=== PATIENT | female | born 1945 | race Caucasian/White ===

== ENCOUNTER → 2017-06-16 07:05 | Outpatient (CLI) | payer MEDICARE, OTHER, SELFPAY ==
--- NOTE | 2017-06-16 07:08 | MRI_ITS ---
STUDY: MRI LEFT SHOULDER REASON FOR EXAM: Female, 71 years old. Painful movement of the left shoulder following a fall. Injury TECHNIQUE: Standardized fat and water weighted pulse sequences were obtained in all 3 orthogonal planes. COMPARISON: X-rays of the left shoulder on May 11, 2017. FINDINGS: There is a full-thickness tear of the supraspinatus and infraspinatus tendons with tendon retraction to the level of the glenohumeral joint measuring approximately 3.5 cm in diameter (coronal T2 series 6 image 10). Normal subscapularis tendon. Normal teres minor tendon. There is 50% fatty muscular atrophy of the supraspinatus muscle (Goutallier Stage III). There is 50% fatty muscular atrophy of the infraspinatus muscle (Goutallier Stage III). There is a low-grade myofascial strain of the infraspinatus muscle. Normal subscapularis muscle. Normal teres minor muscle. There is a moderate volume joint effusion of the glenohumeral joint. There is decreased acromiohumeral distance Normal humeral head and visualized proximal humerus. Normal biceps labral complex. There is tendinosis of the intracapsular long biceps tendon. Normal labrum. Normal capsulo- ligamentous complex. Normal rotator interval. There is moderate arthrosis of the acromioclavicular articulation. There is a Type II morphology (curved), with a neutral orientation. There is fluid distention of the subacromial-subdeltoid bursa, which communicates with the glenohumeral joint, through a rotator cuff tear. Normal visualized coracohumeral and coracoacromial ligaments. Normal quadrilateral space. Normal axillary space. Normal deltoid muscle. Normal trapezius muscle. MRI/Upper Ext Joint Only(Routine) IMPRESSION: Massive full-thickness retracted tear of the supraspinatus and infraspinatus tendons with muscular atrophy. Low-grade myofascial strain of the infraspinatus muscle. Mild tendinosis of the intracapsular segment of the long biceps tendon Joint effusion with fluid extending into the subacromial subdeltoid bursa through the rotator cuff tear. Moderate arthrosis of the acromioclavicular joint. Electronically Signed: Guido Trinh MD, FACR at 8:31 EST , Service support ,
== END ==
PROVIDERS: Family Provider Nurse Practitioner Family; PCP Nurse Practitioner Family; Visit Provider Orthopaedic Surgery
DX: M25.512 Pain in left shoulder (principal)
CPT/HCPCS: 73221

== ENCOUNTER 2017-06-19 08:30 | Outpatient (RCR) | payer MEDICARE, OTHER, SELFPAY ==
--- NOTE | 2017-05-22 08:57 | HP.PTEVAL_ITS ---
Patient's Visit Information KEM CHOUDHURY is a 71 year old F referred to Physical Therapy by DO AISHA Riggins with a diagnosis of L rot cuff tear. Date of Evaluation: 05/22/17 Physical Therapist: Miller Armenta, PT, - Visit Plan Frequency: 2x /Week Duration: 6 Weeks Plan: L shoulder strengthening (rot cuff), scap stab ex's, UBE, and HEP. CP/US for pain - Subjective Subjective: Pt reports she fell on the ice over a week ago which resulted in severe L shoulder pain. Pt reports she was unable to lift her arm, so she went straight to the ER. Pt reports they took xrays which revealed no Fx, but a rot cuff tear. Pt reports she was in a sling until 2 days ago. Pt reports the pain has eased a little from wearing the sling, but she is still in a lot of pain.. No prior L shoulder injuries. No T or N in L UE. No sleep diff secondary to pain. Pt is R hand dominant. 0/10 pain at rest, 9/10 at worst (with movement after taking the sling off) - Pain L shoulder Pain Intensity (Out of 10): 0 Pain Intensity Range: 9 - Objective Neuro: B UE sensation is WNL to light touch. B biceptital reflex= 2/3. Palpation: Pt is very tender on the lateral aspect of L shoulder near supraspinatus insertion. No obvious deformity present at this time. ROM: R shoulder flex= 175, abd= 155, ER= 55, ER WNL; L shoulder flex= 55, abd= 55, ER= 25, IR severely limited. MMT: R shoulder 5/5 throughout. L shoulder 2-/5 throughout and painful with all testing. Special testing: positive empty can test - Goals Goal 1:: Decrease L shoulder pain to aid with driving Goal Time Frame: 4-6 Weeks Goal 2:: Increase L shoulder flex and abd ROM x 50 degrees to aid with overhead lifting Goal Time Frame: 4-6 Weeks Goal 3:: Increase L shoulder strength x 1 grade to aid with IADL's Goal Time Frame: 4-6 Weeks Goal 4:: I with HEP Goal Time Frame: 4-6 Weeks - Rehabilitation Potential Physical Therapy Diagnosis: L shoulder pain, weakness, and limited ROM secondary to a L rot cuff tear. Rehabilitation Potential: Good - Anticipated Interventions Patient/Client Instruction: Educate patient on: Condition, Plan of Care For the Purpose of:: To improve self management Therapeutic Exercise to Include: Strength training, Body mechanics, Postural training, Passive ROM, Active ROM, Scapular Strength/Stabilization For the Purpose of:: To decrease pain, To increase ROM, To improve muscle performance and motor function Cryotherapy (ice pack, ice massage): Yes Ultrasound (thermal/non thermal): Yes For the Purpose of:: To decrease pain Thank you for the opportunity to evaluate your patient. For Medicare and Medicare HMO plans, please review the plan of care and approve it. It will need to be FAXED BACK to us at [phone] for Medicare purposes. Please let me know if there are questions or concerns regarding this plan of care. Physician Signature: Date:
--- NOTE | 2017-07-01 07:54 | HP.PT.NRP ---
HP - Discharge Summary (1) - Patient Information KEM CHOUDHURY was seen in my office for initial evaluation on 05/22/17. The following Plan of Care was established for this patient: Initial Frequency: 2x /Week Initial Duration: 6 Weeks - Anticipated Interventions Patient/Client Instruction: Educate patient on: Condition, Plan of Care For the Purpose of:: To improve self management Therapeutic Exercise to Include: Strength training, Body mechanics, Postural training, Passive ROM, Active ROM, Scapular Strength/Stabilization For the Purpose of:: To decrease pain, To increase ROM, To improve muscle performance and motor function Cryotherapy (ice pack, ice massage): Yes Ultrasound (thermal/non thermal): Yes For the Purpose of:: To decrease pain This patient was last seen in our office . Pertinent comments regarding their Physical therapy will appear below: Pt phoned the clinic on the date 06/25/17 to report she is having surgery and wanted to cancel her remaining appointments. At this point I will be discontinuing this patient from physical therapy. I would be happy to see this patient again in the future if found appropriate by the physician. Thank you! Miller Armenta, PT,
== END 2017-06-19 19:00 | disposition home or self-care (01) ==
LOC: PT 08:30
PROVIDERS: Family Provider Nurse Practitioner Family; PCP Nurse Practitioner Family; Visit Provider Orthopaedic Surgery
DX: M75.102 Unspecified rotator cuff tear or rupture of left shoulder, not specified as traumatic (principal)
CPT/HCPCS: 97110; 97161

== ENCOUNTER 2017-07-14 08:46 | Day surgery (SDC) | payer MEDICARE, OTHER, SELFPAY ==
--- NOTE | 2017-07-09 08:43 | EKG12_ITS ---
Test Reason : PRE OP Blood Pressure : / mmHG Vent. Rate : 078 BPM Atrial Rate : 078 BPM P-R Int : 162 ms QRS Dur : 076 ms QT Int : 376 ms P-R-T Axes : 056 072 036 degrees QTc Int : 428 ms Normal sinus rhythm ST abnormality, possible digitalis effect Abnormal ECG Confirmed by JUDY TOBIN, ELEUTERIO ([id number]), makeup editor ELA SHERMAN ([id number]) on 07/13/2017 1:58:43 PM Referred By: Owen Wolef Confirmed By:ELEUTERIO KIM MD
[2017-07-09 09:28] LABS: Hematocrit 46.7 % (37-47); Hemoglobin 15.2 g/dl (12.0-15.0); Mean Corp Hgb Conc 32.5 g/gl (32-36); Mean Corpuscular Hgb 29.8 pg (27.0-32.0); Mean Corpuscular Volume 91.6 fL (81-99); Mean Platelet Vol. 10.3 fl (6.2-12.0); Platelet Count 350 K/mm3 (150-450); RBC Distribution Width CV 14.3 % (11.6-14.6); RBC Distribution Width SD 48.6 fl (35.1-43.9); White Blood Count 8.7 K/mm3 (4.4-11.0)
[2017-07-09 09:30] LABS: Scan Indicated on CBC? Y/N NO
[2017-07-09 09:56] LABS: Anion Gap 8 (5-15); BUN 21 mg/dL (7-18); BUN/Creat Ratio 25.1 RATIO (10-20); Chloride 106 mmol/L (98-107); Creatinine, Serum 0.84 mg/dL (0.55-1.02); EST Glomerular Filtration Rate 72 mL/min (>60); Est Glom Filt Rate - Afr Amer 87 mL/min (>60); Glucose 89 mg/dL (74-106); Potassium 4.3 mmol/L (3.5-5.1); Sodium Level 140 mmol/L (136-145)
[2017-07-14] VITALS (7 sets, daily range): BP systolic 119–140; BP diastolic 61–78; PULSE 70–89; RESP 14–18; TEMP 35.8–37.2; O2SAT 93–99; BMI 33.2
--- NOTE | 2017-07-14 09:16 | DCINST_ITS ---
Discharge Activity: Return to Normal Activity, May not drive while taking narcotic pain medications., May Shower May shower in (days): 2 Ice area for (Minutes): 20 Weight Bearing Status: No weight bearing Lifting Restrictions: No lifting Additional Activity Instructions:: Patient may flex and extend elbow ad shayne. No active lifting of the arm. Command button-down shirts if able. Sling 24 7 except bathing. Call your doctor if your incision/area has: Continuous Slow Oozing, Sudden Increased Bleeding, Increased Pain/ Swelling, Increased Redness, Foul Smelling Discharge, Swelling at the incision site Call your doctor if you observe: Fever of 101 or Higher, Coldness, Increased Pain, Numbness or Tingling, Change in Color, Inability to urinate, Inability to have a bowel movement, Using more than one pad per hour, Shortness of breath, Dizziness, Fainting spells, Swelling in the ankles, Chest pain, Prolonged hiccoughing, Increased palpitations (irregular heartbeat), Calf discomfort, Uncontrolled pain Suture Line Care: Avoid Pulling/Pushing, Avoid Pinching/Bending Change Dressing in (Days):: 2 Remove Dressing in (days):: 2 Cleanse incision/area with: Soap & Water Additional Dressing/Incision Instructions:: Replace dressing with simple Band- Aids as needed. Allergies/Adverse Reactions: Allergies vancomycin Allergy (Severe, Verified 06/24/17 10:24) Rash DIFFICULTY BREATHING prednisone Adverse Reaction (Unknown, Verified 06/24/17 10:24) TACHYCARDIA TACHYCARDIA codeine Adverse Reaction (Verified 06/24/17 10:24) ABD PAIN ABDOMINAL PAIN ANESTHESIA MED Allergy (Uncoded 05/11/17 06:55) DIFFICULT TIME WAKING UP Medications to take at Discharge Calcium 1 tab PO BID 01/31/13 Lisinopril [Zestril] 5 mg PO DAILY 01/31/13 ibuprofen 200 mg tablet 600 mg PO PRN PRN tab 06/24/17 Docusate Sodium [Colace] 100 mg PO BID PRN PRN #10 cap 07/14/17 Oxycodone HCl/Acetaminophen [Percocet 5/325] 1 - 2 tablet PO Q4H PRN PRN #60 tablet 07/14/17 ProMETHAzine [Phenergan] 25 mg PO Q4H PRN PRN #10 tab 07/14/17 The following prescriptions were given: Oxycodone HCl/Acetaminophen [Percocet 5/325] 1 - 2 tablet PO Q4H PRN PRN #60 tablet PRN Reason: Pain ProMETHAzine [Phenergan] 25 mg PO Q4H PRN PRN #10 tab PRN Reason: Nausea Docusate Sodium [Colace] 100 mg PO BID PRN PRN #10 cap PRN Reason: Constipation Primary Care Physician: Amilcar Gaytan [Primary Care Provider] - Please Follow Up With: Owen Wolfe DO When: call [facility] for appt for 2 weeks Proposed Discharge Date: 07/14/17
[2017-07-14] MEDS: Cefazolin 2 GM in 0.9% Normal Saline 100 ML IV (10:03)
[2017-07-14] MEDS: Ketorolac 15 MG/ML Vial IV (11:49)
--- NOTE | 2017-07-15 07:36 | PCM.IMDPSTOP ---
Immediate Post-Op Note Date of Procedure: 07/15/17 Primary Surgeon/Physician: Owen Wolfe DO midwife [facility] owner: NONE Pre-Operative Diagnosis: Left shoulder massive rotator cuff tear subacromial impingement Post-Operative Diagnosis: Same as above Surgery/Procedure Performed:: Left shoulder arthroscopy extensive rotator cuff debridement and subacromial decompression. Description of Surgical Findings:: See dictation Estimated Blood Loss: 10 Specimen's removed: None Type of Anesthesia:: General/Regional ASA Class: ASA2 Mod Systematic Disease - Admit VTE Documentation VTE Present on Admission: No VTE Mechan Device Prophylaxis: SCD's, Knee High MILAGROS Hose VTE Pharm Prophylaxis ordered?: No Reason prophylaxis not ordered:: Treatment Not Indicated
--- NOTE | 2017-07-15 07:37 | PCM.OPRPT ---
Report of Operation Date of Procedure: 07/15/17 Pre-Operative Diagnosis: Left shoulder massive rotator cuff tear subacromial impingement Post-Operative Diagnosis: Same as above Surgery/Procedure Performed:: Left shoulder arthroscopy extensive rotator cuff debridement and subacromial decompression. Description of Surgical Findings:: 71-year-old female with recalcitrant left shoulder pain that failed nonoperative management to include NSAIDs activity medications physical therapy and injections. Patient had an MRI that showed a massive retracted rotator cuff tear to the supraspinatus and infraspinatus. Patient had an acute falls there was concern initially that was an acute episode and perhaps mobilized the tendon could be repaired. Patient was counseled that the tendon was not repairable then recommendation would be for reverse total shoulder arthroplasty in a staged procedure. After appropriate counseling sent patient agreed to the aforementioned procedure. She is met in the holding area the left upper extremity was marked and identified with surgeon. Patient was taken the operating room in satisfactory condition with somewhat to place 25 patient up procedure and limb. Patient received 2 g of Ancef. Patient was placed into the beachchair position with all bony and soft tissue prominences protected. Her head was in a fine neutral position. She was then prepped and draped in usual fashion. The arm was placed into a three-dimensional arm tejada. Posterior portal was established and we entered into the intra-articular space. It was easy to see the patient had a massive cuff tear with a bald humeral head essentially but had also torn most likely at the musculotendinous junction as there was still insertion of the tendon moving from the articular margins laterally for the infraspinatus to its lateral insertion site. The supraspinatus was completely retracted over top of the glenoid was significantly scarred. Patient had somewhat posterior capsular disruption as well. The overall labral tissue was intact as was the biceps tendon which was flattened probably indicative of the chronic nature of the disease. This was provided also probably providing some degree of humeral head depression. Her subscapularis however was otherwise normal. At that point time the scope was retracted and we moved in the subacromial space established a lateral portal and a posterior lateral working portal start performing a significant subacromial bursectomy and rotator cuff debridement. Made an attempt to immobilize the tissue wondering if this was just a large retracted L type tear pattern however the tissue was significantly attenuated and friable with mobilization. Again it would appear that most of the tearing was at the musculotendinous junction which would not allow for a successful repair. Standard subacromial decompression was then undertaken. I preserve the biceps at this point time in case the patient does not desire to have a reverse total shoulder arthroplasty. Upon completion of the bursectomy and subacromial decompression scope was retracted and the portal sites were closed with 3-0 nylon. She was dressed in usual fashion with Xeroform 4 x 4's ABDs and Medipore tape and placed into a simple sling. I was scrubbed and available time during our procedure. There is no drains or complications we had no implants. health therapist: NONE Type of Anesthesia:: General/Regional Specimen's removed: None Estimated Blood Loss (mL): 10 Grafts/Implants Used: None - Admit VTE Documentation VTE Present on Admission: No VTE Mechan Device Prophylaxis: SCD's, Knee High MILAGROS Hose VTE Pharm Prophylaxis ordered?: No
== END 2017-07-14 12:58 | disposition home or self-care (01) ==
LOC: SDC 08:47 → AC 08:47
PROVIDERS: Family Provider Nurse Practitioner Family; PCP Nurse Practitioner Family; Visit Provider Orthopaedic Surgery
PROC: (CPT 29827; principal; 2017-07-14 11:05)
DX: M75.122 Complete rotator cuff tear or rupture of left shoulder, not specified as traumatic (principal); M75.42 Impingement syndrome of left shoulder; I10 Essential (primary) hypertension; I07.1 Rheumatic tricuspid insufficiency
CPT/HCPCS: 01630; 29823; 36415; 80048; 85027; 93005; J7120; J2405

== ENCOUNTER → 2018-04-01 16:27 | Outpatient (CLI) | payer MEDICARE, OTHER, SELFPAY ==
[2017-07-14 09:08] VITALS: BMI 33.2
--- NOTE | 2018-04-01 09:06 | COLBX_PTH ---
PATIENT: KEM CHOUDHURY LOC: [facility] U#:[id number] AGE/SX: 79/F ROOM: RE04/01/[address]: Dr. Sandeep Sanchez MD : [id number] BED: DIS: SPEC #: [id number] RECD: 04/01/18 15:27 STATUS: ROMAN BA #: [id number] ADOLFO: 04/01/18 09:[address]: Sandeep Sanchez DEPT: SURGICAL PATHOLOGY RECD BY: Amilcar Tovar ENTERED: 04/02/18 08:03 SP TYPE: COLON BX OTHR DR: TRAVIS Tissues: COLON BIOPSY Procedures: Surgery Specimen Level IV HEADER OPERATION: Colonoscopy with polypectomy PRE-OP DIAGNOSIS: Screening TISSUE SUBMITTED: Polyp hepatic flexure, rule out adenoma MICROSCOPIC DIAGNOSIS Polyp, hepatic flexure, polypectomy: Fragments of tubular adenoma. SJ:renee 04/05/18 MICROSCOPIC DESCRIPTION Slides are reviewed. GROSS DESCRIPTION Received in fixative is one container labeled with the patient's name and designated polyp hepatic flexure. The specimen consists of a piece of mitchell-pink polyp measuring 0.8 x 0.5 x 0.3 cm. Also received are two pieces of mitchell soft tissue measuring in aggregate 0.2 x 0.2 x 0.1 cm. The specimen is totally submitted in one cassette. / SJ:renee 04/02/18 TC:1 CPT: 04862
--- OUTSIDE RECORDS SUMMARY | 2018-05-27 22:40 | XMS RPT_ITS ---
:1945 Author Organization OHIP Support Name Relationship Address Phone KEIYARIEL Unavailable [address] + [place] [address] R Unavailable Unavailable Unavailable RISING, NICKO Unavailable [address] + [place] [address] KEI, YARIEL Unavailable [address] + [place] [address] R Unavailable Unavailable Unavailable RISING, NICKO Unavailable [address] + [place] [address] KEI, YARIEL Unavailable [address] + [place] [address] R Unavailable Unavailable Unavailable RISING, NICKO Unavailable [address] + [place] [address] KEI, YARIEL Unavailable [address] + [place] [address] R Unavailable Unavailable Unavailable RISING, NICKO Unavailable [address] + [place] [address] KEI, YARIEL Unavailable [address] + [place] [address] R Unavailable Unavailable Unavailable RISING, NICKO Unavailable [address] + [place] [address] KEI, YARIEL Unavailable [address] + [place] [address] R Unavailable Unavailable Unavailable RISING, NICKO Unavailable [address] + [place] [address] KEI, YARIEL Unavailable [address] + [place] [address] R Unavailable Unavailable Unavailable RISING, NICKO Unavailable [address] + [place] [address] KEI, YARIEL Unavailable [address] + [place] [address] KEI, YARIEL Unavailable [address] + [place] [address] KEI, YARIEL Unavailable [address] + [place] [address] R Unavailable Unavailable Unavailable RISING, NICKO Unavailable [address] + [place] [address] KEI, YARIEL Unavailable [address] + [place] [address] R Unavailable Unavailable Unavailable RISING, NICKO Unavailable [address] + [place] [address] KEI, YARIEL Unavailable [address] + [place] [address] R Unavailable Unavailable Unavailable RISING, NICKO Unavailable [address] + [place] [address] KEI, YARIEL Unavailable [address] + [place] [address] R Unavailable Unavailable Unavailable RISING, NICKO Unavailable [address] + [place] [address] KEI, YARIEL Unavailable [address] + [place] [address] R Unavailable Unavailable Unavailable RISING, NICKO Unavailable [address] + [place] [address] KEI, YARIEL Unavailable [address] + [place] [address] R Unavailable Unavailable Unavailable RISING, NICKO Unavailable [address] + [place] [address] Care Team Providers Name Role Phone AMILCAR GAYTAN CNP Attending Unavailable AMILCAR GAYTAN CNP Primary Care Unavailable AMILCAR GAYTAN Primary Care Unavailable Gunner Garcia Attending Unavailable Owen Wolfe Attending Unavailable AMILCAR GAYTAN Referring Unavailable AMILCAR GAYTAN Primary Care Unavailable Owen Wolfe Attending Unavailable Owen Wolfe Referring Unavailable AMILCAR GAYTAN Primary Care Unavailable Owen Wolfe Attending Unavailable AMILCAR GAYTAN Referring Unavailable AMILCAR GAYTAN Primary Care Unavailable Owen Wolfe Attending Unavailable Owen Wolfe Referring Unavailable AMILCAR GAYTAN Primary Care Unavailable Owen Wolfe Attending Unavailable AMILCAR GAYTAN Referring Unavailable SENA, AMILCAR Primary Care Unavailable Aiden, Owen Attending Unavailable Aiden, Owen Referring Unavailable SENA, AMILCAR Primary Care Unavailable Aiden, Owen Attending Unavailable Aiden, Owen Referring Unavailable SENA, AMILCAR Primary Care Unavailable Aiden, Owen Consulting Unavailable Aiden, Owen Attending Unavailable SENA, AMILCAR Referring Unavailable SENA, AMILCAR Primary Care Unavailable Marcus, Moran Attending Unavailable Aiden, Owen Referring Unavailable Aiden, Owen Attending Unavailable SENA, AMILCAR Referring Unavailable SENA, AMILCAR Primary Care Unavailable Aiden, Owen Attending Unavailable SENA, AMILCAR Referring Unavailable Jaflores, Sandeep Attending Unavailable Jaflores, Sandeep Referring Unavailable PROBLEMS PROBLEMS DATE TYPE CONDITION / CODE ATTENDING STATUS SOURCE 07/31/2017 Unknown R94.31 - Abnormal Marcus, Moran Active [facility] [ECG] [EKG] / Hospital R94.31(ICD-10) Repository 10/15/2017 Unknown M75.102 - Unspecified Owen Wolfe Active [facility] rotator cuff tear or Community rupture of left Hospital shoulder, not Repository specified as traumatic / M75.102(ICD-10) 10/15/2017 Unknown M75.42 - Impingement Owen Wolfe Active [facility] syndrome of left Community shoulder / Hospital M75.42(ICD-10) Repository 10/15/2017 Unknown M75.122 - Complete Aiden, Owen Active [facility] rotator cuff tear or Community rupture of left Hospital shoulder, not Repository specified as traumatic / M75.122(ICD-10) 05/30/2017 Unknown M75.120 - Complete Garcia, Gunner Active [place] rotator cuff tear or Community rupture of unspecified Hospital shoulder, not Repository specified as traumatic / M75.120(ICD-10) PROCEDURES PROCEDURES No Procedure Records FoundRESULTS RESULTS COLON BIOPSY (CHOOSE Observed: 04/01/2018 Status: F Source: [place] SITE) 9:06 AM [facility] REPOSITORY Patient: KEM CHOUDHURY : 1945 (72/F) Acct Num: [id number] Phys: Sandeep Sanchez Unit Num: [id number] Loc: LABSPEC Specimen: [id number] Received: 04/01/187 Spec Type: COLON BX TISSUES 1 TISSUES: COLON BIOPSY GROSS DESCRIPTION Received in fixative is one container labeled with the patient's name and designated polyp hepatic flexure. The specimen consists of a piece of mitchell- pink polyp measuring 0.8 x 0.5 x 0.3 cm. Also received are two pieces of mitchell soft tissue measuring in aggregate 0.2 x 0.2 x 0.1 cm. The specimen is totally submitted in one cassette. / DEV:renee 04/02/18 TC:1 CPT: 24566 HEADER OPERATION: Colonoscopy with polypectomy PRE-OP DIAGNOSIS: Screening TISSUE SUBMITTED: Polyp hepatic flexure, rule out adenoma MICROSCOPIC DESCRIPTION Slides are reviewed. MICROSCOPIC DIAGNOSIS Polyp, hepatic flexure, polypectomy: Fragments of tubular adenoma. DEV:renee 04/05/18 Signed Aaron Singh 04/05/18 <signature on file> Performed By: #### PCOLBX #### [facility] [address] [place], [address] ORTHOPEDIC VISIT Observed: 10/30/2017 Status: F Source: [place] REPORT 11:07 AM [facility] REPOSITORY [facility] [address] [place] [address] OFFICE VISIT Date of Service: 10/21/17 MR#: [id number] Acct: [id number] Name: KEM CHOUDHURY Rep #: [id number] : 1945 Provider: Owen Wolfe DO Age/Sex: 72/F Location: [facility] [place].[facility] [place] Status: Signed Intake Intake Visit Reasons: LEFT SHOULDER Is patient in pain?: Yes Allergies vancomycin Allergy (Severe, Verified 08/26/17 08:17) Rash prednisone Adverse Reaction (Unknown, Verified 08/26/17 08:17) TACHYCARDIA codeine Adverse Reaction (Verified 08/26/17 08:17) ABD PAIN ANESTHESIA MED Allergy (Uncoded 05/11/17 06:55) DIFFICULT TIME WAKING UP Medications Calcium 1 tab PO BID 01/31/13 [History Confirmed 07/07/17] Lisinopril [Zestril] 5 mg PO DAILY 01/31/13 [History Confirmed 07/07/17] PFSH Surgical History History of arthroscopy of left shoulder (Acute) H/O breast biopsy (Inactive) History of partial hysterectomy (Inactive) S/P cholecystectomy (Inactive) s/p heart (Inactive) Family History Mother Hypertension Heart disease Father Hypertension Social History Smoking Status: Never smoker HPI LEFT SHOULDER: Details: KEM CHOUDHURY is a 72 year old F here today for 07/14/17 left RTC repair. She is no longer doing PT, is able to complete all ADLs but still complains of weakness and pain with extension or IR. She states that she struggles with having something in her hand and reaching out, like with a coffee mug. Denies numbness, tingling or other associated symptoms. [place] Musc Reports joint pain, Reports limited joint movement, Reports as per HPI Ortho Exam Left Shoulder SHOULDER: Patient otherwise alert oriented 3 no acute distress. Appropriate eye contact and affect. She remains intact from the C5-T2 distributions. She has positive pulses. No extra adenopathy. Patient remains with global weakness around the shoulder but her shoulder remained supple. She is able only active forward elevate to roughly 110 at best passively she remains full. Patient has a known history of a massive irreparable rotator cuff tear Assessment AND Plan Problems 1. Orthopedic aftercare Z47.89 Plan Assessment: After orthopedic status post left shoulder scope and cuff debridement due to a irreparable massive rotator cuff tear. Plan: This point time I discussed again the patient's surgical options. Those include a reverse total shoulder arthroplasty which would be an open procedure. I described this to the patient. She was somewhat confused by the approach to get to the shoulder but once a shoulder model and reiterated what the procedure would be she has better understanding. At this point time will refer the patient to the [facility] for continued care if the patient does not want to needing a reverse total shoulder. Patient can continue with conservative management. Any major issues return. Coding Level of Care Code Global Post Op Diagnoses Orthopedic aftercare Z47.89 10/30/17 1107 <Electronically signed by Owen Wolfe DO> Date Owen Wolfe DO Cosigner Signature: Date (if applicable) CC: ORTHOPEDIC VISIT Observed: 09/07/2017 Status: F Source: [place] REPORT 7:54 AM [facility] REPOSITORY [facility] [address] [place] [address] [address] [place] [address] OFFICE VISIT Date of Service: 08/26/17 MR#: [id number] Acct: [id number] Name: KEM CHOUDHURY Rep #: [id number] : 1945 Provider: Owen Wolfe DO Age/Sex: 72/F Location: [facility] [place].[facility] [place] Status: Signed Intake Intake Visit Reasons: LEFT SHOULDER Is patient in pain?: No Allergies vancomycin Allergy (Severe, Verified 08/26/17 08:17) Rash prednisone Adverse Reaction (Unknown, Verified 08/26/17 08:17) TACHYCARDIA codeine Adverse Reaction (Verified 08/26/17 08:17) ABD PAIN ANESTHESIA MED Allergy (Uncoded 05/11/17 06:55) DIFFICULT TIME WAKING UP Medications Calcium 1 tab PO BID 01/31/13 [History Confirmed 07/07/17] Lisinopril [Zestril] 5 mg PO DAILY 01/31/13 [History Confirmed 07/07/17] PFSH Surgical History History of arthroscopy of left shoulder (Acute) H/O breast biopsy (Inactive) History of partial hysterectomy (Inactive) S/P cholecystectomy (Inactive) s/p heart (Inactive) Family History Mother Hypertension Heart disease Father Hypertension Social History Smoking Status: Never smoker HPI LEFT SHOULDER: Details: KEM CHOUDHURY is a 72 year old F here today for s/p left shoulder scope, dos 07/14/17. Patient notes that her shoulder is better and improving. Her range of motion and strength is improving, although she continues to have limited range of motion. She is not currently in physical therapy. Denies numbness, tingling or other associated symptoms. [place] Const Reports system reviewed and no additional complaints, except as docu Eyes Reports system reviewed and no additional complaints, except as docu ENT Reports system reviewed and no additional complaints, except as docu Card Reports system reviewed and no additional complaints, except as docu Resp Reports system reviewed and no additional complaints, except as docu GI Reports system reviewed and no additional complaints, except as docu Reports system reviewed and no additional complaints, except as docu Musc Reports limited joint movement, Reports stiffness Skin/Breast Reports system reviewed and no additional complaints, except as docu Neuro Yes system reviewed and no additional complaints, except as docu Psych Reports system reviewed and no additional complaints, except as docu Endo Reports system reviewed and no additional complaints, except as docu Ortho Exam Left Shoulder SHOULDER: Patient is alert oriented 3 in no acute distress. Appropriate eye contact and affect. Otherwise intact from C5-T2 distributions. She has positive pulses. Patient still has active range of motion only 90 her external rotation power is 4/5 for elevation and abduction strength at initiation is still limited at 3+4+/5. Passively range of motion is otherwise full. in the context of Assessment AND Plan Problems 1. Orthopedic aftercare Z47.89 Plan Assessment: After orthopedic status post left shoulder arthroscopy debridement for massive rotator cuff tear. Plan: This point time patient 6 weeks out I told her that surgical intervention is a reverse total shoulder arthroplasty at this point time. Patient wants to hold off. She will discuss with family about what at this point. I told her she has increasing pain and feels her weakness continues to be problematic that is her intervention of choice. I will see her back 6 weeks as needed. Any major issues Coding Level of Care Code Global Post Op Diagnoses Orthopedic aftercare Z47.89 09/07/17 0754 <Electronically signed by Owen Wolfe DO> Date Owen Wolfe DO Cosigner Signature: Date (if applicable) CC: ORTHOPEDIC VISIT Observed: 08/02/2017 Status: F Source: [place] REPORT 10:20 AM [facility] REPOSITORY [facility] [address] [place] [address] OFFICE VISIT Date of Service: 07/29/17 MR#: [id number] Acct: [id number] Name: KEM CHOUDHURY Rep #: [id number] : 1945 Provider: Owen Wolfe DO Age/Sex: 72/F Location: [facility] [place] [place] Status: Signed Intake Intake Visit Reasons: left shoulder Is patient in pain?: No Allergies vancomycin Allergy (Severe, Verified 07/29/17 08:30) Rash prednisone Adverse Reaction (Unknown, Verified 07/29/17 08:30) TACHYCARDIA codeine Adverse Reaction (Verified 07/29/17 08:30) ABD PAIN ANESTHESIA MED Allergy (Uncoded 05/11/17 06:55) DIFFICULT TIME WAKING UP Medications Calcium 1 tab PO BID 01/31/13 [History Confirmed 07/07/17] Lisinopril [Zestril] 5 mg PO DAILY 01/31/13 [History Confirmed 07/07/17] PFSH Surgical History History of arthroscopy of left shoulder (Acute) H/O breast biopsy (Inactive) History of partial hysterectomy (Inactive) S/P cholecystectomy (Inactive) s/p heart (Inactive) Family History Mother Hypertension Heart disease Father Hypertension Social History Smoking Status: Never smoker HPI left shoulder: Details: KEM CHOUDHURY is a 72 year old F here today for f/u left shoulder scope 07/14/17. She presents in simple sling and states she has very little pain, she is removing her sling for elbow rom due to some finger numbness but has remained in the sling at all times otherwise. She is no longer taking any pain meds. [place] Musc Reports limited joint movement, Reports stiffness, Reports tingling, Reports as per HPI Neuro Yes tingling Ortho Exam Left Shoulder Skin/Wound: Yes CDI, Yes suture/arianna removed, Yes wound cleaned, Yes healed, No ecchymosis Contralateral Normal: Yes SHOULDER: Alert and oriented 3 in no acute distress. Appropriate eye contact and affect. Otherwise intact from C5 to the T2 distributions. Patient continues show a pseudoparalysis of the shoulder secondary to her massive rotator cuff pathology. Incisions are clean dry and intact. No signs of erythema sutures removed Steri-Strips were applied. Intraoperative findings discussed. Assessment AND Plan Problems 1. Orthopedic aftercare Z47.89 Plan Assessment: After orthopedics status post left shoulder arthroscopy rotator cuff debridement subacromial decompression. Plan: At this point time I told the patient that she had a massive irreparable cuff tear that she had torn more or less the musculotendinous junction had retracted completely back to the glenoid. Despite my efforts to do and mobilize rotator cuff I was unable. The biceps tendon is still intact providing some depressive affect but really the patient requires a reverse total shoulder arthroplasty at this point time. I explained the patient what the surgery was what it would entail and at this point time patient is going to talk with family decide how they want to proceed. We will see the patient back in 4 weeks for follow-up to her left shoulder in terms of routine examination otherwise continue to work on range of motion exercises to prevent any adhesions. She will then decide about operative intervention. Coding Level of Care Code Global Post Op Diagnoses Orthopedic aftercare Z47.89 08/02/17 1020 <Electronically signed by Owen Wolfe DO> Date Owen Wolfe DO Cosigner Signature: Date (if applicable) CC: OPERATIVE REPORT Observed: 07/15/2017 Status: F Source: [place] 7:40 AM [facility] REPOSITORY [facility] Medical Records Department [address] [place] [address] Operative Report 07/15/17 0737 MR#: [id number] Acct: [id number] Name: KEM CHOUDHURY Rep #: [id number] : 1945 71 From: Owen Wolfe DO PCP: Amilcar Gaytan Status: [facility] Location: [facility] [place] Report of Operation Date of Procedure: 07/15/17 Pre-Operative Diagnosis: Left shoulder massive rotator cuff tear subacromial impingement Post-Operative Diagnosis: Same as above Surgery/Procedure Performed:: Left shoulder arthroscopy extensive rotator cuff debridement and subacromial decompression. Description of Surgical Findings:: 71-year-old female with recalcitrant left shoulder pain that failed nonoperative management to include NSAIDs activity medications physical therapy and injections. Patient had an MRI that showed a massive retracted rotator cuff tear to the supraspinatus and infraspinatus. Patient had an acute falls there was concern initially that was an acute episode and perhaps mobilized the tendon could be repaired. Patient was counseled that the tendon was not repairable then recommendation would be for reverse total shoulder arthroplasty in a staged procedure. After appropriate counseling sent patient agreed to the aforementioned procedure. She is met in the holding area the left upper extremity was marked and identified with surgeon. Patient was taken the operating room in satisfactory condition with somewhat to place 25 patient up procedure and limb. Patient received 2 g of Ancef. Patient was placed into the beachchair position with all bony and soft tissue prominences protected. Her head was in a fine neutral position. She was then prepped and draped in usual fashion. The arm was placed into a three-dimensional arm tejada. Posterior portal was established and we entered into the intra-articular space. It was easy to see the patient had a massive cuff tear with a bald humeral head essentially but had also torn most likely at the musculotendinous junction as there was still insertion of the tendon moving from the articular margins laterally for the infraspinatus to its lateral insertion site. The supraspinatus was completely retracted over top of the glenoid was significantly scarred. Patient had somewhat posterior capsular disruption as well. The overall labral tissue was intact as was the biceps tendon which was flattened probably indicative of the chronic nature of the disease. This was provided also probably providing some degree of humeral head depression. Her subscapularis however was otherwise normal. At that point time the scope was retracted and we moved in the subacromial space established a lateral portal and a posterior lateral working portal start performing a significant subacromial bursectomy and rotator cuff debridement. Made an attempt to immobilize the tissue wondering if this was just a large retracted L type tear pattern however the tissue was significantly attenuated and friable with mobilization. Again it would appear that most of the tearing was at the musculotendinous junction which would not allow for a successful repair. Standard subacromial decompression was then undertaken. I preserve the biceps at this point time in case the patient does not desire to have a reverse total shoulder arthroplasty. Upon completion of the bursectomy and subacromial decompression scope was retracted and the portal sites were closed with 3-0 nylon. She was dressed in usual fashion with Xeroform 4 x 4's ABDs and Medipore tape and placed into a simple sling. I was scrubbed and available time during our procedure. There is no drains or complications we had no implants. assistant merchandiser: NONE Type of Anesthesia:: General/Regional Specimen's removed: None Estimated Blood Loss (mL): 10 Grafts/Implants Used: None - Admit VTE Documentation VTE Present on Admission: No VTE Mechan Device Prophylaxis: SCD's, Knee High MILAGROS Hose VTE Pharm Prophylaxis ordered?: No 07/15/17 0740 <Electronically signed by Owen Wolfe DO> Date Owen Wolfe DO CC: Owen Wolfe DO; Amilcar Gaytan Signed DISCHARGE INSTRUCTION Observed: 07/14/2017 Status: F Source: [place] 9:16 AM [facility] REPOSITORY [facility] Medical Records Department [address] [facility] [place] [place] [address] Instructions for Home/Discharge Instructions 07/14/17 0914 MR#: [id number] Acct: [id number] Name: KEM CHOUDHURY Rep #: [id number] : 1945 71 From: Owen Wolfe DO PCP: Amilcar Gaytan Status: REG [facility] Discharge Activity: Return to Normal Activity, May not drive while taking narcotic pain medications., May Shower May shower in (days): 2 Ice area for (Minutes): 20 Weight Bearing Status: No weight bearing Lifting Restrictions: No lifting Additional Activity Instructions:: Patient may flex and extend elbow ad shayne. No active lifting of the arm. Command button-down shirts if able. Sling 24 7 except bathing. Call your doctor if your incision/area has: Continuous Slow Oozing, Sudden Increased Bleeding, Increased Pain/ Swelling, Increased Redness, Foul Smelling Discharge, Swelling at the incision site Call your doctor if you observe: Fever of 101 or Higher, Coldness, Increased Pain, Numbness or Tingling, Change in Color, Inability to urinate, Inability to have a bowel movement, Using more than one pad per hour, Shortness of breath, Dizziness, Fainting spells, Swelling in the ankles, Chest pain, Prolonged hiccoughing, Increased palpitations (irregular heartbeat), Calf discomfort, Uncontrolled pain Suture Line Care: Avoid Pulling/Pushing, Avoid Pinching/Bending Change Dressing in (Days):: 2 Remove Dressing in (days):: 2 Cleanse incision/area with: Soap AND Water Additional Dressing/Incision Instructions:: Replace dressing with simple Band-Aids as needed. Allergies/Adverse Reactions: Allergies vancomycin Allergy (Severe, Verified 06/24/17 10:24) Rash DIFFICULTY BREATHING prednisone Adverse Reaction (Unknown, Verified 06/24/17 10:24) TACHYCARDIA TACHYCARDIA codeine Adverse Reaction (Verified 06/24/17 10:24) ABD PAIN ABDOMINAL PAIN ANESTHESIA MED Allergy (Uncoded 05/11/17 06:55) DIFFICULT TIME WAKING UP Medications to take at Discharge Calcium 1 tab PO BID 01/31/13 Lisinopril [Zestril] 5 mg PO DAILY 01/31/13 ibuprofen 200 mg tablet 600 mg PO PRN PRN tab 06/24/17 Docusate Sodium [Colace] 100 mg PO BID PRN PRN #10 cap 07/14/17 Oxycodone HCl/Acetaminophen [Percocet 5/325] 1 - 2 tablet PO Q4H PRN PRN #60 tablet 07/14/17 ProMETHAzine [Phenergan] 25 mg PO Q4H PRN PRN #10 tab 07/14/17 The following prescriptions were given: Oxycodone HCl/Acetaminophen [Percocet 5/325] 1 - 2 tablet PO Q4H PRN PRN #60 tablet PRN Reason: Pain ProMETHAzine [Phenergan] 25 mg PO Q4H PRN PRN #10 tab PRN Reason: Nausea Docusate Sodium [Colace] 100 mg PO BID PRN PRN #10 cap PRN Reason: Constipation Primary Care Physician: Amilcar Gaytan [Primary Care Provider] - Please Follow Up With: Owen Wolfe DO When: call [facility] Proposed Discharge Date: 07/14/17 07/14/17915 <Electronically signed by Owen Wolfe DO> Date Owen Wolfe DO CC: Amilcar Gaytan 12 LEAD ELECTROCARDIOGRAM Observed: 07/13/2017 Status: F Source: [place] 1:59 PM [facility] REPOSITORY [facility] Cardiovascular Services [address] [place] [address] 12 Lead EKG 07/09/17 0850 MR#: [id number] Acct: [id number] Name: KEM CHOUDHURY Rep #: [id number] : 1945 71 From: Alexandr Velazquez MD Attending Dr: Owen Wolfe DO Status: PRE SDC Ordering Dr: Owen Wolfe DO Date: 07/09/17 Location: [facility] [place] Sex: F C Admitted: Test Reason : PRE OP Blood Pressure : / mmHG Vent. Rate : 078 BPM Atrial Rate : 078 BPM P-R Int : 162 ms QRS Dur : 076 ms QT Int : 376 ms P-R-T Axes : 056 072 036 degrees QTc Int : 428 ms Normal sinus rhythm ST abnormality, possible digitalis effect Abnormal ECG Confirmed by MARCUS TOBIN, ALEXANDR ([id number]), manager editorial ELA SHERMAN ([id number]) on 07/13/2017 1:58:43 PM Referred By: Owen Wolfe Confirmed By:ALEXANDR VELAZQUEZ MD 07/13/17 1358 Date Alexandr Velazquez MD CC: Owen Wolfe DO; Amilcar Gaytan Signed CBC-COMPLETE BLOOD CNT Collected: 07/09/2017 Status: F Source: ROSS NO DIFF 8:36 AM [facility] REPOSITORY TYPE CODE TESTS RESULT OUT OF RANGE REFERENCE UNITS LAB L100.1000 4.4-11.0 K/mm3 Normal WBC 8.7 LAB L100.1200 4.2-5.4 M/mm3 Normal RBC 5.10 LAB L100.1300 12.0-15.0 g/dl High HGB 15.2 LAB L100.1400 37-47 % Normal HCT 46.7 LAB L100.1500 81-99 fL Normal MCV 91.6 LAB L100.1600 27.0-32.0 pg Normal MCH 29.8 LAB L100.1700 32-36 g/gl Normal MCHC 32.5 LAB L100.1810 11.6-14.6 % Normal RDW CV 14.3 LAB L100.1820 35.1-43.9 fl High RDW SD 48.6 LAB L100.1900 150-450 K/mm3 Normal PLT 350 LAB L100.2000 6.2-12.0 fl Normal MPV 10.3 Performed By: #### L100.0500 #### [facility] [address] [place], [address] BASIC METABOLIC Collected: 07/09/2017 Status: F Source: ROSS PROFILE (BMP) 8:36 AM [facility] REPOSITORY TYPE CODE TESTS RESULT OUT OF RANGE REFERENCE UNITS LAB L501.0100 74-106 mg/dL Normal GLU 89 Result Comment: Please note revised GLUCOSE reference range effective 2017. LAB L501.1000 7-18 mg/dL High BUN 21 LAB L501.1100 0.55-1.02 mg/dL Normal CREAT,SERUM 0.84 Result Comment: The validity of the calculated GFR AND GFRAA in patients over 70 years has not been determined. Clinical correlation is essential. LAB L501.1110 >60 mL/min Normal EST GFR 72 Result Comment: Non- GFR Calc LAB L501.1115 >60 mL/min Normal EST GFR - AA 87 Result Comment: GFR Calc LAB L501.1300 10-20 RATIO High BUN/CRE 25.1 LAB L501.2200 8.5-10.1 mg/dL CA Normal 9.0 LAB L501.5300 136-145 mmol/L NA Normal 140 LAB L501.5600 3.5-5.1 mmol/L K Normal 4.3 LAB L501.5900 98-107 mmol/L CL Normal 106 LAB L501.6100 21.0-32.0 mmol/L Normal CO2 26.0 LAB L501.6200 5-15 Normal GAP 8 Performed By: #### L500.2500 #### [facility] [address] [place], [place], [address] ORTHOPEDIC VISIT Observed: 06/26/2017 Status: F Source: ROSS REPORT 3:15 PM [facility] REPOSITORY [facility] [address] [place] [address] [address] [place] [address] OFFICE VISIT Date of Service: 06/24/17 MR#: [id number] Acct: [id number] Name: KEM CHOUDHURY Rep #: [id number] : 1945 Provider: Owen Wolfe DO Age/Sex: 71/F Location: [facility] [place].S[facility] Status: Signed Intake Intake Visit Reasons: LEFT SHOULDER Allergies vancomycin Allergy (Severe, Verified 06/24/17 10:24) Rash prednisone Adverse Reaction (Unknown, Verified 06/24/17 10:24) TACHYCARDIA codeine Adverse Reaction (Verified 06/24/17 10:24) ABD PAIN ANESTHESIA MED Allergy (Uncoded 05/11/17 06:55) DIFFICULT TIME WAKING UP Medications Calcium 1 tab PO BID 01/31/13 [History Confirmed 06/24/17] Lisinopril [Zestril] 5 mg PO DAILY 01/31/13 [History Confirmed 06/24/17] ibuprofen 200 mg tablet 600 mg PO PRN tab 06/24/17 [History Confirmed 06/24/17] PFSH Surgical History H/O breast biopsy (Inactive) History of partial hysterectomy (Inactive) S/P cholecystectomy (Inactive) s/p heart (Inactive) Family History Mother Hypertension Heart disease Father Hypertension Social History Smoking Status: Never smoker HPI LEFT SHOULDER: Details: KEM CHOUDHURY is a 71 year old F here today to discuss MRI results of left shoulder. She complains of intermittent lateral shoulder pain. She denies radiation of pain. No tingling/numbness. She takes Motrin for pain with benefit. ROS Const Reports system reviewed and no additional complaints, except as docu Eyes Reports system reviewed and no additional complaints, except as docu ENT Reports system reviewed and no additional complaints, except as docu Card Reports system reviewed and no additional complaints, except as docu Resp Reports system reviewed and no additional complaints, except as docu GI Reports system reviewed and no additional complaints, except as docu Reports system reviewed and no additional complaints, except as docu Musc Reports joint pain Skin/Breast Reports system reviewed and no additional complaints, except as docu Neuro Yes system reviewed and no additional complaints, except as docu Psych Reports system reviewed and no additional complaints, except as docu Endo Reports system reviewed and no additional complaints, except as docu Semaj/Lymph Reports system reviewed and no additional complaints, except as docu Aller/Immun Reports system reviewed and no additional complaints, except as docu Ortho Exam Right Shoulder Skin/Wound: Yes CDI Contralateral Normal: Yes Testing: Positive AROM-External Rotation at 90 0-60, PROM- External Rotation at side 0-60, PROM-Forward Elevation 0-180, PROM-External Rotation at 90 0-60, AROM-External Rotation at side 0-60 and AROM-Forward Elevation 0-180 Internal Rotation: Tip of Scapula Left Shoulder Testing: Yes Hawkin's, Yes Drop Arm, Yes Neer's, Yes Speed's, Yes TTP Biceps, Yes empty can Internal Rotation: L2 SHOULDER: General: well developed, well nourished in no acute distress. Head: normocephalic and atraumatic Pulses: pulses normal in all 4 extremities. Neurologic: no focal deficits, cranial nerves II-XII grossly intact with normal sensation, reflexed, coordination, muscle strength and tone. Axillary Nodes: no significant adenopathy. Psych: alert and cooperative, normal mood and affect, normal attention span and concentration. Heart regular S1-S2 lungs crackles bilaterally abdomen soft nontender nondistended no gross specimen or megaly. Left upper extremity shows continued global weakness around the shoulder. Belly press is maintained. But patient has a degree of pseudoparalysis. Tender palpation across the biceps at this time. MRI: Evaluate myself the patient-patient shows massive retracted rotator cuff tear with early elevation of the humeral head that may be positional laying on the ground. But she still shows retraction back to the glenoid of the supraspinatus and infraspinatus at this time. Teres minor appears to be maintained. Subscapularis normal. Biceps tendon is difficult to identify. Subscapularis otherwise normal Assessment AND Plan Problems 1. Impingement syndrome, shoulder, left M75.42 2. Complete tear of left rotator cuff M75.122 Plan Assessment: Left shoulder rotator cuff tear left shoulder impingement left shoulder pain. Plan: After review of the MRI patient I discussed surgical versus nonsurgical options. This point patient would like to proceed with left shoulder arthroscopic versus open rotator cuff repair. Patient is aware that she has a massive retracted cuff tear or options would be superior capsular reconstruction versus reverse total shoulder arthroplasty. At this point time due to the acuity of the injury I am hoping that I will be able to mobilize the repair and at a minimum do a partial repair. Patient understands risks and benefits to include damage to nerves muscles arteries veins, development of DVT PE infection or continued shoulder pain and need for revision procedure. At this point time again the patient would like to proceed with a arthroscopic versus open rotator cuff repair. I will have the superior capsular reconstruction material available just in case. Reviewed the pre-operative plans with the patient. Risks and benefits of the procedure were fully explained, including but not limited to infection, neurovascular injury, continued pain, arthritis, stiffness, need for further surgery, re-injury, DVT, PE, general risks of anesthesia, and loss of limb or life. The patient understands all the risks and does wish to proceed with written consent. Medications Discontinued: acetaminophen Discontinued Reason: Pt no 650 mg (2 x 325 mg) PO Q6H PRN PRN Mild Pain longer taking (scale 0-3)/T>100.7 Coding Level of Care Code Off vis,est,level 4 Diagnoses Impingement syndrome, shoulder, left M75.42 Complete tear of left rotator cuff M75.122 Rotator cuff tear extent: complete 06/26/17 1515 <Electronically signed by Owen Wolfe DO> Date Owen Wolfe DO [place] Signature: Date (if applicable) CC: UPPER EXT JOINT Observed: 06/16/2017 Status: F Source: ROSS ONLY(ROUTINE) 7:08 AM [facility] REPOSITORY [facility] Imaging Services [address] [place] [address] Upper Ext Joint Only(Routine) MR#: [id number] Acct: [id number] Name: KEM CHOUDHURY Rep #: [id number] : 1945 F 71 From: Guido Trinh MD PCP: Amilcar Gaytan Status: REG CLI Study: Upper Ext Joint Only(Routine) Date of Exam: 06/16/17 Exam# [id number] Ordering Dr: Owen Wolfe DO STUDY: MRI LEFT SHOULDER REASON FOR EXAM: Female, 71 years old. Painful movement of the left shoulder following a fall. Injury TECHNIQUE: Standardized fat and water weighted pulse sequences were obtained in all 3 orthogonal planes. COMPARISON: X-rays of the left shoulder on May 11, 2017. FINDINGS: There is a full-thickness tear of the supraspinatus and infraspinatus tendons with tendon retraction to the level of the glenohumeral joint measuring approximately 3.5 cm in diameter (coronal T2 series 6 image 10). Normal subscapularis tendon. Normal teres minor tendon. There is 50% fatty muscular atrophy of the supraspinatus muscle (Goutallier Stage III). There is 50% fatty muscular atrophy of the infraspinatus muscle (Goutallier Stage III). There is a low-grade myofascial strain of the infraspinatus muscle. Normal subscapularis muscle. Normal teres minor muscle. There is a moderate volume joint effusion of the glenohumeral joint. There is decreased acromiohumeral distance Normal humeral head and visualized proximal humerus. Normal biceps labral complex. There is tendinosis of the intracapsular long biceps tendon. Normal labrum. Normal capsulo- ligamentous complex. Normal rotator interval. There is moderate arthrosis of the acromioclavicular articulation. There is a Type II morphology (curved), with a neutral orientation. There is fluid distention of the subacromial-subdeltoid bursa, which communicates with the glenohumeral joint, through a rotator cuff tear. Normal visualized coracohumeral and coracoacromial ligaments. Normal quadrilateral space. Normal axillary space. Normal deltoid muscle. Normal trapezius muscle. MRI/Upper Ext Joint Only(Routine) IMPRESSION: Massive full-thickness retracted tear of the supraspinatus and infraspinatus tendons with muscular atrophy. Low-grade myofascial strain of the infraspinatus muscle. Mild tendinosis of the intracapsular segment of the long biceps tendon Joint effusion with fluid extending into the subacromial subdeltoid bursa through the rotator cuff tear. Moderate arthrosis of the acromioclavicular joint. Electronically Signed: Guido Trinh MD, FACR at 8:31 EST , Service support , CC: Owen Wolfe DO; Amilcar Gaytan Administrative Assistant Front Desk: Signed ORTHOPEDIC VISIT Observed: 05/25/2017 Status: F Source: [place] REPORT 7:50 AM [facility] [address] [place] [address] [address] [place] [address] OFFICE VISIT Date of Service: 05/20/17 MR#: [id number] Acct: [id number] Name: KEM CHOUDHURY Rep #: [id number] : 1945 Provider: Owen Wolfe DO Age/Sex: 71/F Location: [facility] [place] Status: Signed Intake Vital Signs05/20/17 Height 5 ft 2 in 05/20/17 Weight: 181 lb 05/20/17 Body Mass Index (BMI) 33.0 Intake Visit Reasons: LEFT SHOULDER Is patient in pain?: Yes Pain scale (1-10): 1 Allergies vancomycin Allergy (Severe, Verified 05/20/17 09:25) Rash prednisone Adverse Reaction (Unknown, Verified 05/20/17 09:21) TACHYCARDIA codeine Adverse Reaction (Verified 05/20/17 09:21) ABD PAIN ANESTHESIA MED Allergy (Uncoded 05/11/17 06:55) DIFFICULT TIME WAKING UP Medications Calcium 1 tab PO BID 01/31/13 [History Confirmed 05/20/17] Lisinopril [Zestril] 5 mg PO DAILY 01/31/13 [History Confirmed 05/20/17] Vitamin For Joints 1 ea PO BID 01/31/13 [History Confirmed 05/20/17] Acetaminophen [Tylenol Tablet] 650 mg PO Q6H PRN PRN #0 tab 06/28/16 [Rx Confirmed 05/20/17] PFSH Surgical History H/O breast biopsy (Inactive) History of partial hysterectomy (Inactive) S/P cholecystectomy (Inactive) s/p heart (Inactive) Family History Mother Hypertension Heart disease Father Hypertension Social History Smoking Status: Never smoker [facility] TORN ROTATOR CUFF LT: Details: KEM CHOUDHURY is a 71 year old F new patient here today for left shoulder pain. On 05/11/17 she fell on the ice and landed on her left shoulder. She went to [facility] that same day where they took x-ray and pain medication. She was advised she tore her rotator cuff. She states her left arm was wrapped around her body for several days and now only wears a sling. She complains of intermittent lateral shoulder pain with activity. She denies radiation of pain. No tingling/numbness. She only took the Princeton for 2- 3 days and it made her sick. She has not needed any pain medication. LEFT SHOULDER: Details: KEM CHOUDHURY is a 71 year old F here today for ROS Const Reports system reviewed and no additional complaints, except as docu Eyes Reports system reviewed and no additional complaints, except as docu ENT Reports system reviewed and no additional complaints, except as docu Card Reports system reviewed and no additional complaints, except as docu Resp Reports system reviewed and no additional complaints, except as docu GI Reports system reviewed and no additional complaints, except as docu Reports system reviewed and no additional complaints, except as docu Musc Reports joint pain Skin/Breast Reports system reviewed and no additional complaints, except as docu Neuro Yes system reviewed and no additional complaints, except as docu Psych Reports system reviewed and no additional complaints, except as docu Endo Reports system reviewed and no additional complaints, except as docu Semaj/Lymph Reports system reviewed and no additional complaints, except as docu Aller/Immun Reports system reviewed and no additional complaints, except as docu Ortho Exam Right Shoulder Skin/Wound: Yes CDI Contralateral Normal: Yes Testing: Positive AROM-External Rotation at 90 0-60, PROM- External Rotation at side 0-60, PROM-Forward Elevation 0-180, PROM-External Rotation at 90 0-60, AROM-External Rotation at side 0-60 and AROM-Forward Elevation 0-180 Internal Rotation: Tip of Scapula Left Shoulder Testing: Yes Hawkin's, Yes Neer's, Yes Drop Arm Internal Rotation: L1 SHOULDER: Patient is alert and oriented 3 in no acute distress. I contact affect. Otherwise intact from C5-T2 distributions. She has positive pulses she has no adenopathy. Left shoulder examination shows weakness with active forward elevation concerning for acute rotator cuff tear. Patient can bring her arm up maybe 40 . She has 3+- 4/5 strength at best with supraspinous testing but gives up with pressure. Her strength and external rotation is 4+/5. However the abducted external rotation position she starts to drift in the Hornblower's. She has no Jony deformity. No adenopathy. Range of motion to the back is around T12-L1. X-rays: Evaluated myself patient-no obvious bony abnormalities appreciated. Acromial distance is otherwise maintained. Type II. Assessment AND Plan Problems 1. Impingement syndrome, shoulder, left M75.42 2. Complete tear of left rotator cuff M75.122 Plan Assessment: Left shoulder rotator cuff tear left shoulder impingement left shoulder pain. Plan: 1 time due to the acuity of injury he had sudden onset of weakness my recommendation is for MRI of the shoulder to evaluate for acute rotator cuff tear. My hold off performing any formal subacromial injection at this time as it may alter the imaging sequence and obscures some of the findings. All the patient follow-up after MRI completed. Patient is encouraged to flex and extend the elbow. Also ordered for passive and active assisted forward elevation and external rotation exercises to prevent stiffness. We will give her a physical therapy prescription as well. Have her follow-up after MRI completed. Patient agrees to plan. Major issues Orders Orders: Coding Level of Care Code Off vis,new,level 3 Diagnoses Impingement syndrome, shoulder, left M75.42 Complete tear of left rotator cuff M75.122 Rotator cuff tear extent: complete 05/25/17 0750 <Electronically signed by Owen Wolfe DO> Date Owen Wolfe DO Cosigner Signature: Date (if applicable) CC: INITAL EVALUATION (1) Observed: 05/22/2017 Status: F Source: ROSS - PT 8:57 AM [facility] REPOSITORY [facility] Physical [facility] [address] [place], [place] [id number] Fax [facility]HAB[facility]ATION SERVICES INITIAL EVALUATION MR#: [id number] Acct: [id number] Name: KEM CHOUDHURY Rep #: [id number] : 1945 71 From: Miller Armenta PT, ATC Referring Dr.: Owen Wolfe DO Status: REG RCR Insurance: MEDICARE PART A B [employer] Patient's Visit Information KEM CHOUDHURY is a 71 year old F referred to Physical Therapy by Owen Wolfe DO DR.MTODRamses with a diagnosis of L rot cuff tear. Date of Evaluation: 05/22/17 Physical Therapist: Miller Armenta PT, - Visit Plan Frequency: 2x /Week Duration: 6 Weeks Plan: L shoulder strengthening (rot cuff), scap stab ex's, UBE, and HEP. CP/US for pain - Subjective Subjective: Pt reports she fell on the ice over a week ago which resulted in severe L shoulder pain. Pt reports she was unable to lift her arm, so she went straight to the ER. Pt reports they took xrays which revealed no Fx, but a rot cuff tear. Pt reports she was in a sling until 2 days ago. Pt reports the pain has eased a little from wearing the sling, but she is still in a lot of pain.. No prior L shoulder injuries. No T or N in L UE. No sleep diff secondary to pain. Pt is R hand dominant. 0/10 pain at rest, 9/10 at worst (with movement after taking the sling off) - Pain L shoulder Pain Intensity (Out of 10): 0 Pain Intensity Range: 9 - Objective Neuro: B UE sensation is WNL to light touch. B biceptital reflex= 2/3. Palpation: Pt is very tender on the lateral aspect of L shoulder near supraspinatus insertion. No obvious deformity present at this time. ROM: R shoulder flex= 175, abd= 155, ER= 55, ER WNL; L shoulder flex= 55, abd= 55, ER= 25, IR severely limited. MMT: R shoulder 5/5 throughout. L shoulder 2-/5 throughout and painful with all testing. Special testing: positive empty can test - Goals Goal 1:: Decrease L shoulder pain to aid with driving Goal Time Frame: 4-6 Weeks Goal 2:: Increase L shoulder flex and abd ROM x 50 degrees to aid with overhead lifting Goal Time Frame: 4-6 Weeks Goal 3:: Increase L shoulder strength x 1 grade to aid with IADL's Goal Time Frame: 4-6 Weeks Goal 4:: I with HEP Goal Time Frame: 4-6 Weeks - Rehabilitation Potential Physical Therapy Diagnosis: L shoulder pain, weakness, and limited ROM secondary to a L rot cuff tear. Rehabilitation Potential: Good - Anticipated Interventions Patient/Client Instruction: Educate patient on: Condition, Plan of Care For the Purpose of:: To improve self management Therapeutic Exercise to Include: Strength training, Body mechanics, Postural training, Passive ROM, Active ROM, Scapular Strength/Stabilization For the Purpose of:: To decrease pain, To increase ROM, To improve muscle performance and motor function Cryotherapy (ice pack, ice massage): Yes Ultrasound (thermal/non thermal): Yes For the Purpose of:: To decrease pain Thank you for the opportunity to evaluate your patient. For Medicare and Medicare HMO plans, please review the plan of care and approve it. It will need to be FAXED BACK to us at [phone] for Medicare purposes. Please let me know if there are questions or concerns regarding this plan of care. Physician Signature: Date: <Electronically signed by Miller Armenta PT, ATC> 05/22/17 0857 CC: Owen Wolfe DOAlyson Gaytan [facility] Signed For Medicare only, by signing this I certify the plan of care. Physicians Signature Date EMERGENCY DEPARTMENT Observed: 05/11/2017 Status: F Source: ROSS SUMMARY 8:14 AM [facility] Medical Records Department [address] [place] [address] Emergency Department Summary 05/11/17 0809 MR#: [id number] Acct: [id number] Name: KEM CHOUDHURY Rep #: [id number] : 1945 71 From: Gunner Garcia MD PCP: Amilcar Gaytan Status: REG ER - ER Visit Summary Date of Service: 05/11/17 Chief Complaint: Injury left shoulder status post fall History of Present Illness: The patient is a 71 F slipped on the ice injuring her left shoulder. She states she landed on her shoulder. She reports she is unable to use the left upper extremity. She denies any head trauma. She denies neck pain. She denies paresthesia, anesthesia or motor weakness. She denies any cardiorespiratory symptoms. She is on no anticoagulant. Physical Examination: Vital signs are remarkable for an elevated blood pressure of 153/87. Head is atraumatic normocephalic. Pupils equal round reactive. There is no clinical findings of basal skull fracture. C-spine was cleared per Nexus criteria. I Heart is regular without murmur, gallop or rub. S1 and S2 are normal. Lungs are clear to auscultation with good movement of air bilaterally. There is no pain the patient over the clavicle or AC joint. There is palpation over the proximal humerus. Axillary, median, radial and ulnar function intact. Radial pulses palpable. Abdomen soft nontender. Is no CVA tenderness noted. Test Results: Two-view x-ray of the shoulder was obtained there is no evidence of fracture, subluxation or dislocation. There is no fracture of the clavicle or AC joint either. Emergency Department Course and Treatment: Patient was reassessed and she is not able to AB duct past 30-60 . Since patient has pain with passive range of motion pain patient with proximal humerus x-ray the shoulder was obtained. Treatment Plan: Since the x-ray is normal and she is unable to AB duct past 30-60 with no neurovascular findings concerned she has a rotator cuff injury. She was treated with sling and swath and referred to Dr. Owen Wolfe. Disposition: Charge to home with appropriate home-going instruction and outpatient orthopedic follow-up Impression: 1. Mechanical fall with injury initial encounter 2. Rotator cuff tear initial encounter left shoulder This note was generated with [employer] dictation software. It may contain incorrect words, spelling, and punctuation that were not noted in review of the chart prior to signing ED Disposition - Plan for ED Patient: Disposition: Home or Assisted Living Chief Complaint: Fall Instructions: ED Torn Rotator Cuff Prescriptions: Hydrocodone Bitart/Apap 5-325 [[place] 5MG-325MG] 1 tab PO Q4H PRN PRN #30 tab PRN Reason: Pain Referrals: Amilcar Gaytan [Primary Care Provider] - Owen Wolfe DO [STAFF PHYSICIAN] - 3-5 Days What to do if you have Problems For any increased pain, shortness of breath, bleeding, nausea or vomiting, chest pain, or any unexpected problems, contact your Primary Care Provider. Call [facility] ([phone]) or report to the closest Emergency Room. Call 911 if necessary. 05/11/17 0814 <Electronically signed by Gunner Garcia MD> Date Gunner Garcia MD Cosigner Signature (If Indicated): Date CC: Owen Wolfe DO; Amilcar Gaytan SHOULDER MIN 2 VIEWS Observed: 05/11/2017 Status: F Source: [place] 7:00 AM [facility] REPOSITORY [facility] Imaging Services [address] [place] [id number] Shoulder min 2 Views MR#: [id number] Acct: [id number] Name: KEI,KEM J Rep #: [id number] : 1945 F 71 From: Feliberto Mccray MD PCP: Amilcar Gaytan Status: DEP ER Study: Shoulder min 2 Views Date of Exam: 05/11/17 Exam# [id number] Ordering Dr: Gunner Garcia MD STUDY: X-RAY - RIGHT SHOULDER REASON FOR EXAM: Female, 71 years old. Pain and limited range of motion following a fall. TECHNIQUE: AP and lateral view(s) of the shoulder. COMPARISON: None. FINDINGS: Normal glenohumeral articulation. Normal acromioclavicular joint. Normal acromion. Normal humeral head and visualized proximal humerus. The soft tissue structures are unremarkable. Normal visualized pulmonary apex. RAD/Shoulder min 2 Views IMPRESSION: Normal x-ray examination of the shoulder. Electronically Signed: Feliberto Mccray MD at 8:31 EST Tel [phone], Service support , CC: Amilcar Gaytan; Gunner Garcia MD Administrative Assistant Front Desk: Signed ALLERGIES ALLERGIES DATE TYPE / CODE NAME / CODE REACTION SEVERITY SOURCE Drug codeine/[id number] ABD PAIN Unknown [place] [address] Allergy/450776316( 550(RXNORM) [facility] SNOMED CT) Hospital Repository Drug prednisone/F006 TACHYCARDIA Unknown [place] Allergy/380909858( 956830(RXNORM) [facility] SNOMED CT) Hospital Repository Drug vancomycin/F006 Rash SV [place] Allergy/533158562( 112027(RXNORM) [facility] SNOMED CT) Hospital Repository Miscellaneous ANESTHESIA MED DIFFICULT TIME Unknown [place] Allergy/721804165( WAKING UP [facility] SNOMED CT) Hospital Repository ENCOUNTERS ENCOUNTERS ADMIT/DISCHARGE ACCOUNT NUMBER ADMITTING ENCOUNTER LOCATION SOURCE CLASS 04/01/2018 [id number] Ambulatory [facility] Hospital ding:[facility]SPEC Repository 10/21/2017/10/22/19 [id number] Ambulatory BMSBuilding: [place] [facility] Repository 08/26/2017/08/27/19 [id number] Ambulatory BMSBuilding: [place] 18 [facility] Repository 07/29/2017/07/30/19 [id number] Ambulatory BMSBuilding: [place] [facility] Repository 07/15/2017 [id number] Ambulatory BMSBuilding: [place] BMS.[facility] Repository 07/14/2017/07/15/19 [id number] Ambulatory [place] [address] [facility] ding:SDC Repository 07/09/2017 [id number] Ambulatory BMSBuilding: [place] [facility] Repository 07/08/2017 [id number] Ambulatory BBuilding:RA [facility] Repository 06/24/2017/06/24/19 [id number] Ambulatory BMSBuilding: [place] 18 [facility] Repository 06/19/2017/06/19/19 [id number] Ambulatory [place] [address] [facility] ding:PT Repository 06/16/2017 [id number] Ambulatory [place] [facility] ding:MRI Repository 06/10/2017 [id number] Ambulatory BMSBuilding: [place] [facility] Repository 05/20/2017/05/20/19 [id number] Ambulatory BMSBuilding: [place] 18 [facility] Repository 05/11/2017/05/11/19 [id number] Emergency [address] ding:ED Repository PAYERS PAYERS ENCOUNTER GUARANTOR PAYER SUBSCRIBER SOURCE 04/01/2018 YARIEL Griffith Primary KEM J [place] [id number] N Insurance:MEDICARE BABAKDOB: [facility] PART A BPolicy Number: [id number] [place] [id number] Repository 41061Kod: (330) Date:2018-04-01 [phone] (HP) 04/01/2018 Secondary KEM J [place] Insurance:HUMANA BABAKDOB: [facility] [id number] Hospital Number: Repository [id number] Date:8683-51-44IV [address] [address]PQ: 04/01/2018 Tertiary NOT GIVENUNK [place] Insurance:SELF PAY [facility] Number: Effective Repository Date:2018-04-01 10/21/2017 Yariel J Primary KEM J [place] [id number] N Insurance:MEDICARE BABAKDOB: [facility] [place] PART A BPolicy Number: [id number] [id number] Repository [address]Wmw: 330) Date:2017-08-26 [phone] () 10/21/2017 Secondary KEM J [place] Insurance:HUMANA BABAKDOB: [facility] COMMERCIALPolicy [id number] Hospital Number: Repository [id number] Date:7265-72-10AG[address] [address]FX: 10/21/2017 Tertiary NOT GIVENUNK [place] Insurance:SELF PAY [facility] Number: Effective Repository Date:2017-10-21 08/26/2017 Yariel J Primary KEM J [place] [id number] N Insurance:MEDICARE BABAKDOB: [facility] [place] PART A BPolicy Number: [id number] [place] [id number] Repository 16993Hgw: 330) Date:2017-07-29 [phone] () 08/26/2017 Secondary KEM J [place] Insurance:HUMANA BABAKDOB: [facility] [id number] Hospital Number: Repository [id number] Date:[id number] [address]DC: 08/26/2017 Tertiary NOT GIVENUNK [place] Insurance:SELF PAY [facility] Number: Effective Repository Date:2017-08-26 07/29/2017 Yariel J Primary KEM J [place] [id number] N Insurance:MEDICARE BABAKDOB: [facility] [place] PART A olicy Number: [id number] [place] [id number] Repository [address]Ouq: 330) Date:2017-07-15 [phone] (HP) 07/29/2017 Secondary KEM J [place] Insurance:HUMANA BABAKDOB: [facility] [id number] Hospital Number: Repository [id number] Date:2192-76-25WR [address] [address]KR: 07/29/2017 Tertiary NOT GIVENUNK [place] Insurance:SELF PAY [facility] Number: Effective Repository Date:2017-07-29 07/15/2017 Yariel J Primary KEM J [place] [id number] N Insurance:MEDICARE BABAKDOB: [facility] [place] PART A BPolicy Number: [id number] [place] [id number] Repository 267[address]Euk: (758) Date:2017-06-24 [phone] () 07/15/2017 Secondary KEM J [place] Insurance:HUMANA BABAKDOB: [facility] [id number] Hospital Number: Repository [id number] Date:9122-16-30QK[address] [address]VW: 07/15/2017 Tertiary NOT GIVENUNK [place] Insurance:SELF PAY [facility] Number: Effective Repository Date:2017-07-15 07/14/2017 Yariel J Primary KEM J [place] [id number] N Insurance:MEDICARE BABAKDOB: [facility] [place] PART A BPolicy Number: [id number] [place] [id number] Repository [address]Onh: (256) Date:2017-06-24 [phone] () 07/14/2017 Secondary KEM J [place] Insurance:HUMANA BABAKDOB: [facility] [id number] Hospital Number: Repository [id number] Date:1519-17-51JY[address] [address]VQ: 07/14/2017 Tertiary NOT GIVENUNK [place] Insurance:SELF PAY [facility] Number: Effective Repository Date:2017-06-24 07/09/2017 Yariel J Primary KEM J [place] [id number] N Insurance:MEDICARE BABAKDOB: [facility] [place] PART A BPolicy Number: [id number] [place] [id number] Repository [address]Cjr: (330) Date:2017-06-24 [phone] (HP) 07/09/2017 Secondary KEM J [place] Insurance:HUMANA BABAKDOB: [facility] [id number] Hospital Number: Repository [id number] Date:7727-58-90XM [address] [place] [address]UL: 07/09/2017 Tertiary NOT GIVENUNK [place] Insurance:SELF PAY [facility] Number: Effective Repository Date:2017-07-09 07/08/2017 KEM J Primary KEM J [facility] BABAKDOB: Insurance:MEDICARE BABAKDOB: [facility] N PART BPolicy Number: [id number] Repository [facility] [id number] [place], [place] Date:2017-07-07 [place], [place] [address]Gav: 330 [id number] [address]Ahs: Name:[facility] [phone] (HP)Tel: ([phone] Administrators LLCPO (HP) (WP) [address] [place] [address] 000-0000 (WP) 18345GV: 07/08/2017 Secondary KEM J [facility] Insurance:HUMANA BABAKDOB: [facility] [id number] Repository Number: N [place] [id number] [place], [place] Date:2017-07-07 [address]Pgo: 330 [id number] Name:[facility] Box (HP)Tel: (000) [address]NPQPPBGKI, [place] 000-0000 (WP) [address]IS: 06/24/2017 Yariel J Primary KEM J [place] [id number] N Insurance:MEDICARE BABAKDOB: [facility] [place] PART A BPolicy Number: [id number] [place], [place] [id number] Repository [address]Kzc: (330) Date:2017-06-19 [phone] () 06/24/2017 Secondary KEM J [place] Insurance:HUMANA BABAKDOB: [facility] [id number] Hospital Number: Repository [id number] Date:7591-84-26PK [address] [address]FE: 06/24/2017 Tertiary NOT GIVENUNK [place] Insurance:SELF PAY [facility] Number: Effective Repository Date:2017-06-19 06/19/2017 Yariel J Primary KEM J [place] [id number] N Insurance:MEDICARE BABAKDOB: [facility] [place] PART A olicy Number: [id number] [place] [id number] Repository [address]Mni: (330) Date:2012-07-02 [phone] () 06/19/2017 Secondary KEM J [place] Insurance:HUMANA BABAKDOB: [facility] [id number] Hospital Number: Repository [id number] Date:3072-12-71OG [address] [address]FT: 06/19/2017 Tertiary NOT GIVENUNK [place] Insurance:SELF PAY [facility] Number: Effective Repository Date:2017-05-20 06/16/2017 Yariel J Primary KEM J [place] [id number] N Insurance:MEDICARE BABAKDOB: [facility] [place] PART A BPolicy Number: [id number] [place] [id number] Repository [address]Zaw: (330) Date:2017-06-09 [phone] () 06/16/2017 Secondary KEM J [place] Insurance:HUMANA BABAKDOB: [facility] [id number] Hospital Number: Repository [id number] Date:8664-24-50BA [address] [address]XP: 06/16/2017 Tertiary NOT GIVENUNK [place] Insurance:SELF PAY [facility] Number: Effective Repository Date:2017-06-09 06/10/2017 Yariel J Primary KEM J [place] [id number] N Insurance:MEDICARE BABAKDOB: [facility] [place] PART A olicy Number: [id number] [place] [id number] Repository [address]Ome: (330) Date:2017-05-22 [phone] () 06/10/2017 Secondary KEM J [place] Insurance:HUMANA BABAKDOB: [facility] [id number] Hospital Number: Repository [id number] Date:0118-56-07ON [address] [address]ZB: 06/10/2017 Tertiary NOT GIVENUNK [place] Insurance:SELF PAY [facility] Number: Effective Repository Date:2017-06-10 05/20/2017 Yariel J Primary KEM J [place] [id number] N Insurance:MEDICARE BABAKDOB: [facility] PART A olicy Number: [id number] By [place] [id number] Repository [address]Cwk: (330) Date:2017-05-11 [phone] () 05/20/2017 Secondary KEM J [place] Insurance:HUMANA GOLD BABAKDOB: Community MEDICAREPolicy Number: [id number] Hospital [id number] Repository Date:0788-01-98MC [address] [place] [address]CG: 05/20/2017 Tertiary NOT GIVENUNK [place] Insurance:SELF PAY [facility] Number: Effective Repository Date:2017-05-11 05/11/2017 Yariel J Primary KEM J [place] [id number] N Insurance:MEDICARE BABAKDOB: [facility] [place] PART A olicy Number: [id number] [place] [id number] Repository [address]Znb: (330) Date:2017-05-11 [phone] () 05/11/2017 Secondary KEM J [place] Insurance:HUMANA BABAKDOB: [facility] [id number] Hospital Number: Repository [id number] Date:0710-94-39[address] [address]LUEWQYHCF, [place] [address]FN: 05/11/2017 Tertiary NOT GIVENUNK [place] Insurance:SELF PAY [facility] [address] [facility] Number: Effective Repository Date:2017-05-11
== END ==
PROVIDERS: Referring Provider Internal Medicine Gastroenterology; Visit Provider Internal Medicine Gastroenterology
DX: D12.3 Benign neoplasm of transverse colon (principal)
CPT/HCPCS: 88305

== ENCOUNTER 2024-12-12 14:07 | Inpatient (IN) | payer MEDICARE, OTHER, SELFPAY ==
[2024-12-12] VITALS (7 sets, daily range): BP systolic 135–193; BP diastolic 71–86; PULSE 66–85; RESP 14–20; TEMP 36.3–36.8; O2SAT 96–100; BMI 33.5; BMI 32.6
--- NOTE | 2024-12-12 14:29 | EKG12_ITS ---
Test Reason : CONFUSED Blood Pressure : */* mmHG Vent. Rate : 73 BPM Atrial Rate : 73 BPM P-R Int : 120 ms QRS Dur : 72 ms QT Int : 400 ms P-R-T Axes : 61 40 28 degrees QTcB Int : 440 ms Normal sinus rhythm Nonspecific ST abnormality Abnormal ECG Confirmed by Owen Reza ([id number]), editor in chief newspaper NICKO MAHARAJ ([id number]) on 12/13/2024 11:41:35 AM Referred By: Confirmed By: Owen Reza
--- NOTE | 2024-12-12 14:29 | CT_ITS ---
PROCEDURE: BRAIN/HEAD WITHOUT CONTRAST 12/12/2024 REASON FOR EXAM: ALTERED MENTAL STATUS TECHNIQUE: BRAIN/HEAD WITHOUT CONTRAST Coronal and Sagittal reconstruction series were provided. One or more dose reduction techniques were used (e.g., Automated exposure control, adjustment of the mA and/or kV according to patient size, use of iterative reconstruction technique. RADIATION DOSE SUMMARY: CTDlvol: 44.99 mGy DLP: 829.85 mGycm COMPARISON: None FINDINGS: Brain: Low density in the periventricular white matter suggests mild chronic small vessel ischemic changes. CSF Spaces: Moderate generalized cerebral atrophy Sinuses/Mastoids: Clear at visualized levels Bones: Unremarkable CT/Brain/Head without Contrast IMPRESSION: CHRONIC CHANGES. NO ACUTE FINDINGS. Reading Location: [place] [address]
--- NOTE | 2024-12-12 14:34 | EX.ED.DYSGE1 ---
HPI History of Present Illness Chief Complaint: Confusion Narrative Narrative: Chief complaint and HPI: Altered mental status. 79-year-old female with past medical history of HTN and possibly undiagnosed dementia presents for evaluation of altered mental status. History taken mostly by . states that he suspects his has dementia as she occasionally will ask questions such as confirming that she is the mother of their daughter. He states yesterday they had a normal day. Today she woke up at her normal baseline. Later in the day she then questioned who her was. Patient believes that her is not her . He states that it continued for several hours in which she became combative towards him. She is upset and anxious in the room. She is alert and oriented x 3 as she does not know the year, she thinks it is 1994. She denies any fever, chills, shortness of breath, chest pain, abdominal pain, nausea, vomiting, dysuria. Review of systems: See HPI Medications: As listed on the chart Allergies: As listed on the chart PFSH: Per chart Vital signs: As listed on the chart. Reviewed. Physical exam: Gen: A&O x3-oriented to place, month, self, president but not year, NAD Head: Normocephalic, atraumatic Eyes: No sclera icterus, conjunctiva clear, PERRL, EOMI ENT: Moist mucous membranes Neck: Trachea midline, No JVD, full range of motion CV: RRR, no murmurs, no peripheral edema Resp: Lungs CTA BL, no w/r/c GI: Abd soft, non-distended, non-tender, no r/r/g Musc: Full ROM, no deformity Skin: Warm, dry Neuro: Alert, oriented, grossly intact, sensation intact Psych: Cooperative, appropriate mood and affect [facility] Medical History (Updated 12/12/24 @ 16:53 by Fransisca Carroll) Kidney stones Non-smoker Dementia Home Medications ?Medication ?Instructions ?Recorded ?Last Taken ?Type NK 12/12/24 Unknown History Allergy/AdvReac Type Severity Reaction Status Date / Time vancomycin Allergy Severe Rash Verified 12/12/24 14:08 Anesthetics - Amide Type - Allergy Intermediate Other Verified 12/12/24 14:08 Select A prednisone AdvReac Unknown TACHYCARDIA Verified 12/12/24 14:08 codeine AdvReac ABD PAIN Verified 12/12/24 14:08 Family History Mother Hypertension Heart disease Father Hypertension Surgical History History of arthroscopy of left shoulder H/O breast biopsy History of partial hysterectomy s/p heart S/P cholecystectomy Social History (Updated 10/30/17 @ 11:06 by Owen Wolfe DO) Smoking Status: Never smoker EXAM Physical Exam Const Vital Signs: 12/12/24 14:08 12/12/24 16:07 Temperature 97.9 F Temperature Source Oral Pulse Rate 77 66 Respiratory Rate 16 18 Blood Pressure 139/83 H Blood Pressure Mean 101 Pulse Ox 97 96 Oxygen Delivery Method Room Air Room Air MDM MDM MDM Narrative Medical decision making narrative: 79-year-old female with past medical history of HTN and possibly undiagnosed dementia presents for evaluation of altered mental status. History taken mostly by . states that he suspects his has dementia as she occasionally will ask questions such as confirming that she is the mother of their daughter. He states yesterday they had a normal day. Today she woke up at her normal baseline. Later in the day she then questioned who her was. Patient believes that her is not her . Physical exam is unremarkable except for her believing the year is 1994 and that her is not her . Differential diagnosis includes but is not limited to electrolyte abnormality, CHRISTIE, infection such as pneumonia or UTI, intracranial abnormality, [place] psychiatric disorder. Altered mental status workup ordered. Social work consulted. CBC unremarkable without leukocytosis or anemia. CMP unremarkable without significant electrolyte abnormality or CHRISTIE. No transaminitis. Lactic acid unremarkable. Urine drug screen negative. Alcohol level unremarkable. UA with pyuria but no bacteria seen. She has significant WBCs greater than 100. Concern is for UTI. Patient denied any urinary problems although she has urinated multiple times here in the emergency department indicating urinary frequency. She even urinated in the bed which is completely abnormal for her. She states she is urinating a lot secondary to eating watermelon. I am concerned that her acute altered mental status may be secondary to UTI. Urine culture sent. Rocephin ordered. Patient was updated that she will be admitted for a UTI. I spoke with the hospitalist service who accepted admission. EKG: Interpreted by me/EM physician: EKG shows normal sinus rhythm with nonspecific ST changes. Heart rate 73 Diagnostic: Interpreted by me/EM physician: Chest x-ray without pneumonia, effusion, cardiomegaly, pneumothorax. Radiology in agreement. Impression: 1. Encephalopathy 2. UTI Lab Data Labs: Laboratory Results - last 24 hr 12/12/24 12/12/24 14:42 14:57 WBC 9.1 RBC 5.07 Hgb 14.6 Hct 44.4 MCV 87.6 MCH 28.8 MCHC 32.9 RDW Std Deviation 46.8 H RDW Coeff of Danna 14.6 Plt Count 326 MPV 10.3 Immature Gran % (Auto) 0.300 Neut % (Auto) 61.2 Lymph % (Auto) 25.6 [place] % (Auto) 9.0 Eos % (Auto) 3.0 Baso % (Auto) 0.9 Absolute Neuts (auto) 5.6 Absolute Lymphs (auto) 2.34 Nucleated RBC % 0 Sodium 141 Potassium 4.0 Chloride 104 Carbon Dioxide 25.7 Anion Gap 11 BUN 15 Creatinine 0.72 Estim Creat Clear Calc 58.81 Est GFR (MDRD) Non-Af 85 BUN/Creatinine Ratio 20.6 H Glucose 114 H Lactic Acid < 1.0 Calcium 9.2 Total Bilirubin 0.60 AST 23 ALT 26 Alkaline Phosphatase 121 H Total Protein 6.9 Albumin 4.1 Globulin 2.8 Albumin/Globulin Ratio 1.5 Urine Color Straw Urine Clarity Sl. Cloudy Urine pH 7.0 Ur Specific [place] 1.005 Urine Protein 30 H Urine Glucose (UA) Normal Urine Ketones Negative Urine Occult Blood 150 H Urine Nitrite Negative Urine Bilirubin Negative Urine Urobilinogen Normal Ur Leukocyte Esterase 500 H Urine RBC 5-10 SEEN Urine WBC >100 SEEN Ur Squamous Epith Cells 0-5 SEEN Urine Bacteria 0 SEEN Urine Mucus 0 SEEN Urine Opiates Screen NEGATIVE U Buprenorphine Qual NEGATIVE Ur Oxycodone Screen NEGATIVE Urine Methadone Screen NEGATIVE Urine Fentanyl Screen NEGATIVE Ur Barbiturates Screen NEGATIVE Ur Phencyclidine Scrn NEGATIVE Ur Amphetamines Screen NEGATIVE U Benzodiazepines Scrn NEGATIVE Urine Cocaine Screen NEGATIVE U Cannabinoids Screen NEGATIVE Ethyl Alcohol < 10.1 Radiography Diagnostic Testing: Clinical Impression(s) from Imaging Studies Brain CT 12/12/24 14:29 IMPRESSION: CHRONIC CHANGES. NO ACUTE FINDINGS. Reading Location: [facility] Chest X-Ray 12/12/24 15:10 IMPRESSION: NO ACUTE FINDINGS. Reading Location: [facility] Discharge Plan Triage Chief Complaint: Confusion ED Provider: Musa Awan Dx/Rx/DC Orders Prescriptions: No Action NK Primary Care Provider: Amilcar Gaytan NP Referrals: NOT,DEFINED [Non-Staff] - Print Language: Turkish
[2024-12-12 15:04] LABS: Mucous, Urine 0 SEEN /hpf (<or=2+)
[2024-12-12 15:06] LABS: Hematocrit 44.4 % (37-47); Hemoglobin 14.6 g/dL (12.0-15.0); Immature Granulocytes Count 0.030 X10^3/uL (0.0-0.0); Mean Corp Hgb Conc 32.9 g/dL (32-36); Mean Corpuscular Volume 87.6 fL (81-99); Mean Platelet Vol. 10.3 fl (6.2-12.0); NRBC Flagged by Analyzer 0 % (0-5); Platelet Count 326 K/mm3 (150-450); RBC Distribution Width CV 14.6 % (11.6-14.6); RBC Distribution Width SD 46.8 fl (35.1-43.9); Red Blood Count 5.07 M/mm3 (4.2-5.4); White Blood Count 9.1 K/mm3 (4.4-11.0)
[2024-12-12 15:08] LABS: Color, Urine Straw (Yellow); Glucose, Dipstick Normal (Normal); Ketone-Dipstick Negative (Negative); Leukocyte Esterase-Dipstick 500 /ul (Negative); Nitrite-Dipstick Negative (Negative); Occult Blood-Urine 150 /ul (Negative); Protein-Dipstick 30 mg/dl (Negative); Specific Gravity, Urine 1.005 (1.002-1.030); Urine Bilirubin Dipstick Negative (Negative)
--- NOTE | 2024-12-12 15:10 | RAD_ITS ---
PROCEDURE: CHEST PA AND LATERAL 12/12/2024 REASON FOR EXAM: ALTERED MENTAL STATUS TECHNIQUE: CHEST PA AND LATERAL COMPARISON: None FINDINGS: Hardware: None Heart: The heart size is normal. Mediastinum: The mediastinal contour is unremarkable. Lungs: The lungs are clear. Bones: Degenerative changes are identified within the thoracic spine. RAD/Chest PA and Lateral IMPRESSION: NO ACUTE FINDINGS. Reading Location: [facility]-
[2024-12-12 15:32] LABS: Alcohol, Blood (Medical)-Serum < 10.1 mg/dL (<=10.0)
[2024-12-12 15:35] LABS: AST(SGOT) 23 U/L (<=31); Alanine Aminotransfer ALT/SGPT 26 U/L (<=34); Albumin, Serum 4.1 g/dL (3.4-4.8); Alkaline Phosphatase 121 U/L (35-104); Anion Gap 11 (5-15); BUN 15 mg/dL (4-19); BUN/Creat Ratio 20.6 RATIO (10-20); Calcium,Total 9.2 mg/dL (7.6-11.0); Carbon Dioxide 25.7 mmol/L (21.0-32.0); Chloride 104 mmol/L (98-108); Estimated Creatinine Clearance 58.81 ml/min (50-250); Globulin 2.8 g/dL (2.2-4.2); Glucose 114 mg/dL (70-99); Potassium 4.0 mmol/L (3.3-5.1)
[2024-12-12 15:37] LABS: Barbiturate Urine NEGATIVE (< 200 ng/mL); Benzodiazepine Urine NEGATIVE (< 200 ng/mL); PCP Urine NEGATIVE (< 25 ng/mL); THC Urine NEGATIVE (< 50 ng/mL)
[2024-12-12 16:33] LABS: Red Blood Cells-Urine 5-10 SEEN /hpf (0-5)
[2024-12-12 16:34] LABS: Squamous Epithelial Cells - UA 0-5 SEEN /hpf (5-10)
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
--- NOTE | 2024-12-12 17:12 | PCM.HP.STD ---
HPI - General General Date of Admission: 12/12/24 Date of Service: 12/12/24 Chief Complaint: Urinary frequency HPI Narrative KEM CHOUDHURY, is a Patient is a 79-year-old female with hypertension possible undiagnosed dementia who presented [facility] ED 12/12/2024 by her for altered mental status. Reports yesterday was a normal day and today she woke up at her baseline however later in the day began questioning who her was and does not believe that her is her actual . This persisted for several hours and then she became combative so she was brought to the ED. In the ED patient afebrile, heart rate 77 blood pressure 139/83, respiratory rate 16 and pulse ox 97% on room air. CBC benign. BMP with a BUN 15 and creatinine 0.72. Brain CT no acute process. Chest x-ray no acute findings. Lactic acid negative, alcohol negative, UDS negative. UA with occult blood, leuk esterase, white blood cells and appears to be clean-catch, there is no bacteria that was noted however patient also has urinary frequency and there is high suspicion that she likely has UTI so urine culture sent patient given IV Rocephin and hospitalist contacted for admission. Patient evaluated at bedside. not present at bedside so history obtained per report and from patient, she notes she is brought here because that man is claiming to be her . When asked about urinary symptoms she does endorse significant frequency since this morning and she said it is because she ate some watermelon. Aside from the frequency she denies any complaints PFSH Medical History Dementia Kidney stones Non-smoker Home Medications ?Medication ?Instructions ?Recorded ?Last Taken ?Type NK 12/12/24 Unknown History Allergy/AdvReac Type Severity Reaction Status Date / Time vancomycin Allergy Severe Rash Verified 12/12/24 14:08 Anesthetics - Amide Type - Allergy Intermediate Other Verified 12/12/24 14:08 Select A prednisone AdvReac Unknown TACHYCARDIA Verified 12/12/24 14:08 codeine AdvReac ABD PAIN Verified 12/12/24 14:08 Family History Mother Hypertension Heart disease Father Hypertension Surgical History H/O breast biopsy History of arthroscopy of left shoulder History of partial hysterectomy S/P cholecystectomy s/p heart Social History (Updated 10/30/17 @ 11:06 by Owen Wolfe DO) Smoking Status: Never smoker ROS ROS Narrative General: Denies fever/chills HENT: Denies headache, denies stuffy nose, denies sore throat EYES: Denies changes in vision Resp: Denies cough, denies shortness of breath Cardiac: Denies chest pain GI: Denies abdominal pain, denies changes in bowel, denies nausea/vomiting : Significant urinary frequency Extremity: Denies swelling MSK: Denies weakness Neuro: Denies any numbness/tingling Heme: Denies any bleeding or bruising Skin: Denies rashes Psychiatric: No complaints voiced Vital Signs Vital Signs Vital Signs: 12/12/24 14:08 12/12/24 16:07 Temperature 97.9 F Temperature Source Oral Pulse Rate 77 66 Respiratory Rate 16 18 Blood Pressure 139/83 H Blood Pressure Mean 101 Pulse Ox 97 96 Oxygen Delivery Method Room Air Room Air Weight Weight: 83.007 kg Body Mass Index (BMI) 33.5 Physical Exam Narrative General: Alert, no apparent distress but was standing up in room and walked away to go to the bathroom upon me entering, when asked what year it was she said urine but did know she was at [facility] and her date of HEENT: Atraumatic, normocephalic Eyes: Anicteric, normal conjunctiva, extraocular movements grossly intact Neck: Supple Respiratory: Clear to auscultation bilaterally, normal respiratory effort Cardiovascular: Regular rate and rhythm GI: Soft, nontender, nondistended Extremities: No edema Musculoskeletal: Moving all extremities Neuro: No overt focal neurological deficits Skin: No rashes appreciated Psych: Cooperative, started become upset when discussing her but otherwise, cooperative Results Lab / Micro Data 12/12/24 14:42 12/12/24 14:42 Labs: Laboratory Results - last 24 hr 12/12/24 14:42: WBC 9.1, RBC 5.07, Hgb 14.6, Hct 44.4, MCV 87.6, MCH 28.8, MCHC 32.9, RDW Std Deviation 46.8 H, RDW Coeff of Danna 14.6, Plt Count 326, MPV 10.3, Immature Gran % (Auto) 0.300, Neut % (Auto) 61.2, Lymph % (Auto) 25.6, [place] % (Auto) 9.0, Eos % (Auto) 3.0, Baso % (Auto) 0.9, Absolute Neuts (auto) 5.6, Absolute Lymphs (auto) 2.34, Nucleated RBC % 0, Sodium 141, Potassium 4.0, Chloride 104, Carbon Dioxide 25.7, Anion Gap 11, BUN 15, Creatinine 0.72, Estim Creat Clear Calc 58.81, Est GFR (MDRD) Non-Af 85, BUN/Creatinine Ratio 20.6 H, Glucose 114 H, Lactic Acid < 1.0, Calcium 9.2, Total Bilirubin 0.60, AST 23, ALT 26, Alkaline Phosphatase 121 H, Total Protein 6.9, Albumin 4.1, Globulin 2.8, Albumin/Globulin Ratio 1.5, Ethyl Alcohol < 10.1 12/12/24 14:57: Urine Color Straw, Urine Clarity Sl. Cloudy, Urine pH 7.0, Ur Specific [place] 1.005, Urine Protein 30 H, Urine Glucose (UA) Normal, Urine Ketones Negative, Urine Occult Blood 150 H, Urine Nitrite Negative, Urine Bilirubin Negative, Urine Urobilinogen Normal, Ur Leukocyte Esterase 500 H, Urine RBC 5-10 SEEN, Urine WBC >100 SEEN, Ur Squamous Epith Cells 0-5 SEEN, Urine Bacteria 0 SEEN, Urine Mucus 0 SEEN, Urine Opiates Screen NEGATIVE, U Buprenorphine Qual NEGATIVE, Ur Oxycodone Screen NEGATIVE, Urine Methadone Screen NEGATIVE, Urine Fentanyl Screen NEGATIVE, Ur Barbiturates Screen NEGATIVE, Ur Phencyclidine Scrn NEGATIVE, Ur Amphetamines Screen NEGATIVE, U Benzodiazepines Scrn NEGATIVE, Urine Cocaine Screen NEGATIVE, U Cannabinoids Screen NEGATIVE Imaging Radiology Impression Brain CT 12/12/24 14:29 IMPRESSION: CHRONIC CHANGES. NO ACUTE FINDINGS. Reading Location: [facility]-1 Chest X-Ray 12/12/24 15:10 IMPRESSION: NO ACUTE FINDINGS. Reading Location: [facility]--1 Assessment & Plan Assessment/Plan (1) Abnormal urinalysis: (2) Altered mental status: PLAN: Plan #Altered mental status suspected secondary to urinary tract infection - Lab workup fairly benign -CT head negative -Alcohol and UDS negative -Will check thyroid function -UA with occult blood, leuk esterase, white blood cells and appears to be clean-catch, there is no bacteria that was noted however patient also has urinary frequency and there is high suspicion that she likely has UTI -She has significant urinary frequency and is urinated around 10 times just since he has been down in the ED with urgency and also had an episode of incontinence and could not hold it - Will check postvoid in the event there is some retention contributing - If patient does not eventually improve with treating presumed UTI may need social work involvement to pursue possible [facility] # Possibly undiagnosed dementia -Outpatient follow-up and evaluation recommended #DVT ppx: Gracy Donovan MD Charges/Coding Visit Charges Inpatient E&M: 58027 Init Hosp L1
[2024-12-12 17:25] LABS: Troponin T High Sensitivity 8 ng/L (<=14)
[2024-12-12 17:33] LABS: Troponin T High Sens 2 HR 11 ng/L (<=14)
[2024-12-12] MEDS: MELATONIN 10 MG TABLET PO (20:20)
[2024-12-12] MEDS: 0.9% Saline Lock 10 ML Syringe IV (20:20)
[2024-12-12 21:13] LABS: Troponin T High Sens 4 HR 12 ng/L (<=14)
--- OUTSIDE RECORDS SUMMARY | 2024-12-12 21:18 | XMS RPT_ITS | CCD ---
Author Organization [facility] Providers Care Heavy Forger Helper Name Role Phone LUKAS, DESIRAE Unavailable Unavailable Garcia, Gunner Unavailable Unavailable Aiden, Owen Unavailable Unavailable LUKAS, DESIRAE Unavailable Unavailable LUKAS, DESIRAE Unavailable Unavailable Aiden, Owen Unavailable Unavailable Aiden, Owen Unavailable Unavailable LUKAS, DESIRAE Unavailable Unavailable Aiden, Owen Unavailable Unavailable LUKAS, DESIRAE Unavailable Unavailable LUKAS, DESIRAE Unavailable Unavailable Aiden, Owen Unavailable Unavailable Aiden, Owen Unavailable Unavailable LUKAS, DESIRAE Unavailable Unavailable Aiden, Owen Unavailable Unavailable LUKAS, DESIRAE Unavailable Unavailable LUKAS, DESIRAE Unavailable Unavailable Aiden, Owen Unavailable Unavailable Aiden, Owen Unavailable Unavailable LUKAS, DESIRAE Unavailable Unavailable Aiden, Owen Unavailable Unavailable Aiden, Owen Unavailable Unavailable LUKAS, DESIRAE Unavailable Unavailable Aiden, Owen Unavailable Unavailable Aiden, Owen Unavailable Unavailable LUKAS, DESIRAE Unavailable Unavailable LUKAS, DESIRAE Unavailable Unavailable Marcus, [place] Unavailable Unavailable Aiden, Owen Unavailable Unavailable Aiden, Owen Unavailable Unavailable LUKAS, DESIRAE Unavailable Unavailable LUKAS, DESIRAE Unavailable Unavailable Aiden, Owen Unavailable Unavailable LUKAS, DESIRAE Unavailable Unavailable Jabour, Vincent Unavailable Unavailable Daniel, Vincent Unavailable Unavailable LUKAS DESIRAE MORRISON CNP Primary Care Phys ici LUKAS CLARK - DESIRAE ACUNA Attending U navailable LUKAS BI DEVELOPER - INSURANCE SALES ASSISTANT, DESIRAE Pearce Primary Care U navailable LUKAS BI DEVELOPER - INSURANCE SALES ASSISTANT, DESIRAE Pearce Attending U navailable LUKAS BI DEVELOPER - ARMAND, DESIRAE Pearce Primary Care U navailable LUKAS BI DEVELOPER - INSURANCE SALES ASSISTANT, DESIRAE Pearce Attending U navailable LUKAS EDUARDO - ARMAND, DESIRAE Pearce Primary Care U navailable LUKAS EDUARDO - ARMAND, DESIRAE Pearce Attending U navailable LUKASYUE CLARK - ARMAND, DESIRAE Pearce Primary Care U navailable LUKAS BI DEVELOPER - ARMAND, DESIRAE Pearce Attending U navailable LUKAS EDUARDO - ARMAND, DESIRAE Pearce Primary Care U charisse MCKEONCHIQUIS CLARK - ARMAND, DESIRAE Pearce Attending U charisse LUKAS CLARK - ARMAND, DESIRAE Pearce Primary Care U charisse LUKAS CLARK - ARMAND, DESIRAE Pearce Attending U kathymia GAYTAN APRN - ARMAND, DESIRAE Pearce Primary Care U charisse Dr. Musa Awan DO Emergency Provider Lukas DISTRICT RECRUITER-C, Desirae Floyd Primary Care Provi juan miguel Zion TOBIN, Dr. Vick Attending Provider [phone] Zion TOBIN, Dr. Vick Admit Provider Allergies Allergy Classification Reported Allergen(s) Allergy Type Date of Onset Reaction(s) Facility (1 source) Codeine Drug Allergy 8 [facility] Repository (1 source) predniSONE Drug Allergy 8 [facility] Repository (1 source) Vancomycin Drug Allergy 8 [facility] Repository (1 source) ANESTHESIA MED; Translations: [ANESTHESIA MED] Propensity to adverse reactions (disorder) 8 [facility] Repository (5 sources) Atenolol; Translations: [atenolol] Drug Allergy Dizziness (finding) [facility] (6 sources) Codeine; Translations: [codeine] Drug Allergy 5 Abdominal pain (finding) [facility] Comment on above: ABDOMINAL PAIN (5 sources) diphenhydrAMINE ; Translations: [diphenhydramin e] Drug Allergy Irregular heart beat (finding) [facility] (6 sources) predniSONE; Translations: [prednisone] Drug Allergy 5 Dizziness (finding) [facility] Comment on above: TACHYCARDIA (6 sources) Vancomycin; Translations: [vancomycin] Drug Allergy 5 Eruption of skin (disorder), Itching (finding), Difficulty swallowing (finding) [facility] Comment on above: DIFFICULTY BREATHING (1 source) Anesthetics - Amide Type - Select A Allergy to substance Other [facility] Comment on above: difficult time unique laguna up Medications Current Medications Medication Drug Class(es) Dates Sig (Normalized) Sig (Original) calcium citrate 1040 mg oral tablet (5 sources) Start: 02-04-2019 take 1 mg by mouth once daily calcium (as calcium citrate) 250 mg oral tablet mg = tab(s), Oral, Daily, 0 Refill(s) Start Date: 02/04/19 Status: Ordered ibuprofen 600 mg oral tablet (6 sources) Nonsteroidal Anti-inflammatory Drug Start: 12-29-2022 End: 06-27-2023 IBU 600 mg oral tablet Dose : 600 mg = 1 tab(s), Oral, q8h, # 270 tab(s), 1 Refill(s), Pharmacy: [id number], 168, cm, 12/12/22 8:20:00 EDT, Height, kg, 12/12/22 8:20:00 EDT, Dosing Weight Start Date: 12/29/22 Stop Date: 06/27/23 Status: Ordered Start: 04-18-2021 End: 07-17-2021 IBU 600 mg oral tablet Dose : 600 mg = 1 tab(s), Oral, q8h, # 90 tab(s), 2 Refill(s), Pharmacy: [id number], 168, cm, 04/18/21 8:43:00 EST, Height, kg, 04/18/21 8:43:00 EST, Dosing Weight Start Date: 04/18/21 Stop Date: 07/17/21 Status: Ordered Start: 06-24-2017 End: 07-29-2017 Ibuprofen (Motrin Ib) 200 mg tablet Discontinued 600 mg PO NEEDED as needed for Pain 0 June 24, 2017 1:00am July 29, 2017 8:30am Popponesset (Nk) (1 source) Start: 12-12-2024 Po[place]et (Nk) A ctive December 12, 2024 12:00am omeprazole 40 mg delayed release oral capsule (1 source) Proton Pump Inhibitor Start: 04-14-2023 End: 05-14-2023 omeprazole 40 mg oral delayed release capsule Dose : 40 mg = 1 cap(s), Oral, qDay, X 30 day(s), # 30 cap(s), 0 Refill(s), 05/14/23 2:28:00 PM EST, Pharmacy: [id number], GERD (gastroesophageal reflux disease), 168, cm, 04/14/23 13:38:00 EST, Height, kg, 04/14/23 13:38:00 EST, Dosing Weight Start Date: 04/14/23 Stop Date: 05/14/23 Status: Ordered Vitamin B12 250 mcg oral tablet (5 sources) Start: 02-04-2019 Vitamin B12 25 0 mcg oral tablet Dose : 250 mcg = 1 tab(s), Oral, qDay, 0 Refill(s) Start Date: 02/04/19 Status: Ordered Vitamin D3 (5 sources) Start: 02-04-2019 Vitamin D3 Dos e : 2,000 unit(s) = 1 tab(s), Oral, Daily, 0 Refill(s) Start Date: 02/04/19 Status: Ordered Completed/Discontinued Medications Medication Drug Class(es) Dates Sig (Normalized) Sig (Original) acetaminophen 325 mg oral tablet (1 source) Start: 06-28-2016 End: 06-24-2017 Acetaminophen 325 MG tablet Discontinued 650 mg PO EVERY 6 HOURS NEEDED as needed for Mild Pain (scale 0-3)/T>100.7 0 0 June 28, 2016 1:00am June 24, 2017 11:25am acetaminophen 325 mg / HYDROcodone bitartrate 5 mg oral tablet (1 source) Opioid Agonist Start: 05-11-2017 End: 05-20-2017 Hydrocodone-Acetam inophen 1 TABLET tablet Discontinued 1 {tbl} PO EVERY 4 HOURS NEEDED as needed for Pain 30 0 May 11, 2017 1:00am May 20, 2017 10:29am Complete tear of rotator cuff acetaminophen 325 mg / oxyCODONE hydrochloride 5 mg oral tablet (1 source) Opioid Agonist Start: 07-14-2017 End: 07-29-2017 Oxycodone-Acetamin ophen 1 TABLET tablet Discontinued 1 - 2 {tbl} PO EVERY 4 HOURS NEEDED as needed for Pain 60 July 14, 2017 12:00am July 29, 2017 8:30am Tear of left rotator cuff Calcium (1 source) Phosphate Binder, Calcium Start: 01-31-2013 End: 12-12-2024 Calcium Discontinued 1 {tbl} PO TWICE A DAY January 31, 2013 12:00am December 12, 2024 3:01pm docusate sodium 100 mg oral capsule (1 source) Start: 07-14-2017 End: 07-29-2017 take 1 capsule by mouth twice daily as needed for constipation Docusate Sodium 100 MG capsule Discontinued 100 mg PO TWICE DAILY NEEDED as needed for Constipation 10 July 14, 2017 12:00am July 29, 2017 8:30am lisinopril 5 mg oral tablet (1 source) Angiotensin Converting Enzyme Inhibitor Start: 01-31-2013 End: 12-12-2024 take 1 tablet by mouth once daily Lisinopril 5 MG tablet Discontinued 5 mg PO DAILY January 31, 2013 12:00am December 12, 2024 3:01pm promethazine hydrochloride 25 mg oral tablet (1 source) Phenothiazine Start: 07-14-2017 End: 07-29-2017 take 1 tablet by mouth every four hours as needed for nausea Promethazine 25 MG tablet Discontinued 25 mg PO EVERY 4 HOURS NEEDED as needed for Nausea 10 July 14, 2017 12:00am July 29, 2017 8:30am Vitamin For Joints (1 source) Start: 01-31-2013 End: 06-24-2017 Vitamin For Joints Discontinued 1 NMA PO TWICE A DAY January 31, 2013 12:00am June 24, 2017 11:24am Problems Active Problems Problem Classification Problem Date Documented Da te Episodic/Chronic Cataract (5 sources) Cataract 07-18-2019 Chronic Chronic kidney disease (4 sources) Chronic kidney disease stage 3 11-07-2021 Chronic Diabetes mellitus without complication (5 sources) Impaired fasting glycemia 02-04-2019 Episodic Disorders of lipid metabolism (5 sources) Hyperlipidemia 07-18-2019 Chronic Esophageal disorders (2 sources) Gastroesophageal reflux disease 04-14-2023 Chronic Essential hypertension (6 sources) Hypertensive disorder; Translations: [Essential (primary) hypertension] 07-18-2019 Chronic Genitourinary symptoms and ill-defined conditions (2 sources) Abnormal urinalysis; Translations: [Unspecified abnormal findings in urine] 12-12-2024 Episodic Heart valve disorders (5 sources) Heart murmur 07-18-2019 Episodic Nutritional deficiencies (5 sources) Vitamin D deficiency 02-03-2019 Chronic Osteoarthritis (5 sources) Osteoarthritis 02-03-2019 Chronic Other bone disease and musculoskeletal deformities (5 sources) Osteopenia 11-09-2020 Episodic Comment on above: BONE DENSITY (2020): IMPRESSION: Osteopenia based on lumbar spine. Other connective tissue disease (1 source) Muscle spasm of cervical muscle of neck; Translations: [Other muscle spasm] 06-28-2016 Episodic Other connective tissue disease (1 source) Pain in right arm; Translations: [Pain in right arm] 06-28-2016 Episodic Other liver diseases (5 sources) Elevated liver enzymes level 02-03-2019 Episodic Other non-traumatic joint disorders (1 source) Shoulder stiff; Translations: [Stiffness of right shoulder, not elsewhere classified] Episodic Residual codes; unclassified (5 sources) Increased body mass index 07-18-2019 Episodic Residual codes; unclassified (5 sources) Postmenopausal state 02-03-2019 Episodic Residual codes; unclassified (1 source) Did not attend 05-19-2023 Episodic Comment on above: 05/19/2023 Residual codes; unclassified (2 sources) Altered mental status; Translations: [Altered mental status, unspecified] 12-12-2024 Episodic Spondylosis; intervertebral disc disorders; other back problems (4 sources) Radicular pain; Translations: [Cervical radiculopathy] 04-14-2023 Episodic Unclassified (20 sources) Patient encounter status 10-27-2019 Unclassified (1 source) Vaccination needed 04-10-2022 Unclassified (3 sources) Non-smoker 12-12-2022 Unclassified (2 sources) Pain of right shoulder region 04-14-2023 Past or Other Problems Problem Classification Problem Date Documented Date Episodic/Chronic Other connective tissue disease (1 source) Unspecified rotator cuff tear or rupture of left shoulder, not specified as traumatic; Translations: [M75.102 - Unspecified rotator cuff tear or rupture of left shoulder, not specified as traumatic] Onset: 10-15-2017 Episodic Other connective tissue disease (1 source) Impingement syndrome of left shoulder; Translations: [M75.42 - Impingement syndrome of left shoulder] Onset: 10-15-2017 Episodic Other connective tissue disease (1 source) Complete rotator cuff tear or rupture of left shoulder, not specified as traumatic; Translations: [M75.122 - Complete rotator cuff tear or rupture of left shoulder, not specified as traumatic] Onset: 10-15-2017 Episodic Other connective tissue disease (1 source) Complete rotator cuff tear or rupture of unspecified shoulder, not specified as traumatic; Translations: [M75.120 - Complete rotator cuff tear or rupture of unspecified shoulder, not specified as traumatic] Onset: 05-30-2017 Episodic Other screening for suspected conditions (not mental disorders or infectious disease) (1 source) Abnormal electrocardiogram [ECG] [EKG]; Translations: [R94.31 - Abnormal electrocardiogram [ECG] [EKG]] Onset: 07-31-2017 Episodic Results Test Name Value Interpretation Reference Range Facility Absolute lymphocyte countOrd ered By: Musa Awan on 12-12-2024 Lymphocytes Auto (Unsp spec) [#/Vol] 2.34 10*3/uL 0.83-4.51 [facility] Absolute neutrophil countOrd ered By: Musa Awan on 12-12-2024 Neutrophils (Bld) [#/Vol] 5.6 10*3/uL 2.0-7.7 [facility] Amphetamine detection with 1 000 ng/mL as cutoffOrdered By: Musa Awan on 12-12-2024 Amphetamines Screen method >1000 ng/mL Ql (U) Negative < 200 ng/mL [facility] Anion gap in Serum or Plasma Ordered By: Musa Awan on 12-12-2024 Anion gap [Moles/Vol] 11 mmol/L 5-15 [facility] Automated lymphocyte count a s percentage of total leukocytesOrdered By: Musa Awan on 12-12-2024 Lymphocytes/100 WBC Auto (Unsp spec) 25.6 % 19-41 [facility] BUN/creatinine ratioOrdered By: Musa Awan on 12-12-2024 Urea nitrogen/Creatinine [Mass ratio] 20.6 mg/mg High 10-20 [facility] Basophil percentageOrdered B y: Musa Awan on 12-12-2024 Basophils/100 WBC (Bld) 0.9 % 0-1 [facility] Bilirubin Test strip Ql (U)O rdered By: Musa Awan on 12-12-2024 Bilirubin Ql (U) Negative Negative [facility] Bilirubin, totalOrdered By: Musa Awan on 12-12-2024 Bilirubin [Mass/Vol] 0.60 mg/dL 0.00-1.30 [facility] Carbon dioxide, total [Moles /volume] in Central venous bloodOrdered By: Musa Awan on 12-12-2024 CO2 [Moles/Vol] 25.7 mmol/L 21.0-32.0 [facility] Chloride assayOrdered By: Jhoan Awan on 12-12-2024 Chloride [Moles/Vol] 104 mmol/L 98-108 [facility] Eosinophil percentageOrdered By: Musa Awan on 12-12-2024 Eosinophils/100 WBC (Bld) 3.0 % 0-5 [facility] Erythrocyte distribution wid th ratioOrdered By: Musa Awan on 12-12-2024 Erythrocyte distribution width (RBC) [Ratio] 14.6 % 11.6-14.6 [facility] Erythrocyte distribution wid th standard deviationOrdered By: Musa Lin on 12-12-2024 Erythrocyte distribution width (RBC) [Ratio] 46.8 fl High 35.1-43.9 [facility] Glomerular filtration rate ( GFR) estimation/1.73 sq m using serum, plasma, or whole bOrdered By: Musa Awan on 12-12-2024 GFR/1.73 sq M.predicted among non-blacks MDRD (S/P/Bld) [Vol rate/Area] 85 mL/min/{1.73_m2} >60 [facility] Comment on above: mL/min/1.73m2 CKD-EP I Creatinine Equation (2020) Hematocrit Auto (Bld) [Volum e fraction]Ordered By: Musa Awan on 12-12-2024 Hematocrit (Bld) [Volume fraction] 44.4 % 37-47 [facility] Hemoglobin measurementOrdere d By: Musa Awan on 12-12-2024 Hemoglobin (Bld) [Mass/Vol] 14.6 g/dL 12.0-15.0 [facility] Immature granulocytes/100 WB C Auto (Bld)Ordered By: Musa Awan on 12-12-2024 Immature granulocytes/100 WBC (Bld) 0.300 % 0.0-0.9 [facility] Comment on above: IG% - Immature Granu locytes (promyelocytes, myelocytes and metamyelocytes) > 1% indicates that a LEFT SHIFT is Present. Ketones Test strip Ql (U)Ord ered By: Musa Awan on 12-12-2024 Ketones Ql (U) Negative Negative [facility] Laboratory - Chemistry and C hemistry - challengeOrdered By: Musa Awan on 12-12-2024 AST [Catalytic activity/Vol] 23 U/L <32 [facility] Lactic acid measurementOrder ed By: Musa Awan on 12-12-2024 Lactate [Moles/Vol] mmol/L 0.0-2.0 [facility] MCV (mean corpuscular volume ) determinationOrdered By: Musa Awan on 12-12-2024 MCV (RBC) [Entitic vol] 87.6 fL 81-99 [facility] Mean corpuscular hemoglobin (MCH) determinationOrdered By: Musa Awan on 12-12-2024 MCH (RBC) [Entitic mass] 28.8 pg 27.0-32.0 [facility] Mean corpuscular hemoglobin concentration (MCHC) determinationOrdered By: Musa Awan on 12-12-2024 MCHC (RBC) [Mass/Vol] 32.9 g/dL 32-36 [facility] Mean platelet volume determi nationOrdered By: Musa Awan on 12-12-2024 Platelet mean volume (Bld) [Entitic vol] 10.3 fL 6.2-12.0 [facility] Microscopic analysis of urin e for red blood cells (RBC)Ordered By: Musa Awan on 12-12-2024 Microscopic analysis of urine for red blood cells (RBC) 5-10 SEEN /hpf 0-5 [facility] Monocyte percentageOrdered B y: Musa Awan on 12-12-2024 Monocytes/100 WBC (Bld) 9.0 % 0-10 [facility] Mucus LM Ql (Urine sed)Order ed By: Musa Awan on 12-12-2024 Mucus Ql (Urine sed) 0 SEEN /hpf [facility] Neutrophil percentageOrdered By: Musa Awan on 12-12-2024 Neutrophils/100 WBC (Bld) 61.2 % 47-70 [facility] Nitrite Test strip Ql (U)Ord ered By: Musa Awan on 12-12-2024 Nitrite Ql (U) Negative Negative [facility] No Panel InformationOrdered By: Musa Awan on 12-12-2024 Urine Buprenorphine Qualitative Negative < 200 ng/mL [facility] Urine Oxycodone Screen Negative < 100 ng/mL [facility] Nucleated red blood cell per centageOrdered By: Musa Awan on 12-12-2024 Nucleated RBC/100 WBC (Bld) [Ratio] 0 % 0-5 [facility] Platelet countOrdered By: Jhoan Awan on 12-12-2024 Platelets (Bld) [#/Vol] 326 10*3/uL 150-450 [facility] Potassium measurement (mass/ volume)Ordered By: Musa Awan on 12-12-2024 Potassium (Unsp spec) [Mass/Vol] 4.0 mmol/L 3.3-5.1 [facility] Protein Test strip Ql (U)Ord ered By: Musa Awan on 12-12-2024 Protein Ql (U) 30 mg/dl High Negative [facility] Quantitative urine opiates m easurementOrdered By: Musa Awan on 12-12-2024 Opiates Ql (U) Negative < 300 ng/mL [facility] RBC Auto (Bld) [#/Vol]Ordere d By: Musa Awan on 12-12-2024 RBC (Bld) [#/Vol] 5.07 10*6/uL 4.2-5.4 [facility] Screening urine fentanyl scott surementOrdered By: Musa Awan on 12-12-2024 fentaNYL Screen Ql (U) Negative [facility] Serum creatinine measurement (mass/volume)Ordered By: Musa Awan on 12-12-2024 Creatinine [Mass/Vol] 0.72 mg/dL 0.70-1.20 [facility] Serum globulin measurementOr dered By: Musa Awan on 12-12-2024 Globulin (S) [Mass/Vol] 2.8 g/dL 2.2-4.2 [facility] Serum glucose measurement (m ass/volume)Ordered By: Musa Awan on 12-12-2024 Glucose [Mass/Vol] 114 mg/dL High 70-99 [facility] Serum or plasma alanine carter otransferase (ALT) measurementOrdered By: Musa Awan on 12-12-2024 ALT [Catalytic activity/Vol] 26 U/L <35 [facility] Serum or plasma albumin carlos urement (mass/volume)Ordered By: Musa Lin on 12-12-2024 Albumin [Mass/Vol] 4.1 g/dL 3.4-4.8 [facility] Serum or plasma albumin/glob ulin mass ratioOrdered By: Musa Awan on 12-12-2024 Albumin/Globulin [Mass ratio] 1.5 {ratio} 0.9-2.4 [facility] Serum or plasma alkaline majo sphatase measurementOrdered By: Musa Awan on 12-12-2024 ALP [Catalytic activity/Vol] 121 U/L High 35-104 [facility] Serum or plasma calcium carlos urement (mass/volume)Ordered By: Musa Lin on 12-12-2024 Calcium [Mass/Vol] 9.2 mg/dL 7.6-11.0 [facility] Serum or plasma ethanol carlos urement (mass/volume)Ordered By: Musa Lin on 12-12-2024 Ethanol [Mass/Vol] mg/dL <10.1 [facility] Comment on above: This test is for med ical purposes only. The legal definition of intoxication varies according to local law. Serum or plasma urea nitroge n measurement (mass/volume)Ordered By: Musa Awan on 12-12-2024 Urea nitrogen [Mass/Vol] 15 mg/dL 4-19 [facility] Sodium levelOrdered By: Todd Awan on 12-12-2024 Sodium [Moles/Vol] 141 mmol/L 133-145 [facility] Squamous epithelial cells de tection in urine sediment by light microscopyOrdered By: Musa Awan on 12-12-2024 Epithelial cells.squamous LM Ql (Urine sed) 0-5 SEEN /hpf 5-10 [facility] Total proteinOrdered By: Ryne Awan on 12-12-2024 Protein [Mass/Vol] 6.9 g/dL 5.9-8.4 [facility] Troponin T.cardiac [Mass/vol ume] in Serum or Plasma by High sensitivity methodOrdered By: Musa Awan on 12-12-2024 Troponin T.cardiac High sensitivity method [Mass/Vol] 11 ng/L <14 [facility] Troponin T.cardiac High sensitivity method [Mass/Vol] 8 ng/L <14 [facility] Urine benzodiazepine levelOr dered By: Musa Awan on 12-12-2024 Benzodiazepines Ql (U) Negative < 200 ng/mL [facility] Urine clarityOrdered By: Ryne Awan on 12-12-2024 Clarity (U) Sl. Cloudy Clear [facility] Urine cocaine levelOrdered B y: Musa Awan on 12-12-2024 Cocaine Ql (U) Negative < 300 ng/mL [facility] Urine color determinationOrd ered By: Musa Awan on 12-12-2024 Color (U) Straw Yellow [facility] Urine [id number] abinol (THC) measurementOrdered By: Musa Lin on 12-12-2024 Cannabinoids Screen Ql (U) Negative < 50 ng/mL [facility] Urine glucose detectionOrder ed By: Musa Awan on 12-12-2024 Glucose Ql (U) Normal mg/dl Normal [facility] Urine leukocyte esterase det ection by dipstickOrdered By: Musa Awan on 12-12-2024 Leukocyte esterase Test strip Ql (U) 500 /ul High Negative [facility] Urine pHOrdered By: Musa Guerrero on 12-12-2024 pH (U) 7.0 [pH] 5.0 - 8.0 [facility] Urine phencyclidine (PCP) de tectionOrdered By: Musa Awan on 12-12-2024 Phencyclidine Ql (U) Negative < 25 ng/mL [facility] Urine sediment bacteria coun t by microscopy (number/high power field)Ordered By: Musa Awan on 12-12-2024 Bacteria LM.HPF (Urine sed) [#/Area] 0 /[HPF] None Seen [facility] Urine specific gravity measu rementOrdered By: Musa Awan on 12-12-2024 Specific gravity (U) [Rel density] 1.005 1.002-1.03 0 [facility] Urine urobilinogen measureme ntOrdered By: Musa Awan on 12-12-2024 Urobilinogen Ql (U) Normal mg/dl Normal [facility] White blood cell (WBC) count Ordered By: Musa Awan on 12-12-2024 WBC (Bld) [#/Vol] 9.1 10*3/uL 4.4-11.0 [facility] White blood cell countOrdere d By: Musa Awan on 12-12-2024 White blood cell count >100 SEEN /hpf 0-5 [facility] .Auto Diffon 11-18-2023 Basophil, Absolute 0.1 10 3/mcL Normal 0.0-0.2 [facility] ([place]) Comment on above: Performed By: #### G FR, A1C, LIPID, CMP, ANEU, ADIFF, CBC, VIDH #### [address] [address] #### PTH #### [address] [address] Basophils/100 WBC (Bld) 1.2 % Normal 0.0-2.5 [facility] ([place]) Comment on above: Performed By: #### G FR, A1C, LIPID, CMP, ANEU, ADIFF, CBC, VIDH #### [address] [address] #### PTH #### [address] [address] Eosinophil, Absolute 0.2 10 3/mcL Normal 0.0-0.4 [facility] ([place]) Comment on above: Performed By: #### G FR, A1C, LIPID, CMP, ANEU, ADIFF, CBC, VIDH #### [address] [address] #### PTH #### [address] [address] Eosinophils/100 WBC (Bld) 2.5 % Normal 0.0-7.0 [facility] ([place]) Comment on above: Performed By: #### G FR, A1C, LIPID, CMP, ANEU, ADIFF, CBC, VIDH #### [address] [address] #### PTH #### [address] [address] Lymphocyte, Absolute 1.9 10 3/mcL Normal 0.8-3.9 [facility] ([place]) Comment on above: Performed By: #### G FR, A1C, LIPID, CMP, ANEU, ADIFF, CBC, VIDH #### [address] [address] #### PTH #### [address] [address] Lymphocytes/100 WBC (Bld) 26.1 % Normal 10.0-50.0 [facility] ([place]) Comment on above: Performed By: #### G FR, A1C, LIPID, CMP, ANEU, ADIFF, CBC, VIDH #### [address] [address] #### PTH #### [address] [address] Monocyte, Absolute 0.5 10 3/mcL Normal 0.2-1.0 [facility] ([place]) Comment on above: Performed By: #### G FR, A1C, LIPID, CMP, ANEU, ADIFF, CBC, VIDH #### [address] [address] #### PTH #### [address] [address] Monocytes/100 WBC (Bld) 6.5 % Normal 1.7-13.0 [facility] ([place]) Comment on above: Performed By: #### G FR, A1C, LIPID, CMP, ANEU, ADIFF, CBC, VIDH #### [address] [address] #### PTH #### [address] [address] Neutrophils/100 WBC (Bld) 63.7 % Normal 37.0-80.0 [facility] ([place]) Comment on above: Performed By: #### G FR, A1C, LIPID, CMP, ANEU, ADIFF, CBC, VIDH #### [address] [address] #### PTH #### [address] [address] .GFRon 11-18-2023 GFR 87 ml/min/1.73sqm Normal [facility] ([place]) Comment on above: Result Comment: GFR Population mean for , Non- Americans Ages 20-29 = 116 mL/min/1.73 sq.m. Ages 30-39 = 107 mL/min/1.73 sq.m. Ages 40-49 = 99 mL/min/1.73 sq.m. Ages 50-59 = 93 mL/min/1.73 sq.m. Ages 60-69 = 85 mL/min/1.73 sq.m. Ages 70+ = 75 mL/min/1.73 sq.m. Chronic Kidney Disease: Less than 60 mL/min/1.73 square meters End Stage Renal Disease: Less than 15 mL/min/1.73 square meters Performed By: #### G FR, A1C, LIPID, CMP, ANEU, ADIFF, CBC, VIDH #### [address] [address] #### PTH #### [address] [address] GFR Non- 72 ml/min/1.73sqm Normal [facility] ([place]) Comment on above: Result Comment: GFR Population mean for , Non- Americans Ages 20-29 = 116 mL/min/1.73 sq.m. Ages 30-39 = 107 mL/min/1.73 sq.m. Ages 40-49 = 99 mL/min/1.73 sq.m. Ages 50-59 = 93 mL/min/1.73 sq.m. Ages 60-69 = 85 mL/min/1.73 sq.m. Ages 70+ = 75 mL/min/1.73 sq.m. Chronic Kidney Disease: Less than 60 mL/min/1.73 square meters End Stage Renal Disease: Less than 15 mL/min/1.73 square meters Performed By: #### G FR, A1C, LIPID, CMP, ANEU, ADIFF, CBC, VIDH #### [address] [address] #### PTH #### [address] [address] .NEUABSon 11-18-2023 Neutrophil, Absolute 4.7 10 3/mcL Normal 2.9-6.2 [facility] ([place]) Comment on above: Performed By: #### G FR, A1C, LIPID, CMP, ANEU, ADIFF, CBC, VIDH #### [address] [address] #### PTH #### [address] [address] A1Con 11-18-2023 HbA1c (Bld) [Mass fraction] 5.6 % Normal 4.3-6.4 [facility] ([place]) Comment on above: Performed By: #### G FR, A1C, LIPID, CMP, ANEU, ADIFF, CBC, VIDH ####[address] [address]#### PTH ####[facility] [place] [address] CBCon 11-18-2023 Erythrocyte distribution width (RBC) [Ratio] 15.1 % High 11.5-14.5 [facility] ([place]) Comment on above: Performed By: #### G FR, A1C, LIPID, CMP, ANEU, ADIFF, CBC, VIDH #### [address] [address] #### PTH #### [address] [address] Hematocrit (Bld) [Volume fraction] 44.0 % Normal 37.0-47.0 [facility] ([place]) Comment on above: Performed By: #### G FR, A1C, LIPID, CMP, ANEU, ADIFF, CBC, VIDH #### [address] [address] #### PTH #### [address] [address] Hgb 14.7 G/dL Normal 12.0-16.0 [facility] ([place]) Comment on above: Performed By: #### G FR, A1C, LIPID, CMP, ANEU, ADIFF, CBC, VIDH #### [address] [address] #### PTH #### [facility] [address] [place] [address] MCH (RBC) [Entitic mass] 29.5 pg Normal 27.0-31.2 [facility] ([place]) Comment on above: Performed By: #### G FR, A1C, LIPID, CMP, ANEU, ADIFF, CBC, VIDH #### [address] [address] #### PTH #### [place] [address] MCHC 33.4 G/dL Normal 33.0-37.0 [facility] ([place]) Comment on above: Performed By: #### G FR, A1C, LIPID, CMP, ANEU, ADIFF, CBC, VIDH #### [address] [address] #### PTH #### [place] [address] MCV (RBC) [Entitic vol] 88.4 fL Normal 80.0-94.0 [facility] ([place]) Comment on above: Performed By: #### G FR, A1C, LIPID, CMP, ANEU, ADIFF, CBC, VIDH #### [place] [address] #### PTH #### [place] [address] Platelet 295 10 3/mcL Normal 130-400 [facility] ([place]) Comment on above: Performed By: #### G FR, A1C, LIPID, CMP, ANEU, ADIFF, CBC, VIDH #### [place] [address] #### PTH #### [place] [address] Platelet mean volume (Bld) [Entitic vol] 8.7 fL Normal 7.4-10.4 [facility] ([place]) Comment on above: Performed By: #### G FR, A1C, LIPID, CMP, ANEU, ADIFF, CBC, VIDH #### [place] [address] #### PTH #### [place] [address] RBC 4.98 10 6/mcL Normal 4.20-5.40 [facility] ([place]) Comment on above: Performed By: #### G FR, A1C, LIPID, CMP, ANEU, ADIFF, CBC, VIDH #### [place] [address] #### PTH #### [place] [address] WBC 7.3 10 3/mcL Normal 4.6-10.8 [facility] ([place]) Comment on above: Performed By: #### G FR, A1C, LIPID, CMP, ANEU, ADIFF, CBC, VIDH #### [address] [address] #### PTH #### [address] [address] CMPon 11-18-2023 Albumin Level 3.7 G/dL Normal 3.4-4.8 [facility] ([place]) Comment on above: Performed By: #### G FR, A1C, LIPID, CMP, ANEU, ADIFF, CBC, VIDH #### [address] [address] #### PTH #### [place] [address] Albumin/Globulin [Mass ratio] 1.1 {ratio} Normal 1.1-2.5 [facility] ([place]) Comment on above: Performed By: #### G FR, A1C, LIPID, CMP, ANEU, ADIFF, CBC, VIDH #### [address] [address] #### PTH #### [address] [address] ALP [Catalytic activity/Vol] 122 U/L Normal 40-135 [facility] ([place]) Comment on above: Performed By: #### G FR, A1C, LIPID, CMP, ANEU, ADIFF, CBC, VIDH #### [address] [address] #### PTH #### [address] [address] ALT [Catalytic activity/Vol] 41 U/L Normal 14-59 [facility] ([place]) Comment on above: Performed By: #### G FR, A1C, LIPID, CMP, ANEU, ADIFF, CBC, VIDH #### [address] [address] #### PTH #### [facility] [address] [place], [place] [address] AST [Catalytic activity/Vol] 25 U/L Normal 10-40 [facility] ([place]) Comment on above: Performed By: #### G FR, A1C, LIPID, CMP, ANEU, ADIFF, CBC, VIDH #### [address] [address] #### PTH #### [address] [address] Bili Total 0.9 mg/dL Normal 0.2-1.0 [facility] ([place]) Comment on above: Result Comment: Use of this assay is not recommended for patients undergoing treatment with eltrombopag due to the potential for falsely elevated results. Performed By: #### G FR, A1C, LIPID, CMP, ANEU, ADIFF, CBC, VIDH #### [place] [address] #### PTH #### [place] [id number] BUN/Creatinine Ratio 19 ratio Normal 7-27 [facility] ([place]) Comment on above: Performed By: #### G FR, A1C, LIPID, CMP, ANEU, ADIFF, CBC, VIDH #### [place] [address] #### PTH #### [address] [address] Calcium [Mass/Vol] 10.2 mg/dL Normal 8.4-10.2 [facility] ([place]) Comment on above: Performed By: #### G FR, A1C, LIPID, CMP, ANEU, ADIFF, CBC, VIDH #### [place] [address] #### PTH #### [address] [address] Chloride [Moles/Vol] 101 mmol/L Normal 98-107 [facility] ([place]) Comment on above: Performed By: #### G FR, A1C, LIPID, CMP, ANEU, ADIFF, CBC, VIDH #### [place] [address] #### PTH #### [address] [address] CO2 [Moles/Vol] 28 mmol/L Normal 23-31 [facility] ([place]) Comment on above: Performed By: #### G FR, A1C, LIPID, CMP, ANEU, ADIFF, CBC, VIDH #### [address] [address] #### PTH #### [address] [address] Creatinine [Mass/Vol] 0.78 mg/dL Normal 0.55-1.02 On license of [facility] ([place]) Comment on above: Performed By: #### G FR, A1C, LIPID, CMP, ANEU, ADIFF, CBC, VIDH #### [place] [address] #### PTH #### [address] [address] Electrolyte Balance 7.0 mEq/L Normal 4.0-15.0 Replaced by [facility] ([place]) Comment on above: Performed By: #### G FR, A1C, LIPID, CMP, ANEU, ADIFF, CBC, VIDH #### [place] [address] #### PTH #### [address] [address] Globulin 3.5 G/dL Normal [facility] ([place]) Comment on above: Performed By: #### G FR, A1C, LIPID, CMP, ANEU, ADIFF, CBC, VIDH #### [place] [address] #### PTH #### [address] [address] Glucose [Mass/Vol] 87 mg/dL Normal 83-110 [facility] ([place]) Comment on above: Performed By: #### G FR, A1C, LIPID, CMP, ANEU, ADIFF, CBC, VIDH #### [place] [address] #### PTH #### [address] [address] Potassium [Moles/Vol] 4.3 mmol/L Normal 3.5-5.1 On license of [facility] ([place]) Comment on above: Performed By: #### G FR, A1C, LIPID, CMP, ANEU, ADIFF, CBC, VIDH #### [address] [address] #### PTH #### [address] [address] Sodium [Moles/Vol] 136 mmol/L Normal 136-145 [facility] ([place]) Comment on above: Performed By: #### G FR, A1C, LIPID, CMP, ANEU, ADIFF, CBC, VIDH #### [address] [address] #### PTH #### [address] [address] Total Protein 7.2 G/dL Normal 6.4-8.2 [facility] ([place]) Comment on above: Performed By: #### G FR, A1C, LIPID, CMP, ANEU, ADIFF, CBC, VIDH #### [address] [address] #### PTH #### [address] [address] Urea nitrogen [Mass/Vol] 15 mg/dL Normal 7-18 [facility] ([place]) Comment on above: Performed By: #### G FR, A1C, LIPID, CMP, ANEU, ADIFF, CBC, VIDH #### [address] [address] #### PTH #### [address] [address] LIPIDon 11-18-2023 Cholesterol [Mass/Vol] 200 mg/dL Normal 0-200 [facility] ([place]) Comment on above: Result Comment: Chol esterol Reference Interval: Less than 200 Desirable 200-239 Borderline high risk 240 and above High risk Performed By: #### G FR, A1C, LIPID, CMP, ANEU, ADIFF, CBC, VIDH #### [address] [address] #### PTH #### [address] [address] Cholesterol in HDL [Mass/Vol] 54 mg/dL Normal 40-60 [facility] ([place]) Comment on above: Performed By: #### G FR, A1C, LIPID, CMP, ANEU, ADIFF, CBC, VIDH #### [address] [address] #### PTH #### [address] [address] Cholesterol in LDL [Mass/Vol] 126 mg/dL Normal 0-130 [facility] ([place]) Comment on above: Performed By: #### G FR, A1C, LIPID, CMP, ANEU, ADIFF, CBC, VIDH #### [address] [address] #### PTH #### [address] [address] Triglyceride [Mass/Vol] 98 mg/dL Normal 0-150 [facility] ([place]) Comment on above: Result Comment: Trig lyceride Reference Interval: Less than 150 Normal 150-199 Borderline high risk 200-499 High risk 500 or higher Very high risk Performed By: #### G FR, A1C, LIPID, CMP, ANEU, ADIFF, CBC, VIDH #### [address] [address] #### PTH #### [place] [address] PTHon 11-18-2023 PTH, Intact 24.4 pg/mL Normal 18.5-88.0 [facility] ([place]) Comment on above: Performed By: #### G FR, A1C, LIPID, CMP, ANEU, ADIFF, CBC, VIDH ####[address] [address]#### PTH ####[address] [address] VIDHon 11-18-2023 Vit. D 25-Hydroxy 56.3 ng/mL Normal [facility] ([place]) Comment on above: Result Comment: Inte rpretive Values Based on Total 25(OH) Vitamin D: Deficient <20 ng/mL Insufficient 20 - <30 ng/mL Sufficient 30-100 ng/mL Performed By: #### G FR, A1C, LIPID, CMP, ANEU, ADIFF, CBC, VIDH #### [address] [address] #### PTH #### [place] [address] RENINon 06-25-2023 Renin Activity 1.092 ng/mL/hr Normal 0.167-5.38 0 [facility] ([place]) Comment on above: Result Comment: This test was developed and its performance characteristics determined by [facility]. It has not been cleared or approved by the Food and Drug Administration. Performed At: [facility] [id number] Karri Pagan MD Ph:[phone] Performed By: #### 0 [id number] #### [address] [address] .Auto Diffon 06-17-2023 Basophil, Absolute 0.1 10 3/mcL Normal 0.0-0.2 [facility] ([place]) Comment on above: Performed By: #### P TH ####[place] [address]#### CBC, LIPID, TSH, ADIFF, ANEU ####[place] [id number] Basophils/100 WBC (Bld) 0.9 % Normal 0.0-2.5 [facility] ([place]) Comment on above: Performed By: #### P TH ####[place] [address]#### CBC, LIPID, TSH, ADIFF, ANEU ####[place] [address] Eosinophil, Absolute 0.2 10 3/mcL Normal 0.0-0.4 [facility] ([place]) Comment on above: Performed By: #### P TH ####[place] [address]#### CBC, LIPID, TSH, ADIFF, ANEU ####[facility] [place], [place] [address] Eosinophils/100 WBC (Bld) 2.8 % Normal 0.0-7.0 [facility] ([place]) Comment on above: Performed By: #### P TH ####[place] [address]#### CBC, LIPID, TSH, ADIFF, ANEU ####[facility] [place], [place] [address] Lymphocyte, Absolute 1.9 10 3/mcL Normal 0.8-3.9 [facility] ([place]) Comment on above: Performed By: #### P TH ####[place] [address]#### CBC, LIPID, TSH, ADIFF, ANEU ####[facility] [place], [place] [address] Lymphocytes/100 WBC (Bld) 24.6 % Normal 10.0-50.0 [facility] ([place]) Comment on above: Performed By: #### P TH ####[place] [address]#### CBC, LIPID, TSH, ADIFF, ANEU ####[facility] [place], [place] [address] Monocyte, Absolute 0.5 10 3/mcL Normal 0.2-1.0 [facility] ([place]) Comment on above: Performed By: #### P TH ####[place] [address]#### CBC, LIPID, TSH, ADIFF, ANEU ####[facility] [place], [place] [address] Monocytes/100 WBC (Bld) 6.6 % Normal 1.7-13.0 [facility] ([place]) Comment on above: Performed By: #### P TH ####[place] [address]#### CBC, LIPID, TSH, ADIFF, ANEU ####[place] [address] [place], [place] [address] Neutrophils/100 WBC (Bld) 65.1 % Normal 37.0-80.0 [facility] ([place]) Comment on above: Performed By: #### P TH ####[address] [address]#### CBC, LIPID, TSH, ADIFF, ANEU ####[place] [address] [place], [place] [address] .GFRon 06-17-2023 GFR 86 ml/min/1.73sqm Normal [facility] ([place]) Comment on above: Result Comment: GFR Population mean for , Non- Americans Ages 20-29 = 116 mL/min/1.73 sq.m. Ages 30-39 = 107 mL/min/1.73 sq.m. Ages 40-49 = 99 mL/min/1.73 sq.m. Ages 50-59 = 93 mL/min/1.73 sq.m. Ages 60-69 = 85 mL/min/1.73 sq.m. Ages 70+ = 75 mL/min/1.73 sq.m. Chronic Kidney Disease: Less than 60 mL/min/1.73 square meters End Stage Renal Disease: Less than 15 mL/min/1.73 square meters Performed By: #### V IDH, A1C, GFR, CMP ####[place] [address] [place], [place] [address] GFR Non- 71 ml/min/1.73sqm Normal [facility] ([place]) Comment on above: Result Comment: GFR Population mean for , Non- Americans Ages 20-29 = 116 mL/min/1.73 sq.m. Ages 30-39 = 107 mL/min/1.73 sq.m. Ages 40-49 = 99 mL/min/1.73 sq.m. Ages 50-59 = 93 mL/min/1.73 sq.m. Ages 60-69 = 85 mL/min/1.73 sq.m. Ages 70+ = 75 mL/min/1.73 sq.m. Chronic Kidney Disease: Less than 60 mL/min/1.73 square meters End Stage Renal Disease: Less than 15 mL/min/1.73 square meters Performed By: #### V IDH, A1C, GFR, CMP ####[place] [address] [place], [place] [address] .NEUABSon 06-17-2023 Neutrophil, Absolute 5.1 10 3/mcL Normal 2.9-6.2 [facility] ([place]) Comment on above: Performed By: #### P TH ####[place] [address]#### CBC, LIPID, TSH, ADIFF, ANEU ####[place] [place], [place] [address] A1Con 06-17-2023 HbA1c (Bld) [Mass fraction] 5.1 % Normal 4.3-6.4 [facility] ([place]) Comment on above: Performed By: #### V IDH, A1C, GFR, CMP ####[place] [place] [address] CBCon 06-17-2023 Erythrocyte distribution width (RBC) [Ratio] 14.2 % Normal 11.5-14.5 [facility] ([place]) Comment on above: Performed By: #### P TH ####[place] [address]#### CBC, LIPID, TSH, ADIFF, ANEU ####[place] [address] [place] [address] Hematocrit (Bld) [Volume fraction] 43.3 % Normal 37.0-47.0 [facility] ([place]) Comment on above: Performed By: #### P TH ####[place] [address]#### CBC, LIPID, TSH, ADIFF, ANEU ####[facility] [place] [address] Hgb 14.6 G/dL Normal 12.0-16.0 [facility] ([place]) Comment on above: Performed By: #### P TH ####[place] [address]#### CBC, LIPID, TSH, ADIFF, ANEU ####[place] [address] [place] [address] MCH (RBC) [Entitic mass] 29.5 pg Normal 27.0-31.2 [facility] ([place]) Comment on above: Performed By: #### P TH ####[place] [address]#### CBC, LIPID, TSH, ADIFF, ANEU ####[place] [address] [place] [address] MCHC 33.7 G/dL Normal 33.0-37.0 [facility] ([place]) Comment on above: Performed By: #### P TH ####[place] [address]#### CBC, LIPID, TSH, ADIFF, ANEU ####[address] [place] [address] MCV (RBC) [Entitic vol] 87.5 fL Normal 80.0-94.0 [facility] ([place]) Comment on above: Performed By: #### P TH ####[place] [address]#### CBC, LIPID, TSH, ADIFF, ANEU ####[place] [address] [place] [address] Platelet 315 10 3/mcL Normal 130-400 [facility] ([place]) Comment on above: Performed By: #### P TH ####[place] [address]#### CBC, LIPID, TSH, ADIFF, ANEU ####[place] [address] [place] [id number] Platelet mean volume (Bld) [Entitic vol] 8.4 fL Normal 7.4-10.4 [facility] ([place]) Comment on above: Performed By: #### P TH ####[place] [address]#### CBC, LIPID, TSH, ADIFF, ANEU ####[place] [place] [address] RBC 4.95 10 6/mcL Normal 4.20-5.40 [facility] ([place]) Comment on above: Performed By: #### P TH ####[address] [address]#### CBC, LIPID, TSH, ADIFF, ANEU ####[place] [place], [place] [address] WBC 7.8 10 3/mcL Normal 4.6-10.8 [facility] ([place]) Comment on above: Performed By: #### P TH ####[address] [address]#### CBC, LIPID, TSH, ADIFF, ANEU ####[place] [address] [place], [place] [address] CMPon 06-17-2023 Albumin Level 3.5 G/dL Normal 3.4-4.8 [facility] ([place]) Comment on above: Performed By: #### V IDH, A1C, GFR, CMP ####[place] [place], [place] [address] Albumin/Globulin [Mass ratio] 1.0 {ratio} Low 1.1-2.5 [facility] ([place]) Comment on above: Performed By: #### V IDH, A1C, GFR, CMP ####[place] [place], [place] [address] ALP [Catalytic activity/Vol] 120 U/L Normal 40-135 [facility] ([place]) Comment on above: Performed By: #### V IDH, A1C, GFR, CMP ####[place] [place], [place] [address] ALT [Catalytic activity/Vol] 38 U/L Normal 14-59 [facility] ([place]) Comment on above: Performed By: #### V IDH, A1C, GFR, CMP ####[place] [address] [place], [place] [address] AST [Catalytic activity/Vol] 20 U/L Normal 10-40 [facility] ([place]) Comment on above: Performed By: #### V IDH, A1C, GFR, CMP ####[place] [place], [place] [address] Bili Total 0.6 mg/dL Normal 0.2-1.0 [facility] ([place]) Comment on above: Result Comment: Use of this assay is not recommended for patients undergoing treatment with eltrombopag due to the potential for falsely elevated results. Performed By: #### V IDH, A1C, GFR, CMP ####[facility] [address] [place], [place] [address] BUN/Creatinine Ratio 23 ratio Normal 7-27 [facility] ([place]) Comment on above: Performed By: #### V IDH, A1C, GFR, CMP ####[place] [address] [place], [place] [address] Calcium [Mass/Vol] 9.1 mg/dL Normal 8.4-10.2 [facility] ([place]) Comment on above: Performed By: #### V IDH, A1C, GFR, CMP ####[place] [address] [place], [place] [address] Chloride [Moles/Vol] 106 mmol/L Normal 98-107 [facility] ([place]) Comment on above: Performed By: #### V IDH, A1C, GFR, CMP ####[facility] [address] [place], [place] [address] CO2 [Moles/Vol] 29 mmol/L Normal 23-31 [facility] ([place]) Comment on above: Performed By: #### V IDH, A1C, GFR, CMP ####[place] [place], [place] [address] Creatinine [Mass/Vol] 0.79 mg/dL Normal 0.55-1.02 On license of [facility] ([place]) Comment on above: Performed By: #### V IDH, A1C, GFR, CMP ####[place] [place], [place] [address] Electrolyte Balance 7.0 mEq/L Normal 4.0-15.0 Replaced by [facility] ([place]) Comment on above: Performed By: #### V IDH, A1C, GFR, CMP ####[place] [place], [place] [address] Globulin 3.5 G/dL Normal [facility] ([place]) Comment on above: Performed By: #### V IDH, A1C, GFR, CMP ####[place] [place], [place] [address] Glucose [Mass/Vol] 94 mg/dL Normal 83-110 [facility] ([place]) Comment on above: Performed By: #### V IDH, A1C, GFR, CMP ####[place] [place], [place] [address] Potassium [Moles/Vol] 4.2 mmol/L Normal 3.5-5.1 On license of [facility] ([place]) Comment on above: Performed By: #### V IDH, A1C, GFR, CMP ####[place] [place], [place] [address] Sodium [Moles/Vol] 142 mmol/L Normal 136-145 [facility] ([place]) Comment on above: Performed By: #### V IDH, A1C, GFR, CMP ####[place] [place], [place] [address] Total Protein 7.0 G/dL Normal 6.4-8.2 [facility] ([place]) Comment on above: Performed By: #### V IDH, A1C, GFR, CMP ####[place] [place], [place] [address] Urea nitrogen [Mass/Vol] 18 mg/dL Normal 7-18 [facility] ([place]) Comment on above: Performed By: #### V IDH, A1C, GFR, CMP ####[place] [place], [place] [address] LIPIDon 06-17-2023 Cholesterol [Mass/Vol] 185 mg/dL Normal 0-200 [facility] ([place]) Comment on above: Result Comment: Chol esterol Reference Interval: Less than 200 Desirable 200-239 Borderline high risk 240 and above High risk Performed By: #### 0 [id number] #### [facility] [address] [address] Cholesterol in HDL [Mass/Vol] 57 mg/dL Normal 40-60 [facility] ([place]) Comment on above: Performed By: #### 0 [address] #### [place] [address] [place], [place] [address] Cholesterol in LDL [Mass/Vol] 105 mg/dL Normal 0-130 [facility] ([place]) Comment on above: Performed By: #### 0 [address] #### [place] [address] [address] Triglyceride [Mass/Vol] 117 mg/dL Normal 0-150 [facility] ([place]) Comment on above: Result Comment: Trig lyceride Reference Interval: Less than 150 Normal 150-199 Borderline high risk 200-499 High risk 500 or higher Very high risk Performed By: #### 0 [address] #### [place] [place] [address] [place], [place] [address] MALBRon 06-17-2023 U Creatinine 144.4 mg/dL High 28.0-117.0 [facility] ([place]) Comment on above: Performed By: #### M ALBR ####[facility] [address] [address] U Microalb 1624 mcg/dL Normal [facility] ([place]) Comment on above: Performed By: #### M ALBR ####[place] [address] [address] U Ratio Alb/Cre 11 mcg/mg Normal 0-30 [facility] ([place]) Comment on above: Performed By: #### M ALBR ####[facility] [address] [place], [place] [address] PTHon 06-17-2023 PTH, Intact 42.4 pg/mL Normal 18.5-88.0 [facility] ([place]) Comment on above: Performed By: #### 0 [address] #### [place] [address] [address] TSHon 06-17-2023 TSH Qn 1.48 m[IU]/L Normal 0.36-3.74 [facility] ([place]) Comment on above: Performed By: #### 0 [address] #### [place] [address] [place], [place] [address] VIDHon 06-17-2023 Vit. D 25-Hydroxy 56.2 ng/mL Normal [facility] ([place]) Comment on above: Result Comment: Inte rpretive Values Based on Total 25(OH) Vitamin D: Deficient <20 ng/mL Insufficient 20 - <30 ng/mL Sufficient 30-100 ng/mL Performed By: #### V IDH, A1C, GFR, CMP ####[facility] [address] [place], [place] [address] XR RIBS 2 VIEWS LEFT/PA CHES T(AO)on 05-28-2023 XR RIBS 2 VIEWS LEFT/PA CHEST(AO) ORIGINAL EXAMINATION: 2 XRAY VIEWS OF LEFT RIBS WITH 2 XRAY VIEWS OF THE CHEST05/26/2023 1:24 pm RIBS UNILATERAL W/2 VIEW CHEST LEFT HISTORY: ORDERING SYSTEM PROVIDED HISTORY: Reason for Exam: left side rib pain secondary to fall, mild SOB FINDINGS: The heart is normal in size. There is an eventration of the right diaphragm. No consolidation. No pneumothorax. A fracture is noted of the anterior left 7th rib. Other rib deformities appear chronic. Areas of left pleural thickening noted. No pneumothorax. IMPRESSION: 1. Acute fracture of the anterior left 7th rib. Other rib deformities appear chronic. 2. Left pleural thickening. Interpreted by: Gonzalez Fong MD Preliminary Report By: Gonzalez Fong MD Electronically signed By Gonzalez Fong MD Dictated Date: 05/28/2023 11:09:21 AM Prelim Date: 05/28/2023 11:11:38 AM Sign Date: 05/28/2023 11:11:38 AM Ordering Provider: DESIRAE GAYTAN [facility] ([place]) XR SHOULDER MINIMUM 2 VIEWS RIGHTon 04-15-2023 XR SHOULDER MINIMUM 2 VIEWS RIGHT ORIGINAL EXAMINATION: 4 XRAY VIEWS OF THE RIGHT SHOULDER 04/14/2023 3:25 pm COMPARISON: None. HISTORY: ORDERING SYSTEM PROVIDED HISTORY: Reason for Exam: pain FINDINGS: No acute fracture or dislocation. No aggressive osseous lesion or radiopaque foreign body. The acromioclavicular joint is maintained with mild degenerative changes. There are mild degenerative changes at the glenohumeral joint. Calcific densities overlie the right lung, likely granulomas. IMPRESSION: No acute osseous abnormality. Interpreted by: Malissa Medel MD Preliminary Report By: Malissa Medel MD Electronically signed By Malissa Medel MD Dictated Date: 04/15/2023 11:24:55 PM Prelim Date: 04/15/2023 11:26:06 PM Sign Date: 04/15/2023 11:26:06 PM Ordering Provider: DESIRAE Love [facility] (MD) MA MAMMOGRAM SCREENING BILAT ERAL W/TOMOon 01-08-2023 MA MAMMOGRAM SCREENING BILATERAL W/CHELO ADDENDUM AMENDMENT: 01/08/2023 JEOVANY SOMMER MD ADDENDUM: There are postoperative changes in the right breast. There is a biopsy clip in the left breast. There are no significant masses or calcifications. IMPRESSION: No mammographic evidence of malignancy. Continued screening with annual mammograms is recommended. BIRADS: MAMMOGRAM BI-RADS: 2: Benign finding RECALL: 1 year screening RECALL TYPE: mammo LETTER SENT: Normal BI-RADS 1 and 2 Interpreted by: Jeovany Sommer MD Preliminary Report By: Jeovany Sommer MD Electronically signed By Jeovany Sommer MD Dictated Date: 01/08/2023 10:42:04 AM Prelim Date: 01/08/2023 10:44:34 AM Sign Date: 01/08/2023 10:44:34 AM Ordering Provider: DESIRAE GAYTAN Amended BI-RADS: 2 Benign letter sent: Normal BI-RADS 1 and 2 ORIGINAL FROM: [address] [address] PROCEDURE FOR: KEM CHOUDHURY [address] [place] [address] Home: PID#: [id number] Exam#: [id number] : 1945 Age: 77 TO: DESIRAE GAYTAN BI DEVELOPER [facility] [address] [address] Fax: NO FAX EXAMINATION: SCREENING DIGITAL BILATERAL MAMMOGRAM WITH TOMOSYNTHESIS, 01/07/2023 9:00 am TECHNIQUE: Screening mammography of the bilateral breasts was performed with tomosynthesis. 2D standard and 3D tomosynthesis combination imaging performed through both breasts in the MLO and CC projection. Computer aided detection was utilized in the interpretation of this exam. COMPARISON: 11/09/2020, 11/07/2019 HISTORY: Breast cancer screening. FINDINGS: BREAST DENSITY: Scattered fibroglandular tissue There are bilateral stable benign appearing findings. There is a biopsy clip in the left breast. There are no significant masses or calcifications. IMPRESSION: No mammographic evidence of malignancy. Continued screening with annual mammograms is recommended. BIRADS: MAMMOGRAM BI-RADS: 2: Benign finding RECALL: 1 year screening RECALL TYPE: mammo LETTER SENT: Normal BI-RADS 1 and 2 Interpreted by: Lyssa Baker Preliminary Report By: Lyssa Baker Electronically signed By Lyssa Baker Dictated Date: 01/07/2023 11:19:16 PM Prelim Date: 01/07/2023 11:25:27 PM Sign Date: 01/07/2023 11:25:27 PM Ordering Provider: DESIRAE GAYTAN Microwave Supervisor: FAUSTO HERNANDES RT (R) (M) (CT) letter sent: Normal BI-RADS 1 and 2 Mammogram BI-RADS: 2 Benign Normal [facility] (MD) BD BONE DENSITY DEXA AXIAL S [facility] 01-07-2023 BD BONE DENSITY DEXA AXIAL [facility] ORIGINAL EXAMINATION: BONE DENSITOMETRY 01/07/2023 10:58 am TECHNIQUE: A bone density dual x-ray absorptiometry (DEXA) scan was performed of the lumbar spine and left hip. COMPARISON: 11/09/2020 HISTORY: ORDERING SYSTEM PROVIDED HISTORY: Reason for Exam: Osteoporosis Screening FINDINGS: BMD (g/cm2) Lumbar Spine L1-L4: 0.859. T Score Lumbar Spine L1-L4: -1.7 BMD (g/cm2) Left Femoral Neck: 0.655. T Score Left Femoral Neck: -1.7 BMD (g/cm2) Left Hip: 0.920. T Score Left Hip: -0.2 BMD Change from previous Hip: 3.5% BMD Change from previous Lumbar spine: 7% FRAX: 10 year fracture risk assessment Major osteoporotic fracture: 11% Hip fracture: 2.5% IMPRESSION: Osteopenia by WHO criteria. *By the World Health Organization criteria: (Comparing with young normal sex matched population) - Normal: T-score at or above -1 SD (standard deviation) - Osteopenia: T-score between -1 and -2.5 SD - Osteoporosis: T-score at or below -2.5 SD Interpreted by: Jeovany Gilmore DO Preliminary Report By: Jeovany Gilmore DO Electronically signed By Jeovany Gilmore DO Dictated Date: 01/07/2023 12:37:41 PM Prelim Date: 01/07/2023 12:38:36 PM Sign Date: 01/07/2023 12:38:36 PM Ordering Provider: DESIRAE GAYTAN [facility] (MD) LABORATORYOrdered By: SYSTEM SYSTEM on 05-13-2022 Albumin BCP dye [Mass/Vol] 3.8 G/dL Invalid Interpretation Code 3.4 - 4.8 G/dL AO ADM SS Albumin/Globulin [Mass ratio] 1.2 {ratio} Invalid Interpretation Code 1.1 - 2.5 ratio AO ADM SS ALP [Catalytic activity/Vol] 122 U/L Invalid Interpretation Code 40 - 135 U/L AO ADM SS ALT With P-5'-P [Catalytic activity/Vol] 54 U/L Invalid Interpretation Code 14 - 59 U/L AO ADM SS AST With P-5'-P [Catalytic activity/Vol] 34 U/L Invalid Interpretation Code 10 - 40 U/L AO ADM SS Bilirubin [Mass/Vol] 0.6 mg/dL Invalid Interpretation Code 0.2 - 1.0 mg/dL AO ADM SS Calcium [Mass/Vol] 10.2 mg/dL Invalid Interpretation Code 8.4 - 10.2 mg/dL AO ADM SS Chloride [Moles/Vol] 102 mmol/L Invalid Interpretation Code 98 - 107 mmol/L AO ADM SS CO2 [Moles/Vol] 32 mmol/L Invalid Interpretation Code 23 - 31 mmol/L AO ADM SS Creatinine [Mass/Vol] 0.85 mg/dL Invalid Interpretation Code 0.55 - 1.02 mg/dL AO ADM SS Electrolyte Balance 6.0 mEq/L Invalid Interpretation Code 4.0 - 15.0 mEq/L AO ADM SS GFR 79 ml/min/1.73sqm Invalid Interpretation Code AO Chemistry S GFR Non- 65 ml/min/1.73sqm Invalid Interpretation Code AO Chemistry S Globulin 3.3 G/dL Invalid Interpretation Code AO ADM SS Glucose [Mass/Vol] 93 mg/dL Invalid Interpretation Code 83 - 110 mg/dL AO ADM SS Parathyrin.intact [Mass/Vol] 13.7 pg/mL Invalid Interpretation Code 18.5 - 88.0 pg/mL AH ADM SS Potassium [Moles/Vol] 4.4 mmol/L Invalid Interpretation Code 3.5 - 5.1 mmol/L AO ADM SS Protein [Mass/Vol] 7.1 G/dL Invalid Interpretation Code 6.4 - 8.2 G/dL AO ADM SS Sodium [Moles/Vol] 140 mmol/L Invalid Interpretation Code 136 - 145 mmol/L AO ADM SS Urea nitrogen [Mass/Vol] 15 mg/dL Invalid Interpretation Code 7 - 18 mg/dL AO ADM SS Urea nitrogen/Creatinine [Mass ratio] 18 ratio Invalid Interpretation Code 7 - 27 ratio AO ADM SS Vit. D 25-Hydroxy 86.0 ng/mL Invalid Interpretation Code AO ADM SS LABORATORYOrdered By: Michaela Evans on 05-13-2022 Basophil, Absolute 0.1 103/mcL Invalid Interpretation Code 0.0 - 0.2 10^3/mcL AO Workflow SS Basophils/100 WBC (Bld) 0.7 % Invalid Interpretation Code 0.0 - 2.5 % AO Workflow SS Eosinophil, Absolute 0.2 103/mcL Invalid Interpretation Code 0.0 - 0.4 10^3/mcL AO Workflow SS Eosinophils/100 WBC (Bld) 3.1 % Invalid Interpretation Code 0.0 - 7.0 % AO Workflow SS Erythrocyte distribution width (RBC) [Ratio] 14.3 % Invalid Interpretation Code 11.5 - 14.5 % AO Workflow SS Hematocrit (Bld) [Volume fraction] 45.3 % Invalid Interpretation Code 37.0 - 47.0 % AO Workflow SS Hemoglobin (Bld) [Mass/Vol] 15.2 G/dL Invalid Interpretation Code 12.0 - 16.0 G/dL AO Workflow SS Lymphocyte, Absolute 2.3 103/mcL Invalid Interpretation Code 0.8 - 3.9 10^3/mcL AO Workflow SS Lymphocytes/100 WBC (Bld) 31.7 % Invalid Interpretation Code 10.0 - 50.0 % AO Workflow SS MCH (RBC) [Entitic mass] 29.1 pg Invalid Interpretation Code 27.0 - 31.2 pg AO Workflow SS MCHC 33.4 G/dL Invalid Interpretation Code 33.0 - 37.0 G/dL AO Workflow SS MCV (RBC) [Entitic vol] 87.1 fL Invalid Interpretation Code 80.0 - 94.0 fL AO Workflow SS Monocyte, Absolute 0.5 103/mcL Invalid Interpretation Code 0.2 - 1.0 10^3/mcL AO Workflow SS Monocytes/100 WBC (Bld) 6.5 % Invalid Interpretation Code 1.7 - 13.0 % AO Workflow SS Neutrophil, Absolute 4.1 103/mcL Invalid Interpretation Code 2.9 - 6.2 10^3/mcL AO Workflow SS Neutrophils/100 WBC (Bld) 58.0 % Invalid Interpretation Code 37.0 - 80.0 % AO Workflow SS Platelet mean volume (Bld) [Entitic vol] 8.3 fL Invalid Interpretation Code 7.4 - 10.4 fL AO Workflow SS Platelets (Bld) [#/Vol] 324 103/mcL Invalid Interpretation Code 130 - 400 10^3/mcL AO Workflow SS RBC (Bld) [#/Vol] 5.21 106/mcL Invalid Interpretation Code 4.20 - 5.40 10^6/mcL AO Workflow SS WBC (Bld) [#/Vol] 7.1 103/mcL Invalid Interpretation Code 4.6 - 10.8 10^3/mcL AO Workflow SS LABORATORYOrdered By: Dayana Dalton on 05-13-2022 Cholesterol [Mass/Vol] 195 mg/dL Invalid Interpretation Code 0 - 200 mg/dL AO ADM SS Cholesterol in HDL [Mass/Vol] 68 mg/dL Invalid Interpretation Code 40 - 60 mg/dL AO ADM SS Cholesterol in LDL [Mass/Vol] 109 mg/dL Invalid Interpretation Code 0 - 130 mg/dL AO ADM SS Triglyceride [Mass/Vol] 88 mg/dL Invalid Interpretation Code 0 - 150 mg/dL AO ADM SS LABORATORYOrdered By: Yue Mcdermott on 10-28-2021 Albumin BCP dye [Mass/Vol] 3.8 G/dL Invalid Interpretation Code 3.4 - 4.8 G/dL AO ADM SS Albumin/Globulin [Mass ratio] 1.2 {ratio} Invalid Interpretation Code 1.1 - 2.5 ratio AO ADM SS ALP [Catalytic activity/Vol] 160 U/L Invalid Interpretation Code 40 - 135 U/L AO ADM SS ALT With P-5'-P [Catalytic activity/Vol] 62 U/L Invalid Interpretation Code 14 - 59 U/L AO ADM SS AST With P-5'-P [Catalytic activity/Vol] 38 U/L Invalid Interpretation Code 10 - 40 U/L AO ADM SS Bilirubin [Mass/Vol] 0.7 mg/dL Invalid Interpretation Code 0.2 - 1.0 mg/dL AO ADM SS Calcium [Mass/Vol] 9.7 mg/dL Invalid Interpretation Code 8.4 - 10.2 mg/dL AO ADM SS Chloride [Moles/Vol] 105 mmol/L Invalid Interpretation Code 98 - 107 mmol/L AO ADM SS Cholesterol [Mass/Vol] 196 mg/dL Invalid Interpretation Code 0 - 200 mg/dL AO ADM SS Cholesterol in HDL [Mass/Vol] 62 mg/dL Invalid Interpretation Code 40 - 60 mg/dL AO ADM SS Cholesterol in LDL [Mass/Vol] 117 mg/dL Invalid Interpretation Code 0 - 130 mg/dL AO ADM SS CO2 [Moles/Vol] 29 mmol/L Invalid Interpretation Code 23 - 31 mmol/L AO ADM SS Creatinine [Mass/Vol] 1.01 mg/dL Invalid Interpretation Code 0.55 - 1.02 mg/dL AO ADM SS Electrolyte Balance 14.0 mEq/L Invalid Interpretation Code 4.0 - 15.0 mEq/L AO ADM SS Globulin 3.2 G/dL Invalid Interpretation Code AO ADM SS Glucose [Mass/Vol] 94 mg/dL Invalid Interpretation Code 83 - 110 mg/dL AO ADM SS Potassium [Moles/Vol] 4.5 mmol/L Invalid Interpretation Code 3.5 - 5.1 mmol/L AO ADM SS Protein [Mass/Vol] 7.0 G/dL Invalid Interpretation Code 6.4 - 8.2 G/dL AO ADM SS Sodium [Moles/Vol] 148 mmol/L Invalid Interpretation Code 136 - 145 mmol/L AO ADM SS Triglyceride [Mass/Vol] 84 mg/dL Invalid Interpretation Code 0 - 150 mg/dL AO ADM SS TSH Qn 1.59 m[IU]/L Invalid Interpretation Code 0.36 - 3.74 mcIU/mL AO ADM SS Urea nitrogen [Mass/Vol] 21 mg/dL Invalid Interpretation Code 7 - 18 mg/dL AO ADM SS Urea nitrogen/Creatinine [Mass ratio] 21 ratio Invalid Interpretation Code 7 - 27 ratio AO ADM SS Vit. D 25-Hydroxy 92.0 ng/mL Invalid Interpretation Code AO ADM SS LABORATORYOrdered By: Dayana Dalton on 10-28-2021 Basophil, Absolute 0.1 103/mcL Invalid Interpretation Code 0.0 - 0.2 10^3/mcL AO Workflow SS Basophils/100 WBC (Bld) 0.9 % Invalid Interpretation Code 0.0 - 2.5 % AO Workflow SS Eosinophil, Absolute 0.2 103/mcL Invalid Interpretation Code 0.0 - 0.4 10^3/mcL AO Workflow SS Eosinophils/100 WBC (Bld) 2.4 % Invalid Interpretation Code 0.0 - 7.0 % AO Workflow SS Erythrocyte distribution width (RBC) [Ratio] 15.2 % Invalid Interpretation Code 11.5 - 14.5 % AO Workflow SS Hematocrit (Bld) [Volume fraction] 45.0 % Invalid Interpretation Code 37.0 - 47.0 % AO Workflow SS Hemoglobin (Bld) [Mass/Vol] 15.1 G/dL Invalid Interpretation Code 12.0 - 16.0 G/dL AO Workflow SS Lymphocyte, Absolute 2.3 103/mcL Invalid Interpretation Code 0.8 - 3.9 10^3/mcL AO Workflow SS Lymphocytes/100 WBC (Bld) 29.8 % Invalid Interpretation Code 10.0 - 50.0 % AO Workflow SS MCH (RBC) [Entitic mass] 29.1 pg Invalid Interpretation Code 27.0 - 31.2 pg AO Workflow SS MCHC 33.6 G/dL Invalid Interpretation Code 33.0 - 37.0 G/dL AO Workflow SS MCV (RBC) [Entitic vol] 86.7 fL Invalid Interpretation Code 80.0 - 94.0 fL AO Workflow SS Monocyte, Absolute 0.5 103/mcL Invalid Interpretation Code 0.2 - 1.0 10^3/mcL AO Workflow SS Monocytes/100 WBC (Bld) 6.9 % Invalid Interpretation Code 1.7 - 13.0 % AO Workflow SS Neutrophil, Absolute 4.7 103/mcL Invalid Interpretation Code 2.9 - 6.2 10^3/mcL AO Workflow SS Neutrophils/100 WBC (Bld) 60.0 % Invalid Interpretation Code 37.0 - 80.0 % AO Workflow SS Platelet mean volume (Bld) [Entitic vol] 8.2 fL Invalid Interpretation Code 7.4 - 10.4 fL AO Workflow SS Platelets (Bld) [#/Vol] 342 103/mcL Invalid Interpretation Code 130 - 400 10^3/mcL AO Workflow SS RBC (Bld) [#/Vol] 5.19 106/mcL Invalid Interpretation Code 4.20 - 5.40 10^6/mcL AO Workflow SS WBC 7.9 103/mcL Invalid Interpretation Code 4.6 - 10.8 10^3/mcL AO Workflow SS LABORATORYOrdered By: SYSTEM SYSTEM on 10-28-2021 GFR 65 ml/min/1.73sqm Invalid Interpretation Code AO Chemistry S GFR Non- 54 ml/min/1.73sqm Invalid Interpretation Code AO Chemistry S Monocyte distribution width Auto (Bld) [Entitic vol] Not Performed 1 *NA* (10/28/21 9:12 AM) Invalid Interpretation Code 0.00 - 20.00 AO Hematology S Comment on above: Result Comment: MDW testing performed only on adult ER patients between the ages of 18-89 years. COLON BIOPSY (CHOOSE SITE)on 04-01-2018 COLON BIOPSY (CHOOSE SITE) Patient: KEM CHOUDHURY : 1945 (72/F) Acct Num: [id number] Phys: DanielSandeep Unit Num: [id number] Loc: LABSPEC Specimen: [id number] Received: 04/01/181526 Spec Type: COLON BX TISSUES 1 TISSUES: COLON BIOPSY GROSS DESCRIPTION Received in fixative is one container labeled with the patient's name and designated polyp hepatic flexure. The specimen consists of a piece of mitchell-pink polyp measuring 0.8 x 0.5 x 0.3 cm. Also received are two pieces of mitchell soft tissue measuring in aggregate 0.2 x 0.2 x 0.1 cm. The specimen is totally submitted in one cassette. / DEV:renee 04/02/18 TC:1 CPT: 87880 HEADER OPERATION: Colonoscopy with polypectomy PRE-OP DIAGNOSIS: Screening TISSUE SUBMITTED: Polyp hepatic flexure, rule out adenoma MICROSCOPIC DESCRIPTION Slides are reviewed. MICROSCOPIC DIAGNOSIS Polyp, hepatic flexure, polypectomy: Fragments of tubular adenoma. DEV:renee 04/05/18 Signed Aaron Singh 04/05/18 Normal [facility] Comment on above: Performed By: #### P COLBX ####[facility] [id number] [employer], [place], [address] Orthopedic Visit Reporton Orthopedic Visit Report [facility] [id number] [phone] VISITDate of Service: 10/21/17#: [id number] Acct: [id number]: KEM CHOUDHURY Rep #: [id number]: 1945 Provider: Owen Neri/Sex: 72/F Location: [facility].SMOStatus: SignedIntakeIntakeVisit Reasons: LEFT SHOULDERIs patient in pain?: YesAllergiesvancomycin Allergy (Severe, Verified 08/26/17 08:17)Rashprednisone Adverse Reaction (Unknown, Verified 08/26/17 08:17)TACHYCARDIAcodeine Adverse Reaction (Verified 08/26/17 08:17)ABD PAINANESTHESIA MED Allergy (Uncoded 05/11/17 06:55)DIFFICULT TIME WAKING UPMedicationsCalcium 1 tab PO BID 01/31/13 [History Confirmed 07/07/17]Lisinopril [Zestril] 5 mg PO DAILY 01/31/13 [History Confirmed 07/07/17]PFSHSurgical HistoryHistory of arthroscopy of left shoulder (Acute)H/O breast biopsy (Inactive)History of partial hysterectomy (Inactive)S/P cholecystectomy (Inactive)s/p heart (Inactive)Family HistoryMother HypertensionHeart diseaseFather HypertensionSocial HistorySmoking Status: Never smokerHPILEFT SHOULDER:Details: KEM CHOUDHURY is a 72 year old F here today for 07/14/17 left RTC repair. She is nolonger doing PT, is able to complete all ADLs but still complains of weakness and pain withextension or IR. She states that she struggles with having something in her hand and reachingout, like with a coffee mug. Denies numbness, tingling or other associated symptoms.ROSMuscReports joint pain, Reports limited joint movement, Reports as per HPIOrtho ExamLeft ShoulderSHOULDER: Patient otherwise alert oriented 3 no acute distress. Appropriate eye contact andaffect. She remains intact from the C5-T2 distributions. She has positive pulses. No extraadenopathy. Patient remains with global weakness around the shoulder but her shoulder remainedsupple. She is able only active forward elevate to roughly 110 at best passively she remainsfull. Patient has a known history of a massive irreparable rotator cuff tearAssessment AND PlanProblems1. Orthopedic aftercare Z47.89PlanAssessment: After orthopedic status post left shoulder scope and cuff debridement due to airreparable massive rotator cuff tear.Plan: This point time I discussed again the patient's surgical options. Those include areverse total shoulder arthroplasty which would be an open procedure. I described this to thepatient. She was somewhat confused by the approach to get to the shoulder but once a shouldermodel and reiterated what the procedure would be she has better understanding. At this pointtime will refer the patient to the [facility] for continued care if the patientdoes not want to needing a reverse total shoulder. Patient can continue with conservativemanagement. Any major issues return.CodingLevel of Care CodeGlobal Post OpDiagnosesOrthopedic aftercare Z47. 1107 Date Owen Wolfe DOCosigner Signature: Date (if applicable)CC: Normal [facility] Orthopedic Visit Reporton Orthopedic Visit Report [facility] [id number] [phone] VISITDate of Service: 08/26/17MR#: [id number] Acct: [id number]: KEM CHOUDHURY Rep #: [id number]: 1945 Provider: Owen Wolfe DOAge/Sex: 72/F Location: [facility].SMOStatus: SignedIntakeIntakeVisit Reasons: LEFT SHOULDERIs patient in pain?: NoAllergiesvancomycin Allergy (Severe, Verified 08/26/17 08:17)Rashprednisone Adverse Reaction (Unknown, Verified 08/26/17 08:17)TACHYCARDIAcodeine Adverse Reaction (Verified 08/26/17 08:17)ABD PAINANESTHESIA MED Allergy (Uncoded 05/11/17 06:55)DIFFICULT TIME WAKING UPMedicationsCalcium 1 tab PO BID 01/31/13 [History Confirmed 07/07/17]Lisinopril [Zestril] 5 mg PO DAILY 01/31/13 [History Confirmed 07/07/17]PFSHSurgical HistoryHistory of arthroscopy of left shoulder (Acute)H/O breast biopsy (Inactive)History of partial hysterectomy (Inactive)S/P cholecystectomy (Inactive)s/p heart (Inactive)Family HistoryMother HypertensionHeart diseaseFather HypertensionSocial HistorySmoking Status: Never smokerHPILEFT SHOULDER:Details: KEM CHOUDHURY is a 72 year old F here today for s/p left shoulder scope, dos07/14/17. Patient notes that her shoulder is better and improving. Her range of motion andstrength is improving, although she continues to have limited range of motion. She is notcurrently in physical therapy. Denies numbness, tingling or other associated symptoms.ROSConstReports system reviewed and no additional complaints, except as docuEyesReports system reviewed and no additional complaints, except as docuENTReports system reviewed and no additional complaints, except as docuCardReports system reviewed and no additional complaints, except as docuRespReports system reviewed and no additional complaints, except as docuGIReports system reviewed and no additional complaints, except as docuGUReports system reviewed and no additional complaints, except as docuMuscReports limited joint movement, Reports stiffnessSkin/BreastReports system reviewed and no additional complaints, except as docuNeuroYes system reviewed and no additional complaints, except as docuPsychReports system reviewed and no additional complaints, except as docuEndoReports system reviewed and no additional complaints, except as docuOrtho ExamLeft ShoulderSHOULDER: Patient is alert oriented 3 in no acute distress. Appropriate eye contact andaffect. Otherwise intact from C5-T2 distributions. She has positive pulses. Patient stillhas active range of motion only 90 her external rotation power is 4/5 for elevation andabduction strength at initiation is still limited at 3+4+/5. Passively range of motion isotherwise full. in the context ofAssessment AND PlanProblems1. Orthopedic aftercare Z47.89PlanAssessment: After orthopedic status post left shoulder arthroscopy debridement for massiverotator cuff tear.Plan: This point time patient 6 weeks out I told her that surgical intervention is a reversetotal shoulder arthroplasty at this point time. Patient wants to hold off. She will discusswith family about what at this point. I told her she has increasing pain and feels herweakness continues to be problematic that is her intervention of choice. I will see her back 6weeks as needed. Any major issuesCodingLevel of Care CodeGlobal Post OpDiagnosesOrthopedic aftercare Z47. 0754 Date Owen Wolfe DOCosigner Signature: Date (if applicable)CC: Normal [facility] Orthopedic Visit Reporton Orthopedic Visit Report [facility] [id number] [phone] VISITDate of Service: 07/29/17MR#: [id number] Acct: [id number]: KEM CHOUDHURY Rep #: [id number]: 1945 Provider: Owen Wolfe DOAge/Sex: 72/F Location: [facility].SMOStatus: SignedIntakeIntakeVisit Reasons: left shoulderIs patient in pain?: NoAllergiesvancomycin Allergy (Severe, Verified 07/29/17 08:30)Rashprednisone Adverse Reaction (Unknown, Verified 07/29/17 08:30)TACHYCARDIAcodeine Adverse Reaction (Verified 07/29/17 08:30)ABD PAINANESTHESIA MED Allergy (Uncoded 05/11/17 06:55)DIFFICULT TIME WAKING UPMedicationsCalcium 1 tab PO BID 01/31/13 [History Confirmed 07/07/17]Lisinopril [Zestril] 5 mg PO DAILY 01/31/13 [History Confirmed 07/07/17]PFSHSurgical HistoryHistory of arthroscopy of left shoulder (Acute)H/O breast biopsy (Inactive)History of partial hysterectomy (Inactive)S/P cholecystectomy (Inactive)s/p heart (Inactive)Family HistoryMother HypertensionHeart diseaseFather HypertensionSocial HistorySmoking Status: Never smokerHPIleft shoulder:Details: KEM CHOUDHURY is a 72 year old F here today for f/u left shoulder scope 07/14/17.She presents in simple sling and states she has very little pain, she is removing her sling forelbow rom due to some finger numbness but has remained in the sling at all times otherwise.She is no longer taking any pain meds.ROSMuscReports limited joint movement, Reports stiffness, Reports tingling, Reports as per HPINeuroYes tinglingOrtho ExamLeft ShoulderSkin/Wound: Yes CDI, Yes suture/arianna removed, Yes wound cleaned, Yes healed, No ecchymosisContralateral Normal: YesSHOULDER: Alert and oriented 3 in no acute distress. Appropriate eye contact and affect.Otherwise intact from C5 to the T2 distributions. Patient continues show a pseudoparalysis ofthe shoulder secondary to her massive rotator cuff pathology. Incisions are clean dry andintact. No signs of erythema sutures removed Steri-Strips were applied.Intraoperative findings discussed.Assessment AND PlanProblems1. Orthopedic aftercare Z47.89PlanAssessment: After orthopedics status post left shoulder arthroscopy rotator cuff debridementsubacromial decompression.Plan: At this point time I told the patient that she had a massive irreparable cuff tear thatshe had torn more or less the musculotendinous junction had retracted completely back to theglenoid. Despite my efforts to do and mobilize rotator cuff I was unable. The biceps tendonis still intact providing some depressive affect but really the patient requires a reversetotal shoulder arthroplasty at this point time. I explained the patient what the surgery waswhat it would entail and at this point time patient is going to talk with family decide howthey want to proceed. We will see the patient back in 4 weeks for follow-up to her leftshoulder in terms of routine examination otherwise continue to work on range of motionexercises to prevent any adhesions. She will then decide about operative intervention.CodingLevel of Care CodeGlobal Post OpDiagnosesOrthopedic aftercare Z47. 1020 Date Owen Wolfe DOCosigner Signature: Date (if applicable)CC: Normal [facility] Operative Reporton 8 Operative Report [facility] [address] [place], [place] [address]Vpjhdbdzn Fuqdbn38/14/18 0737MR#: [id number] Acct: [id number]: KEM CHOUDHURY Rep #: [id number]: 1945 71 From: Owen Wolfe DOPCP: Desirae Gaytan [place] [facility] [place] YLocation: SDCReport of OperationDate of Procedure: 07/15/17Pre-Operative Diagnosis: Left shoulder massive rotator cuff tear subacromial impingementPost-Operative Diagnosis: Same as aboveSurgery/Procedure Performed:: Left shoulder arthroscopy extensive rotator cuff debridement andsubacromial decompression.Description of Surgical Findings::71-year-old female with recalcitrant left shoulder pain that failed nonoperative management toinclude NSAIDs activity medications physical therapy and injections. Patient had an MRI thatshowed a massive retracted rotator cuff tear to the supraspinatus and infraspinatus. Patienthad an acute falls there was concern initially that was an acute episode and perhaps mobilizedthe tendon could be repaired. Patient was counseled that the tendon was not repairable thenrecommendation would be for reverse total shoulder arthroplasty in a staged procedure. Afterappropriate counseling sent patient agreed to the aforementioned procedure. [facility] the left upper extremity was marked and identified with surgeon. Patient wastaken the operating room in satisfactory condition with somewhat to place 25 patient upprocedure and limb. Patient received 2 g of Ancef.Patient was placed into the beachchair position with all bony and soft tissue prominencesprotected. Her head was in a fine neutral position. She was then prepped and draped in usualfashion. The arm was placed into a three-dimensional arm tejada. Posterior portal wasestablished and we entered into the intra-articular space. It was easy to see the patient hada massive cuff tear with a bald humeral head essentially but had also torn most likely at themusculotendinous junction as there was still insertion of the tendon moving from the articularmargins laterally for the infraspinatus to its lateral insertion site. The supraspinatus wascompletely retracted over top of the glenoid was significantly scarred. Patient had somewhatposterior capsular disruption as well. The overall labral tissue was intact as was the bicepstendon which was flattened probably indicative of the chronic nature of the disease. This wasprovided also probably providing some degree of humeral head depression. Her subscapularishowever was otherwise normal. At that point time the scope was retracted and we moved in thesubacromial space established a lateral portal and a posterior lateral working portal startperforming a significant subacromial bursectomy and rotator cuff debridement. Made an attemptto immobilize the tissue wondering if this was just a large retracted L type tear patternhowever the tissue was significantly attenuated and friable with mobilization. Again it wouldappear that most of the tearing was at the musculotendinous junction which would not allow fora successful repair. Standard subacromial decompression was then undertaken. I preserve thebiceps at this point time in case the patient does not desire to have a reverse total shoulderarthroplasty. Upon completion of the bursectomy and subacromial decompression scope wasretracted and the portal sites were closed with 3-0 nylon. She was dressed in usual fashionwith Xeroform 4 x 4's ABDs and Medipore tape and placed into a simple sling. I was scrubbedand available time during our procedure. There is no drains or complications we had noimplants.consumer services advisor: NONEType of Anesthesia:: General/RegionalSpecimen's removed: NoneEstimated Blood Loss (mL): 10Grafts/Implants Used: None- Admit VTE DocumentationVTE Present on Admission: NoVTE Mechan Device Prophylaxis: SCD's, Knee High MILAGROS HoseVTE Pharm Prophylaxis ordered?: No07/15/17 0740 Date Owen Wolfe DOCC: Owen Wolfe DO; Desirae Gaytan Signed Normal [facility] Discharge Instructionon 07-02 Discharge Instruction [facility] [id number] [place], [place] [address]Vlcdomqebhbk for Home/Discharge Hhcmaugkcofa47/13/18 0914#: [id number] Acct: [id number]: SPENCER CHOUDHURYEVA Griffith Rep #: [id number]: 1945 71 From: Owen Wolfe DOPCP: Desirae Gaytan Status: REG SDCDischarge Activity: Return to Normal Activity, May not drive while taking narcotic painmedications., May ShowerMay shower in (days): 2Ice area for (Minutes): 20Weight Bearing Status: No weight bearingLifting Restrictions: No liftingAdditional Activity Instructions:: Patient may flex and extend elbow ad shayne. No active liftingof the arm. Command button-down shirts if able. Sling 24 7 except bathing.Call your doctor if your incision/area has: Continuous Slow Oozing, Sudden Increased Bleeding,Increased Pain/ Swelling, Increased Redness, Foul Smelling Discharge, Swelling at the incisionsiteCall your doctor if you observe: Fever of 101 or Higher, Coldness, Increased Pain, Numbness orTingling, Change in Color, Inability to urinate, Inability to have a bowel movement, Using morethan one pad per hour, Shortness of breath, Dizziness, Fainting spells, Swelling in the ankles,Chest pain, Prolonged hiccoughing, Increased palpitations (irregular heartbeat), Calfdiscomfort, Uncontrolled painSuture Line Care: Avoid Pulling/Pushing, Avoid Pinching/BendingChange Dressing in (Days):: 2Remove Dressing in (days):: 2Cleanse incision/area with: Soap AND WaterAdditional Dressing/Incision Instructions:: Replace dressing with simple Band-Aids as needed.Allergies/Adverse Reactions:Allergiesvancomyci n Allergy (Severe, Verified 06/24/17 10:24)RashDIFFICULTY BREATHINGprednisone Adverse Reaction (Unknown, Verified 06/24/17 10:24)TACHYCARDIATACHYCARDIA codeine Adverse Reaction (Verified 06/24/17 10:24)ABD PAINABDOMINAL PAINANESTHESIA MED Allergy (Uncoded 05/11/17 06:55)DIFFICULT TIME WAKING UPMedications to take at DischargeCalcium 1 tab PO BID 01/31/13Lisinopril [Zestril] 5 mg PO DAILY 01/31/13ibuprofen 200 mg tablet 600 mg PO PRN PRN tab 06/24/17Docusate Sodium [Colace] 100 mg PO BID PRN PRN #10 cap 07/14/17Oxycodone HCl/Acetaminophen [Percocet 5/325] 1 - 2 tablet PO Q4H PRN PRN #60 tablet 07/14/17ProMETHAzine [Phenergan] 25 mg PO Q4H PRN PRN #10 tab 07/14/17The following prescriptions were given:Oxycodone HCl/Acetaminophen [Percocet 5/325] 1 - 2 tablet PO Q4H PRN PRN #60 tabletPRN Reason: PainProMETHAzine [Phenergan] 25 mg PO Q4H PRN PRN #10 tabPRN Reason: NauseaDocusate Sodium [Colace] 100 mg PO BID PRN PRN #10 capPRN Reason: ConstipationPrimary Care Physician:Desirae Gaytan [Primary Care Provider] -Please Follow Up With: Owen Wolfe DOWhen: call [facility] for appt for 2 weeksProposed Discharge Date: 07/14/1802915 Date Owen Wolfe DOCC: Desirae Gaytan Normal [facility] Basic Metabolic Profile (BMP )on 07-09-2017 Calcium mass conc 9.0 mg/dL Normal 8.5-10.1 [facility] Comment on above: Performed By: #### L 500.2500 ####[facility] [address] [place], [address] Chloride molar conc 106 mmol/L Normal 98-107 [facility] Comment on above: Performed By: #### L 500.2500 ####[facility] [address] [place], [address] CO2 molar conc 26.0 mmol/L Normal 21.0-32.0 [facility] Comment on above: Performed By: #### L 500.2500 ####[facility] [address] [facility] [address] Creatinine mass conc 0.84 mg/dL Normal 0.55-1.02 [facility] Comment on above: Result Comment: The validity of the calculated GFR AND GFRAA in patients over70 years has not been determined. Clinical correlation isessential. Performed By: #### L 500.2500 ####[facility] [address] [place], [address] EST GFR - AA 87 mL/min Normal >60 [facility] Comment on above: Result Comment: Afri can Malaysian GFR Calc Performed By: #### L 500.2500 ####[facility] [address] [place], [address] GAP 8 Normal 5-15 [facility] Comment on above: Performed By: #### L 500.2500 ####[facility] [address] [facility] [address] GFR/1.73 sq M predicted among non-blacks MDRD vol rate/area (S/P/Bld) 72 mL/min/{1.73_m2} Normal >60 [facility] Comment on above: Result Comment: Non- GFR Calc Performed By: #### L 500.2500 ####[facility] [address] [facility] [address] Glucose mass conc 89 mg/dL Normal 74-106 [facility] Comment on above: Result Comment: Yovana rai note revised GLUCOSE reference range jonnphvkj98/02/2018. Performed By: #### L 500.2500 ####[facility] [address] [place], [address] Potassium molar conc 4.3 mmol/L Normal 3.5-5.1 [facility] Comment on above: Performed By: #### L 500.2500 ####[facility] [address] [place], [address] Sodium molar conc 140 mmol/L Normal 136-145 [facility] Comment on above: Performed By: #### L 500.2500 ####[facility] [address] [place], [address] Urea nitrogen mass conc 21 mg/dL High 7-18 [facility] Comment on above: Performed By: #### L 500.2500 ####[facility] [address] [place], [address] Urea nitrogen mass conc (Bld) 25.1 RATIO High 10-20 [facility] Comment on above: Performed By: #### L 500.2500 ####[facility] [address] [place], [address] CBC-Complete Blood Cnt No Di ffon 07-09-2017 Erythrocyte distribution width Auto Ratio (RBC) 14.3 % Normal 11.6-14.6 [facility] Comment on above: Performed By: #### L 100.0500 ####[facility] [address] [place], [address] Hematocrit Auto Volume Fraction (Bld) 46.7 % Normal 37-47 [facility] Comment on above: Performed By: #### L 100.0500 ####[facility] [address] [place], [address] Hemoglobin mass conc (Bld) 15.2 g/dL High 12.0-15.0 [facility] Comment on above: Performed By: #### L 100.0500 ####[facility] [address] [place], [address] MCH Auto Entitic mass (RBC) 29.8 pg Normal 27.0-32.0 [facility] Comment on above: Performed By: #### L 100.0500 ####[facility] [address] [place], [address] MCHC Auto mass conc (RBC) 32.5 g/gl Normal 32-36 [facility] Comment on above: Performed By: #### L 100.0500 ####[facility] [address] [place], [address] MCV Auto Entitic volume (RBC) 91.6 fL Normal 81-99 [facility] Comment on above: Performed By: #### L 100.0500 ####[facility] [address] [place], [address] Platelet mean volume Auto Entitic volume (Bld) 10.3 fL Normal 6.2-12.0 [facility] Comment on above: Performed By: #### L 100.0500 ####[facility] [address] [place], [address] Platelets Auto #/vol (Bld) 350 10*3/uL Normal 150-450 [facility] Comment on above: Performed By: #### L 100.0500 ####[facility] [address] [place], [address] RBC Auto #/vol (Bld) 5.10 M/mm3 Normal 4.2-5.4 [facility] Comment on above: Performed By: #### L 100.0500 ####[facility] [address] [place], [address] RDW SD 48.6 fl High 35.1-43.9 [facility] Comment on above: Performed By: #### L 100.0500 ####[facility] [address] [place], [address] WBC Auto #/vol (Bld) 8.7 10*3/uL Normal 4.4-11.0 [facility] Comment on above: Performed By: #### L 100.0500 ####[facility] [address] [place], [address] Orthopedic Visit Reporton Orthopedic Visit Report [facility] [id number] [facility] [address] [place] [address] [id number] VISITDate of Service: 06/24/17MR#: [id number] Acct: [id number]: KEM CHOUDHURY Rep #: [id number]: 1945 Provider: Owen Neri/Sex: 71/F Location: [facility].SMOStatus: SignedIntakeIntakeVisit Reasons: LEFT SHOULDERAllergiesvancomycin Allergy (Severe, Verified 06/24/17 10:24)Rashprednisone Adverse Reaction (Unknown, Verified 06/24/17 10:24)TACHYCARDIAcodeine Adverse Reaction (Verified 06/24/17 10:24)ABD PAINANESTHESIA MED Allergy (Uncoded 05/11/17 06:55)DIFFICULT TIME WAKING UPMedicationsCalcium 1 tab PO BID 01/31/13 [History Confirmed 06/24/17]Lisinopril [Zestril] 5 mg PO DAILY 01/31/13 [History Confirmed 06/24/17]ibuprofen 200 mg tablet 600 mg PO PRN tab 06/24/17 [History Confirmed 06/24/17]PFSHSurgical History H/O breast biopsy (Inactive)History of partial hysterectomy (Inactive)S/P cholecystectomy (Inactive)s/p heart (Inactive)Family History Mother HypertensionHeart diseaseFather HypertensionSocial HistorySmoking Status: Never smokerHPILEFT SHOULDER:Details: KEM CHOUDHURY is a 71 year old F here today to discuss MRI results of left shoulder.She complains of intermittent lateral shoulder pain. She denies radiation of pain. Notingling/numbness. She takes Motrin for pain with benefit.ROSConstReports system reviewed and no additional complaints, except as docuEyesReports system reviewed and no additional complaints, except as docuENTReports system reviewed and no additional complaints, except as docuCardReports system reviewed and no additional complaints, except as docuRespReports system reviewed and no additional complaints, except as docuGIReports system reviewed and no additional complaints, except as docuGUReports system reviewed and no additional complaints, except as docuMuscReports joint painSkin/BreastReports system reviewed and no additional complaints, except as docuNeuroYes system reviewed and no additional complaints, except as docuPsychReports system reviewed and no additional complaints, except as docuEndoReports system reviewed and no additional complaints, except as docuHema/LymphReports system reviewed and no additional complaints, except as docuAller/ImmunReports system reviewed and no additional complaints, except as docuOrtho ExamRight ShoulderSkin/Wound: Yes CDIContralateral Normal: YesTesting: Positive AROM-External Rotation at 90 0-60, PROM-External Rotation at side 0-60,PROM-Forward Elevation 0-180, PROM-External Rotation at 90 0-60, AROM-External Rotation at side0-60 and AROM-Forward Elevation 0-180Internal Rotation: Tip of ScapulaLeft ShoulderTesting: Yes Hawkin's, Yes Drop Arm, Yes Neer's, Yes Speed's, Yes TTP Biceps, Yes empty canInternal Rotation: [id number]: General:well developed, well nourished in no acute distress.Head:normocephalic and atraumaticPulses:pulses normal in all 4 extremities.Neurologic:no focal deficits, cranial nerves II-XII grossly intact with normal sensation, reflexed,coordination, muscle strength and tone.Axillary Nodes:no significant adenopathy.Psych:alert and cooperative, normal mood and affect, normal attention span and concentration.Heart regular S1-S2 lungs crackles bilaterally abdomen soft nontender nondistended no grossspecimen or megaly.Left upper extremity shows continued global weakness around the shoulder. Belly press ismaintained. But patient has a degree of pseudoparalysis. Tender palpation across the bicepsat this time.MRI: Evaluate myself the patient-patient shows massive retracted rotator cuff tear with earlyelevation of the humeral head that may be positional laying on the ground. But she still showsretraction back to the glenoid of the supraspinatus and infraspinatus at this time. Teresminor appears to be maintained. Subscapularis normal. Biceps tendon is difficult to identify.Subscapularis otherwise normalAssessment AND PlanProblems1. Impingement syndrome, shoulder, left M75.422. Complete tear of left rotator cuff M75.122PlanAssessment: Left shoulder rotator cuff tear left shoulder impingement left shoulder pain.Plan: After review of the MRI patient I discussed surgical versus nonsurgical options. Thispoint patient would like to proceed with left shoulder arthroscopic versus open rotator cuffrepair. Patient is aware that she has a massive retracted cuff tear or options would besuperior capsular reconstruction versus reverse total shoulder arthroplasty. At this pointtime due to the acuity of the injury I am hoping that I will be able to mobilize the repair andat a minimum do a partial repair. Patient understands risks and benefits to include damage tonerves muscles arteries veins, development of DVT PE infection or continued shoulder painand need for revision procedure. At this point time again the patient would like to proceedwith a arthroscopic versus open rotator cuff repair. I will have the superior capsularreconstruction material available just in case.Reviewed the pre-operative plans with the patient. Risks and benefits of the procedure werefully explained, including but not limited to infection, neurovascular injury, continued pain,arthritis, stiffness, need for further surgery, re-injury, DVT, PE, general risks ofanesthesia, and loss of limb or life. The patient understands all the risks and does wish toproceed with written consent.MedicationsDiscontin ued:acetaminophen Discontinued Reason: Pt no 650 mg (2 x 325 mg) PO Q6H PRN PRN Mild Painlonger taking (scale 0-3)/T>100.7CodingLevel of Care CodeOff vis,est,level 4DiagnosesImpingement syndrome, shoulder, left M75.42Complete tear of left rotator cuff M75.122Rotator cuff tear extent: vxpikaje31/23/18 1515 Date Owen Wolfe DOCosigner Signature: Date (if applicable)CC: Normal [facility] Upper Ext Joint Only(Routine )on 06-16-2017 Upper Ext Joint Only(Routine) [facility] [id number] [place] [address]Ypjsy Ext Joint Only(Routine)MR#: [id number] Acct: [id number]: SPENCER CHOUDHURYEVA Griffith Rep #: [id number]: 1945 F 71 From: Guido Trinh MDPCP: Desirae Gaytan Status: REG CLIStudy: Upper Ext Joint Only(Routine) Date of Exam: 06/16/17Exam# [id number] Ordering Dr: Owen Wolfe DOSTUDY: MRI LEFT SHOULDERREASON FOR EXAM: Female, 71 years old. Painful movement of the leftshoulder following a fall. InjuryTECHNIQUE: Standardized fat and water weighted pulse sequences wereobtained in all 3 orthogonal planes.COMPARISON: X-rays of the left shoulder on May 11, 2017. FINDINGS:There is a full-thickness tear of the supraspinatus and infraspinatustendons with tendon retraction to the level of the glenohumeral jointmeasuring approximately 3.5 cm in diameter (coronal T2 series 6 image 10).Normal subscapularis tendon. Normal teres minor tendon.There is 50% fatty muscular atrophy of the supraspinatus muscle (GoutallierStage III). There is 50% fatty muscular atrophy of the infraspinatusmuscle (Goutallier Stage III). There is a low-grade myofascial strain ofthe infraspinatus muscle. Normal subscapularis muscle. Normal teres minormuscle.There is a moderate volume joint effusion of the glenohumeral joint. Thereis decreased acromiohumeral distance Normal humeral head and visualizedproximal humerus. Normal biceps labral complex. There is tendinosis ofthe intracapsular long biceps tendon. Normal labrum. Normal capsulo-ligamentous complex. Normal rotator interval.There is moderate arthrosis of the acromioclavicular articulation. Thereis a Type II morphology (curved), with a neutral orientation. There isfluid distention of the subacromial-subdeltoid bursa, which communicateswith the glenohumeral joint, through a rotator cuff tear.Normal visualized coracohumeral and coracoacromial ligaments. Normalquadrilateral space. Normal axillary space.Normal deltoid muscle. Normal trapezius muscle. ORDER #: [id number] MRI/Upper Ext Joint Only(Routine)IMPRESSION:Mass vj full-thickness retracted tear of the supraspinatus andinfraspinatus tendons with muscular atrophy.Low-grade myofascial strain of the infraspinatus muscle.Mild tendinosis of the intracapsular segment of the long biceps tendonJoint effusion with fluid extending into the subacromial subdeltoid bursathrough the rotator cuff tear.Moderate arthrosis of the acromioclavicular joint.Electronically Signed:Guido Trinh MD, MRDY1024/06/16 at 8:31 ESTTel , Service support , PR: Owen Gaytan Communications Marketing Intern:Signed [facility] Orthopedic Visit Reporton Orthopedic Visit Report [facility] [id number] [phone] VISITDate of Service: 05/20/17#: [id number] Acct: [id number]: KEM CHOUDHURY Rep #: [id number]: 1945 Provider: Owen Wolfe DOAge/Sex: 71/F Location: [facility].SMOStatus: SignedIntakeVital Signs05/20/17 Height 5 ft 2 in05/20/17 Weight: 181 lb05/20/17 Body Mass Index (BMI) 33.0IntakeVisit Reasons: LEFT SHOULDERIs patient in pain?: Yes Pain scale (1-10): 1Allergiesvancomycin Allergy (Severe, Verified 05/20/17 09:25)Rashprednisone Adverse Reaction (Unknown, Verified 05/20/17 09:21)TACHYCARDIAcodeine Adverse Reaction (Verified 05/20/17 09:21)ABD PAINANESTHESIA MED Allergy (Uncoded 05/11/17 06:55)DIFFICULT TIME WAKING UPMedicationsCalcium 1 tab PO BID 01/31/13 [History Confirmed 05/20/17]Lisinopril [Zestril] 5 mg PO DAILY 01/31/13 [History Confirmed 05/20/17]Vitamin For Joints 1 ea PO BID 01/31/13 [History Confirmed 05/20/17]Acetaminophen [Tylenol Tablet] 650 mg PO Q6H PRN PRN #0 tab 06/28/16 [Rx Confirmed 05/20/17]PFSHSurgical HistoryH/O breast biopsy (Inactive)History of partial hysterectomy (Inactive)S/P cholecystectomy (Inactive)s/p heart (Inactive)Family HistoryMother HypertensionHeart diseaseFather HypertensionSocial HistorySmoking Status: Never smokerHPIFU ER TORN ROTATOR CUFF LT:Details: KEM CHOUDHURY is a 71 year old F new patient here today for left shoulder pain. On05/11/17 she fell on the ice and landed on her left shoulder. She went to [facility] that sameday where they took x-ray and pain medication. She was advised she tore her rotator cuff. Shestates her left arm was wrapped around her body for several days and now only wears a sling.She complains of intermittent lateral shoulder pain with activity. She denies radiation ofpain. No tingling/numbness. She only took the [place] for 2-3 days and it made her sick. She hasnot needed any pain medication.LEFT SHOULDER:Details: KEM CHOUDHURY is a 71 year old F here today forROSConstReports system reviewed and no additional complaints, except as docuEyesReports system reviewed and no additional complaints, except as docuENTReports system reviewed and no additional complaints, except as docuCardReports system reviewed and no additional complaints, except as docuRespReports system reviewed and no additional complaints, except as docuGIReports system reviewed and no additional complaints, except as docuGUReports system reviewed and no additional complaints, except as docuMuscReports joint painSkin/BreastReports system reviewed and no additional complaints, except as docuNeuroYes system reviewed and no additional complaints, except as docuPsychReports system reviewed and no additional complaints, except as docuEndoReports system reviewed and no additional complaints, except as docuHema/LymphReports system reviewed and no additional complaints, except as docuAller/ImmunReports system reviewed and no additional complaints, except as docuOrtho ExamRight ShoulderSkin/Wound: Yes CDIContralateral Normal: YesTesting: Positive AROM-External Rotation at 90 0-60, PROM-External Rotation at side 0-60,PROM-Forward Elevation 0-180, PROM-External Rotation at 90 0-60, AROM-External Rotation at side0-60 and AROM-Forward Elevation 0-180Internal Rotation: Tip of ScapulaLeft ShoulderTesting: Yes Hawkin's, Yes Neer's, Yes Drop ArmInternal Rotation: [id number]: Patient is alert and oriented 3 in no acute distress. I contact affect. Otherwiseintact from C5-T2 distributions. She has positive pulses she has no adenopathy. Left shoulderexamination shows weakness with active forward elevation concerning for acute rotator cufftear. Patient can bring her arm up maybe 40 . She has 3+-4/5 strength at best withsupraspinous testing but gives up with pressure. Her strength and external rotation is 4+/5.However the abducted external rotation position she starts to drift in the Hornblower's. Shehas no Jony deformity. No adenopathy. Range of motion to the back is around T12-L1.X-rays: Evaluated myself patient-no obvious bony abnormalities appreciated. Acromial distanceis otherwise maintained. Type II.Assessment AND PlanProblems1. Impingement syndrome, shoulder, left M75.422. Complete tear of left rotator cuff M75.122PlanAssessment: Left shoulder rotator cuff tear left shoulder impingement left shoulder pain.Plan: 1 time due to the acuity of injury he had sudden onset of weakness my recommendation isfor MRI of the shoulder to evaluate for acute rotator cuff tear. My hold off performing anyformal subacromial injection at this time as it may alter the imaging sequence and obscuressome of the findings. All the patient follow-up after MRI completed. Patient is encouraged toflex and extend the elbow. Also ordered for passive and active assisted forward elevation andexternal rotation exercises to prevent stiffness. We will give her a physical therapyprescription as well. Have her follow-up after MRI completed. Patient agrees to plan. MajorissuesOrdersOrders:Lorna ngLevel of Care CodeOff vis,new,level 3DiagnosesImpingement syndrome, shoulder, left M75.42Complete tear of left rotator cuff M75.122Rotator cuff tear extent: hfzknkqo12/22/18 0750 Date Owen Wolfe DOCosigner Signature: Date (if applicable)CC: Normal [facility] Inital Evaluation (1) - PTon 05-22-2017 Inital Evaluation (1) - PT [facility] [address] [facility]. [address] [place] [address] [phone] [phone] FaxREHABILITATION SERVICESINITIAL EVALUATIONMR#: [id number] Acct: [id number]: KEM CHOUDHURY Rep #: [id number]: 1945 71 From: Miller Armenta PT, ATCReferring : Owen Wolfe DO Status: REG RCRInsurance: MEDICARE PART A [facility] COMMERCIALPatient's Visit InformationKEM CHOUDHURY is a 71 year old F referred to Physical Therapy by Owen Wolfe DO DR.MTODDwith a diagnosis of L rot cuff tear.Date of Evaluation: 05/22/17Physical Therapist: Miller Armenta PT,- Visit PlanFrequency: 2x /WeekDuration: 6 WeeksPlan: L shoulder strengthening (rot cuff), scap stab ex's, UBE, and HEP. CP/US for pain- SubjectiveSubjective: Pt reports she fell on the ice over a week ago which resulted in severe L shoulderpain. Pt reports she was unable to lift her arm, so she went straight to the ER. Pt reportsthey took xrays which revealed no Fx, but a rot cuff tear. Pt reports she was in a sling until2 days ago. Pt reports the pain has eased a little from wearing the sling, but she is still umesh lot of pain.. No prior L shoulder injuries. No T or N in L UE. No sleep diff secondary topain. Pt is R hand dominant. 0/10 pain at rest, 9/10 at worst (with movement after taking thesling off)- Pain L shoulderPain Intensity (Out of 10): 0Pain Intensity Range: 9- ObjectiveNeuro: B UE sensation is WNL to light touch. B biceptital reflex= 2/3. Palpation: Pt is verytender on the lateral aspect of L shoulder near supraspinatus insertion. No obvious deformitypresent at this time. ROM: R shoulder flex= 175, abd= 155, ER= 55, ER WNL; L shoulder flex=55, abd= 55, ER= 25, IR severely limited. MMT: R shoulder 5/5 throughout. L shoulder 2-/5throughout and painful with all testing. Special testing: positive empty can test- GoalsGoal 1:: Decrease L shoulder pain to aid with drivingGoal Time Frame: 4-6 WeeksGoal 2:: Increase L shoulder flex and abd ROM x 50 degrees to aid with overhead liftingGoal Time Frame: 4-6 WeeksGoal 3:: Increase L shoulder strength x 1 grade to aid with IADL'sGoal Time Frame: 4-6 WeeksGoal 4:: I with HEPGoal Time Frame: 4-6 Weeks- Rehabilitation PotentialPhysical Therapy Diagnosis: L shoulder pain, weakness, and limited ROM secondary to a L rotcuff tear.Rehabilitation Potential: Good- Anticipated InterventionsPatient/Client Instruction: Educate patient on: Condition, Plan of CareFor the Purpose of:: To improve self managementTherapeutic Exercise to Include: Strength training, Body mechanics, Postural training, PassiveROM, Active ROM, Scapular Strength/StabilizationFor the Purpose of:: To decrease pain, To increase ROM, To improve muscle performance and motorfunctionCryotherapy (ice pack, ice massage): YesUltrasound (thermal/non thermal): YesFor the Purpose of:: To decrease painThank you for the opportunity to evaluate your patient.For Medicare and Medicare HMO plans, please review the plan of care and approve it.It will need to be FAXED BACK to us at [phone] for Medicare purposes.Please let me know if there are questions or concerns regarding this plan of care.Physician Signature: ___Date: 05/22/17 0857CC: Owen Wolfe DO; Desirae Gaytan DT: 05/22/17MHSignedFor Medicare only, by signing this I certify the plan of care. Physicia ns Signature Date Normal [facility] Emergency Department Summary on 05-11-2017 Emergency [facility] [address] [place], [place] [address]Yfutubsps Department Dmxaxwx74/08/18 0809MR#: [id number] Acct: [id number]: KEM CHOUDHURY Rep #: [id number]: 1945 71 From: Gunner Garcia MDPCP: Desirae Gaytan Status: REG ER- ER Visit SummaryDate of Service: 05/11/17Chief Complaint: Injury left shoulder status post fallHistory of Present Illness: The patient is a 71 F slipped on the ice injuring her leftshoulder. She states she landed on her shoulder. She reports she is unable to use the leftupper extremity. She denies any head trauma. She denies neck pain. She denies paresthesia,anesthesia or motor weakness. She denies any cardiorespiratory symptoms. She is on noanticoagulant.Physical Examination: Vital signs are remarkable for an elevated blood pressure of 153/87.Head is atraumatic normocephalic. Pupils equal round reactive. There is no clinical findingsof basal skull fracture. C-spine was cleared per Nexus criteria. I Heart is regular withoutmurmur, gallop or rub. S1 and S2 are normal. Lungs are clear to auscultation with goodmovement of air bilaterally. There is no pain the patient over the clavicle or AC joint.There is palpation over the proximal humerus. Axillary, median, radial and ulnar functionintact. Radial pulses palpable. Abdomen soft nontender. Is no CVA tenderness noted.Test Results: Two-view x-ray of the shoulder was obtained there is no evidence of fracture,subluxation or dislocation. There is no fracture of the clavicle or AC joint either.Emergency Department Course and Treatment: Patient was reassessed and she is not able to ABduct past 30-60 .Since patient has pain with passive range of motion pain patient with proximal humerus x-raythe shoulder was obtained.Treatment Plan: Since the x-ray is normal and she is unable to AB duct past 30-60 with noneurovascular findings concerned she has a rotator cuff injury. She was treated with kenya andbaldemar and referred to Dr. Owen Wolfe.Disposition: Charge to home with appropriate home-going instruction and outpatient orthopedicfollow-upImpressio n:1. Mechanical fall with injury initial encounter2. Rotator cuff tear initial encounter left shoulderThis note was generated with Aorato dictation software. It may contain incorrect words,spelling, and punctuation that were not noted in review of the chart prior to signingED Disposition- Plan for ED Patient:Disposition: Home or Assisted LivingChief Complaint: FallInstructions: ED Torn Rotator CuffPrescriptions:Hydrocodon e Bitart/Apap 5-325 [[place] 5MG-325MG] 1 tab PO Q4H PRN PRN #30 tabPRN Reason: PainReferrals:Emma Gaytan rd [Primary Care Provider] -Owen Wolfe DO [STAFF PHYSICIAN] - 3-5 DaysWhat to do if you have ProblemsFor any increased pain, shortness of breath, bleeding, nausea or vomiting, chest pain, or anyunexpected problems, contact your Primary Care Provider. Call [facility] ([phone])or report to the closest Emergency Room.Call 911 if necessary.05/11/17813 Date Gunner Garcia [facility] [place] (If Indicated): Date CC: Owen Wolfe DO; Desirae Gaytan Normal [facility] Shoulder min 2 Viewson 05-11 Shoulder min 2 Views [facility]ITALIm[facility] [address] [place], [place] [address]Gpioxquy min 2 ViewsMR#: [id number] Acct: [id number]: KEM CHOUDHURY Rep #: [id number]: 1945 F 71 From: Feliberto Mccray MDPCP: Desirae Gaytan Status: DEP ERStudy: Shoulder min 2 Views Date of Exam: 05/11/17Exam# [id number] Ordering Dr: Gunner Garcia MDSTUDY: X-RAY - RIGHT SHOULDERREASON FOR EXAM: Female, 71 years old. Pain and limited range of motionfollowing a fall.TECHNIQUE: AP and lateral view(s) of the shoulder.COMPARISON: None. FINDINGS:Normal glenohumeral articulation. Normal acromioclavicular joint. Normalacromion.Normal humeral head and visualized proximal humerus.The soft tissue structures are unremarkable.Normal visualized pulmonary apex. ORDER #: [id number] RAD/Shoulder min 2 ViewsIMPRESSION:Normal x-ray examination of the shoulder.Electronically Signed:Feliberto Mccray MD at 8:31 ESTTel [phone], Service support , BM: Desirae Gaytna; Gunner Garcia MD Communications Marketing Intern:Signed Normal [facility] Vital Signs Date Time Vital Sign Value Performing Clinician Hi nguyen 12-12-2024 17:23-0400 Body temperature 98.2 [degF] Dr. Musa Awan DO Work Phone: [phone] [place] [address] 12-12-2024 17:23-0400 Diastolic blood pressure 81 mm[Hg] Dr. Musa Awan DO Work Phone: [phone] [address] 12-12-2024 17:23-0400 Heart rate 73 /min Dr. Musa Awan DO Work Phone: [phone] [place] [address] 12-12-2024 17:23-0400 Respiratory rate 14 /min Dr. Musa Awan DO Work Phone: [phone] [place] [address] 12-12-2024 17:23-0400 SaO2% (BldA) [Mass fraction] 99 % Dr. Musa Awan DO Work Phone: [phone] [place] [address] 12-12-2024 17:23-0400 Systolic blood pressure 148 mm[Hg] Dr. Musa Awan DO Work Phone: [phone] [place] [address] 12-12-2024 14:08-0400 Body height 157.[address] Musa Awan DO Work Phone: [phone] [place] [address] 12-12-2024 14:08-0400 Body mass index (BMI) [Ratio] 33.5 kg/m2 Dr. Musa Awan DO Work Phone: [phone] [place] [address] 12-12-2024 14:08-0400 Body weight [address] Musa Awan DO Work Phone: [facility] Encounters Encounter Date Encounter Type Care Provider Facility Start: 12-12-2024 Evaluation and management of inpatient Dr. Nava Donovan MD -[facility] Work Phone: Start: 12-12-2024 Non-patient / Non-visit Dr. Nava acosta MD -[facility] Work Phone: Start: 12-30-2023 ambulatory DESIRAE D TOMP KINS BI DEVELOPER - INSURANCE SALES ASSISTANT Facility:B Start: 11-18-2023 End: 11-18-2023 ambulatory DESIRAE D LUKAS BI DEVELOPER - INSURANCE SALES ASSISTANT Facility:[facility] Start: 06-17-2023 End: 06-17-2023 ambulatory DESIRAE D LUKAS BI DEVELOPER - INSURANCE SALES ASSISTANT Facility:B Start: 05-26-2023 End: 05-26-2023 ambulatory DESIRAE D LUKAS BI DEVELOPER - INSURANCE SALES ASSISTANT Facility:B Start: 04-23-2023 End: 05-22-2023 ambulatory DESIRAE D LUKAS BI DEVELOPER - INSURANCE SALES ASSISTANT Facility:B Start: 04-23-2023 End: 05-22-2023 Physical therapy management DESIRAE D LUKAS BI DEVELOPER - INSURANCE SALES ASSISTANT [facility] Start: 04-14-2023 End: 04-14-2023 ambulatory DESIRAE D LUKAS BI DEVELOPER - INSURANCE SALES ASSISTANT Facility:B Start: 04-14-2023 End: 04-14-2023 Patient encounter procedure DESIRAE D LUKAS BI DEVELOPER - INSURANCE SALES ASSISTANT [facility] Start: 01-07-2023 End: 01-07-2023 ambulatory DESIRAE D LUKAS BI DEVELOPER - INSURANCE SALES ASSISTANT Facility:B Start: 01-07-2023 End: 01-07-2023 Patient encounter procedure DESIRAE D LUKAS BI DEVELOPER - INSURANCE SALES ASSISTANT [facility] Start: 05-13-2022 End: 05-13-2022 Patient encounter procedure DESIRAE D LUKAS BI DEVELOPER - INSURANCE SALES ASSISTANT [facility] Start: 10-28-2021 End: 10-28-2021 Patient encounter procedure DESIRAE GAYTAN BI DEVELOPER - INSURANCE SALES ASSISTANT [facility] Start: 04-01-2018 Patient encounter procedure Sandeep Sanchez Facility:[facility] Start: 10-21-2017 End: 10-21-2017 Patient encounter procedure Owen Wolfe Facility:[facility] Start: 08-26-2017 End: 08-26-2017 Patient encounter procedure Owen Wolfe Facility:[facility] Start: 07-29-2017 End: 07-29-2017 Patient encounter procedure Owen Wolfe Facility:[facility] Start: 07-15-2017 Patient encounter procedure Owen Wolfe Facility:[facility] Start: 07-14-2017 End: 07-14-2017 Patient encounter procedure Owen Wolfe Facility:[facility] Start: 07-09-2017 Patient encounter procedure Alexandr Velazquez Facility:[facility] Start: 06-24-2017 End: 06-24-2017 Patient encounter procedure Owen Wolfe Facility:[facility] Start: 06-19-2017 End: 06-19-2017 Patient encounter procedure Owen Wolfe Facility:[facility] Start: 06-16-2017 Patient encounter procedure Owen Wolfe Facility:[facility] Start: 06-10-2017 Patient encounter procedure Owen Wolfe Facility:[facility] Start: 05-20-2017 End: 05-20-2017 Patient encounter procedure Owen Wolfe Facility:[facility] Start: 05-11-2017 End: 05-11-2017 Emergency department patient visit DEISRAE GAYTAN Facility:[facility] Procedures Date Procedure Procedure Detail Performing Clinician Start: 12-12-2024 X-ray of chest, PA a nd lateral views Dr. Musa Awan DO Work Phone: Start: 12-12-2024 Methadone measurement, urine Dr. Musa Awan DO Work Phone: Start: 12-12-2024 Urnls dip stick/tabl et reagent auto microscopy Dr. Musa Awan DO Work Phone: Start: 12-12-[address] Musa Awan DO Work Phone: Start: 12-12-2024 CT of head without contrast Dr. Musa Awan DO Work Phone: Start: 07-13-2017 12 lead ECG DESIRAE TO ANA Start: 05-04-2017 Colonoscopy DESIRAE TO ANA BI DEVELOPER - INSURANCE SALES ASSISTANT Comment on above: Due in 2021 Breast structure (buck dy structure) DESIRAE GAYTAN BI DEVELOPER - INSURANCE SALES ASSISTANT Comment on above: Right breast biopsy- clip inserted Cholecystectomy DESIRAE TURNER BI DEVELOPER - INSURANCE SALES ASSISTANT Hysterectomy DESIRAE MCKEONJoRAN Cruz BI DEVELOPER - INSURANCE SALES ASSISTANT Comment on above: Partial Surgery (qualifier value) SARA ZAN MCKEONPKINS BI DEVELOPER - INSURANCE SALES ASSISTANT Comment on above: heart surgery as chi ld Plan of Treatment Date Care Activity Detail Author Start: 12-12-2024 Verification routine [facility] Start: 12-12-2024 Admission procedure [facility] Start: 12-12-2024 Hospital admission, emergency, from emergency room, medical nature [facility] Start: 12-12-2024 End: 12-12-2024 [facility] Start: 12-12-2024 Consultation [facility] Start: 12-12-2024 Bacteria identified in Urine by Culture Urine Culture [facility] Urine culture [facility] Immunizations Immunization Date Immunization Notes Care Provider Cori berman 04-10-2022 influenza, high dose seasonal, preservative-free DESIRAE GAYTAN BI DEVELOPER - INSURANCE SALES ASSISTANT [facility] 08-17-2021 SARS-CoV-2 mRNA (dleweymjdln-evnp-wsaesd e) vaccine DESIRAE MCKEONPKINS BI DEVELOPER - INSURANCE SALES ASSISTANT [facility] 03-30-2021 SARS-CoV-2 mRNA (tozinameran) vaccine DESIRAE GAYTAN BI DEVELOPER - INSURANCE SALES ASSISTANT [facility] 07-12-2020 SARS-CoV-2 (COVID-19 ) Ad26 vaccine, recombinant DESIRAE GAYTAN BI DEVELOPER - INSURANCE SALES ASSISTANT [facility] Comment on above: Result Comment: 2020: TPV70 04-13-2020 influenza, injectabl e, quadrivalent, contains preservative; Translations: [Fluarix PF Quadrivalent ] DESIRAE GAYTAN BI DEVELOPER - INSURANCE SALES ASSISTANT [facility] 03-04-2018 influenza virus vacc ine, unspecified formulation DESIRAE GAYTAN BI DEVELOPER - INSURANCE SALES ASSISTANT [facility] 01-29-2017 influenza virus vacc ine, unspecified formulation DESIRAE GAYTAN BI DEVELOPER - INSURANCE SALES ASSISTANT [facility] 01-02-2017 influenza virus vacc ine, unspecified formulation DESIRAE GAYTAN BI DEVELOPER - INSURANCE SALES ASSISTANT [facility] 02-23-2016 zoster vaccine, live DESIRAE GAYTAN BI DEVELOPER - INSURANCE SALES ASSISTANT [facility] 01-21-2016 influenza virus vacc ine, unspecified formulation DESIRAE GAYTAN BI DEVELOPER - INSURANCE SALES ASSISTANT [facility] 01-21-2016 pneumococcal conjuga te vaccine, 13 valent DESIRAE MCKEONPKINS BI DEVELOPER - INSURANCE SALES ASSISTANT [facility] 02-15-2015 influenza virus vacc ine, unspecified formulation DESIRAE MCKEONPKINS BI DEVELOPER - INSURANCE SALES ASSISTANT [facility] 05-23-2014 pneumococcal polysaccharide vaccine, 23 valent DESIRAE GAYTAN BI DEVELOPER - INSURANCE SALES ASSISTANT [facility] 03-04-2014 influenza virus vacc ine, unspecified formulation DESIRAE GAYTAN BI DEVELOPER - INSURANCE SALES ASSISTANT [facility] 10-22-2012 tetanus toxoid, redu mary beth diphtheria toxoid, and acellular pertussis vaccine, adsorbed DESIRAE GAYTAN BI DEVELOPER - INSURANCE SALES ASSISTANT [facility] Payers Date Payer Category Payer Medicare [id number] 2017 Self-pay 2015 Private Health Insurance [id number] 2012 Medicare [id number] 1945 Unknown [id number] 2.16.8 40.1.226906.3.579.2.62 1945 Unknown [id number] .16.8 40.1.739542.3.579.2.627 1945 Unknown [id number] 2.16.8 40.1.547316.3.579.2.62 1945 Unknown [id number] 2.16.8 40.1.697797.3.579.2.627 1945 Unknown [id number] 2.16.8 40.1.586128.3.579.2.627 1945 Unknown [id number] 2.16.8 40.1.177703.3.579.2.627 1945 Unknown [id number] 2.16.8 40.1.036819.3.579.2.627 Unknown [id number] 2.16.8 40.1.320673.3.579.2.462 Unknown [id number] 2.16.8 40.1.822385.3.579.2.462 Unknown [id number] 2.16.8 40.1.538553.3.579.2.462 Unknown [id number] 2.16.8 40.1.311191.3.579.2.462 Unknown [id number] 2.16.8 40.1.155461.3.579.2.462 Unknown [id number] 2.16.8 40.1.156093.3.579.2.462 Unknown [id number] 2.16.8 40.1.952563.3.579.2.462 Unknown [id number] 2.16.8 40.1.144652.3.579.2.462 Unknown [id number] 2.16.8 40.1.341299.3.579.2.462 Unknown [id number] 2.16.8 40.1.819020.3.579.2.462 Unknown [id number] 2.16.8 40.1.845895.3.579.2.462 Unknown [id number] 2.16.8 40.1.839250.3.579.2.462 Unknown [id number] 2.16.8 40.1.270872.3.579.2.462 Social History Date Type Detail Facility Start: 02-03-2019 End: 12-12-2024 Tobacco smoking status Never smoked tobacco (finding) [facility] Start: 1945 Sex Assigned At Female A [facility] Start: 01-31-2013 Alcohol Alcohol [place] [facility] [place] Start: 07-21-2016 Tobacco Use [facility] Medical Equipment Procedure Code Equipment Code Equipment Origin al Text Equipment Identifier Dates CANNULA FDA Start: 07-14-2017 [place] FDA Start: 07-14-2017 EXPRESSEW III NEEDLE FDA Star t: 07-14-2017 Functional Status Date Assessment Result Facility 04-23-2023 Functional Status Home Living Ad ditional Information Objective: Cardiovascular Screen: BP:150/90 HR: 76 BPM O2 sat: 97% Observation: Mild excess thoracic kyphosis. Cervical AROM: Flex: min loss Ext: min loss ,Rotation: R: min loss L: min loss MMT: see chart Palpation: mild TTP lateral upper arm and shoulder region, Special Tests: ER lag sign: +, Drop arm: +, Infraspinatus: +R Neural tension: median nerve neural tension: - Sensation Grossly intact and symmetrical to light touch bilat UE's: Reflexes1+ bilat biceps and triceps. [facility] Mental Status Date Assessment Result Facility 12-12-2024 Cognitive function Level Of Cons ciousness Awake;Alert;Inappropriate;Diso riented [facility] Work Phone: Clinical Notes 01-07-2023 to 12-12-2024 Note Date & Type Note Facility 12-12-2024 History and physi thelma note [facility] 12-12-2024 Discharge summary [facility] 12-12-2024 Radiology Diagnostic study note [facility] Imaging Services [address] [place] [address] Brain/Head without Contrast MR#: [id number] Acct: [id number] Name: KEM CHOUDHURY Rep #: [id number] 4 : 1945 F 79 From: Shorty Mccray MD PCP: NOT,DEFINED Status: PRE ER Study:Brain/Head without Contrast Date of Exa m: 12/12/24 Exam# [id number] Ordering Dr: Musa Phillips DO PROCEDURE: BRAIN/HEAD WITHOUT CONTRAST 12/12/2024 REASON FOR EXAM: ALTERED MENTAL STATUS TECHNIQUE: BRAIN/HEAD WITHOUT CONTRAST Coronal and Sagittal reconstruction series were provided. One or more dose reduction techniques were used (e.g., Automated exposure control, adjustment of the mA and/or kV according to patient size, use of iterative reconstruction technique. RADIATION DOSE SUMMARY: CTDlvol: 44.99 mGy DLP: 829.85 mGycm COMPARISON: None FINDINGS: Brain: Low density in the periventricular white matter suggests mild chronic small vessel ischemic changes. CSF Spaces: Moderate generalized cerebral atrophy Sinuses/Mastoids: Clear at visualized levels Bones: Unremarkable CT/Brain/Head without Contrast IMPRESSION: CHRONIC CHANGES. NO ACUTE FINDINGS. Reading Location: [facility] CC: DEFINED NOT; Dr. Musa Awan DO ~ Communications Marketing Intern: Signed [facility] 12-12-2024 Radiology Diagnostic study note [facility] Imaging Services [address] [place] [address] Chest PA and Lateral MR#: [id number] Acct: [id number] Name: KEM CHOUDHURY Rep #: [id number] : 1945 F 79 From: Shorty Mccray MD PCP: NOT,DEFINED Status: PRE ER Study:Chest PA and Lateral Date of Exam: 12/12/24 Exam# [id number] Ordering Dr: Musa Phillips DO PROCEDURE: CHEST PA AND LATERAL 12/12/2024 REASON FOR EXAM: ALTERED MENTAL STATUS TECHNIQUE: CHEST PA AND LATERAL COMPARISON: None FINDINGS: Hardware: None Heart: The heart size is normal. Mediastinum: The mediastinal contour is unremarkable. Lungs: The lungs are clear. Bones: Degenerative changes are identified within the thoracic spine. RAD/Chest PA and Lateral IMPRESSION: NO ACUTE FINDINGS. Reading Location: [facility] CC: DEFINED NOT; Dr. Musa Awan DO ~ Communications Marketing Intern: Signed [facility] 12-12-2024 Discharge summary Note Date/Time December 12, 2024 5:11pm [facility] Medical Records Department [address] [place] [address] Emergency Department Summary 12/12/24 MR#: [id number] Acct: [id number] Name: KEM CHOUDHURY Rep #:[id number] : 1945 79 From: Musa siegel DO PCP: Desirae Everett Lukas, DISTRICT RECRUITER-C Sta tus:REG ER Location: ED HPI History of Present Illness Chief Complaint: Confusion Narrative Narrative: Chief complaint and HPI: Altered mental status. 79-year-old female with past medical history of HTN and possibly undiagnosed dementia presents for evaluationof altered mental status. History taken mostly by . states thathe suspects his has dementia as she occasionally will ask questions such asconfirming that she is the mother of their daughter. He states yesterday they had a normal day. Today she woke up at her normal baseline. Later in the day she then questioned who her was. Patient believes that her is not her . He states that it continued for several hours in which she became combative towards him. She is upset and anxious in the room. She is alert and oriented x 3 as she does not know the year, she thinks it is 1994. She denies any fever, chills, shortness of breath, chest pain, abdominal pain, nausea, vomiting, dysuria. Review of systems: See HPI Medications: As listed on the chart Allergies: As listed on the chart PFSH: Per chart Vital signs: As listed on the chart. Reviewed. Physical exam: Gen: A&O x3-oriented to place, month, self, president but not year, NAD Head: Normocephalic, atraumatic Eyes: No sclera icterus, conjunctiva clear, PERRL, EOMI ENT: Moist mucous membranes Neck: Trachea midline, No JVD, full range of motion CV: RRR, no murmurs, no peripheral edema Resp: Lungs CTA BL, no w/r/c GI: Abd soft, non-distended, non-tender, no r/r/g Musc: Full ROM, no deformity Skin: Warm, dry Neuro: Alert, oriented, grossly intact, sensation intact Psych: Cooperative, appropriate mood and affect [facility] [facility] History (Updated 12/12/24 @ 16:53 by Fransisca Carroll) Kidney stones Non-smoker Dementia Home Medications ?Medication ?Instructions ?Recorded ?Last Taken ?Type NK 12/12/24 Unknown History Allergy/AdvReac Type Severity Reaction Status Date / Time vancomycin Allergy Severe Rash Verified 12/12/24 14:08 Anesthetics - Amide Type - Allergy Intermediate Other Verified 12/12/24 14:08 Select A prednisone AdvReac Unknown TACHYCARDIA Verified 12/12/24 14:08 codeine AdvReac ABD PAIN Verified 12/12/24 14:08 Family History Mother Hypertension Heart disease Father Hypertension Surgical History History of arthroscopy of left shoulder H/O breast biopsy History of partial hysterectomy s/p heart S/P cholecystectomy Social History (Updated 10/30/17 @ 11:06 by Owen Wolfe DO) Smoking Status: Never smoker EXAM Physical Exam Const Vital Signs: 12/12/24 14:08 12/12/24 16:07 Temperature 97.9 F Temperature Source Oral Pulse Rate 77 66 Respiratory Rate 16 18 Blood Pressure 139/83 H Blood Pressure Mean 101 Pulse Ox 97 96 Oxygen Delivery Method Room Air Room Air MDM MDM MDM Narrative Medical decision making narrative: 79-year-old female with past medical history of HTN and possibly undiagnosed dementia presents for evaluation of altered mental status. History taken mostlyby . states that he suspects his has dementia as she occasionally will ask questions such as confirming that she is the mother of their daughter. He states yesterday they had a normal day. Today she woke up at her normal baseline. Later in the day she then questioned who her was. Patient believes that her is not her . Physical exam is unremarkable except for her believing the year is 1994 and that her is not her . Differential diagnosis includes but is not limited to electrolyte abnormality, CHRISTIE, infection such as pneumonia or UTI, intracranial abnormality, [place] psychiatric disorder. Altered mental status workup ordered. Social work consulted. CBC unremarkable without leukocytosis or anemia. CMP unremarkable without significant electrolyte abnormality or CHRISTIE. No transaminitis. Lactic acid unremarkable. Urine drug screen negative. Alcohol level unremarkable. UA with pyuria but no bacteria seen. She has significant WBCs greater than 100. Concern is for UTI. Patient denied any urinary problemsalthough she has urinated multiple times here in the emergency department indicating urinary frequency. She even urinated in the bed which is completely abnormal for her. She states she is urinating a lot secondary to eating watermelon. I am concerned that her acute altered mental status may be secondary to UTI. Urine culture sent. Rocephin ordered. Patient was updated that she will be admitted for a UTI. I spoke with the hospitalist service who accepted admission. EKG: Interpreted by me/EM physician: EKG shows normal sinus rhythm with nonspecific ST changes. Heart rate 73 Diagnostic: Interpreted by me/EM physician: Chest x-ray without pneumonia, effusion, cardiomegaly, pneumothorax. Radiology in agreement. Impression: 1. Encephalopathy 2. UTI Lab Data Labs: Laboratory Results - last 24 hr 12/12/24 12/12/24 14:42 14:57 WBC 9.1 RBC 5.07 Hgb 14.6 Hct 44.4 MCV 87.6 MCH 28.8 MCHC 32.9 RDW Std Deviation 46.8 H RDW Coeff of Danna 14.6 Plt Count 326 MPV 10.3 Immature Gran % (Auto) 0.300 Neut % (Auto) 61.2 Lymph % (Auto) 25.6 Starr % (Auto) 9.0 Eos % (Auto) 3.0 Baso % (Auto) 0.9 Absolute Neuts (auto) 5.6 Absolute Lymphs (auto) 2.34 Nucleated RBC % 0 Sodium 141 Potassium 4.0 Chloride 104 Carbon Dioxide 25.7 Anion Gap 11 BUN 15 Creatinine 0.72 Estim Creat Clear Calc 58.81 Est GFR (MDRD) Non-Af 85 BUN/Creatinine Ratio 20.6 H Glucose 114 H Lactic Acid < 1.0 Calcium 9.2 Total Bilirubin 0.60 AST 23 ALT 26 Alkaline Phosphatase 121 H Total Protein 6.9 Albumin 4.1 Globulin 2.8 Albumin/Globulin Ratio 1.5 Urine Color Straw Urine Clarity Sl. Cloudy Urine pH 7.0 Ur Specific [place] 1.005 Urine Protein 30 H Urine Glucose (UA) Normal Urine Ketones Negative Urine Occult Blood 150 H Urine Nitrite Negative Urine Bilirubin Negative Urine Urobilinogen Normal Ur Leukocyte Esterase 500 H Urine RBC 5-10 SEEN Urine WBC >100 SEEN Ur Squamous Epith Cells 0-5 SEEN Urine Bacteria 0 SEEN Urine Mucus 0 SEEN Urine Opiates Screen NEGATIVE U Buprenorphine Qual NEGATIVE Ur Oxycodone Screen NEGATIVE Urine Methadone Screen NEGATIVE Urine Fentanyl Screen NEGATIVE Ur Barbiturates Screen NEGATIVE Ur Phencyclidine Scrn NEGATIVE Ur Amphetamines Screen NEGATIVE U Benzodiazepines Scrn NEGATIVE Urine Cocaine Screen NEGATIVE U Cannabinoids Screen NEGATIVE Ethyl Alcohol < 10.1 Radiography Diagnostic Testing: Clinical Impression(s) from Imaging Studies Brain CT 12/12/24 14:29 IMPRESSION: CHRONIC CHANGES. NO ACUTE FINDINGS. Reading Location: [facility] Chest X-Ray 12/12/24 15:10 IMPRESSION: NO ACUTE FINDINGS. Reading Location: [facility]-1 Discharge Plan Triage Chief Complaint: Confusion ED Provider: Musa Awan Dx/Rx/DC Orders Prescriptions: No Action NK Primary Care Provider: Desirae Gaytan NP Referrals: NOT,DEFINED [Non-Staff] - Print Language: [place] What to do if you have Problems For any increased pain, shortness of breath, bleeding, nausea or vomiting, chestpain, or any unexpected problems, contact your Primary Care Provider. Call [facility] ([phone]) or report to the closest Emergency Room. Call 911 if necessary. 12/12/24 1711 <Electronically signed by Musa Awan DO> Cosigner Signature (if applicable): CC: DISTRICT RECRUITER-C Desirae Gaytan ~ Signed [facility] Work Phone: [phone] 100-478309-06-2023 Note ORIGINAL EXAMINATION: BONE DENSITOMETRY 01/07/2023 10:58 am TECHNIQUE: A bone density dual x-ray absorptiometry (DEXA) scan was performed of the lumbar spine and left hip. COMPARISON: 11/09/2020 HISTORY: ORDERING SYSTEM PROVIDED HISTORY: Reason for Exam: Osteoporosis Screening FINDINGS: BMD (g/cm2) Lumbar Spine L1-L4: 0.859. T Score Lumbar Spine L1-L4: -1.7 BMD (g/cm2) Left Femoral Neck: 0.655. T Score Left Femoral Neck: -1.7 BMD (g/cm2) Left Hip: 0.920. T Score Left Hip: -0.2 BMD Change from previous Hip: 3.5% BMD Change from previous Lumbar spine: 7% FRAX: 10 year fracture risk assessment Major osteoporotic fracture: 11% Hip fracture: 2.5% IMPRESSION: Osteopenia by WHO criteria. *By the World Health Organization criteria: (Comparing with young normal sex matched population) - Normal: T-score at or above -1 SD (standard deviation) - Osteopenia: T-score between -1 and -2.5 SD - Osteoporosis: T-score at or below -2.5 SD Interpreted by: Jeovany Gilmore DO Preliminary Report By: Jeovany Gilmore DO Electronically signed By Jeovany Gilmore DO Dictated Date: 01/07/2023 12:37:41 PM Prelim Date: 01/07/2023 12:38:36 PM Sign Date: 01/07/2023 12:38:36 PM [facility] Future Appointments Appointment Date:11/07/2021 02:20:00 PM Scheduled Provider:DESIRAE GAYTAN APRN, CNP Location:[facility] Appointment Type:PC OV Future Scheduled Tests Laboratory* Complete Metabolic Panel 04/13/21 [facility] + Plan note Future Appointments Appointment Date:05/29/2022 09:00:00 AM Scheduled Provider:DESIRAE GAYTAN APRN, CNP Location:[facility] Appointment Type:PC OV Follow Up Diagnostic Tests Pending * Renin, Plasma 05/13/22 [facility] Evaluation + Plan note Future Appointments Appointment Date:06/15/2023 08:00:00 AM Scheduled Provider:DESIRAE GAYTAN APRN - [facility] Location:[facility] Appointment Type:PC OV Future Scheduled Tests Laboratory* Renin, Plasma 06/14/23 * Thyroid Stimulating Hormone 06/14/23 * A1C Hemoglobin 06/14/23 * Complete Blood Count 06/14/23 * Lipid Profile 06/14/23 * Albumin/Creatinine Ratio, Random Urine 06/14/23 * PTH, Intact 06/14/23 * Vitamin D Level 06/14/23 * Complete Metabolic Panel 06/14/23 [facility] Evaluation + Plan note Future Appointments Appointment Date:05/19/2023 01:40:00 PM Scheduled Provider:DESIRAE GAYTAN APRN, CNP Location:[facility] Appointment Type:PC OV Follow Up Appointment Date:06/15/2023 08:00:00 AM Scheduled Provider:LUKAS, DESIRAE D BI DEVELOPER - INSURANCE SALES ASSISTANT Location:[facility] Appointment Type: OV Future Scheduled Tests Laboratory* Renin, Plasma 06/14/23 * Thyroid Stimulating Hormone 06/14/23 * A1C Hemoglobin 06/14/23 * Complete Blood Count 06/14/23 * Lipid Profile 06/14/23 * Albumin/Creatinine Ratio, Random Urine 06/14/23 * PTH, Intact 06/14/23 * Vitamin D Level 06/14/23 * Complete Metabolic Panel 06/14/23 Radiology* XR Shoulder Minimum 2 Views Right 04/14/23 [facility] Evaluation + Plan note Future Appointments Appointment Date:06/15/2023 08:00:00 AM Scheduled Provider:DESIRAE GAYTAN BI DEVELOPER - [facility] Location:[facility] Appointment Type: OV Future Scheduled Tests Laboratory* Renin, Plasma 06/14/23 * Thyroid Stimulating Hormone 06/14/23 * A1C Hemoglobin 06/14/23 * Complete Blood Count 06/14/23 * Lipid Profile 06/14/23 * Albumin/Creatinine Ratio, Random Urine 06/14/23 * PTH, Intact 06/14/23 * Vitamin D Level 06/14/23 * Complete Metabolic Panel 06/14/23 Radiology* XR Shoulder Minimum 2 Views Right 04/14/23 [facility] Evaluation note* Diagnosis Onset Date Resolution Status Admit Date Abnormal urinalysis acute Augus t 2024 5:47pm Altered mental status acute Aug ust 2024 5:47pm [facility] Work Phone: History and physical note Author Nava Donovan [facility] Note Date/Time December 12, 2024 5: 20pm [facility] Medical Records Department [address] [place] [address] H&P Exam - Hospitalist 12/12/24 1712 MR#: [id number] Acct: [id number] Name: KEM CHOUDHURY Rep #:[id number] : 1945 79 From: Nava Donovan MD PCP: Desirae Gaytan, DISTRICT RECRUITER-C Sta tus:[facility] ER Location: ED HPI - General General Date of Admission: 12/12/24 Date of Service: 12/12/24 Chief Complaint: Urinary frequency HPI Narrative KEM CHOUDHURY, is a Patient is a 79-year-old female with hypertension possibleundiagnosed dementia who presented [facility] ED 12/12/2024 by her for altered mental status. Reports yesterday was a normal day and today she woke up at her baseline however later in the day began questioning whoher was and does not believe that her is her actual . This persisted for several hours and then she became combative so she was brought to the ED. In the ED patient afebrile, heart rate 77 blood pressure 139/83, respiratory rate 16 and pulse ox 97% on room air. CBC benign. BMP witha BUN 15 and [address] 0[address]72. Brain CT no acute process. Chest x-ray no acute findings. Lactic acid negative, alcohol negative, UDS negative. UA with occult blood, leuk esterase, white blood cells and appears to be clean-catch, there is no bacteria that was noted however patient also has urinary frequency and there is high suspicion that she likely has UTI so urine culture sent patient given IVRocephin and hospitalist contacted for admission. Patient evaluated at bedside. not present at bedside so history obtained per report and from patient,she notes she is brought here because that man is claiming to be her . When asked about urinary symptoms she does endorse significant frequency since this morning and she said it is because she ate some watermelon. Aside from thefrequency she denies any complaints PFSH Medical History Dementia Kidney stones Non-smoker Home Medications ?Medication ?Instructions ?Recorded ?Last Taken ?Type NK 12/12/24 Unknown History Allergy/AdvReac Type Severity Reaction Status Date / Time vancomycin Allergy Severe Rash Verified 12/12/24 14:08 Anesthetics - Amide Type - Allergy Intermediate Other Verified 12/12/24 14:08 Select A prednisone AdvReac Unknown TACHYCARDIA Verified 12/12/24 14:08 codeine AdvReac ABD PAIN Verified 12/12/24 14:08 Family History Mother Hypertension Heart disease Father Hypertension Surgical History H/O breast biopsy History of arthroscopy of left shoulder History of partial hysterectomy S/P cholecystectomy s/p heart Social History (Updated 10/30/17 @ 11:06 by Owen Wolfe DO) Smoking Status: Never smoker ROS ROS Narrative General: Denies fever/chills HENT: Denies headache, denies stuffy nose, denies sore throat EYES: Denies changes in vision Resp: Denies cough, denies shortness of breath Cardiac: Denies chest pain GI: Denies abdominal pain, denies changes in bowel, denies nausea/vomiting : Significant urinary frequency Extremity: Denies swelling MSK: Denies weakness Neuro: Denies any numbness/tingling Heme: Denies any bleeding or bruising Skin: Denies rashes Psychiatric: No complaints voiced Vital Signs Vital Signs Vital Signs: 12/12/24 14:08 12/12/24 16:07 Temperature 97.9 F Temperature Source Oral Pulse Rate 77 66 Respiratory Rate 16 18 Blood Pressure 139/83 H Blood Pressure Mean 101 Pulse Ox 97 96 Oxygen Delivery Method Room Air Room Air Weight Weight: 83.007 kg Body Mass Index (BMI) 33.5 Physical Exam Narrative General: Alert, no apparent distress but was standing up in room and walked awayto go to the bathroom upon me entering, when asked what year it was she said urine but did know she was at [facility] and her date of HEENT: Atraumatic, normocephalic Eyes: Anicteric, normal conjunctiva, extraocular movements grossly intact Neck: Supple Respiratory: Clear to auscultation bilaterally, normal respiratory effort Cardiovascular: Regular rate and rhythm GI: Soft, nontender, nondistended Extremities: No edema Musculoskeletal: Moving all extremities Neuro: No overt focal neurological deficits Skin: No rashes appreciated Psych: Cooperative, started become upset when discussing her but otherwise, cooperative Results Lab / Micro Data 12/12/24 14:42 12/12/24 14:42 Labs: Laboratory Results - last 24 hr 12/12/24 14:42: WBC 9.1, RBC 5.07, Hgb 14.6, Hct 44.4, MCV 87.6, MCH 28.8, MCHC 32.9, RDW Std Deviation 46.8 H, RDW Coeff of Danna 14.6, Plt Count 326, MPV 10.3, Immature Gran % (Auto) 0.300, Neut % (Auto) 61.2, Lymph % (Auto) 25.6, Starr % (Auto) 9.0, Eos % (Auto) 3.0, Baso % (Auto) 0.9, Absolute Neuts (auto) 5.6, Absolute Lymphs (auto) 2.34, Nucleated RBC % 0, Sodium 141, Potassium 4.0, Chloride 104, Carbon Dioxide 25.7, Anion Gap 11, BUN 15, Creatinine 0.72, Estim Creat Clear Calc 58.81, Est GFR (MDRD) Non-Af 85, BUN/Creatinine Ratio 20.6 H, Glucose 114 H, Lactic Acid < 1.0, Calcium 9.2, Total Bilirubin 0.60, AST 23, ALT 26, Alkaline Phosphatase 121 H, Total Protein 6.9, Albumin 4.1, Globulin 2.8, Albumin/Globulin Ratio 1.5, Ethyl Alcohol < 10.1 12/12/24 14:57: Urine Color Straw, Urine Clarity Sl. Cloudy, Urine pH 7.0, Ur Specific [place] 1.005, Urine Protein 30 H, Urine Glucose (UA) Normal, Urine Ketones Negative, Urine Occult Blood 150 H, Urine Nitrite Negative, Urine Bilirubin Negative, Urine Urobilinogen Normal, Ur Leukocyte Esterase 500 H, Urine RBC 5-10 SEEN, Urine WBC >100 SEEN, Ur Squamous Epith Cells 0-5 SEEN, Urine Bacteria 0 SEEN, Urine Mucus 0 SEEN, Urine Opiates Screen NEGATIVE, U Buprenorphine Qual NEGATIVE, Ur Oxycodone Screen NEGATIVE, Urine Methadone Screen NEGATIVE, Urine Fentanyl Screen NEGATIVE, Ur Barbiturates Screen NEGATIVE, Ur Phencyclidine Scrn NEGATIVE, Ur Amphetamines Screen NEGATIVE, U Benzodiazepines Scrn NEGATIVE, Urine Cocaine Screen NEGATIVE, U Cannabinoids Screen NEGATIVE Imaging Radiology Impression Brain CT 12/12/24 14:29 IMPRESSION: CHRONIC CHANGES. NO ACUTE FINDINGS. Reading Location: [facility]--1 Chest X-Ray 12/12/24 15:10 IMPRESSION: NO ACUTE FINDINGS. Reading Location: [facility]--1 Assessment & Plan Assessment/Plan (1) Abnormal urinalysis: (2) Altered mental status: PLAN: Plan #Altered mental status suspected secondary to urinary tract infection - Lab workup fairly benign -CT head negative -Alcohol and UDS negative -Will check thyroid function -UA with occult blood, leuk esterase, white blood cells and appears to be clean-catch, there is no bacteria that was noted however patient also has urinary frequency and there is high suspicion that she likely has UTI -She has significant urinary frequency and is urinated around 10 times just since he has been down in the ED with urgency and also had an episode of incontinence and could not hold it - Will check postvoid in the event there is some retention contributing - If patient does not eventually improve with treating presumed UTI may need social work involvement to pursue possible [place] psych # Possibly undiagnosed dementia -Outpatient follow-up and evaluation recommended #DVT ppx: Loverossy Donovan MD Charges/Coding Visit Charges Inpatient E&M: 89050 Init Hosp L1 12/12/24 1720 <Electronically signed by Nava Donovan MD> Cosigner Signature (if applicable): CC: DISTRICT RECRUITERAnthony Gaytan; Dr. Nava Donovan MD~ Signed [facility] Work Phone: Hospital course Narrative No data available for this section [facility] Hospital Discharge instructions No data available for this section [facility] Progress note No data available for this section [facility] Reason for referral (narrative)No reason for referral information availableWSuburban [facility] Work Phone: Summary Purpose Family History Relationship Condition Age at Onset Recorded Date/T lexii mother Hypertension Unknown Cardiac disease Unknown father Hypertension Unknown Advance Directives Advance Directive Response Recorded Date/ Time Do you have a Healthcare Power of Tea And Spice Supervisor? No December 12, 2024 2:59pm Advance Directives No April 6:40pm Chief Complaint and Reason for Visit Chief Complaint Admit Date confusion December 12, 2024 5: 12pm confusion December 12, 2024 5: 47pm Reason for Visit Admit Date Abnormal urinalysis December 12, 2024 5: 47pm Altered mental status December 12, 2024 5:47pm Additional Source Comments INFORMATION SOURCE (unrecogn ized section and content) DATE CREATED AUTHOR 04/13/2018 [facility] DATE CREATED AUTHOR AUTHOR'S ORGANIZ ATION 01/01/2024 [facility] (MD) Care Team (unrecognized sect ion and content) Personnel Name: DESRIAE GAYTAN Ramses BI DEVELOPER - INSURANCE SALES ASSISTANT Address: Address: [address] [place] [id number]- Care Team Personnel Name: LUKAS DESIRAE Ramses CLARK - INSURANCE SALES ASSISTANT Position: P4 Advanced Practice Nurse Member Role: Primary Care Physician Address: Address: [address] [place] [id number] Care Team Related Persons Name: PAT CHOUDHURY Address: [address] [id number] Patient Care team informatio n (unrecognized section and content) Team Status: Active Member Role/Relationship Status Dates Desirae Gaytan DISTRICT RECRUITER, DISTRICT RECRUITER-C Primary Care Provider Active Team Status: Active Member Role/Relationship Status Dates Dr. Musa Awan , DO Emergency Provider Activ e Start: December 12, 2024 Desirae Gaytan DISTRICT RECRUITER, DISTRICT RECRUITER-C Primary Care Provider Active Start: December Dr. Nava Donovan MD Attending Provider Active Start: December 12, 2024 Team Status: Active Member Role/Relationship Status Dates Dr. Musa Awan , Emergency Provider Activ e Start: December 12, 2024 Desirae Gaytan DISTRICT RECRUITER, DISTRICT RECRUITER-C Primary Care Provider Active Start: December Dr. Nava Donovan MD Admit Provider Active Star t: December 12, 2024 Dr. Nava Donovan MD Attending Provider Active Start: December 12, 2024 Goals (unrecognized section and content) Goals may be documented in a n alternate section FOR RECORDS PERTAINING TO PATIENTS WHO ARE OR HAVE BEEN ENROLLED IN A CHEMICAL DEPENDENCY/SUBSTANCEABUSE PROGRAM, SOME INFORMATION MAY BE OMITTED. This clinical summary was aggregated from multiple sources. Caution should be exercised in using it in the provision of clinical care. This summary normalizes information from multiple sources, and as a consequence, information in this document may materially change the coding, format and clinical context of patient data. In addition, data may be omitted in some cases. CLINICAL DECISIONS SHOULD BE BASED ON THE PRIMARY CLINICAL RECORDS. [facility] [employer] [facility]. provides no warranty or guarantee of the accuracy or completeness of information in this document.
--- OUTSIDE RECORDS SUMMARY | 2024-12-12 21:35 | XMS RPT_ITS | CCD ---
Author Organization [facility] Care Team Providers Care Customer Counter Representative Name Role Phone LUKAS, DESIRAE Unavailable Unavailable [...] Unavailable Unavailable LUKAS, DESIRAE Unavailable Unavailable Marcus, [place] Unavailable Unavailable Aiden, Owen Unavailable Unavailable Aiden, Owen Unavailable Unavailable LUKAS, DESIRAE Unavailable Unavailable LUKAS, DESIRAE Unavailable Unavailable Aiden, Owen Unavailable Unavailable LUKAS, DESIRAE Unavailable Unavailable Jabour, Vincent Unavailable Unavailable Daniel, Vincent Unavailable Unavailable LUKAS DESRIAE MORRISON CNP Primary Care Phys ici LUKAS CLARK - DESIRAE ACUNA Attending U navailable LUKAS TOW TRUCK OPERATOR - SEAFOOD HARVESTER, DESIRAE Pearce Primary Care U navailable LUKAS TOW TRUCK OPERATOR - SEAFOOD HARVESTER, DESIRAE Pearce Attending U navailable LUKAS TOW TRUCK OPERATOR - ARMAND, DESIRAE Pearce Primary Care U navailable LUKAS TOW TRUCK OPERATOR - SEAFOOD HARVESTER, DESIRAE Pearce Attending U navailable LUKAS EDUARDO - ARMAND, DESIRAE Pearce Primary Care U navailable LUKAS EDUARDO - ARMAND, DESIRAE Pearce Attending U navailable LUKASYUE CLARK - ARMAND, DESIRAE Pearce Primary Care U navailable LUKAS TOW TRUCK OPERATOR - ARMAND, DESIRAE Pearce Attending U navailable LUKAS EDUARDO - ARMAND, DESIRAE Pearce Primary Care U charisse MCKEONCHIQUIS CLARK - ARMAND, DESIRAE Pearce Attending U charisse LUKAS CLARK - ARMAND, DESIRAE Pearce Primary Care U charisse LUKAS CLARK - ARMAND, DESIRAE Pearce Attending U kathymia GAYTAN APRN - ARMAND, DESIRAE Pearce Primary Care U charisse Dr. Musa Awan DO Emergency Provider Lukas DUST COLLECTOR ORE CRUSHING-C, Desirae Floyd Primary Care Provi juan miguel Zion TOBIN, Dr. Vick Attending Provider [phone] Zion TOBIN, Dr. Vick Admit Provider Allergies Allergy Classification Reported Allergen(s) Allergy Type Date of Onset Reaction(s) Facility (1 source) Codeine Drug Allergy 8 [facility] Repository (1 source) predniSONE Drug Allergy 8 [facility] Repository (1 source) Vancomycin Drug Allergy 8 [facility] Repository (1 source) ANESTHESIA MED; Translations: [ANESTHESIA MED] Propensity to adverse reactions (disorder) 8 [facility] Repository (5 sources) Atenolol; Translations: [atenolol] Drug Allergy Dizziness (finding) [facility] (6 sources) Codeine; Translations: [codeine] Drug Allergy 5 Abdominal pain (finding) [facility] Comment on above: ABDOMINAL PAIN (5 sources) diphenhydrAMINE ; Translations: [diphenhydramin e] Drug Allergy Irregular heart beat (finding) [facility] (6 sources) predniSONE; Translations: [prednisone] Drug Allergy 5 Dizziness (finding) [facility] Comment on above: TACHYCARDIA (6 sources) Vancomycin; Translations: [vancomycin] Drug Allergy 5 Eruption of skin (disorder), Itching (finding), Difficulty swallowing (finding) [facility] Comment on above: DIFFICULTY BREATHING (1 source) Anesthetics - Amide Type - Select A Allergy to substance Other [facility] Comment on above: difficult time unique laguna [...] q8h, # 270 tab(s), 1 Refill(s), Pharmacy: [id number], 168, cm, 12/12/22 8:20:00 EDT, Height, kg, 12/12/22 8:20:00 EDT, Dosing Weight Start Date: 12/29/22 Stop Date: 06/27/23 Status: Ordered Start: 04-18-2021 End: 07-17-2021 IBU 600 mg oral tablet Dose : 600 mg = 1 tab(s), Oral, q8h, # 90 tab(s), 2 Refill(s), Pharmacy: [id number], 168, cm, 04/18/21 8:43:00 EST, Height, kg, 04/18/21 8:43:00 EST, Dosing Weight Start Date: 04/18/21 Stop Date: 07/17/21 Status: Ordered Start: 06-24-2017 End: 07-29-2017 Ibuprofen (Motrin Ib) 200 mg tablet Discontinued 600 mg PO NEEDED as needed for Pain 0 June 24, 2017 1:00am July 29, 2017 8:30am [place] (Nk) (1 source) Start: 12-12-2024 [place] (Nk) A ctive December 12, 2024 12:00am omeprazole 40 mg delayed release oral capsule (1 source) Proton Pump Inhibitor Start: 04-14-2023 End: 05-14-2023 omeprazole 40 mg oral delayed release capsule Dose : 40 mg = 1 cap(s), Oral, qDay, X 30 day(s), # 30 cap(s), 0 Refill(s), 05/14/23 2:28:00 PM EST, Pharmacy: [id number], GERD (gastroesophageal reflux disease), 168, cm, [...] Auto (Unsp spec) [#/Vol] 2.34 10*3/uL 0.83-4.51 [facility] Absolute neutrophil countOrd ered By: Musa Awan on 12-12-2024 Neutrophils (Bld) [#/Vol] 5.6 10*3/uL 2.0-7.7 [facility] Amphetamine detection with 1 000 ng/mL as cutoffOrdered By: Musa Awan on 12-12-2024 Amphetamines Screen method >1000 ng/mL Ql (U) Negative < 200 ng/mL [facility] Anion gap in Serum or Plasma Ordered By: Musa Awan on 12-12-2024 Anion gap [Moles/Vol] 11 mmol/L 5-15 [facility] Automated lymphocyte count a s percentage of total leukocytesOrdered By: Musa Awan on 12-12-2024 Lymphocytes/100 WBC Auto (Unsp spec) 25.6 % 19-41 [facility] BUN/creatinine ratioOrdered By: Muas Awan on 12-12-2024 Urea nitrogen/Creatinine [Mass ratio] 20.6 mg/mg High 10-20 [facility] Basophil percentageOrdered B y: Musa Awan on 12-12-2024 Basophils/100 WBC (Bld) 0.9 % 0-1 [facility] Bilirubin Test strip Ql (U)O rdered By: Musa Awan on 12-12-2024 Bilirubin Ql (U) Negative Negative [facility] Bilirubin, totalOrdered By: Musa Awan on 12-12-2024 Bilirubin [Mass/Vol] 0.60 mg/dL 0.00-1.30 [facility] Carbon dioxide, total [Moles /volume] in Central venous bloodOrdered By: Musa Awan on 12-12-2024 CO2 [Moles/Vol] 25.7 mmol/L 21.0-32.0 [facility] Chloride assayOrdered By: Jhoan Awan on 12-12-2024 Chloride [Moles/Vol] 104 mmol/L 98-108 [facility] Eosinophil percentageOrdered By: Musa Awan on 12-12-2024 Eosinophils/100 WBC (Bld) 3.0 % 0-5 [facility] Erythrocyte distribution wid th ratioOrdered By: Musa Awan on 12-12-2024 Erythrocyte distribution width (RBC) [Ratio] 14.6 % 11.6-14.6 [facility] Erythrocyte distribution wid th standard deviationOrdered By: Musa Lin on 12-12-2024 Erythrocyte distribution width (RBC) [Ratio] 46.8 fl High 35.1-43.9 [facility] Glomerular filtration rate ( GFR) estimation/1.73 sq m using serum, plasma, or whole bOrdered By: Musa Awan on 12-12-2024 GFR/1.73 sq M.predicted among non-blacks MDRD (S/P/Bld) [Vol rate/Area] 85 mL/min/{1.73_m2} >60 [facility] Comment on above: mL/min/1.73m2 CKD-EP I Creatinine Equation (2020) Hematocrit Auto (Bld) [Volum e fraction]Ordered By: Musa Awan on 12-12-2024 Hematocrit (Bld) [Volume fraction] 44.4 % 37-47 [facility] Hemoglobin measurementOrdere d By: Musa Awan on 12-12-2024 Hemoglobin (Bld) [Mass/Vol] 14.6 g/dL 12.0-15.0 [facility] Immature granulocytes/100 WB C Auto (Bld)Ordered By: Musa Awan on 12-12-2024 Immature granulocytes/100 WBC (Bld) 0.300 % 0.0-0.9 [facility] Comment on above: IG% - Immature Granu locytes (promyelocytes, myelocytes and metamyelocytes) > 1% indicates that a LEFT SHIFT is Present. Ketones Test strip Ql (U)Ord ered By: Musa Awan on 12-12-2024 Ketones Ql (U) Negative Negative [facility] Laboratory - Chemistry and C hemistry - challengeOrdered By: Musa Awan on 12-12-2024 AST [Catalytic activity/Vol] 23 U/L <32 [facility] Lactic acid measurementOrder ed By: Musa Awan on 12-12-2024 Lactate [Moles/Vol] mmol/L 0.0-2.0 [facility] MCV (mean corpuscular volume ) determinationOrdered By: Musa Awan on 12-12-2024 MCV (RBC) [Entitic vol] 87.6 fL 81-99 [facility] Mean corpuscular hemoglobin (MCH) determinationOrdered By: Musa Awan on 12-12-2024 MCH (RBC) [Entitic mass] 28.8 pg 27.0-32.0 [facility] Mean corpuscular hemoglobin concentration (MCHC) determinationOrdered By: Musa Awan on 12-12-2024 MCHC (RBC) [Mass/Vol] 32.9 g/dL 32-36 [facility] Mean platelet volume determi nationOrdered By: Musa Awan on 12-12-2024 Platelet mean volume (Bld) [Entitic vol] 10.3 fL 6.2-12.0 [facility] Microscopic analysis of urin e for red blood cells (RBC)Ordered By: Musa Awan on 12-12-2024 Microscopic analysis of urine for red blood cells (RBC) 5-10 SEEN /hpf 0-5 [facility] Monocyte percentageOrdered B y: Musa Awan on 12-12-2024 Monocytes/100 WBC (Bld) 9.0 % 0-10 [facility] Mucus LM Ql (Urine sed)Order ed By: Musa Awan on 12-12-2024 Mucus Ql (Urine sed) 0 SEEN /hpf [facility] Neutrophil percentageOrdered By: Musa Awan on 12-12-2024 Neutrophils/100 WBC (Bld) 61.2 % 47-70 [facility] Nitrite Test strip Ql (U)Ord ered By: Musa Awan on 12-12-2024 Nitrite Ql (U) Negative Negative [facility] No Panel InformationOrdered By: Musa Awan on 12-12-2024 Urine Buprenorphine Qualitative Negative < 200 ng/mL [facility] Urine Oxycodone Screen Negative < 100 ng/mL [facility] Nucleated red blood cell per centageOrdered By: Musa Awan on 12-12-2024 Nucleated RBC/100 WBC (Bld) [Ratio] 0 % 0-5 [facility] Platelet countOrdered By: Jhoan Awan on 12-12-2024 Platelets (Bld) [#/Vol] 326 10*3/uL 150-450 [facility] Potassium measurement (mass/ volume)Ordered By: Musa Awan on 12-12-2024 Potassium (Unsp spec) [Mass/Vol] 4.0 mmol/L 3.3-5.1 [facility] Protein Test strip Ql (U)Ord ered By: Musa Awan on 12-12-2024 Protein Ql (U) 30 mg/dl High Negative [facility] Quantitative urine opiates m easurementOrdered By: Musa Awan on 12-12-2024 Opiates Ql (U) Negative < 300 ng/mL [facility] RBC Auto (Bld) [#/Vol]Ordere d By: Musa Awan on 12-12-2024 RBC (Bld) [#/Vol] 5.07 10*6/uL 4.2-5.4 [facility] Screening urine fentanyl scott surementOrdered By: Musa Awan on 12-12-2024 fentaNYL Screen Ql (U) Negative [facility] Serum creatinine measurement (mass/volume)Ordered By: Musa Awan on 12-12-2024 Creatinine [Mass/Vol] 0.72 mg/dL 0.70-1.20 [facility] Serum globulin measurementOr dered By: Musa Awan on 12-12-2024 Globulin (S) [Mass/Vol] 2.8 g/dL 2.2-4.2 [facility] Serum glucose measurement (m ass/volume)Ordered By: Musa Awan on 12-12-2024 Glucose [Mass/Vol] 114 mg/dL High 70-99 [facility] Serum or plasma alanine carter otransferase (ALT) measurementOrdered By: Musa Awan on 12-12-2024 ALT [Catalytic activity/Vol] 26 U/L <35 [facility] Serum or plasma albumin carlos urement (mass/volume)Ordered By: Musa Lin on 12-12-2024 Albumin [Mass/Vol] 4.1 g/dL 3.4-4.8 [facility] Serum or plasma albumin/glob ulin mass ratioOrdered By: Musa Awan on 12-12-2024 Albumin/Globulin [Mass ratio] 1.5 {ratio} 0.9-2.4 [facility] Serum or plasma alkaline majo sphatase measurementOrdered By: Musa Awan on 12-12-2024 ALP [Catalytic activity/Vol] 121 U/L High 35-104 [facility] Serum or plasma calcium carlos urement (mass/volume)Ordered By: Musa Lin on 12-12-2024 Calcium [Mass/Vol] 9.2 mg/dL 7.6-11.0 [facility] Serum or plasma ethanol carlos urement (mass/volume)Ordered By: Musa Lin on 12-12-2024 Ethanol [Mass/Vol] mg/dL <10.1 [facility] Comment on above: This test is for med ical purposes only. The legal definition of intoxication varies according to local law. Serum or plasma urea nitroge n measurement (mass/volume)Ordered By: Musa Awan on 12-12-2024 Urea nitrogen [Mass/Vol] 15 mg/dL 4-19 [facility] Sodium levelOrdered By: Todd Awan on 12-12-2024 Sodium [Moles/Vol] 141 mmol/L 133-145 [facility] Squamous epithelial cells de tection in urine sediment by light microscopyOrdered By: Musa Awan on 12-12-2024 Epithelial cells.squamous LM Ql (Urine sed) 0-5 SEEN /hpf 5-10 [facility] Total proteinOrdered By: Ryne Awan on 12-12-2024 Protein [Mass/Vol] 6.9 g/dL 5.9-8.4 [facility] Troponin T.cardiac [Mass/vol ume] in Serum or Plasma by High sensitivity methodOrdered By: Musa Awan on 12-12-2024 Troponin T.cardiac High sensitivity method [Mass/Vol] 11 ng/L <14 [facility] Troponin T.cardiac High sensitivity method [Mass/Vol] 8 ng/L <14 [facility] Urine benzodiazepine levelOr dered By: Musa Awan on 12-12-2024 Benzodiazepines Ql (U) Negative < 200 ng/mL [facility] Urine clarityOrdered By: Ryne Awan on 12-12-2024 Clarity (U) Sl. Cloudy Clear [facility] Urine cocaine levelOrdered B y: Musa Awan on 12-12-2024 Cocaine Ql (U) Negative < 300 ng/mL [facility] Urine color determinationOrd ered By: Musa Awan on 12-12-2024 Color (U) Straw Yellow [facility] Urine pzelh-2-tnkwublrarifna abinol (THC) measurementOrdered By: Musa Lin on 12-12-2024 Cannabinoids Screen Ql (U) Negative < 50 ng/mL [facility] Urine glucose detectionOrder ed By: Musa Awan on 12-12-2024 Glucose Ql (U) Normal mg/dl Normal [facility] Urine leukocyte esterase det ection by dipstickOrdered By: Musa Awan on 12-12-2024 Leukocyte esterase Test strip Ql (U) 500 /ul High Negative [facility] Urine pHOrdered By: Musa Guerrero on 12-12-2024 pH (U) 7.0 [pH] 5.0 - 8.0 [facility] Urine phencyclidine (PCP) de tectionOrdered By: Musa Awan on 12-12-2024 Phencyclidine Ql (U) Negative < 25 ng/mL [facility] Urine sediment bacteria coun t by microscopy (number/high power field)Ordered By: Musa Awan on 12-12-2024 Bacteria LM.HPF (Urine sed) [#/Area] 0 /[HPF] None Seen [facility] Urine specific gravity measu rementOrdered By: Musa Awan on 12-12-2024 Specific gravity (U) [Rel density] 1.005 1.002-1.03 0 [facility] Urine urobilinogen measureme ntOrdered By: Musa Awan on 12-12-2024 Urobilinogen Ql (U) Normal mg/dl Normal [facility] White blood cell (WBC) count Ordered By: Musa Awan on 12-12-2024 WBC (Bld) [#/Vol] 9.1 10*3/uL 4.4-11.0 [facility] White blood cell countOrdere d By: Musa Awan on 12-12-2024 White blood cell count >100 SEEN /hpf 0-5 [facility] .Auto Diffon 11-18-2023 Basophil, Absolute 0.1 10 3/mcL Normal 0.0-0.2 [facility] ([place]) Comment on above: Performed By: #### G FR, A1C, LIPID, CMP, ANEU, ADIFF, CBC, VIDH #### [address] [address] #### PTH #### [address] [address] Basophils/100 WBC (Bld) 1.2 % Normal 0.0-2.5 [facility] ([place]) Comment on above: Performed By: #### G FR, A1C, LIPID, CMP, ANEU, ADIFF, CBC, VIDH #### [address] [address] #### PTH #### [address] [address] Eosinophil, Absolute 0.2 10 3/mcL Normal 0.0-0.4 [facility] ([place]) Comment on above: Performed By: #### G FR, A1C, LIPID, CMP, ANEU, ADIFF, CBC, VIDH #### [address] [address] #### PTH #### [address] [address] Eosinophils/100 WBC (Bld) 2.5 % Normal 0.0-7.0 [facility] ([place]) Comment on above: Performed By: #### G FR, A1C, LIPID, CMP, ANEU, ADIFF, CBC, VIDH #### [address] [address] #### PTH #### [address] [address] Lymphocyte, Absolute 1.9 10 3/mcL Normal 0.8-3.9 [facility] ([place]) Comment on above: Performed By: #### G FR, A1C, LIPID, CMP, ANEU, ADIFF, CBC, VIDH #### [address] [address] #### PTH #### [address] [address] Lymphocytes/100 WBC (Bld) 26.1 % Normal 10.0-50.0 [facility] ([place]) Comment on above: Performed By: #### G FR, A1C, LIPID, CMP, ANEU, ADIFF, CBC, VIDH #### [address] [address] #### PTH #### [address] [address] Monocyte, Absolute 0.5 10 3/mcL Normal 0.2-1.0 [facility] ([place]) Comment on above: Performed By: #### G FR, A1C, LIPID, CMP, ANEU, ADIFF, CBC, VIDH #### [address] [address] #### PTH #### [address] [address] Monocytes/100 WBC (Bld) 6.5 % Normal 1.7-13.0 [facility] ([place]) Comment on above: Performed By: #### G FR, A1C, LIPID, CMP, ANEU, ADIFF, CBC, VIDH #### [address] [address] #### PTH #### [address] [address] Neutrophils/100 WBC (Bld) 63.7 % Normal 37.0-80.0 [facility] ([place]) Comment on above: Performed By: #### G FR, A1C, LIPID, CMP, ANEU, ADIFF, CBC, VIDH #### [address] [address] #### PTH #### [address] [address] .GFRon 11-18-2023 GFR 87 ml/min/1.73sqm Normal [facility] ([place]) Comment on above: Result Comment: GFR Population [...] LIPID, CMP, ANEU, ADIFF, CBC, VIDH #### [address] [address] #### PTH #### [address] [address] GFR Non- 72 ml/min/1.73sqm Normal [facility] ([place]) Comment on above: Result Comment: GFR Population [...] LIPID, CMP, ANEU, ADIFF, CBC, VIDH #### [address] [address] #### PTH #### [address] [address] .NEUABSon 11-18-2023 Neutrophil, Absolute 4.7 10 3/mcL Normal 2.9-6.2 [facility] ([place]) Comment on above: Performed By: #### G FR, A1C, LIPID, CMP, ANEU, ADIFF, CBC, VIDH #### [address] [address] #### PTH #### [address] [address] A1Con 11-18-2023 HbA1c (Bld) [Mass fraction] 5.6 % Normal 4.3-6.4 [facility] ([place]) Comment on above: Performed By: #### G FR, A1C, LIPID, CMP, ANEU, ADIFF, CBC, VIDH ####[address] [address]#### PTH ####[facility] [place] [address] CBCon 11-18-2023 Erythrocyte distribution width (RBC) [Ratio] 15.1 % High 11.5-14.5 [facility] ([place]) Comment on above: Performed By: #### G FR, A1C, LIPID, CMP, ANEU, ADIFF, CBC, VIDH #### [address] [address] #### PTH #### [address] [address] Hematocrit (Bld) [Volume fraction] 44.0 % Normal 37.0-47.0 [facility] ([place]) Comment on above: Performed By: #### G FR, A1C, LIPID, CMP, ANEU, ADIFF, CBC, VIDH #### [address] [address] #### PTH #### [address] [address] Hgb 14.7 G/dL Normal 12.0-16.0 [facility] ([place]) Comment on above: Performed By: #### G FR, A1C, LIPID, CMP, ANEU, ADIFF, CBC, VIDH #### [address] [address] #### PTH #### [facility] [address] [place] [address] MCH (RBC) [Entitic mass] 29.5 pg Normal 27.0-31.2 [facility] ([place]) Comment on above: Performed By: #### G FR, A1C, LIPID, CMP, ANEU, ADIFF, CBC, VIDH #### [address] [address] #### PTH #### [place] [address] MCHC 33.4 G/dL Normal 33.0-37.0 [facility] ([place]) Comment on above: Performed By: #### G FR, A1C, LIPID, CMP, ANEU, ADIFF, CBC, VIDH #### [address] [address] #### PTH #### [place] [address] MCV (RBC) [Entitic vol] 88.4 fL Normal 80.0-94.0 [facility] ([place]) Comment on above: Performed By: #### G FR, A1C, LIPID, CMP, ANEU, ADIFF, CBC, VIDH #### [place] [address] #### PTH #### [place] [address] Platelet 295 10 3/mcL Normal 130-400 [facility] ([place]) Comment on above: Performed By: #### G FR, A1C, LIPID, CMP, ANEU, ADIFF, CBC, VIDH #### [place] [address] #### PTH #### [place] [address] Platelet mean volume (Bld) [Entitic vol] 8.7 fL Normal 7.4-10.4 [facility] ([place]) Comment on above: Performed By: #### G FR, A1C, LIPID, CMP, ANEU, ADIFF, CBC, VIDH #### [place] [address] #### PTH #### [place] [address] RBC 4.98 10 6/mcL Normal 4.20-5.40 [facility] ([place]) Comment on above: Performed By: #### G FR, A1C, LIPID, CMP, ANEU, ADIFF, CBC, VIDH #### [place] [address] #### PTH #### [place] [address] WBC 7.3 10 3/mcL Normal 4.6-10.8 [facility] ([place]) Comment on above: Performed By: #### G FR, A1C, LIPID, CMP, ANEU, ADIFF, CBC, VIDH #### [address] [address] #### PTH #### [address] [address] CMPon 11-18-2023 Albumin Level 3.7 G/dL Normal 3.4-4.8 [facility] ([place]) Comment on above: Performed By: #### G FR, A1C, LIPID, CMP, ANEU, ADIFF, CBC, VIDH #### [address] [address] #### PTH #### [place] [address] Albumin/Globulin [Mass ratio] 1.1 {ratio} Normal 1.1-2.5 [facility] ([place]) Comment on above: Performed By: #### G FR, A1C, LIPID, CMP, ANEU, ADIFF, CBC, VIDH #### [address] [address] #### PTH #### [address] [address] ALP [Catalytic activity/Vol] 122 U/L Normal 40-135 [facility] ([place]) Comment on above: Performed By: #### G FR, A1C, LIPID, CMP, ANEU, ADIFF, CBC, VIDH #### [address] [address] #### PTH #### [address] [address] ALT [Catalytic activity/Vol] 41 U/L Normal 14-59 [facility] ([place]) Comment on above: Performed By: #### G FR, A1C, LIPID, CMP, ANEU, ADIFF, CBC, VIDH #### [address] [address] #### PTH #### [facility] [address] [place], [place] [address] AST [Catalytic activity/Vol] 25 U/L Normal 10-40 [facility] ([place]) Comment on above: Performed By: #### G FR, A1C, LIPID, CMP, ANEU, ADIFF, CBC, VIDH #### [address] [address] #### PTH #### [address] [address] Bili Total 0.9 mg/dL Normal 0.2-1.0 [facility] ([place]) Comment on above: Result Comment: Use of this assay is not recommended for patients undergoing treatment with eltrombopag due to the potential for falsely elevated results. Performed By: #### G FR, A1C, LIPID, CMP, ANEU, ADIFF, CBC, VIDH #### [place] [address] #### PTH #### [place] [id number] BUN/Creatinine Ratio 19 ratio Normal 7-27 [facility] ([place]) Comment on above: Performed By: #### G FR, A1C, LIPID, CMP, ANEU, ADIFF, CBC, VIDH #### [place] [address] #### PTH #### [address] [address] Calcium [Mass/Vol] 10.2 mg/dL Normal 8.4-10.2 [facility] ([place]) Comment on above: Performed By: #### G FR, A1C, LIPID, CMP, ANEU, ADIFF, CBC, VIDH #### [place] [address] #### PTH #### [address] [address] Chloride [Moles/Vol] 101 mmol/L Normal 98-107 [facility] ([place]) Comment on above: Performed By: #### G FR, A1C, LIPID, CMP, ANEU, ADIFF, CBC, VIDH #### [place] [address] #### PTH #### [address] [address] CO2 [Moles/Vol] 28 mmol/L Normal 23-31 [facility] ([place]) Comment on above: Performed By: #### G FR, A1C, LIPID, CMP, ANEU, ADIFF, CBC, VIDH #### [address] [address] #### PTH #### [address] [address] Creatinine [Mass/Vol] 0.78 mg/dL Normal 0.55-1.02 [facility] ([place]) Comment on above: Performed By: #### G FR, A1C, LIPID, CMP, ANEU, ADIFF, CBC, VIDH #### [place] [address] #### PTH #### [address] [address] Electrolyte Balance 7.0 mEq/L Normal 4.0-15.0 [facility] ([place]) Comment on above: Performed By: #### G FR, A1C, LIPID, CMP, ANEU, ADIFF, CBC, VIDH #### [place] [address] #### PTH #### [address] [address] Globulin 3.5 G/dL Normal [facility] ([place]) Comment on above: Performed By: #### G FR, A1C, LIPID, CMP, ANEU, ADIFF, CBC, VIDH #### [place] [address] #### PTH #### [address] [address] Glucose [Mass/Vol] 87 mg/dL Normal 83-110 [facility] ([place]) Comment on above: Performed By: #### G FR, A1C, LIPID, CMP, ANEU, ADIFF, CBC, VIDH #### [place] [address] #### PTH #### [address] [address] Potassium [Moles/Vol] 4.3 mmol/L Normal 3.5-5.1 [facility] ([place]) Comment on above: Performed By: #### G FR, A1C, LIPID, CMP, ANEU, ADIFF, CBC, VIDH #### [address] [address] #### PTH #### [address] [address] Sodium [Moles/Vol] 136 mmol/L Normal 136-145 [facility] ([place]) Comment on above: Performed By: #### G FR, A1C, LIPID, CMP, ANEU, ADIFF, CBC, VIDH #### [address] [address] #### PTH #### [address] [address] Total Protein 7.2 G/dL Normal 6.4-8.2 [facility] ([place]) Comment on above: Performed By: #### G FR, A1C, LIPID, CMP, ANEU, ADIFF, CBC, VIDH #### [address] [address] #### PTH #### [address] [address] Urea nitrogen [Mass/Vol] 15 mg/dL Normal 7-18 [facility] ([place]) Comment on above: Performed By: #### G FR, A1C, LIPID, CMP, ANEU, ADIFF, CBC, VIDH #### [address] [address] #### PTH #### [address] [address] LIPIDon 11-18-2023 Cholesterol [Mass/Vol] 200 mg/dL Normal 0-200 [facility] ([place]) Comment on above: Result Comment: Chol esterol Reference Interval: Less than 200 Desirable 200-239 Borderline high risk 240 and above High risk Performed By: #### G FR, A1C, LIPID, CMP, ANEU, ADIFF, CBC, VIDH #### [address] [address] #### PTH #### [address] [address] Cholesterol in HDL [Mass/Vol] 54 mg/dL Normal 40-60 [facility] ([place]) Comment on above: Performed By: #### G FR, A1C, LIPID, CMP, ANEU, ADIFF, CBC, VIDH #### [address] [address] #### PTH #### [address] [address] Cholesterol in LDL [Mass/Vol] 126 mg/dL Normal 0-130 [facility] ([place]) Comment on above: Performed By: #### G FR, A1C, LIPID, CMP, ANEU, ADIFF, CBC, VIDH #### [address] [address] #### PTH #### [address] [address] Triglyceride [Mass/Vol] 98 mg/dL Normal 0-150 [facility] ([place]) Comment on above: Result Comment: Trig lyceride Reference Interval: Less than 150 Normal 150-199 Borderline high risk 200-499 High risk 500 or higher Very high risk Performed By: #### G FR, A1C, LIPID, CMP, ANEU, ADIFF, CBC, VIDH #### [address] [address] #### PTH #### [place] [address] PTHon 11-18-2023 PTH, Intact 24.4 pg/mL Normal 18.5-88.0 [facility] ([place]) Comment on above: Performed By: #### G FR, A1C, LIPID, CMP, ANEU, ADIFF, CBC, VIDH ####[address] [address]#### PTH ####[address] [address] VIDHon 11-18-2023 Vit. D 25-Hydroxy 56.3 ng/mL Normal [facility] ([place]) Comment on above: Result Comment: Inte rpretive Values Based on Total 25(OH) Vitamin D: Deficient <20 ng/mL Insufficient 20 - <30 ng/mL Sufficient 30-100 ng/mL Performed By: #### G FR, A1C, LIPID, CMP, ANEU, ADIFF, CBC, VIDH #### [address] [address] #### PTH #### [place] [address] RENINon 06-25-2023 Renin Activity 1.092 ng/mL/hr Normal 0.167-5.38 0 [facility] ([place]) Comment on above: Result Comment: This test was developed and its performance characteristics determined by [facility]. It has not been cleared or approved by the Food and Drug Administration. Performed At: [facility] [id number] Karri Pagan MD Ph:[phone] Performed By: #### 0 [address] #### [address] [address] .Auto Diffon 06-17-2023 Basophil, Absolute 0.1 10 3/mcL Normal 0.0-0.2 [facility] ([place]) Comment on above: Performed By: #### P TH ####[place] [address]#### CBC, LIPID, TSH, ADIFF, ANEU ####[place] [id number] Basophils/100 WBC (Bld) 0.9 % Normal 0.0-2.5 [facility] ([place]) Comment on above: Performed By: #### P TH ####[place] [address]#### CBC, LIPID, TSH, ADIFF, ANEU ####[place] [address] Eosinophil, Absolute 0.2 10 3/mcL Normal 0.0-0.4 [facility] ([place]) Comment on above: Performed By: #### P TH ####[place] [address]#### CBC, LIPID, TSH, ADIFF, ANEU ####[facility] [place], [place] [address] Eosinophils/100 WBC (Bld) 2.8 % Normal 0.0-7.0 [facility] ([place]) Comment on above: Performed By: #### P TH ####[place] [address]#### CBC, LIPID, TSH, ADIFF, ANEU ####[facility] [place], [place] [address] Lymphocyte, Absolute 1.9 10 3/mcL Normal 0.8-3.9 [facility] ([place]) Comment on above: Performed By: #### P TH ####[place] [address]#### CBC, LIPID, TSH, ADIFF, ANEU ####[facility] [place], [place] [address] Lymphocytes/100 WBC (Bld) 24.6 % Normal 10.0-50.0 [facility] ([place]) Comment on above: Performed By: #### P TH ####[place] [address]#### CBC, LIPID, TSH, ADIFF, ANEU ####[facility] [place], [place] [address] Monocyte, Absolute 0.5 10 3/mcL Normal 0.2-1.0 [facility] ([place]) Comment on above: Performed By: #### P TH ####[place] [address]#### CBC, LIPID, TSH, ADIFF, ANEU ####[facility] [place], [place] [address] Monocytes/100 WBC (Bld) 6.6 % Normal 1.7-13.0 [facility] ([place]) Comment on above: Performed By: #### P TH ####[place] [address]#### CBC, LIPID, TSH, ADIFF, ANEU ####[place] [address] [place], [place] [address] Neutrophils/100 WBC (Bld) 65.1 % Normal 37.0-80.0 [facility] ([place]) Comment on above: Performed By: #### P TH ####[address] [address]#### CBC, LIPID, TSH, ADIFF, ANEU ####[place] [address] [place], [place] [address] .GFRon 06-17-2023 GFR 86 ml/min/1.73sqm Normal [facility] ([place]) Comment on above: Result Comment: GFR Population [...] #### V IDH, A1C, GFR, CMP ####[place] [address] [place], [place] [address] GFR Non- 71 ml/min/1.73sqm Normal [facility] ([place]) Comment on above: Result Comment: GFR Population [...] #### V IDH, A1C, GFR, CMP ####[place] [address] [place], [place] [address] .NEUABSon 06-17-2023 Neutrophil, Absolute 5.1 10 3/mcL Normal 2.9-6.2 [facility] ([place]) Comment on above: Performed By: #### P TH ####[place] [address]#### CBC, LIPID, TSH, ADIFF, ANEU ####[place] [place], [place] [address] A1Con 06-17-2023 HbA1c (Bld) [Mass fraction] 5.1 % Normal 4.3-6.4 [facility] ([place]) Comment on above: Performed By: #### V IDH, A1C, GFR, CMP ####[place] [place] [address] CBCon 06-17-2023 Erythrocyte distribution width (RBC) [Ratio] 14.2 % Normal 11.5-14.5 [facility] ([place]) Comment on above: Performed By: #### P TH ####[place] [address]#### CBC, LIPID, TSH, ADIFF, ANEU ####[place] [address] [place] [address] Hematocrit (Bld) [Volume fraction] 43.3 % Normal 37.0-47.0 [facility] ([place]) Comment on above: Performed By: #### P TH ####[place] [address]#### CBC, LIPID, TSH, ADIFF, ANEU ####[facility] [place] [address] Hgb 14.6 G/dL Normal 12.0-16.0 [facility] ([place]) Comment on above: Performed By: #### P TH ####[place] [address]#### CBC, LIPID, TSH, ADIFF, ANEU ####[place] [address] [place] [address] MCH (RBC) [Entitic mass] 29.5 pg Normal 27.0-31.2 [facility] ([place]) Comment on above: Performed By: #### P TH ####[place] [address]#### CBC, LIPID, TSH, ADIFF, ANEU ####[place] [address] [place] [address] MCHC 33.7 G/dL Normal 33.0-37.0 [facility] ([place]) Comment on above: Performed By: #### P TH ####[place] [address]#### CBC, LIPID, TSH, ADIFF, ANEU ####[address] [place] [address] MCV (RBC) [Entitic vol] 87.5 fL Normal 80.0-94.0 [facility] ([place]) Comment on above: Performed By: #### P TH ####[place] [address]#### CBC, LIPID, TSH, ADIFF, ANEU ####[place] [address] [place] [address] Platelet 315 10 3/mcL Normal 130-400 [facility] ([place]) Comment on above: Performed By: #### P TH ####[place] [address]#### CBC, LIPID, TSH, ADIFF, ANEU ####[address]jaciel [address] [place] [address] Platelet mean volume (Bld) [Entitic vol] 8.4 fL Normal 7.4-10.4 [facility] ([place]) Comment on above: Performed By: #### P TH ####[place] [address]#### CBC, LIPID, TSH, ADIFF, ANEU ####[place] [place] [address] RBC 4.95 10 6/mcL Normal 4.20-5.40 [facility] ([place]) Comment on above: Performed By: #### P TH ####[address] [address]#### CBC, LIPID, TSH, ADIFF, ANEU ####[place] [place], [place] [address] WBC 7.8 10 3/mcL Normal 4.6-10.8 [facility] ([place]) Comment on above: Performed By: #### P TH ####[address] [address]#### CBC, LIPID, TSH, ADIFF, ANEU ####[place] [address] [place], [place] [address] CMPon 06-17-2023 Albumin Level 3.5 G/dL Normal 3.4-4.8 [facility] ([place]) Comment on above: Performed By: #### V IDH, A1C, GFR, CMP ####[place] [place], [place] [address] Albumin/Globulin [Mass ratio] 1.0 {ratio} Low 1.1-2.5 [facility] ([place]) Comment on above: Performed By: #### V IDH, A1C, GFR, CMP ####[place] [place], [place] [address] ALP [Catalytic activity/Vol] 120 U/L Normal 40-135 [facility] ([place]) Comment on above: Performed By: #### V IDH, A1C, GFR, CMP ####[place] [place], [place] [address] ALT [Catalytic activity/Vol] 38 U/L Normal 14-59 [facility] ([place]) Comment on above: Performed By: #### V IDH, A1C, GFR, CMP ####[place] [address] [place], [place] [address] AST [Catalytic activity/Vol] 20 U/L Normal 10-40 [facility] ([place]) Comment on above: Performed By: #### V IDH, A1C, GFR, CMP ####[place] [place], [place] [address] Bili Total 0.6 mg/dL Normal 0.2-1.0 [facility] ([place]) Comment on above: Result Comment: Use of this assay is not recommended for patients undergoing treatment with eltrombopag due to the potential for falsely elevated results. Performed By: #### V IDH, A1C, GFR, CMP ####[place] [address] [place], [place] [address] BUN/Creatinine Ratio 23 ratio Normal 7-27 [facility] ([place]) Comment on above: Performed By: #### V IDH, A1C, GFR, CMP ####[place] [address] [place], [place] [address] Calcium [Mass/Vol] 9.1 mg/dL Normal 8.4-10.2 [facility] ([place]) Comment on above: Performed By: #### V IDH, A1C, GFR, CMP ####[place] [address] [place], [place] [address] Chloride [Moles/Vol] 106 mmol/L Normal 98-107 [facility] ([place]) Comment on above: Performed By: #### V IDH, A1C, GFR, CMP ####[place] [address] [place], [place] [address] CO2 [Moles/Vol] 29 mmol/L Normal 23-31 [facility] ([place]) Comment on above: Performed By: #### V IDH, A1C, GFR, CMP ####[place] [place], [place] [address] Creatinine [Mass/Vol] 0.79 mg/dL Normal 0.55-1.02 [facility] ([place]) Comment on above: Performed By: #### V IDH, A1C, GFR, CMP ####[place] [place], [place] [address] Electrolyte Balance 7.0 mEq/L Normal 4.0-15.0 [facility] ([place]) Comment on above: Performed By: #### V IDH, A1C, GFR, CMP ####[place] [place], [place] [address] Globulin 3.5 G/dL Normal [facility] ([place]) Comment on above: Performed By: #### V IDH, A1C, GFR, CMP ####[place] [place], [place] [address] Glucose [Mass/Vol] 94 mg/dL Normal 83-110 [facility] ([place]) Comment on above: Performed By: #### V IDH, A1C, GFR, CMP ####[place] [place], [place] [address] Potassium [Moles/Vol] 4.2 mmol/L Normal 3.5-5.1 [facility] ([place]) Comment on above: Performed By: #### V IDH, A1C, GFR, CMP ####[place] [place], [place] [address] Sodium [Moles/Vol] 142 mmol/L Normal 136-145 [facility] ([place]) Comment on above: Performed By: #### V IDH, A1C, GFR, CMP ####[place] [place], [place] [address] Total Protein 7.0 G/dL Normal 6.4-8.2 [facility] ([place]) Comment on above: Performed By: #### V IDH, A1C, GFR, CMP ####[place] [place], [place] [address] Urea nitrogen [Mass/Vol] 18 mg/dL Normal 7-18 [facility] ([place]) Comment on above: Performed By: #### V IDH, A1C, GFR, CMP ####[place] [place], [place] [address] LIPIDon 06-17-2023 Cholesterol [Mass/Vol] 185 mg/dL Normal 0-200 [facility] ([place]) Comment on above: Result Comment: Chol esterol Reference Interval: Less than 200 Desirable 200-239 Borderline high risk 240 and above High risk Performed By: #### 0 [address] #### [place] [address] [address] Cholesterol in HDL [Mass/Vol] 57 mg/dL Normal 40-60 [facility] ([place]) Comment on above: Performed By: #### 0 [address] #### [place] [address] [place], [place] [address] Cholesterol in LDL [Mass/Vol] 105 mg/dL Normal 0-130 [facility] ([place]) Comment on above: Performed By: #### 0 [address] #### [place] [address] [address] Triglyceride [Mass/Vol] 117 mg/dL Normal 0-150 [facility] ([place]) Comment on above: Result Comment: Trig lyceride Reference Interval: Less than 150 Normal 150-199 Borderline high risk 200-499 High risk 500 or higher Very high risk Performed By: #### 0 [address] #### [place] [address] [place], [place] [address] MALBRon 06-17-2023 U Creatinine 144.4 mg/dL High 28.0-117.0 [facility] ([place]) Comment on above: Performed By: #### M ALBR ####[place] [address] [address] U Microalb 1624 mcg/dL Normal [facility] ([place]) Comment on above: Performed By: #### M ALBR ####[place] [address] [address] U Ratio Alb/Cre 11 mcg/mg Normal 0-30 [facility] ([place]) Comment on above: Performed By: #### M ALBR ####[place] [address] [place], [place] [address] PTHon 06-17-2023 PTH, Intact 42.4 pg/mL Normal 18.5-88.0 [facility] ([place]) Comment on above: Performed By: #### 0 [address] #### [place] [address] [address] TSHon 06-17-2023 TSH Qn 1.48 m[IU]/L Normal 0.36-3.74 [facility] ([place]) Comment on above: Performed By: #### 0 [address] #### [place] [address] [place], [place] [address] VIDHon 06-17-2023 Vit. D 25-Hydroxy 56.2 ng/mL Normal [facility] ([place]) Comment on above: Result Comment: Inte rpretive Values Based on Total 25(OH) Vitamin D: Deficient <20 ng/mL Insufficient 20 - <30 ng/mL Sufficient 30-100 ng/mL Performed By: #### V IDH, A1C, GFR, CMP ####[place] [address] [place], [place] [address] XR RIBS 2 VIEWS LEFT/PA CHES T(AO)on [...] By: Gonzalez Fong MD Electronically signed By Gonzlaez Fong MD Dictated Date: 05/28/2023 11:09:21 AM Prelim Date: 05/28/2023 11:11:38 AM Sign Date: 05/28/2023 11:11:38 AM Ordering Provider: DESIRAE GAYTAN [facility] ([place]) XR SHOULDER MINIMUM 2 VIEWS RIGHTon 04-15-2023 [...] 04/15/2023 11:26:06 PM Ordering Provider: DESIRAE Love [facility] ([place]) MA MAMMOGRAM SCREENING BILAT ERAL W/TOMOon 01-08-2023 [...] Normal BI-RADS 1 and 2 ORIGINAL FROM: [address] [address] PROCEDURE FOR: KEM CHOUDHURY [address] [place] [address] Home: PID#: [id number] Exam#: [id number] : 1945 Age: 77 TO: DESIRAE GAYTAN [employer]PER[employer] [facility] [address] [place] [address] Fax: NO FAX EXAMINATION: SCREENING DIGITAL BILATERAL [...] 01/07/2023 11:25:27 PM Ordering Provider: DESIRAE GAYTAN Associate Professor Physician: FAUSTO HERNANDES RT (R) (M) (CT) letter sent: Normal BI-RADS 1 and 2 Mammogram BI-RADS: 2 Benign Normal [facility] ([place]) BD BONE DENSITY DEXA AXIAL S [facility] 01-07-2023 BD BONE DENSITY DEXA AXIAL SKELETON [...] 01/07/2023 12:38:36 PM Ordering Provider: DESIRAE GAYTAN [facility] ([place]) LABORATORYOrdered By: SYSTEM SYSTEM on 05-13-2022 Albumin [...] KEM CHOUDHURY : 1945 (72/F) Acct Num: [id number] Phys: DanielSandeep Unit Num: [id number] Loc: LABSPEC Specimen: [id number] Received: 04/01/181526 Spec Type: COLON BX TISSUES [...] one cassette. / DEV:renee 04/02/18 TC:1 CPT: 56363 HEADER OPERATION: Colonoscopy with polypectomy PRE-OP DIAGNOSIS: Screening TISSUE SUBMITTED: Polyp hepatic flexure, rule out adenoma MICROSCOPIC DESCRIPTION Slides are reviewed. MICROSCOPIC DIAGNOSIS Polyp, hepatic flexure, polypectomy: Fragments of tubular adenoma. DEV:renee 04/05/18 Signed Aaron Singh 04/05/18 Normal [facility] Comment on above: Performed By: #### P COLBX ####[facility] [address] [place], [place], [address] Orthopedic Visit Reporton Orthopedic Visit Report [facility] R[address] [phone] VISITDate of Service: 10/21/17#: [id number] Acct: [id number]: KEM CHOUDHURY Rep #: [id number]: 1945 Provider: Owen Neri/Sex: 72/F [place] [facility]SMOStatus: SignedIntakeIntakeVisit Reasons: LEFT SHOULDERIs patient in pain?: [...] pointtime will refer the patient to the [place] orth[facility] group for continued care if the patientdoes not want to needing a reverse total shoulder. Patient can continue with conservativemanagement. Any major issues return.CodingLevel of Care CodeGlobal Post OpDiagnosesOrthopedic aftercare Z47. 1107 Date Owen Wolfe DOCosigner Signature: Date (if applicable)CC: Normal [facility] Orthopedic Visit Reporton Orthopedic Visit Report [facility] Ikbxgxws[address] [phone] VISITDate of Service: 08/26/17MR#: [id number] Acct: [id number]: KEM CHOUDHURY Rep #: [id number]: 1945 Provider: Owen Wolfe DOAge/Sex: 72/F [place] [facility]SMOStatus: SignedIntakeIntakeVisit Reasons: LEFT SHOULDERIs patient in pain?: [...] Wolfe DOCosigner Signature: Date (if applicable)CC: Normal [facility] Orthopedic Visit Reporton Orthopedic Visit Report [facility] Glptulfa[address] [phone] VISITDate of Service: 07/29/17MR#: [id number] Acct: [id number]: KEM CHOUDHURY Rep #: [id number]: 1945 Provider: Owen Wolfe DOAge/Sex: 72/F Location[place] [facility]SMOStatus: SignedIntakeIntakeVisit Reasons: left shoulderIs patient in pain?: [...] Wolfe DOCosigner Signature: Date (if applicable)CC: Normal [facility] Operative Reporton 8 Operative Report [facility] [address] [place], [place] [address]Bnhuooftg Ojmjqh96/14/18 0737MR#: [id number] Acct: [id number]: KEM CHOUDHURY Rep #: [id number]: 1945 71 From: Owen Wolfe DOPCP: Desirae Gaytan Status: DEP [facility] YLocation: SDCReport of OperationDate [...] the aforementioned procedure. 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: NONEType of Anesthesia:: General/RegionalSpecimen's removed: NoneEstimated Blood Loss (mL): 10Grafts/Implants Used: None- Admit VTE DocumentationVTE Present on Admission: NoVTE Mechan Device Prophylaxis: SCD's, Knee High MILAGROS HoseVTE Pharm Prophylaxis ordered?: No07/15/17 0740 Date Owen Wolfe DOCC: Owen Wolfe DO; Desirae Gaytan Signed Normal [facility] Discharge Instructionon 07-02 Discharge Instruction [facility] [address] [place], [place] [address]Fbukixsizerq for Home/Discharge Mcqhdqhpyriz30/13/18 0914#: [id number] Acct: [id number]: SPENCER CHOUDHURYEVA Griffith Rep #: [id number]: 1945 [...] Date Owen Wolfe DOCC: Desirae Gaytan Normal [facility] Basic Metabolic Profile (BMP )on 07-09-2017 Calcium mass conc 9.0 mg/dL Normal 8.5-10.1 [facility] Comment on above: Performed By: #### L 500.2500 ####[facility] [address] [place], [address] Chloride molar conc 106 mmol/L Normal 98-107 [facility] Comment on above: Performed By: #### L 500.2500 ####[facility] [address] [place], [address] CO2 molar conc 26.0 mmol/L Normal 21.0-32.0 [facility] Comment on above: Performed By: #### L 500.2500 ####[facility] [address] [facility] [address] Creatinine mass conc 0.84 mg/dL Normal 0.55-1.02 [facility] Comment on above: Result Comment: The validity of the calculated GFR AND GFRAA in patients over70 years has not been determined. Clinical correlation isessential. Performed By: #### L 500.2500 ####[facility] [address] [place], [address] EST GFR - AA 87 mL/min Normal >60 [facility] Comment on above: Result Comment: Afri can Kenyan GFR Calc Performed By: #### L 500.2500 ####[facility] [address] [place], [address] GAP 8 Normal 5-15 [facility] Comment on above: Performed By: #### L 500.2500 ####[facility] [address] [facility] [address] GFR/1.73 sq M predicted among non-blacks MDRD vol rate/area (S/P/Bld) 72 mL/min/{1.73_m2} Normal >60 [facility] Comment on above: Result Comment: Non- GFR Calc Performed By: #### L 500.2500 ####[facility] [address] [facility] [address] Glucose mass conc 89 mg/dL Normal 74-106 [facility] Comment on above: Result Comment: Yovana rai note revised GLUCOSE reference range wvsgnvsav78/02/2018. Performed By: #### L 500.2500 ####[facility] [address] [place], [address] Potassium molar conc 4.3 mmol/L Normal 3.5-5.1 [facility] Comment on above: Performed By: #### L 500.2500 ####[facility] [address] [place], [address] Sodium molar conc 140 mmol/L Normal 136-145 [facility] Comment on above: Performed By: #### L 500.2500 ####[facility] [address] [place], [address] Urea nitrogen mass conc 21 mg/dL High 7-18 [facility] Comment on above: Performed By: #### L 500.2500 ####[facility] [address] [place], [address] Urea nitrogen mass conc (Bld) 25.1 RATIO High 10-20 [facility] Comment on above: Performed By: #### L 500.2500 ####[facility] [address] [place], [address] CBC-Complete Blood Cnt No Di ffon 07-09-2017 Erythrocyte distribution width Auto Ratio (RBC) 14.3 % Normal 11.6-14.6 [facility] Comment on above: Performed By: #### L 100.0500 ####[facility] [address] [place], [address] Hematocrit Auto Volume Fraction (Bld) 46.7 % Normal 37-47 [facility] Comment on above: Performed By: #### L 100.0500 ####[facility] [address] [place], [address] Hemoglobin mass conc (Bld) 15.2 g/dL High 12.0-15.0 [facility] Comment on above: Performed By: #### L 100.0500 ####[facility] [address] [place], [address] MCH Auto Entitic mass (RBC) 29.8 pg Normal 27.0-32.0 [facility] Comment on above: Performed By: #### L 100.0500 ####[facility] [address] [place], [address] MCHC Auto mass conc (RBC) 32.5 g/gl Normal 32-36 [facility] Comment on above: Performed By: #### L 100.0500 ####[facility] [address] [place], [address] MCV Auto Entitic volume (RBC) 91.6 fL Normal 81-99 [facility] Comment on above: Performed By: #### L 100.0500 ####[facility] [address] [place], [address] Platelet mean volume Auto Entitic volume (Bld) 10.3 fL Normal 6.2-12.0 [facility] Comment on above: Performed By: #### L 100.0500 ####[facility] [address] [place], [address] Platelets Auto #/vol (Bld) 350 10*3/uL Normal 150-450 [facility] Comment on above: Performed By: #### L 100.0500 ####[facility] [address] [place], [address] RBC Auto #/vol (Bld) 5.10 M/mm3 Normal 4.2-5.4 [facility] Comment on above: Performed By: #### L 100.0500 ####[facility] [address] [place], [address] RDW SD 48.6 fl High 35.1-43.9 [facility] Comment on above: Performed By: #### L 100.0500 ####[facility] [address] [place], [address] WBC Auto #/vol (Bld) 8.7 10*3/uL Normal 4.4-11.0 [facility] Comment on above: Performed By: #### L 100.0500 ####[facility] [address] [place], [address] Orthopedic Visit Reporton Orthopedic Visit Report [facility] [address] [facility] [address] [place] [address] [phone] VISITDate of Service: 06/24/17MR#: [id number] Acct: [id number]: KEM CHOUDHURY Rep #: [id number]: 1945 Provider: Owen Neri/Sex: 71/F [facility] [facility]SMOStatus: SignedIntakeIntakeVisit Reasons: LEFT SHOULDERAllergiesvancomycin Allergy (Severe, Verified [...] Yes TTP Biceps, Yes empty canInternal Rotation: [id number]: General:well developed, well nourished in no acute [...] left rotator cuff M75.122Rotator cuff tear extent: pvqeqohw01/23/18 1515 Date Owen Wolfe DOCosigner Signature: Date (if applicable)CC: Normal [facility] Upper Ext Joint Only(Routine )on 06-16-2017 Upper Ext Joint Only(Routine) [facility] [address] [place] [address]Dbwzd Ext Joint Only(Routine)MR#: [id number] Acct: [id number]: SPENCER CHOUDHURYEVA Griffith Rep #: [id number]: 1945 F 71 From: Guido Trinh MDPCP: Desirae Gaytan Status: REG CLIStudy: Upper Ext Joint Only(Routine) Date of Exam: 06/16/17Exam# [id number] Ordering Dr: Owen Wolfe DOSTUDY: MRI LEFT [...] deltoid muscle. Normal trapezius muscle. ORDER #: [id number] MRI/Upper Ext Joint Only(Routine)IMPRESSION:Mass vj full-thickness retracted tear of the supraspinatus andinfraspinatus tendons with muscular atrophy.Low-grade myofascial strain of the infraspinatus muscle.Mild tendinosis of the intracapsular segment of the long biceps tendonJoint effusion with fluid extending into the subacromial subdeltoid bursathrough the rotator cuff tear.Moderate arthrosis of the acromioclavicular joint.Electronically Signed:Guido Trinh MD, ZGTG1496/06/16 at 8:31 ESTTel , Service support , TM: Owen Gaytan Motor And Controls Tester:Signed [facility] Orthopedic Visit Reporton Orthopedic Visit Report [facility] [address] [phone] VISITDate of Service: 05/20/17#: [id number] Acct: [id number]: KEM CHOUDHURY Rep #: [id number]: 1945 Provider: Owen Wolfe DOAge/Sex: 71/F Location[facility]SMOStatus: SignedIntakeVital Signs05/20/17 Height 5 ft 2 in05/20/17 [...] on her left shoulder. [facility] went to [facility] that sameday where they took x-ray and pain medication. She was advised she tore her rotator cuff. Shestates her left arm was wrapped around her body for several days and now only wears a sling.She complains of intermittent lateral shoulder pain with activity. She denies radiation ofpain. No tingling/numbness. She only took the Anna for 2-3 days and it made her [...] Hawkin's, Yes Neer's, Yes Drop ArmInternal Rotation: [id number]: Patient is alert and oriented 3 in [...] left rotator cuff M75.122Rotator cuff tear extent: rvcrloxj36/22/18 0750 Date Owen Wolfe DOCosigner Signature: Date (if applicable)CC: Normal [facility] Inital Evaluation (1) - PTon 05-22-2017 Inital Evaluation (1) - PT [facility] [address] [facility]. [address] [place] [address] [phone] [phone] FaxREHABILITATION SERVICESINITIAL EVALUATIONMR#: [id number] Acct: [id number]: KEM CHOUDHURY Rep #: [id number]: 1945 71 From: Miller Armenta PT, ATCReferring : Owen Wolfe DO Status: REG RCRInsurance: MEDICARE PART A [facility] COMMERCIALPatient's Visit InformationKEM CHOUDHURY is a 71 [...] to be FAXED BACK to us at [phone] for Medicare purposes.Please let me know if there are questions or concerns regarding this plan of care.Physician Signature: ___Date: 05/22/17 0857CC: Owen Wolfe DO; Desirae Gaytan DT: 05/22/17MHSignedFor Medicare only, by signing this I certify the plan of care. Physicia ns Signature Date Normal [facility] Emergency Department Summary on 05-11-2017 Emergency Department Summary [facility] [address] [place], [place] [address]Cgzrsapdt Department Xvubbip51/08/18 0809MR#: [id number] Acct: [id number]: KEM CHOUDHURY Rep #: [id number]: 1945 71 [...] encounter left shoulderThis note was generated with Smallknot dictation software. It may contain incorrect words,spelling, and punctuation that were not noted in review of the chart prior to signingED Disposition- Plan for ED Patient:Disposition: Home or Assisted LivingChief Complaint: FallInstructions: ED Torn Rotator CuffPrescriptions:Hydrocodon e Bitart/Apap 5-325 [Anna 5MG-325MG] 1 tab PO Q4H PRN PRN #30 tabPRN Reason: PainReferrals:Emma Gaytan rd [Primary Care Provider] -Owen Wolfe DO [STAFF PHYSICIAN] - 3-5 DaysWhat to do if you have ProblemsFor any increased pain, shortness of breath, bleeding, nausea or vomiting, chest pain, or anyunexpected problems, contact your Primary Care Provider. Call [facility] ([phone])or report to the closest Emergency Room.Call 911 if necessary.05/11/17813 Date Gunner Garcia [facility] Signature (If Indicated): Date CC: Owen Wolfe DO; Desirae Gayatn Normal [facility] Shoulder min 2 Viewson 05-11 Shoulder min 2 Views [facility] [address] [place], [place] [address]Oyaosabh min 2 ViewsMR#: [id number] Acct: [id number]: KEM CHOUDHURY Rep #: [id number]: 1945 F 71 From: Feliberto Mccray MDPCP: Desirae Gaytan Status: DEP ERStudy: Shoulder min 2 Views Date of Exam: 05/11/17Exam# [id number] Ordering Dr: Gunner Garcia MDSTUDY: X-RAY - RIGHT SHOULDERREASON FOR EXAM: Female, 71 years old. Pain and limited range of motionfollowing a fall.TECHNIQUE: AP and lateral view(s) of the shoulder.COMPARISON: None. FINDINGS:Normal glenohumeral articulation. Normal acromioclavicular joint. Normalacromion.Normal humeral head and visualized proximal humerus.The soft tissue structures are unremarkable.Normal visualized pulmonary apex. ORDER #: [id number] RAD/Shoulder min 2 ViewsIMPRESSION:Normal x-ray examination of the shoulder.Electronically Signed:Feliberto Mccray MD at 8:31 ESTTel [phone], Service support , BN: Desirae Gaytan; Gunner Garcia MD Motor And Controls Tester:Signed Normal [facility] Vital Signs Date Time Vital Sign Value Performing Clinician Hi nguyen 12-12-2024 17:23-0400 Body temperature 98.2 [degF] Dr. Musa Awan DO Work Phone: 2(624)[phone] [place] [address] 12-12-2024 17:23-0400 Diastolic blood pressure 81 mm[Hg] Dr. Musa Awan DO Work Phone: 4(621)[phone] [address] 12-12-2024 17:23-0400 Heart rate 73 /min Dr. Musa Awan DO Work Phone: 8(590)[phone] [place] [address] 12-12-2024 17:23-0400 Respiratory rate 14 /min Dr. Musa Awan DO Work Phone: 4(111)[phone] [place] [address] 12-12-2024 17:23-0400 SaO2% (BldA) [Mass fraction] 99 % Dr. Musa Awan DO Work Phone: 6(438)[phone] [place] [address] 12-12-2024 17:23-0400 Systolic blood pressure 148 mm[Hg] Dr. Musa Awan DO Work Phone: 7(142)[phone] [place] [address] 12-12-2024 14:08-0400 Body height 157.[address] Musa Awan DO Work Phone: 6(120)[phone] [place] [address] 12-12-2024 14:08-0400 Body mass index (BMI) [Ratio] 33.5 kg/m2 Dr. Musa Awan DO Work Phone: 6(009)[phone] [place] [address] 12-12-2024 14:08-0400 Body weight [address] Musa Awan DO Work Phone: [facility] Encounters Encounter Date Encounter Type Care Provider Facility Start: 12-12-2024 Evaluation and management of inpatient Dr. Nava Donovan MD -[facility] Work Phone: Start: 12-12-2024 Non-patient / Non-visit Dr. Nava acosta MD -[facility] Work Phone: Start: 12-30-2023 ambulatory DESIRAE D TOMP KINS [employer]OW TRUCK OPERATOR - [facility] Facility:B Start: 11-18-2023 End: 11-18-2023 ambulatory DESIRAE D LUKAS [employer] TR[employer] OPERATOR - [facility] Facility:B Start: 06-17-2023 End: 06-17-2023 ambulatory DESIRAE D LUKAS [employer]UCK OPERATOR - [facility] Facility:B Start: 05-26-2023 End: 05-26-2023 ambulatory DESIRAE D LUKAS [employer] TR[employer] OPERATOR - [facility] Facility:B Start: 04-23-2023 End: 05-22-2023 ambulatory DESIRAE D LUKAS [employer]ATOR - [facility] Facility:B Start: 04-23-2023 End: 05-22-2023 Physical therapy management DESIRAE D LUKAS TOW TRUCK OPERATOR - [employer] [facility] Start: 04-14-2023 End: 04-14-2023 ambulatory DESIRAE D LUKAS [employer]OW TRUCK OPERATOR - [employer] Facility:B Start: 04-14-2023 End: 04-14-2023 Patient encounter procedure DESIRAE D LUKAS TOW TRUCK OPERATOR - [employer] [facility] Start: 01-07-2023 End: 01-07-2023 ambulatory DESIRAE D LUKAS [employer]OW TRUCK OPERATOR - [facility] Facility:B Start: 01-07-2023 End: 01-07-2023 Patient encounter procedure DESIRAE D LUKAS TOW TRUCK OPERATOR - [employer] [facility] Start: 05-13-2022 End: 05-13-2022 Patient encounter procedure DESIRAE D LUKAS TOW TRUCK OPERATOR - [employer] [facility] Start: 10-28-2021 End: 10-28-2021 Patient encounter procedure DESIRAE GAYTAN TOW TRUCK OPERATOR - [employer] [facility] Start: 04-01-2018 Patient encounter procedure Sandeep Sanchez Facility:[facility] Start: 10-21-2017 End: 10-21-2017 Patient encounter procedure Owen Wolfe Facility:[facility] Start: 08-26-2017 End: 08-26-2017 Patient encounter procedure Owen Wolfe Facility:[facility] Start: 07-29-2017 End: 07-29-2017 Patient encounter procedure Owen Wolfe Facility:[facility] Start: 07-15-2017 Patient encounter procedure Owen Wolfe Facility:[facility] Start: 07-14-2017 End: 07-14-2017 Patient encounter procedure Owen Wolfe Facility:[facility] Start: 07-09-2017 Patient encounter procedure Alexandr Velazquez Facility:[facility] Start: 06-24-2017 End: 06-24-2017 Patient encounter procedure Owen Wolfe Facility:[facility] Start: 06-19-2017 End: 06-19-2017 Patient encounter procedure Owen Wolfe Facility:[facility] Start: 06-16-2017 Patient encounter procedure Owen Wolfe Facility:[facility] Start: 06-10-2017 Patient encounter procedure Owen Wolfe Facility:[facility] Start: 05-20-2017 End: 05-20-2017 Patient encounter procedure Owen Wolfe Facility:[facility] Start: 05-11-2017 End: 05-11-2017 Emergency department patient visit DESIRAE GAYTAN Facility:[facility] Procedures Date Procedure Procedure Detail Performing Clinician [...] ANA Start: 05-04-2017 Colonoscopy DESIRAE TO ANA [employer]OW TRUCK OPERATOR - [facility] [facility] Comment on above: Due in 2021 Breast structure (buck dy structure) DESIRAE GAYTAN TOW TRUCK OPERATOR - [employer] Comment on above: Right breast biopsy- clip inserted Cholecystectomy DESIRAE TURNER TOW TRUCK OPERATOR - [employer] Hysterectomy DESIRAE MCKEONJoRAN Cruz TOW TRUCK OPERATOR - [employer] Comment on above: Partial Surgery (qualifier value) SARA ZAN MCKEONPKINS TOW TRUCK OPERATOR - [employer] Comment on above: heart surgery as chi ld Plan of Treatment Date Care Activity Detail Author Start: 12-12-2024 Verification routine [facility] Start: 12-12-2024 Admission procedure [facility] Start: 12-12-2024 Hospital admission, emergency, from emergency room, medical nature [facility] Start: 12-12-2024 End: 12-12-2024 [facility] Start: 12-12-2024 Consultation [facility] Start: 12-12-2024 Bacteria identified in Urine by Culture Urine Culture [facility] Urine culture [facility] Immunizations Immunization Date Immunization Notes Care Provider Cori berman 04-10-2022 influenza, high dose seasonal, preservative-free DESIRAE GAYTAN TOW TRUCK OPERATOR - [employer] [facility] 08-17-2021 SARS-CoV-2 mRNA (itznbsgqdkl-uftp-lyepef e) vaccine DESIRAE MCKEONPKINS TOW TRUCK OPERATOR - [employer] [facility] 03-30-2021 SARS-CoV-2 mRNA (tozinameran) vaccine DESIRAE GAYTAN TOW TRUCK OPERATOR - [employer] [facility] 07-12-2020 SARS-CoV-2 (COVID-19 ) Ad26 vaccine, recombinant DESIRAE GAYTAN TOW TRUCK OPERATOR - [employer] [facility] Comment on above: Result Comment: 2020: TPV70 04-13-2020 influenza, injectabl e, quadrivalent, contains preservative; Translations: [Fluarix PF Quadrivalent ] DESIRAE GAYTAN TOW TRUCK OPERATOR - [employer] [facility] 03-04-2018 influenza virus vacc ine, unspecified formulation DESIRAE GAYTAN TOW TRUCK OPERATOR - [employer] [facility] 01-29-2017 influenza virus vacc ine, unspecified formulation DESIRAE GAYTAN TOW TRUCK OPERATOR - [employer] [facility] 01-02-2017 influenza virus vacc ine, unspecified formulation DESIRAE GAYTAN TOW TRUCK OPERATOR - [employer] [facility] 02-23-2016 zoster vaccine, live DESIRAE GAYTAN TOW TRUCK OPERATOR - [employer] [facility] 01-21-2016 influenza virus vacc ine, unspecified formulation DESIRAE GAYTAN TOW TRUCK OPERATOR - [employer] [facility] 01-21-2016 pneumococcal conjuga te vaccine, 13 valent DESIRAE MCKEONPKINS TOW TRUCK OPERATOR - [employer] [facility] 02-15-2015 influenza virus vacc ine, unspecified formulation DESIRAE MCKEONPKINS TOW TRUCK OPERATOR - [employer] [facility] 05-23-2014 pneumococcal polysaccharide vaccine, 23 valent DESIRAE GAYTAN TOW TRUCK OPERATOR - [employer] [facility] 03-04-2014 influenza virus vacc ine, unspecified formulation DESIRAE GAYTAN TOW TRUCK OPERATOR - [employer] [facility] 10-22-2012 tetanus toxoid, redu mary beth diphtheria toxoid, and acellular pertussis vaccine, adsorbed DESIRAE GAYTAN TOW TRUCK OPERATOR - [employer] [facility] Payers Date Payer Category Payer Medicare [id number] 2017 Self-pay 2015 Private Health Insurance [id number] 2012 Medicare [id number] 1945 Unknown [id number] 2.16.8 40.1.134720.3.579.2.62 1945 Unknown [id number] .16.8 40.1.446736.3.579.2.627 1945 Unknown [id number] 2.16.8 40.1.285577.3.579.2.62 1945 Unknown [id number] 2.16.8 40.1.973867.3.579.2.627 1945 Unknown [id number] 2.16.8 40.1.726086.3.579.2.627 1945 Unknown [id number] 2.16.8 40.1.251972.3.579.2.627 1945 Unknown [id number] 2.16.8 40.1.460150.3.579.2.627 Unknown [id number] 2.16.8 40.1.008271.3.579.2.462 Unknown [id number] 2.16.8 40.1.844648.3.579.2.462 Unknown [id number] 2.16.8 40.1.975853.3.579.2.462 Unknown [id number] 2.16.8 40.1.260058.3.579.2.462 Unknown [id number] 2.16.8 40.1.778578.3.579.2.462 Unknown [id number] 2.16.8 40.1.062286.3.579.2.462 Unknown [id number] 2.16.8 40.1.191267.3.579.2.462 Unknown [id number] 2.16.8 40.1.396317.3.579.2.462 Unknown [id number] 2.16.8 40.1.482150.3.579.2.462 Unknown [id number] 2.16.8 40.1.320873.3.579.2.462 Unknown [id number] 2.16.8 40.1.785036.3.579.2.462 Unknown [id number] 2.16.8 40.1.078677.3.579.2.462 Unknown [id number] 2.16.8 40.1.543095.3.579.2.462 Social History Date Type Detail Facility Start: 02-03-2019 End: 12-12-2024 Tobacco smoking status Never smoked tobacco (finding) [facility] Start: 1945 Sex Assigned At Female A [facility] Start: 01-31-2013 Alcohol Alcohol [place] [facility] Start: 07-21-2016 [facility] Use [facility] Medical Equipment Procedure Code Equipment Code Equipment [...] bilat UE's: Reflexes1+ bilat biceps and triceps. [facility] Mental Status Date Assessment Result Facility 12-12-2024 Cognitive function Level Of Cons ciousness Awake;Alert;Inappropriate;Diso riented [facility] Work Phone: Clinical Notes 01-07-2023 to 12-12-2024 Note Date & Type Note Facility 12-12-2024 History and physi thelma note [facility] 12-12-2024 Discharge summary [facility] 12-12-2024 Radiology Diagnostic study note [facility] Imaging Services [address] [place] [address] Brain/Head without Contrast MR#: [id number] Acct: [id number] Name: KEM CHOUDHURY Rep #: [id number] 4 : 1945 F 79 From: Shorty Mccray MD PCP: NOT,DEFINED Status: PRE ER Study:Brain/Head without Contrast Date of Exa m: 12/12/24 Exam# [id number] Ordering Dr: Musa Phillips DO PROCEDURE: BRAIN/HEAD [...] CHRONIC CHANGES. NO ACUTE FINDINGS. Reading Location: [facility] CC: DEFINED NOT; Dr. Musa Awan DO ~ Motor And Controls Tester: Signed [facility] 12-12-2024 Radiology Diagnostic study note [facility] Imaging Services [address] [place] [address] Chest PA and Lateral MR#: [id number] Acct: [id number] Name: KEM CHOUDHURY Rep #: [id number] : 1945 F 79 From: Shorty Mccray MD PCP: NOT,DEFINED Status: PRE ER Study:Chest PA and Lateral Date of Exam: 12/12/24 Exam# [id number] Ordering Dr: Musa Phillips DO PROCEDURE: CHEST PA AND LATERAL 12/12/2024 REASON FOR EXAM: ALTERED MENTAL STATUS TECHNIQUE: CHEST PA AND LATERAL COMPARISON: None FINDINGS: Hardware: None Heart: The heart size is normal. Mediastinum: The mediastinal contour is unremarkable. Lungs: The lungs are clear. Bones: Degenerative changes are identified within the thoracic spine. RAD/Chest PA and Lateral IMPRESSION: NO ACUTE FINDINGS. Reading Location: [facility] CC: DEFINED NOT; Dr. Musa Awan DO ~ Motor And Controls Tester: Signed [facility] 12-12-2024 Discharge summary Note Date/Time December 12, 2024 5:11pm [facility] Medical Records Department [address] [place] [address] Emergency Department Summary 12/12/24 MR#: [id number] Acct: [id number] Name: KEM CHOUDHURY Rep #:[id number] : 1945 79 From: Musa siegel DO PCP: Desirae Everett Lukas, DUST COLLECTOR [employer]RE CRUSHING-C Sta tus:REG ER Location: ED HPI History [...] intact Psych: Cooperative, appropriate mood and affect [facility] Medical History (Updated 12/12/24 @ 16:53 by [...] % (Auto) 61.2 Lymph % (Auto) 25.6 [place] % (Auto) 9.0 Eos % (Auto) 3.0 [...] Sl. Cloudy Urine pH 7.0 Ur Specific [place] 1.005 Urine Protein 30 H Urine Glucose [...] CHRONIC CHANGES. NO ACUTE FINDINGS. Reading Location: [facility] Chest X-Ray 12/12/24 15:10 IMPRESSION: NO ACUTE FINDINGS. Reading Location: [facility] Discharge Plan Triage Chief Complaint: Confusion ED Provider: Musa Awan Dx/Rx/DC Orders Prescriptions: No Action NK Primary Care Provider: Desirae Gaytan NP Referrals: NOT,DEFINED [Non-Staff] - Print Language: Jordanian What to do if you have Problems For any increased pain, shortness of breath, bleeding, nausea or vomiting, chestpain, or any unexpected problems, contact your Primary Care Provider. Call [facility] ([phone]) or report to the closest Emergency Room. Call 911 if necessary. 12/12/24 1711 <Electronically signed by Musa Awan DO> Cosigner Signature (if applicable): CC: DUST COLLECTOR [employer] CR[employer]-C Desirae Gaytan ~ Signed [facility] Work Phone: 1(604) 885-989109-06-2023 Note ORIGINAL EXAMINATION: BONE DENSITOMETRY 01/07/2023 10:58 [...] Date: 01/07/2023 12:38:36 PM [facility]ing [facility] Future Appointments Appointment Date:11/07/2021 02:20:00 PM Scheduled Provider:DESIRAE GAYTAN APRN, CNP Location:[facility] Appointment Type:PC OV Future Scheduled Tests Laboratory* Complete Metabolic Panel 04/13/21 [facility] Evaluation + Plan note Future Appointments Appointment Date:05/29/2022 09:00:00 AM Scheduled Provider:DESIRAE GAYTAN APRN, CNP Location:[facility] Appointment Type:PC OV Follow Up Diagnostic Tests Pending * Renin, Plasma 05/13/22 [facility] Evaluation + Plan note Future Appointments Appointment Date:06/15/2023 08:00:00 AM Scheduled Provider:DESIRAE GAYTAN APRN - [place] Location:[facility] Appointment Type:PC OV Future Scheduled Tests Laboratory* Renin, Plasma 06/14/23 * Thyroid Stimulating Hormone 06/14/23 * A1C Hemoglobin 06/14/23 * Complete Blood Count 06/14/23 * Lipid Profile 06/14/23 * Albumin/Creatinine Ratio, Random Urine 06/14/23 * PTH, Intact 06/14/23 * Vitamin D Level 06/14/23 * Complete Metabolic Panel 06/14/23 [facility] Evaluation + Plan note Future Appointments Appointment Date:05/19/2023 01:40:00 PM Scheduled Provider:DESIRAE GAYTAN APRN, CNP Location:[facility] Appointment Type:PC OV Follow Up Appointment Date:06/15/2023 08:00:00 AM Scheduled Provider:LUKAS, DESIRAE D TOW TRUCK OPERATOR - [employer] Location:[facility] Appointment Type: OV Future Scheduled Tests Laboratory* Renin, Plasma 06/14/23 * Thyroid Stimulating Hormone 06/14/23 * A1C Hemoglobin 06/14/23 * Complete Blood Count 06/14/23 * Lipid Profile 06/14/23 * Albumin/Creatinine Ratio, Random Urine 06/14/23 * PTH, Intact 06/14/23 * Vitamin D Level 06/14/23 * Complete Metabolic Panel 06/14/23 Radiology* XR Shoulder Minimum 2 Views Right 04/14/23 [facility] Evaluation + Plan note Future Appointments Appointment Date:06/15/2023 08:00:00 AM Scheduled Provider:DESIRAE GAYTAN TOW TRUCK OPERATOR - [facility] Location:[facility] Appointment Type: OV Future Scheduled Tests Laboratory* Renin, Plasma 06/14/23 * Thyroid Stimulating Hormone 06/14/23 * A1C Hemoglobin 06/14/23 * Complete Blood Count 06/14/23 * Lipid Profile 06/14/23 * Albumin/Creatinine Ratio, Random Urine 06/14/23 * PTH, Intact 06/14/23 * Vitamin D Level 06/14/23 * Complete Metabolic Panel 06/14/23 Radiology* XR Shoulder Minimum 2 Views Right 04/14/23 [facility] Evaluation note* Diagnosis Onset Date Resolution Status Admit Date Abnormal urinalysis acute Augus t 2024 5:47pm Altered mental status acute Aug ust 2024 5:47pm [facility] Work Phone: History and physical note Author Nava Donovan [facility] Note Date/Time December 12, 2024 5: 20pm [facility] Medical Records Department [address] [place] [address] H&P Exam - Hospitalist 12/12/24 1712 MR#: [id number] Acct: [id number] Name: KEM CHOUDHURY Rep #:[id number] : 1945 79 From: Nava Donovan MD PCP: Desirae Gaytan, DUST COLLECTOR ORE CRUSHING-C Sta tus:REG ER Location: ED HPI - General General Date of Admission: 12/12/24 Date of Service: 12/12/24 Chief Complaint: Urinary frequency HPI Narrative KEM CHOUDHURY, is a Patient is a 79-year-old female with hypertension possibleundiagnosed dementia who presented [facility] ED 12/12/2024 by her for altered mental [...] urine but did know she was at [facility] and her date of HEENT: Atraumatic, normocephalic [...] % (Auto) 61.2, Lymph % (Auto) 25.6, [place] % (Auto) 9.0, Eos % (Auto) 3.0, [...] Sl. Cloudy, Urine pH 7.0, Ur Specific [place] 1.005, Urine Protein 30 H, Urine Glucose [...] CHRONIC CHANGES. NO ACUTE FINDINGS. Reading Location: [facility]--1 Chest X-Ray 12/12/24 15:10 IMPRESSION: NO ACUTE FINDINGS. Reading Location: [facility]--1 Assessment & Plan Assessment/Plan (1) Abnormal [...] Donovan MD Charges/Coding Visit Charges Inpatient E&M: 55887 Init Hosp L1 12/12/24 1720 <Electronically signed by Nava Donovan MD> Cosigner Signature (if applicable): CC: DUST COLLECTOR ORE CRUSHINGAnthony Gaytan; Dr. Nava Donovan MD~ Signed [facility] Work Phone: Hospital course Narrative No data available for this section [facility] Hospital Discharge instructions No data available for this section [facility] Progress note No data available for this section [facility] Reason for referral (narrative)No reason for referral information availableWFire[facility] Work Phone: Summary Purpose Family History Relationship Condition Age at Onset Recorded Date/T lexii mother Hypertension Unknown Cardiac disease Unknown father Hypertension Unknown Advance Directives Advance Directive Response Recorded Date/ Time Do you have a Healthcare Power of Octave Board Racker? No December 12, 2024 2:59pm Advance Directives [...] section and content) DATE CREATED AUTHOR 04/13/2018 [facility] DATE CREATED AUTHOR AUTHOR'S ORGANIZ ATION 01/01/2024 [facility] ([place]) Care Team (unrecognized sect ion and content) Personnel Name: DESIRAE GAYTAN Ramses TOW TRUCK OPERATOR - SEAFOOD HARVESTER Address: Address: [address] [place] [id number]- Care Team Personnel Name: LUKAS DESIRAE Ramses CLARK - SEAFOOD HARVESTER Position: P4 Advanced Practice Nurse Member Role: Primary Care Physician Address: Address: [address] [place] [id number] Care Team Related Persons Name: PAT CHOUDHURY Address: [address] [phone] Patient Care team informatio n (unrecognized section and content) Team Status: Active Member Role/Relationship Status Dates Desirae Gaytan DUST COLLECTOR ORE CRUSHING, DUST COLLECTOR ORE CRUSHING-C Primary Care Provider Active Team Status: Active Member Role/Relationship Status Dates Dr. Musa Awan , DO Emergency Provider Activ e Start: December 12, 2024 Desirae Gaytan DUST COLLECTOR ORE CRUSHING, DUST COLLECTOR ORE CRUSHING-C Primary Care Provider Active Start: December Dr. Nava Donovan MD Attending Provider Active Start: December 12, 2024 Team Status: Active Member Role/Relationship Status Dates Dr. Musa Awan , Emergency Provider Activ e Start: December 12, 2024 Desirae Gaytan DUST COLLECTOR ORE CRUSHING, DUST COLLECTOR ORE CRUSHING-C Primary Care Provider Active Start: December Dr. [...] BE BASED ON THE PRIMARY CLINICAL RECORDS. [facility] provides no warranty or guarantee of the accuracy or completeness of information in this document.
[2024-12-13 02:13] VITALS: BP 143/77; PULSE 64; RESP 18; TEMP 36.4; O2SAT 99
[2024-12-13 04:35] VITALS: BP 149/68; PULSE 70; RESP 18; TEMP 36.6; O2SAT 96
[2024-12-13 06:01] LABS: Hematocrit 41.7 % (37-47); Hemoglobin 13.6 g/dL (12.0-15.0); Immature Granulocytes Count 0.030 X10^3/uL (0.0-0.0); Mean Corp Hgb Conc 32.6 g/dL (32-36); Mean Corpuscular Volume 87.8 fL (81-99); Mean Platelet Vol. 10.2 fl (6.2-12.0); NRBC Flagged by Analyzer 0 % (0-5); Platelet Count 301 K/mm3 (150-450); RBC Distribution Width CV 14.6 % (11.6-14.6); RBC Distribution Width SD 47.1 fl (35.1-43.9); Red Blood Count 4.75 M/mm3 (4.2-5.4); White Blood Count 7.1 K/mm3 (4.4-11.0)
[2024-12-13 06:30] LABS: Anion Gap 11 (5-15); BUN 14 mg/dL (4-19); BUN/Creat Ratio 19.6 RATIO (10-20); Calcium,Total 8.8 mg/dL (7.6-11.0); Carbon Dioxide 21.3 mmol/L (21.0-32.0); Chloride 105 mmol/L (98-108); Estimated Creatinine Clearance 58.06 ml/min (50-250); Glucose 108 mg/dL (70-99); Potassium 3.7 mmol/L (3.3-5.1)
[2024-12-13 08:15] VITALS: BP 151/64; PULSE 65; RESP 16; TEMP 36.5; O2SAT 95
--- NOTE | 2024-12-13 13:54 | CASEMGMT ---
Social Work- SW met with pt, pt , and other family. Pt and pt spouse report that pt is drastically improved from yesterday. Pt now recognizes . At this time, pt and spouse report no needs. SW remains available to follow. RAHAT Alegria
[2024-12-13 14:25] VITALS: BP 133/58; PULSE 69; RESP 18; TEMP 36.6; O2SAT 97
--- NOTE | 2024-12-13 16:51 | PN_ITS ---
Subjective Subjective Patient seen and examined. She was admitted with a complaint of altered mental status and found to have UTI. She is therefore being treated for UTI. I saw her with her nurse by her bedside. She had no active complaints. She denied any fever, chills, nausea or vomiting or palpitations. Review of systems otherwise negative. Objective Data Objective Data Vital Signs: Vital Signs Temp Pulse Resp BP Pulse Ox O2 Del Method 97.8 F 69 18 133/58 H 97 Room Air 12/13/24 14:12/13/24 14:12/13/24 14:12/13/24 14:12/13/24 14:12/13/24 14:25 Oxygen Delivery Method Room Air Weight: 178 lb 8 oz Body Mass Index (BMI) 32.6 Intake & Output: Intake and Output for Last 24 Hours 12/11/24 12/12/24 12/13/24 23:59 23:59 23:59 Intake Total 50 / 50 50 / 50 Output Total 300 / 300 Balance 50 / 50 -250 / -250 Lab / Micro Data 12/13/24 05:21 12/13/24 05:21 Labs: Laboratory Results - last 24 hr 12/12/24 14:42: Troponin T High Sens 8 12/12/24 16:33: Troponin T Hi Sens 2 Hr 11 12/12/24 20:37: Troponin T Hi Sens 4Hr 12/13/24 05:21: WBC 7.1, RBC 4.75, Hgb 13.6, Hct 41.7, MCV 87.8, MCH 28.6, MCHC 32.6, RDW Std Deviation 47.1 H, RDW Coeff of Danna 14.6, Plt Count 301, MPV 10.2, Immature Gran % (Auto) 0.400, Neut % (Auto) 56.4, Lymph % (Auto) 29.9, [place] % (Auto) 8.2, Eos % (Auto) 4.4, Baso % (Auto) 0.7, Absolute Neuts (auto) 4.0, Absolute Lymphs (auto) 2.12, Nucleated RBC % 0, Sodium 138, Potassium 3.7, Chloride 105, Carbon Dioxide 21.3, Anion Gap 11, BUN 14, Creatinine 0.70, Estim Creat Clear Calc 58.06, Est GFR (MDRD) Non-Af 89, BUN/Creatinine Ratio 19.6, G lucose 108 H, Calcium 8.8, TSH 3.180 Physical Exam Const alert, oriented x3 and no apparent distress General Appearance: cooperative HEENT normocephalic, head/scalp atraumatic, moist oral mucous membranes and oropharynx normal Eyes PERRL and EOMs intact bilaterally Neck no lymphadenopathy and supple Lymph Lymphatic: no lymphedema noted Resp normal respiratory effort, normal air movement and clear to auscultation bilaterally Cardio regular rate, regular rhythm, S1 normal heart sound, S2 normal heart sound and no murmurs GI normal to inspection, nondistended, normoactive bowel sounds, soft to palpation, non-tender and non-distended Extremity normal capillary refill, no clubbing, cyanosis or edema and no calf tenderness General Extremity: no tenderness to palpation of joints or extremities Skin General Skin Exam: no breakdown Neuro CN's II-XII intact bilaterally and no focal motor deficits Motor Exam: strength 5/5 throughout Psych thought process normal, cooperative and affect normal Appearance: appropriate Assessment & Plan Assessment/Plan (1) Altered mental status: (2) Abnormal urinalysis: PLAN: Plan #Acute encephalopathy due to UTI * Her mentation has improved. She is much more alert and communicative. * On IV ceftriaxone. Urine cultures pending. * CT brain showed no acute intracranial pathology. PT OT on board. For precautions. #DVT prophylaxis: Lovenox Charges/Coding Visit Charges Inpatient E&M: 65526 Subs Hosp L2
[2024-12-13 22:37] VITALS: BP 159/74; PULSE 65; RESP 18; TEMP 36.6; O2SAT 97
[2024-12-13] MEDS: 0.9% Saline Lock 10 ML Syringe IV (22:41)
[2024-12-13] MEDS: MELATONIN 10 MG TABLET PO (22:41)
[2024-12-14 06:11] VITALS: BP 167/70; PULSE 66; RESP 18; TEMP 36.5; O2SAT 96
[2024-12-14 06:45] LABS: Hematocrit 43.4 % (37-47); Hemoglobin 14.2 g/dL (12.0-15.0); Immature Granulocytes Count 0.040 X10^3/uL (0.0-0.0); Mean Corp Hgb Conc 32.7 g/dL (32-36); Mean Corpuscular Volume 87.9 fL (81-99); Mean Platelet Vol. 10.1 fl (6.2-12.0); NRBC Flagged by Analyzer 0 % (0-5); Platelet Count 308 K/mm3 (150-450); RBC Distribution Width CV 14.8 % (11.6-14.6); RBC Distribution Width SD 47.9 fl (35.1-43.9); Red Blood Count 4.94 M/mm3 (4.2-5.4); White Blood Count 7.4 K/mm3 (4.4-11.0)
[2024-12-14 07:06] LABS: Anion Gap 11 (5-15); BUN 9 mg/dL (4-19); BUN/Creat Ratio 12.8 RATIO (10-20); Calcium,Total 9.0 mg/dL (7.6-11.0); Carbon Dioxide 22.9 mmol/L (21.0-32.0); Chloride 106 mmol/L (98-108); Estimated Creatinine Clearance 58.06 ml/min (50-250); Glucose 123 mg/dL (70-99); Potassium 3.7 mmol/L (3.3-5.1)
[2024-12-14 09:06] VITALS: BP 149/62; PULSE 73; RESP 17; TEMP 35.8; O2SAT 95
[2024-12-14] MEDS: 0.9% Saline Lock 10 ML Syringe IV (09:13)
--- NOTE | 2024-12-14 13:26 | PN_ITS ---
Subjective Subjective Patient seen and examined. She feels well and has no complaints. She is feeling much better today. I saw her with her nurse by her bedside. Review of systems otherwise negative. She has remained hemodynamically stable. Objective Data Objective Data Vital Signs: Vital Signs Temp Pulse Resp BP Pulse Ox O2 Del Method 96.5 F L 73 17 149/62 H 95 Room Air 12/14/24 09:06 12/14/24 09:06 12/14/24 09:06 12/14/24 09:06 12/14/24 09:06 12/14/24 09:06 Oxygen Delivery Method Room Air Weight: 178 lb 8 oz Body Mass Index (BMI) 32.6 Intake & Output: Intake and Output for Last 24 Hours 12/12/24 12/13/24 12/14/24 23:59 23:59 23:59 Intake Total 50 / 50 50 / 50 250 / 250 Output Total 400 / 400 Balance 50 / 50 -350 / -350 250 / 250 Lab / Micro Data 12/14/24 06:07 12/14/24 06:07 Labs: Laboratory Results - last 24 hr 12/14/24 06:07: WBC 7.4, RBC 4.94, Hgb 14.2, Hct 43.4, MCV 87.9, MCH 28.7, MCHC 32.7, RDW Std Deviation 47.9 H, RDW Coeff of Danna 14.8 H, Plt Count 308, MPV 10.1, Immature Gran % (Auto) 0.500, Neut % (Auto) 56.3, Lymph % (Auto) 30.9, [place] % (Auto) 7.7, Eos % (Auto) 3.7, Baso % (Auto) 0.9, Absolute Neuts (auto) 4.1, Absolute Lymphs (auto) 2.28, Nucleated RBC % 0, Sodium 140, Potassium 3.7, Chloride 106, Carbon Dioxide 22.9, Anion Gap 11, BUN 9, Creatinine 0.72, Estim Creat Clear Calc 58.06, Est GFR (MDRD) Non-Af 86, BUN/Creatinine Ratio 12.8, G lucose 123 H, Calcium 9.0 Physical Exam Const alert, oriented x3 and no apparent distress General Appearance: cooperative HEENT normocephalic, head/scalp atraumatic, moist oral mucous membranes and oropharynx normal Eyes PERRL and EOMs intact bilaterally Neck no lymphadenopathy and supple Lymph Lymphatic: no lymphedema noted Resp normal respiratory effort, normal air movement and clear to auscultation bilaterally Cardio regular rate, regular rhythm, S1 normal heart sound, S2 normal heart sound and no murmurs GI normal to inspection, nondistended, normoactive bowel sounds, soft to palpation, non-tender and non-distended Extremity normal capillary refill, no clubbing, cyanosis or edema and no calf tenderness General Extremity: no tenderness to palpation of joints or extremities Skin General Skin Exam: no breakdown Neuro CN's II-XII intact bilaterally and no focal motor deficits Motor Exam: strength 5/5 throughout Psych thought process normal, cooperative and affect normal Appearance: appropriate Assessment & Plan Assessment/Plan (1) Altered mental status: (2) Abnormal urinalysis: PLAN: Plan #Acute encephalopathy due to UTI * Her mentation has improved. She is much more alert and communicative. * On IV ceftriaxone. Urine cultures pending. * CT brain showed no acute intracranial pathology. PT OT on board. For precautions. #DVT prophylaxis: Lovenox Charges/Coding Visit Charges Inpatient E&M: 19145 Subs Hosp L2
[2024-12-14 14:34] VITALS: BP 168/65; PULSE 63; RESP 16; TEMP 36.7; O2SAT 97
[2024-12-14 21:40] VITALS: BP 172/84; PULSE 74; RESP 16; TEMP 36.7; O2SAT 96
[2024-12-14] MEDS: MELATONIN 10 MG TABLET PO (21:42)
[2024-12-15 04:07] VITALS: BP 152/79; PULSE 65; RESP 16; TEMP 36.4; O2SAT 97
[2024-12-15 08:36] LABS: Anion Gap 13 (5-15); BUN 10 mg/dL (4-19); BUN/Creat Ratio 14.0 RATIO (10-20); Calcium,Total 9.0 mg/dL (7.6-11.0); Carbon Dioxide 20.9 mmol/L (21.0-32.0); Chloride 106 mmol/L (98-108); Estimated Creatinine Clearance 58.06 ml/min (50-250); Glucose 103 mg/dL (70-99); Potassium 3.8 mmol/L (3.3-5.1)
[2024-12-15 08:42] LABS: Hematocrit 43.2 % (37-47); Hemoglobin 14.0 g/dL (12.0-15.0); Immature Granulocytes Count 0.030 X10^3/uL (0.0-0.0); Mean Corp Hgb Conc 32.4 g/dL (32-36); Mean Corpuscular Volume 88.0 fL (81-99); Mean Platelet Vol. 10.4 fl (6.2-12.0); NRBC Flagged by Analyzer 0 % (0-5); Platelet Count 317 K/mm3 (150-450); RBC Distribution Width CV 14.6 % (11.6-14.6); RBC Distribution Width SD 47.5 fl (35.1-43.9); Red Blood Count 4.91 M/mm3 (4.2-5.4); White Blood Count 7.1 K/mm3 (4.4-11.0)
[2024-12-15 09:27] VITALS: BP 149/77; PULSE 74; RESP 16; TEMP 36; O2SAT 96
[2024-12-15] MEDS: 0.9% Saline Lock 10 ML Syringe IV (09:28)
[2024-12-15] MEDS: 0.9% Normal Saline (250mL Bag) 250 ML IV (09:29)
--- NOTE | 2024-12-15 12:04 | CASEMGMT ---
Social Work- SW met with pt and pt spouse to discuss discharge. Pt spouse spoke of pt previous PTSD and recent trauma. Pt spouse does recognize some cognitive decline in addition to reoccurrence of PTSD symptoms. SW provided support and education. SW provided mental health booklet as well as [place] support group information. Pt and pt spouse report no other needs at this time. Pt plans to discharge home with spouse. Spouse is able to provide supportive care 24/11, as he no longer works. RAHTA Alegria
--- NOTE | 2024-12-15 12:51 | DS.PCM_ITS ---
Providers Date of Admission: 12/12/24 Date of Discharge: 12/15/24 Primary Care Physician: Amilcar Gaytan, CHILLING HOOD OPERATOR-C Reason For Visit: SUSPECTED URINARY TRACT INFECTION CAUSING Diagnosis Discharge Diagnosis (1) Altered mental status: Status: Acute Code(s): R41.82 - Altered mental status, unspecified (2) Abnormal urinalysis: Status: Acute Code(s): R82.90 - Unspecified abnormal findings in urine Medications at Discharge Home Medications nitrofurantoin monohydrate/macrocrystals 100 mg capsule (Macrobid) 100 mg PO BID 2 days #4 caps 12/15/24 Hospital Course Operations None Procedures EKG and - (Chest x-ray, CT brain) Summary of Care Provided Minutes Spent on Discharge: 35 Hospital Course: Patient is a 79-year-old female who presented [facility] ED on 12/12/2024 with confusion. Hospital course as noted below. Patient discharged home in stable condition on 12/15. 1. Acute encephalopathy with agitation possibly secondary to UTI with underlying mild cognitive impairment versus dementia ? Lives at home with , presented with confusion and agitation. UA with 500 leukocyte esterase, negative nitrites, greater than 100 WBCs, few bacteria. Urine culture grew only 11-25,000 mixed gram-positive and gram-negative organisms. Treated with IV ceftriaxone with fairly quick improvement in mental status. However, she remained only alert and oriented to person and place but not time during the hospitalization. Of note, she was pleasant for the last few days of hospitalization and would answer most questions with short appropriate responses. noted that she can still complete ADLs but has seemed more forgetful over the past several months. Discharged on Macrobid to complete 5- day course of antibiotics total. Recommended close follow-up with PCP and consideration of establishing with geriatrics for more complete dementia evaluation. Total clinical time spent by myself addressing the patient's medical issues, reviewing all the data, and collaborating with patient's care team: 35 minutes. Physical Exam Const alert and no apparent distress Constitutional Narrative: Pleasant elderly female, class I obesity, alert and oriented to person and place but not time, otherwise sitting back comfortably in bed, conversing normally, in no acute distress. General Appearance: cooperative and comfortable HEENT normocephalic, head/scalp atraumatic, hearing grossly normal bilaterally, nasal mucous membranes and turbinates normal and moist oral mucous membranes Eyes PERRL, EOMs intact bilaterally and conjunctivae normal Neck full ROM Chest inspection of chest normal Resp normal respiratory effort, normal air movement, no use of accessory muscles and clear to auscultation bilaterally Cardio regular rate, regular rhythm, no murmurs and peripheral pulses 2+ throughout GI normal to inspection, nondistended, normoactive bowel sounds, soft to palpation, non-tender and non-distended Back/Spine normal ROM Extremity normal to inspection, full ROM and no pedal edema Skin no rashes or lesions noted Psych mental status grossly normal Weight / BMI Weight Weight: 80.966 kg Body Mass Index (BMI) 32.6 ABG / Lab / Microbiology Data 12/15/24 06:32 12/15/24 06:32 Laboratory: Laboratory Results - last 24 hr 12/15/24 06:32: WBC 7.1, RBC 4.91, Hgb 14.0, Hct 43.2, MCV 88.0, MCH 28.5, MCHC 32.4, RDW Std Deviation 47.5 H, RDW Coeff of Danna 14.6, Plt Count 317, MPV 10.4, Immature Gran % (Auto) 0.400, Neut % (Auto) 59.7, Lymph % (Auto) 27.0, [place] % (Auto) 7.9, Eos % (Auto) 4.0, Baso % (Auto) 1.0, Absolute Neuts (auto) 4.2, Absolute Lymphs (auto) 1.91, Nucleated RBC % 0, Sodium 139, Potassium 3.8, Chloride 106, Carbon Dioxide 20.9 L, Anion Gap 13, BUN 10, Creatinine 0.72, Estim Creat Clear Calc 58.06, Est GFR (MDRD) Non-Af 86, BUN/Creatinine Ratio 14.0, Glucose 103 H, Calcium 9.0 Microbiology: Microbiology 12/12/24 14:57 Urine, Clean Catch Urine Culture - Final Mixed Gram Pos & Gram Neg Org D/C Instructions DC O2, CPAP, BIPAP Needs Home O2 Discharge instructions: No Meaningful Use Info Meaningful Use Meaningful Use Diagnoses (Choose all that apply): None applicable Discharge Plan Admission Admit Date/Time: 12/12/24 17:12 Primary Reason for Your Visit: confusion and urinary frequency Attending Provider: Roly Lilly Primary Care Provider: Amilcar Gaytan CHILLING HOOD OPERATOR Consulting Providers: Thalia Donovan Nana Yaa Discharge Orders/Prescriptions Prescriptions: New nitrofurantoin monohyd/m-cryst [Macrobid] 100 mg capsule 100 mg PO BID 2 Days Qty: 4 0RF Rx Instructions: must administer with a meal/food Referrals / Follow Up: NOT,DEFINED [Non-Staff] - Amlicar Gaytan NP, CHILLING HOOD OPERATOR-C [Primary Care Provider] - Disposition Disposition (needs filled in before D/C Order can be placed): Home, Self Care Charges/Coding Visit Charges Inpatient E&M: 81882 Disch Hosp >30min
--- NOTE | 2024-12-15 12:51 | DCINST_ITS ---
Discharge Instructions DC O2, CPAP, BIPAP needs Home O2 Discharge instructions: No Dressing / Incision Discharge Activity: No Restrictions Follow Up Care Test Results: Test results from this visit will be discussed in further detail at your follow- up appointment, if applicable. Discharge Plan Admission Admit Date/Time: 12/12/24 17:12 Primary Reason for Your Visit: confusion and urinary frequency Attending Provider: Roly Lilly Primary Care Provider: Amilcar Gaytan NP Consulting Providers: Nava Donovan; Carmencita Sofia Discharge Orders/Prescriptions Prescriptions: New nitrofurantoin monohyd/m-cryst [Macrobid] 100 mg capsule 100 mg PO BID 2 Days Qty: 4 0RF Rx Instructions: must administer with a meal/food Referrals / Follow Up: NOT,DEFINED [Non-Staff] - Amilcar Gaytan NP, MATHEMATICIAN RESEARCH-C [Primary Care Provider] - Disposition Disposition (needs filled in before D/C Order can be placed): Home, Self Care
[2024-12-15 13:45] VITALS: BP 141/61; PULSE 68; RESP 16; TEMP 37.1; O2SAT 95
== END 2024-12-15 14:28 | disposition home or self-care (01) | DRG 689 ==
LOC: ED 17:12 → MS3 18:22
PROVIDERS: Student in an Organized Health Care Education/Training Program; Admitting Provider Internal Medicine; Emergency Provider Surgery; PCP Nurse Practitioner Family; Visit Provider Hospitalist
DX: N39.0 Urinary tract infection, site not specified (principal); G93.41 Metabolic encephalopathy; F03.90 Unspecified dementia, unspecified severity, without behavioral disturbance, psychotic disturbance, mood disturbance, and anxiety; I10 Essential (primary) hypertension; E66.811 Obesity, class 1; B96.89 Other specified bacterial agents as the cause of diseases classified elsewhere; R45.1 Restlessness and agitation; Z68.32 Body mass index [BMI] 32.0-32.9, adult; Z87.442 Personal history of urinary calculi; Z90.49 Acquired absence of other specified parts of digestive tract; Z90.710 Acquired absence of both cervix and uterus
CPT/HCPCS: 36415; 70450; 71046; 80048; 80053; 80307; 81001; 82077; 83605; 84443; 84484; 85025; 87086; 87088; 93005; 99284; A4216

== ENCOUNTER 2024-12-25 12:25 | Emergency (ER) | payer MEDICARE, OTHER, SELFPAY ==
[2024-12-25 12:26] VITALS: BP 176/81; PULSE 79; RESP 16; TEMP 36.8; O2SAT 95; BMI 33.2
--- NOTE | 2024-12-25 12:43 | EKG12_ITS ---
Test Reason : Blood Pressure : */* mmHG Vent. Rate : 73 BPM Atrial Rate : 73 BPM P-R Int : 152 ms QRS Dur : 70 ms QT Int : 400 ms P-R-T Axes : 64 44 63 degrees QTcB Int : 440 ms Normal sinus rhythm Nonspecific ST abnormality Abnormal ECG Confirmed by JUDY TOBIN, ELEUTERIO ([id number]), content editor NICKO MAHARAJ ([id number]) on 12/26/2024 1:07:11 PM Referred By: Confirmed By: ELEUTERIO KIM MD
--- NOTE | 2024-12-25 12:43 | CT_ITS ---
PROCEDURE: BRAIN/HEAD WITHOUT CONTRAST 12/25/2024 REASON FOR EXAM: CONFUSED TECHNIQUE: BRAIN/HEAD WITHOUT CONTRAST Coronal and Sagittal reconstruction series were provided. One or more dose reduction techniques were used (e.g., Automated exposure control, adjustment of the mA and/or kV according to patient size, use of iterative reconstruction technique. RADIATION DOSE SUMMARY: CTDlvol: 44.99 mGy DLP: 762.36 mGycm COMPARISON: CT brain December 12, 2024. FINDINGS: Brain: Extensive low density in the deep cerebral white matter most likely represents advanced chronic small vessel ischemic disease. No acute territorial infarction. No acute intracranial hemorrhage. No mass-effect or midline shift. No ventriculomegaly. The orbits are unremarkable without acute findings. Atherosclerotic calcifications of the carotid siphons. CSF Spaces: Advanced generalized cerebral atrophy Sinuses/Mastoids: Clear Bones: No acute bony abnormalities. CT/Brain/Head without Contrast IMPRESSION: No acute intracranial abnormalities. Reading Location: [id number]
--- NOTE | 2024-12-25 12:44 | EX.ED.DYSGE1 ---
HPI History of Present Illness Chief Complaint: Confusion Informant: patient Limited: other (Confused) Narrative Narrative: 79-year-old female when asked why she is here cries and states he is not my . She states she feels okay, does not think she is disoriented, she denies having any pain or trouble breathing or headache or vision changes right now. Limited history. PFS PFS Medical History Kidney stones Non-smoker Dementia Home Medications ?Medication ?Instructions ?Recorded ?Last Taken ?Type nitrofurantoin 100 mg PO BID 2 days #4 caps 12/15/24 Unknown Rx monohydrate/macrocrystals 100 mg capsule (Macrobid) Allergy/AdvReac Type Severity Reaction Status Date / Time vancomycin Allergy Severe Rash Verified 12/25/24 12:28 Anesthetics - Amide Type - Allergy Intermediate Other Verified 12/25/24 12:28 Select A prednisone AdvReac Unknown TACHYCARDIA Verified 12/25/24 12:28 codeine AdvReac ABD PAIN Verified 12/25/24 12:28 Family History Mother Hypertension Heart disease Father Hypertension Surgical History History of arthroscopy of left shoulder H/O breast biopsy History of partial hysterectomy s/p heart S/P cholecystectomy Social History (Updated 12/25/24 @ 12:59 by Julieth Jensen) household members: spouse Smoking Status: Never smoker ROS ROS ED Review of Systems ROS Unobtainable: due to mental status Constitutional Constitutional ED: Denies chills or fever(s) Eyes Eyes: Denies change in vision or diplopia ENT ENT ED: Denies rhinorrhea or sore throat Cardiovascular Cardiovascular: Denies chest pain or palpitations Respiratory/Chest Respiratory/Chest: Denies cough or dyspnea Gastrointestinal Gastrointestinal: Denies abdominal pain, nausea or vomiting Musculoskeletal Musculoskeletal: Denies back pain or neck pain Integumentary Denies abscess or rash Neurologic Neurologic: Denies headache(s), paresthesias or weakness Psychiatric Psychiatric: Denies suicidal thoughts EXAM Physical Exam Const Vital Signs: 12/25/24 12:26 12/25/24 14:47 Temperature 98.2 F Temperature Source Oral Pulse Rate 79 72 Respiratory Rate 16 17 Blood Pressure 176/81 H 151/88 H Blood Pressure Mean 112 109 Pulse Ox 95 100 Oxygen Delivery Method Room Air Room Air Positive well nourished and well developed General Appearance ED: well developed and NAD HEENT Reports moist mucous membranes normocephalic and atraumatic Eyes PERRL and EOMs intact bilaterally Neck full ROM and supple Chest Wall inspection of chest normal and palpation of chest normal Resp normal respiratory effort and clear to auscultation bilaterally Cardio regular rate, regular rhythm and no murmurs Rate: Negative for tachycardic GI non-tender and non-distended Auscultation: normoactive bowel sounds Palpation: soft Back/Spine no CVA tenderness General Back: other FROM Extremity normal to inspection General Extremety ED: Negative for edema, pulses abnormal or tenderness General Extremity: Negative for edema or pulses abnormal Neuro CN's II-XII intact bilaterally and no sensory deficits noted Neuro Narrative: Oriented to person and place but not date, time, year. Sensorium / Orientation: awake, alert and orientation impaired Motor Exam: strength 5/5 throughout Psych Psych Narrative: Cooperative, pleasant, however labile and starts crying talking about he is not my . Skin no rashes or lesions noted and no wounds MDM MDM MDM Narrative Medical decision making narrative: Patient complaining that she does not know who her is, otherwise her exam is benign. Underwent medical testing including cardiac testing, testing for infections, [employer] with CT of the head, which is negative for any acute my interpretation notes confirm by radiology. Similarly 2 view chest x-ray normal for infection/pneumonia, radiology in agreement. Urinalysis is normal this time, the rest of her labs are unremarkable. She had a TSH couple weeks ago that was normal so I do not think we need to repeat that. I reviewed her urine culture from when she was admitted for what appeared to be UTI and it was negative. The was waiting in the waiting room, out of concern for making her more agitated as she was prior to arrival. I went spoke with him. The patient had an episode just like this about 2 weeks ago in which case her urinalysis appeared to show UTI so she was admitted, and she was fine until today. This morning she was actually at her baseline and normal, and then all of a sudden at noon she seemed to say to her you are not my and then she was extremely agitated as a result after that which is why he brought her back. The patient confirms that she is fairly forgetful from time to time. She has never been diagnosed with dementia. She also does not have any mental health problems/diagnoses. After hearing this from the patient's , I would speak with the patient and she said that she would love to see her so I brought him in and she hugged and kissed him and said they are you are! She looked at me and said that other sophia was NOT my . She seems to be back to her baseline. Given all of this, I have essentially ruled out most acute medical issues. Since she is back to her baseline I do not think she need to be admitted for an emergent MRI. My suspicion is that she has dementia that is relatively early and she is having some hallucinations. She does not have any acute behavioral disturbance that requires restraint or admission, I am okay letting take her home and he is okay with that as well. I discussed with Dr. Fernandez who was on for Mr. García, advises close outpatient follow-up given that today is Thursday, and they will see her first prior to starting any prescription medications which I think is reasonable. In the meantime, is advised that if this happens again, he could try to calm her down, use a friend or neighbor or a family member to help, and if she is too agitated or having new symptoms, return to the ER is not inappropriate. History & Record Review Additional record(s) reviewed:: Prior labs Lab Data Attestation: I reviewed the patient's lab results. Labs: Laboratory Results - last 24 hr 12/25/24 12/25/24 12:49 12:56 WBC 7.9 RBC 5.02 Hgb 14.6 Hct 45.1 MCV 89.8 MCH 29.1 MCHC 32.4 RDW Std Deviation 48.5 H RDW Coeff of Danna 14.7 H Plt Count 332 MPV 10.1 Immature Gran % (Auto) 0.400 Neut % (Auto) 64.5 Lymph % (Auto) 26.7 Cooper % (Auto) 5.2 Eos % (Auto) 2.4 Baso % (Auto) 0.8 Absolute Neuts (auto) 5.1 Absolute Lymphs (auto) 2.11 Nucleated RBC % 0 Sodium 141 Potassium 4.4 Chloride 107 Carbon Dioxide 21.8 Anion Gap 12 BUN 15 Creatinine 0.83 Estim Creat Clear Calc 56.45 Est GFR (MDRD) Non-Af 73 BUN/Creatinine Ratio 18.5 Glucose 113 H Calcium 9.3 Total Bilirubin 0.54 AST 37 H ALT 31 Alkaline Phosphatase 104 Total Protein 7.0 Albumin 3.8 Globulin 3.1 Albumin/Globulin Ratio 1.2 Urine Color Yellow Urine Clarity Clear Urine pH 6.0 Ur Specific Frederick 1.020 Urine Protein 30 H Urine Glucose (UA) Normal Urine Ketones Negative Urine Occult Blood 50 H Urine Nitrite Negative Urine Bilirubin Negative Urine Urobilinogen Normal Ur Leukocyte Esterase Negative Urine RBC 0 SEEN Urine WBC 0 SEEN Ur Squamous Epith Cells 0-5 SEEN Urine Bacteria 0 SEEN Urine Mucus 0 SEEN Radiography Diagnostic Testing: Clinical Impression(s) from Imaging Studies Brain CT 12/25/24 12:43 IMPRESSION: No acute intracranial abnormalities. Reading Location: [id number] Chest X-Ray 12/25/24 13:21 IMPRESSION: Atelectasis in the lower lungs. Otherwise no acute cardiopulmonary abnormalities. Reading Location: [id number] Rhythm Strip Rhythm Strip: Sinus Rhythm Rate: 73 Ectopy: None EKG Initial EKG: Attestation: I personally reviewed and interpreted this EKG as follows: Interpretation: Sinus Rhythm and No Acute Injury Pattern Comments: Nml axis & intervals; nml EKG Management Discussion w/another healthcare provider: PCP Discharge Plan Triage Chief Complaint: Confusion ED Provider: Renan Jackson Dx/Rx/DC Orders Clinical Impression: Hallucinations, visual, Forgetfulness Instructions: ED DEMENTIA Alzheimer's, ED Confusion, ED CAREGIVER SUPPORT for DEMENTIA Prescriptions: No Action nitrofurantoin monohyd/m-cryst [Macrobid] 100 mg capsule 100 mg PO BID 2 Days Qty: 4 0RF Rx Instructions: must administer with a meal/food Primary Care Provider: Amilcar Gaytan NP Referrals: Amilcar Gaytan NP, ASSIGNMENT DESK EDITOR-C [Primary Care Provider] - As soon as possible Print Language: Bahamian Disposition Disposition: Home, Self Care
[2024-12-25 12:52] LABS: Mucous, Urine 0 SEEN /hpf (<or=2+); Red Blood Cells-Urine 0 SEEN /hpf (0-5)
[2024-12-25 12:54] LABS: Color, Urine Yellow (Yellow); Glucose, Dipstick Normal (Normal); Ketone-Dipstick Negative (Negative); Leukocyte Esterase-Dipstick Negative /ul (Negative); Nitrite-Dipstick Negative (Negative); Occult Blood-Urine 50 /ul (Negative); Protein-Dipstick 30 mg/dl (Negative); Specific Gravity, Urine 1.020 (1.002-1.030); Urine Bilirubin Dipstick Negative (Negative)
[2024-12-25 12:59] LABS: Squamous Epithelial Cells - UA 0-5 SEEN /hpf (5-10)
[2024-12-25 13:01] LABS: Hematocrit 45.1 % (37-47); Hemoglobin 14.6 g/dL (12.0-15.0); Immature Granulocytes Count 0.030 X10^3/uL (0.0-0.0); Mean Corp Hgb Conc 32.4 g/dL (32-36); Mean Corpuscular Volume 89.8 fL (81-99); Mean Platelet Vol. 10.1 fl (6.2-12.0); NRBC Flagged by Analyzer 0 % (0-5); Platelet Count 332 K/mm3 (150-450); RBC Distribution Width CV 14.7 % (11.6-14.6); RBC Distribution Width SD 48.5 fl (35.1-43.9); Red Blood Count 5.02 M/mm3 (4.2-5.4); White Blood Count 7.9 K/mm3 (4.4-11.0)
--- NOTE | 2024-12-25 13:21 | RAD_ITS ---
PROCEDURE: CHEST PA AND LATERAL 12/25/2024 REASON FOR EXAM: CONFUSED TECHNIQUE: CHEST PA AND LATERAL COMPARISON: Chest x-ray 12/12/2024. FINDINGS: Hardware: None. Heart: No cardiomegaly. Tortuosity and atherosclerotic calcifications of the aorta. Mediastinum: Unremarkable. Lungs: Interstitial densities in the lower lungs may represent atelectasis. No pleural effusion or pneumothorax. Bones: No acute bony abnormalities. RAD/Chest PA and Lateral IMPRESSION: Atelectasis in the lower lungs. Otherwise no acute cardiopulmonary abnormaliti es. Reading Location: [id number]
[2024-12-25 13:29] LABS: AST(SGOT) 37 U/L (<=31); Alanine Aminotransfer ALT/SGPT 31 U/L (<=34); Albumin, Serum 3.8 g/dL (3.4-4.8); Alkaline Phosphatase 104 U/L (35-104); Anion Gap 12 (5-15); BUN 15 mg/dL (4-19); BUN/Creat Ratio 18.5 RATIO (10-20); Calcium,Total 9.3 mg/dL (7.6-11.0); Carbon Dioxide 21.8 mmol/L (21.0-32.0); Chloride 107 mmol/L (98-108); Estimated Creatinine Clearance 56.45 ml/min (50-250); Globulin 3.1 g/dL (2.2-4.2); Glucose 113 mg/dL (70-99); Potassium 4.4 mmol/L (3.3-5.1)
--- OUTSIDE RECORDS SUMMARY | 2024-12-25 13:40 | XMS RPT_ITS | CCD ---
Author Organization [facility] Team Providers Care Residential Supervisor Name Role Phone LUKAS LANDCARE FACILITATOR - FRUIT HARVESTER MACHINE OPERATOR, AMILCAR Pearce Primary Care Phys ician LUKAS LANDCARE FACILITATOR - FRUIT HARVESTER MACHINE OPERATOR, AMILCAR Pearce Attending U navailable LUKAS LANDCARE FACILITATOR - FRUIT HARVESTER MACHINE OPERATOR, AMILCAR Pearce Primary Care U navailable LUKAS LANDCARE FACILITATOR - FRUIT HARVESTER MACHINE OPERATOR, AMILCAR Pearce Attending U navailable LUKAS LANDCARE FACILITATOR - FRUIT HARVESTER MACHINE OPERATOR, AMILCAR Pearce Primary Care U navailable LUKAS LANDCARE FACILITATOR - FRUIT HARVESTER MACHINE OPERATOR, AMILCAR Pearce Attending U navailable LUKAS LANDCARE FACILITATOR - FRUIT HARVESTER MACHINE OPERATOR, AMILCAR Pearce Primary Care U navailable LUKAS LANDCARE FACILITATOR - FRUIT HARVESTER MACHINE OPERATOR, AMILCAR Pearce Attending U navailable LUKAS LANDCARE FACILITATOR - FRUIT HARVESTER MACHINE OPERATOR, AMILCAR Pearce Primary Care U navailable LUKAS LANDCARE FACILITATOR - FRUIT HARVESTER MACHINE OPERATOR, AMILCAR Pearce Attending U navailable LUKAS LANDCARE FACILITATOR - FRUIT HARVESTER MACHINE OPERATOR, AMILCAR Pearce Primary Care U navailable LUKAS LANDCARE FACILITATOR - FRUIT HARVESTER MACHINE OPERATOR, AMILCAR Pearce Attending U navailable LUKAS LANDCARE FACILITATOR - FRUIT HARVESTER MACHINE OPERATOR, AMILCAR Pearce Primary Care U navailable LUKAS LANDCARE FACILITATOR - FRUIT HARVESTER MACHINE OPERATOR, AMILCAR Pearce Attending U navailable LUKAS LANDCARE FACILITATOR - FRUIT HARVESTER MACHINE OPERATOR, AMILCAR Pearce Primary Care U navailable Klusty-Dr. Musa Lin DO Emergency Provider Lukas FLAT GRINDER OPERATOR-C, Amilcar Floyd Primary Care Provi juan miguel Zion TOBIN, Dr. Vick Attending Provider Zion TOBIN, Dr. Vick Admit Provider Dr. Nava Donovan MD Admit Provider Dr. Nava Donovan MD Other Provider [phone] Dr. Roly Lilly DO Attending Provider Kimberlyn TOBIN, Dr. Carmencita Murry Other Provider Kimberlyn TOBIN, Dr. Carmencita Murry Attending Provider Carmencita Sofia Attending Unavailable Donovan, Nava Admitting Unavailable Lukas FLAT GRINDER OPERATOR, Amilcar Floyd [facility] Unav ailable Donovan, Nava Consulting Unavailable Kimberlyn, Carmencita Lovely Consulting Unavailable Roly Lilly Attending Unavailable Roly Lilly Consulting Unavailable Roly Lilly Attending Unavailable Lukas FLAT GRINDER OPERATOR, Amilcar Floyd [facility] Unav ailable Donovan, Nava Admitting Unavailable Donovan, Nava Consulting Unavailable Koram, Carmencita Lovely Consulting Unavailable Donovan, Nava Attending Unavailable Allergies Allergy Classification Reported Allergen(s) Allergy Type Date of Onset Reaction(s) Facility (5 sources) Atenolol; Translations: [atenolol] Drug Allergy Dizziness (finding) [facility] (7 sources) Codeine; Translations: [codeine] Drug Allergy 5 Abdominal pain (finding) [facility] Comment on above: ABDOMINAL PAIN (5 sources) diphenhydrAMINE ; Translations: [diphenhydramin e] Drug Allergy Irregular heart beat (finding) [facility] (7 sources) predniSONE; Translations: [prednisone] Drug Allergy 5 Dizziness (finding) [facility] Comment on above: TACHYCARDIA (7 sources) Vancomycin; Translations: [vancomycin] Drug Allergy 5 Eruption of skin (disorder), Itching (finding), Difficulty swallowing (finding) [facility] Comment on above: DIFFICULTY BREATHING (2 sources) Anesthetics - Amide Type - Select A Allergy to substance 5 Other [facility] Comment on above: difficult time wakin g up (1 source) Codeine Drug Allergy 5 [facility] Repository (1 source) predniSONE Drug Allergy 5 [facility] (1 source) Vancomycin Drug Allergy 5 [facility] (1 source) Anesthetics - Amide Type - Select A Drug allergy (disorder) 5 [facility] Repository Medications Current Medications Medication Drug Class(es) Dates Sig (Normalized) Sig (Original) calcium citrate 1040 mg oral tablet (5 sources) Start: 02-04-2019 take 1 mg by mouth once daily calcium (as calcium citrate) 250 mg oral tablet mg = tab(s), Oral, Daily, 0 Refill(s) Start Date: 02/04/19 Status: Ordered ibuprofen 600 mg oral tablet (7 sources) Nonsteroidal Anti-inflammatory Drug Start: 12-29-2022 End: 06-27-2023 IBU 600 mg oral tablet Dose : 600 mg = 1 tab(s), Oral, q8h, # 270 tab(s), 1 Refill(s), Pharmacy: [id number], 168, cm, 12/12/22 8:20:00 EDT, Height, kg, 12/12/22 8:20:00 EDT, Dosing Weight Start Date: 12/29/22 Stop Date: 06/27/23 Status: Ordered Start: 04-18-2021 End: 07-17-2021 IBU 600 mg oral tablet Dose : 600 mg = 1 tab(s), Oral, q8h, # 90 tab(s), 2 Refill(s), Pharmacy: [id number], 168, cm, 04/18/21 8:43:00 EST, Height, kg, 04/18/21 8:43:00 EST, Dosing Weight Start Date: 04/18/21 Stop Date: 07/17/21 Status: Ordered Start: 06-24-2017 End: 07-29-2017 Ibuprofen (Motrin Ib) 200 mg tablet Discontinued 600 mg PO NEEDED as needed for Pain 0 June 24, 2017 1:00am July 29, 2017 8:30am nitrofurantoin, macrocrystals 25 mg / nitrofurantoin, monohydrate 75 mg oral capsule (1 source) Nitrofuran Antibacterial Start: 12-15-2024 take 1 capsule by mouth twice daily at mealtime Nitrofurantoin Monohyd/M-Cryst (Macrobid) 100 mg capsule Active 100 mg PO TWICE A DAY 4 2 0 December 15, 2024 12:00am must administer with a meal/food [place] (Nk) (1 source) Start: 12-12-2024 [place] (Nk) Active December 12, 2024 12:00am omeprazole 40 mg delayed release oral capsule (1 source) Proton Pump Inhibitor Start: 04-14-2023 End: 05-14-2023 omeprazole 40 mg oral delayed release capsule Dose : 40 mg = 1 cap(s), Oral, qDay, X 30 day(s), # 30 cap(s), 0 Refill(s), 05/14/23 2:28:00 PM EST, Pharmacy: [id number], GERD (gastroesophageal reflux disease), 168, cm, 04/14/23 13:38:00 EST, Height, kg, 04/14/23 13:38:00 EST, Dosing Weight Start Date: 04/14/23 Stop Date: 05/14/23 Status: Ordered Vitamin B12 250 mcg oral tablet (5 sources) Start: 02-04-2019 Vitamin B12 250 mcg oral tablet Dose : 250 mcg = 1 tab(s), Oral, qDay, 0 Refill(s) Start Date: 02/04/19 Status: Ordered Vitamin D3 (5 sources) Start: 02-04-2019 Vitamin D3 Dose : 2,000 unit(s) = 1 tab(s), Oral, Daily, 0 Refill(s) Start Date: 02/04/19 Status: Ordered Completed/Discontinued Medications Medication Drug Class(es) Dates Sig (Normalized) Sig (Original) acetaminophen 325 mg oral tablet (2 sources) Start: 06-28-2016 End: 06-24-2017 Acetaminophen 325 MG tablet Discontinued 650 mg PO EVERY 6 HOURS NEEDED as needed for Mild Pain (scale 0-3)/T>100.7 0 0 June 28, 2016 1:00am June 24, 2017 11:25am acetaminophen 325 mg / HYDROcodone bitartrate 5 mg oral tablet (2 sources) Opioid Agonist Start: 05-11-2017 End: 05-20-2017 Hydrocodone-Acetam inophen 1 TABLET tablet Discontinued 1 {tbl} PO EVERY 4 HOURS NEEDED as needed for Pain 30 0 May 11, 2017 1:00am May 20, 2017 10:29am Complete tear of rotator cuff acetaminophen 325 mg / oxyCODONE hydrochloride 5 mg oral tablet (2 sources) Opioid Agonist Start: 07-14-2017 End: 07-29-2017 Oxycodone-Acetamin ophen 1 TABLET tablet Discontinued 1 - 2 {tbl} PO EVERY 4 HOURS NEEDED as needed for Pain 60 July 14, 2017 12:00am July 29, 2017 8:30am Tear of left rotator cuff Calcium (2 sources) Phosphate Binder, Calcium Start: 01-31-2013 End: 12-12-2024 Calcium Discontinued 1 {tbl} PO TWICE A DAY January 31, 2013 12:00am December 12, 2024 3:01pm docusate sodium 100 mg oral capsule (2 sources) Start: 07-14-2017 End: 07-29-2017 take 1 capsule by mouth twice daily as needed for constipation Docusate Sodium 100 MG capsule Discontinued 100 mg PO TWICE DAILY NEEDED as needed for Constipation 10 0 July 14, 2017 12:00am July 29, 2017 8:30am lisinopril 5 mg oral tablet (2 sources) Angiotensin Converting Enzyme Inhibitor Start: 01-31-2013 End: 12-12-2024 take 1 tablet by mouth once daily Lisinopril 5 MG tablet Discontinued 5 mg PO DAILY January 31, 2013 12:00am December 12, 2024 3:01pm promethazine hydrochloride 25 mg oral tablet (2 sources) Phenothiazine Start: 07-14-2017 End: 07-29-2017 take 1 tablet by mouth every four hours as needed for nausea Promethazine 25 MG tablet Discontinued 25 mg PO EVERY 4 HOURS NEEDED as needed for Nausea 10 0 July 14, 2017 12:00am July 29, 2017 8:30am Vitamin For Joints (2 sources) Start: 01-31-2013 End: 06-24-2017 Vitamin For Joints Discontinued 1 NMA PO TWICE A DAY January 31, 2013 12:00am June 24, 2017 11:24am Problems Problem Classification Problem Date Documented Date Episodic/Chronic Cataract (5 sources) Cataract 07-18-2019 Chronic Chronic kidney disease (4 sources) Chronic kidney disease stage 3 11-07-2021 Chronic Diabetes mellitus without complication (5 sources) Impaired fasting glycemia 02-04-2019 Episodic Disorders of lipid metabolism (5 sources) Hyperlipidemia 07-18-2019 Chronic Esophageal disorders (2 sources) Gastroesophageal reflux disease 04-14-2023 Chronic Essential hypertension (7 sources) Hypertensive disorder; Translations: [Essential (primary) hypertension] 07-18-2019 Chronic Genitourinary symptoms and ill-defined conditions (5 sources) Abnormal urinalysis; Translations: [Unspecified abnormal findings in urine] Onset: 12-19-2024 12-12-2024 Episodic Heart valve disorders (5 sources) Heart murmur 07-18-2019 Episodic Nutritional deficiencies (5 sources) Vitamin D deficiency 02-03-2019 Chronic Osteoarthritis (5 sources) Osteoarthritis 02-03-2019 Chronic Other bone disease and musculoskeletal deformities (5 sources) Osteopenia 11-09-2020 Episodic Comment on above: BONE DENSITY (2020): IMPRESSION: Osteopenia based on lumbar spine. Other connective tissue disease (2 sources) Muscle spasm of cervical muscle of neck; Translations: [Other muscle spasm] 06-28-2016 Episodic Other connective tissue disease (2 sources) Pain in right arm; Translations: [Pain in [...] Comment on above: 05/19/2023 Residual codes; unclassified (4 sources) Altered mental status; Translations: [Altered mental status, unspecified] 12-12-2024 Episodic Residual codes; unclassified (2 sources) Altered mental status, unspecified; Translations: [Altered mental status, unspecified] Onset: 12-19-2024 Episodic Spondylosis; intervertebral disc disorders; other back problems (5 sources) Radicular pain; Translations: [Cervical radiculopathy] 04-14-2023 Episodic Unclassified (20 sources) Patient encounter status 10-27-2019 Unclassified (1 source) Vaccination needed 04-10-2022 Unclassified (3 sources) Non-smoker 12-12-2022 Unclassified (2 sources) Pain of right shoulder region 04-14-2023 Results Test Name Value Interpretation Reference Range Facility Basic Metabolic Profile (BMP )on 12-21-2024 BUN Normal 4-19 [facility] Comment on above: Result Comment: Canc elled via OM: MD Ordered Performed By: #### L 100.0100, L500.4050, L501.9100, L503.6005, L505.5000 #### [facility] [address] [place], [address] BUN/CRE Normal 10-20 [facility] Comment on above: Result Comment: Canc elled via OM: MD Ordered Performed By: #### L 100.0100, L500.4050, L501.9100, L503.6005, L505.5000 #### [facility] [address] [place], [address] Calcium Normal 7.6-11.0 [facility] Comment on above: Result Comment: Canc elled via OM: MD Ordered Performed By: #### L 100.0100, L500.4050, L501.9100, L503.6005, L505.5000 #### [facility] [address] [place], [address] CL Normal 98-108 [facility] Comment on above: Result Comment: Canc elled via OM: MD Ordered Performed By: #### L 100.0100, L500.4050, L501.9100, L503.6005, L505.5000 #### [facility] [address] [place], [address] CO2 Normal 21.0-32.0 [facility] Comment on above: Result Comment: Canc elled via OM: MD Ordered Performed By: #### L 100.0100, L500.4050, L501.9100, L503.6005, L505.5000 #### [facility] [address] [place], [address] CREAT,SERUM Normal 0.70-1.20 [facility] Comment on above: Result Comment: Canc elled via OM: MD Ordered Performed By: #### L 100.0100, L500.4050, L501.9100, L503.6005, L505.5000 #### [facility] [address] [place], [address] eGFR Normal >60 [facility] Comment on above: Result Comment: Canc elled via OM: MD Ordered Performed By: #### L 100.0100, L500.4050, L501.9100, L503.6005, L505.5000 #### [facility] [address] [place], [address] GAP Normal 5-15 [facility] Comment on above: Result Comment: Canc elled via OM: MD Ordered Performed By: #### L 100.0100, L500.4050, L501.9100, L503.6005, L505.5000 #### [facility] [address] [place], [address] GLU Normal 70-99 [facility] Comment on above: Result Comment: Canc elled via OM: MD Ordered Performed By: #### L 100.0100, L500.4050, L501.9100, L503.6005, L505.5000 #### [facility] [address] [place], [address] Potassium Normal 3.3-5.1 [facility] Comment on above: Result Comment: Canc elled via OM: MD Ordered Performed By: #### L 100.0100, L500.4050, L501.9100, L503.6005, L505.5000 #### [facility] [address] [place], [address] Basic Metabolic Profile (BMP) Normal 133-145 [facility] Comment on above: Result Comment: Canc elled via OM: MD Ordered Performed By: #### L 100.0100, L500.4050, L501.9100, L503.6005, L505.5000 #### [facility] [address] [place], [address] CBC W/Diff, Automatedon 08-2 0-2024 Absolute Neut Normal 2.0-7.7 [facility] Comment on above: Result Comment: Canc elled via OM: MD Ordered Performed By: #### L 100.0100, L500.4050, L501.9100, L503.6005, L505.5000 #### [facility] [address] [place], [address] HCT Normal 37-47 [facility] Comment on above: Result Comment: Canc elled via OM: MD Ordered Performed By: #### L 100.0100, L500.4050, L501.9100, L503.6005, L505.5000 #### [facility] [address] [place], [address] HGB Normal 12.0-15.0 [facility] Comment on above: Result Comment: Canc elled via OM: MD Ordered Performed By: #### L 100.0100, L500.4050, L501.9100, L503.6005, L505.5000 #### [facility] [address] [place], [address] MCH Normal 27.0-32.0 [facility] Comment on above: Result Comment: Canc elled via OM: MD Ordered Performed By: #### L 100.0100, L500.4050, L501.9100, L503.6005, L505.5000 #### [facility] [address] [place], [address] MCHC Normal 32-36 [facility] Comment on above: Result Comment: Canc elled via OM: MD Ordered Performed By: #### L 100.0100, L500.4050, L501.9100, L503.6005, L505.5000 #### [facility] [address] [place], [address] MCV Normal 81-99 [facility] Comment on above: Result Comment: Canc elled via OM: MD Ordered Performed By: #### L 100.0100, L500.4050, L501.9100, L503.6005, L505.5000 #### [facility] [address] [place], [address] NEUT% Normal 47-70 [facility] Comment on above: Result Comment: Canc elled via OM: MD Ordered Performed By: #### L 100.0100, L500.4050, L501.9100, L503.6005, L505.5000 #### [facility] [address] [place], [address] PLT Normal 150-450 [facility] Comment on above: Result Comment: Canc elled via OM: MD Ordered Performed By: #### L 100.0100, L500.4050, L501.9100, L503.6005, L505.5000 #### [facility] [address] [place], [address] RBC Normal 4.2-5.4 [facility] Comment on above: Result Comment: Canc elled via OM: MD Ordered Performed By: #### L 100.0100, L500.4050, L501.9100, L503.6005, L505.5000 #### [facility] [address] [place], [address] RDW CV Normal 11.6-14.6 [facility] Comment on above: Result Comment: Canc elled via OM: MD Ordered Performed By: #### L 100.0100, L500.4050, L501.9100, L503.6005, L505.5000 #### [facility] [address] [place], [address] RDW SD Normal 35.1-43.9 [facility] Comment on above: Result Comment: Canc elled via OM: MD Ordered Performed By: #### L 100.0100, L500.4050, L501.9100, L503.6005, L505.5000 #### [facility] [address] [place], [address] WBC Normal 4.4-11.0 [facility] Comment on above: Result Comment: Canc elled via OM: MD Ordered Performed By: #### L 100.0100, L500.4050, L501.9100, L503.6005, L505.5000 #### [facility] [address] [place], [address] Basic Metabolic Profile (BMP )on 12-20-2024 BUN Normal 4-19 [facility] Comment on above: Result Comment: Canc elled via OM: MD Ordered Performed By: #### L 100.0100, L500.4050, L501.9100, L503.6005, L505.5000 #### [facility] [address] [place], [address] BUN/CRE Normal 10-20 [facility] Comment on above: Result Comment: Canc elled via OM: MD Ordered Performed By: #### L 100.0100, L500.4050, L501.9100, L503.6005, L505.5000 #### [facility] [address] [place], [address] Calcium Normal 7.6-11.0 [facility] Comment on above: Result Comment: Canc elled via OM: MD Ordered Performed By: #### L 100.0100, L500.4050, L501.9100, L503.6005, L505.5000 #### [facility] [address] [place], [address] CL Normal 98-108 [facility] Comment on above: Result Comment: Canc elled via OM: MD Ordered Performed By: #### L 100.0100, L500.4050, L501.9100, L503.6005, L505.5000 #### [facility] [address] [place], [address] CO2 Normal 21.0-32.0 [facility] Comment on above: Result Comment: Canc elled via OM: MD Ordered Performed By: #### L 100.0100, L500.4050, L501.9100, L503.6005, L505.5000 #### [facility] [address] [place], [address] CREAT,SERUM Normal 0.70-1.20 [facility] Comment on above: Result Comment: Canc elled via OM: MD Ordered Performed By: #### L 100.0100, L500.4050, L501.9100, L503.6005, L505.5000 #### [facility] [address] [place], [address] eGFR Normal >60 [facility] Comment on above: Result Comment: Canc elled via OM: MD Ordered Performed By: #### L 100.0100, L500.4050, L501.9100, L503.6005, L505.5000 #### [facility] [address] [place], [address] GAP Normal 5-15 [facility] Comment on above: Result Comment: Canc elled via OM: MD Ordered Performed By: #### L 100.0100, L500.4050, L501.9100, L503.6005, L505.5000 #### [facility] [address] [place], [address] GLU Normal 70-99 [facility] Comment on above: Result Comment: Canc elled via OM: MD Ordered Performed By: #### L 100.0100, L500.4050, L501.9100, L503.6005, L505.5000 #### [facility] [address] [place], [address] Potassium Normal 3.3-5.1 [facility] Comment on above: Result Comment: Canc elled via OM: MD Ordered Performed By: #### L 100.0100, L500.4050, L501.9100, L503.6005, L505.5000 #### [facility] [address] [place], [address] Basic Metabolic Profile (BMP) Normal 133-145 [facility] Comment on above: Result Comment: Canc elled via OM: MD Ordered Performed By: #### L 100.0100, L500.4050, L501.9100, L503.6005, L505.5000 #### [facility] [address] [place], [address] CBC W/Diff, Automatedon 08- Absolute Neut Normal 2.0-7.7 [facility] Comment on above: Result Comment: Canc elled via OM: MD Ordered Performed By: #### L 100.0100, L500.4050, L501.9100, L503.6005, L505.5000 #### [facility] [address] [place], [address] HCT Normal 37-47 [facility] Comment on above: Result Comment: Canc elled via OM: MD Ordered Performed By: #### L 100.0100, L500.4050, L501.9100, L503.6005, L505.5000 #### [facility] [address] [place], [address] HGB Normal 12.0-15.0 [facility] Comment on above: Result Comment: Canc elled via OM: MD Ordered Performed By: #### L 100.0100, L500.4050, L501.9100, L503.6005, L505.5000 #### [facility] [address] [place], [address] MCH Normal 27.0-32.0 [facility] Comment on above: Result Comment: Canc elled via OM: MD Ordered Performed By: #### L 100.0100, L500.4050, L501.9100, L503.6005, L505.5000 #### [facility] [address] [place], [address] MCHC Normal 32-36 [facility] Comment on above: Result Comment: Canc elled via OM: MD Ordered Performed By: #### L 100.0100, L500.4050, L501.9100, L503.6005, L505.5000 #### [facility] [address] [place], [address] MCV Normal 81-99 [facility] Comment on above: Result Comment: Canc elled via OM: MD Ordered Performed By: #### L 100.0100, L500.4050, L501.9100, L503.6005, L505.5000 #### [facility] [address] [place], [address] NEUT% Normal 47-70 [facility] Comment on above: Result Comment: Canc elled via OM: MD Ordered Performed By: #### L 100.0100, L500.4050, L501.9100, L503.6005, L505.5000 #### [facility] [address] [place], [address] PLT Normal 150-450 [facility] Comment on above: Result Comment: Canc elled via OM: MD Ordered Performed By: #### L 100.0100, L500.4050, L501.9100, L503.6005, L505.5000 #### [facility] [address] [place], [address] RBC Normal 4.2-5.4 [facility] Comment on above: Result Comment: Canc elled via OM: MD Ordered Performed By: #### L 100.0100, L500.4050, L501.9100, L503.6005, L505.5000 #### [facility] [address] [place], [address] RDW CV Normal 11.6-14.6 [facility] Comment on above: Result Comment: Canc elled via OM: MD Ordered Performed By: #### L 100.0100, L500.4050, L501.9100, L503.6005, L505.5000 #### [facility] [facility] [address] [place], [address] RDW SD Normal 35.1-43.9 [facility] Comment on above: Result Comment: Canc elled via OM: MD Ordered Performed By: #### L 100.0100, L500.4050, L501.9100, L503.6005, L505.5000 #### [facility] [address] [place], [address] WBC Normal 4.4-11.0 [facility] Comment on above: Result Comment: Canc elled via OM: MD Ordered Performed By: #### L 100.0100, L500.4050, L501.9100, L503.6005, L505.5000 #### [facility] [address] [place], [address] Basic Metabolic Profile (BMP )on 12-19-2024 BUN Normal 4-19 [facility] Comment on above: Result Comment: Canc elled via OM: MD Ordered Performed By: #### L 500.2500, L100.0100 #### [facility] [address] [place], [address] BUN/CRE Normal 10-20 [facility] Comment on above: Result Comment: Canc elled via OM: MD Ordered Performed By: #### L 500.2500, L100.0100 #### [facility] [address] [place], [address] Calcium Normal 7.6-11.0 [facility] Comment on above: Result Comment: Canc elled via OM: MD Ordered Performed By: #### L 500.2500, L100.0100 #### [facility] [address] [place], [address] CL Normal 98-108 [facility] Comment on above: Result Comment: Canc elled via OM: MD Ordered Performed By: #### L 500.2500, L100.0100 #### [facility] [address] [place], [address] CO2 Normal 21.0-32.0 [facility] Comment on above: Result Comment: Canc elled via OM: MD Ordered Performed By: #### L 500.2500, L100.0100 #### [facility] [address] [place], [address] CREAT,SERUM Normal 0.70-1.20 [facility] Comment on above: Result Comment: Canc elled via OM: MD Ordered Performed By: #### L 500.2500, L100.0100 #### [facility] [address] [place], [address] eGFR Normal >60 [facility] Comment on above: Result Comment: Canc elled via OM: MD Ordered Performed By: #### L 500.2500, L100.0100 #### [facility] [address] [place], [address] GAP Normal 5-15 [facility] Comment on above: Result Comment: Canc elled via OM: MD Ordered Performed By: #### L 500.2500, L100.0100 #### [facility] [address] [place], [address] GLU Normal 70-99 [facility] Comment on above: Result Comment: Canc elled via OM: MD Ordered Performed By: #### L 500.2500, L100.0100 #### [facility] [address] [place], [address] Potassium Normal 3.3-5.1 [facility] Comment on above: Result Comment: Canc elled via OM: MD Ordered Performed By: #### L 500.2500, L100.0100 #### [facility] [address] [place], [address] Basic Metabolic Profile (BMP) Normal 133-145 [facility] Comment on above: Result Comment: Canc elled via OM: MD Ordered Performed By: #### L 500.2500, L100.0100 #### [facility] [address] [place], [address] CBC W/Diff, Automatedon - Absolute Neut Normal 2.0-7.7 [facility] Comment on above: Result Comment: Canc elled via OM: MD Ordered Performed By: #### L 500.2500, L100.0100 #### [facility] [address] [place], [address] HCT Normal 37-47 [facility] Comment on above: Result Comment: Canc elled via OM: MD Ordered Performed By: #### L 500.2500, L100.0100 #### [facility] [address] [place], [address] HGB Normal 12.0-15.0 [facility] Comment on above: Result Comment: Canc elled via OM: MD Ordered Performed By: #### L 500.2500, L100.0100 #### [facility] [address] [place], [address] MCH Normal 27.0-32.0 [facility] Comment on above: Result Comment: Canc elled via OM: MD Ordered Performed By: #### L 500.2500, L100.0100 #### [facility] [address] [place], [address] MCHC Normal 32-36 [facility] Comment on above: Result Comment: Canc elled via OM: MD Ordered Performed By: #### L 500.2500, L100.0100 #### [facility] [address] [place], [address] MCV Normal 81-99 [facility] Comment on above: Result Comment: Canc elled via OM: MD Ordered Performed By: #### L 500.2500, L100.0100 #### [facility] [address] [place], [address] NEUT% Normal 47-70 [facility] Comment on above: Result Comment: Canc elled via OM: MD Ordered Performed By: #### L 500.2500, L100.0100 #### [facility] [address] [place], [address] PLT Normal 150-450 [facility] Comment on above: Result Comment: Canc elled via OM: MD Ordered Performed By: #### L 500.2500, L100.0100 #### [facility] [address] [place], [address] RBC Normal 4.2-5.4 [facility] Comment on above: Result Comment: Canc elled via OM: MD Ordered Performed By: #### L 500.2500, L100.0100 #### [facility] [address] [place], [address] RDW CV Normal 11.6-14.6 [facility] Comment on above: Result Comment: Canc elled via OM: MD Ordered Performed By: #### L 500.2500, L100.0100 #### [facility] [address] [place], [address] RDW SD Normal 35.1-43.9 [facility] Comment on above: Result Comment: Canc elled via OM: MD Ordered Performed By: #### L 500.2500, L100.0100 #### [facility] [address] [place], [address] WBC Normal 4.4-11.0 [facility] Comment on above: Result Comment: Canc elled via OM: MD Ordered Performed By: #### L 500.2500, L100.0100 #### [facility] [address] [place], [address] Basic Metabolic Profile (BMP )on 12-18-2024 BUN Normal 4-19 [facility] Comment on above: Result Comment: Canc elled via OM: MD Ordered Performed By: #### L 500.2500, L100.0100 #### [facility] [address] [place], [address] BUN/CRE Normal 10-20 [facility] Comment on above: Result Comment: Canc elled via OM: MD Ordered Performed By: #### L 500.2500, L100.0100 #### [facility] [address] [place], [address] Calcium Normal 7.6-11.0 [facility] Comment on above: Result Comment: Canc elled via OM: MD Ordered Performed By: #### L 500.2500, L100.0100 #### [facility] [address] [place], [address] CL Normal 98-108 [facility] Comment on above: Result Comment: Canc elled via OM: MD Ordered Performed By: #### L 500.2500, L100.0100 #### [facility] [address] [place], [address] CO2 Normal 21.0-32.0 [facility] Comment on above: Result Comment: Canc elled via OM: MD Ordered Performed By: #### L 500.2500, L100.0100 #### [facility] [address] [place], [address] CREAT,SERUM Normal 0.70-1.20 [facility] Comment on above: Result Comment: Canc elled via OM: MD Ordered Performed By: #### L 500.2500, L100.0100 #### [facility] [address] [place], [address] eGFR Normal >60 [facility] Comment on above: Result Comment: Canc elled via OM: MD Ordered Performed By: #### L 500.2500, L100.0100 #### [facility] [address] [place], [address] GAP Normal 5-15 [facility] Comment on above: Result Comment: Canc elled via OM: MD Ordered Performed By: #### L 500.2500, L100.0100 #### [facility] [address] [place], [address] GLU Normal 70-99 [facility] Comment on above: Result Comment: Canc elled via OM: MD Ordered Performed By: #### L 500.2500, L100.0100 #### [facility] [address] [place], [address] Potassium Normal 3.3-5.1 [facility] Comment on above: Result Comment: Canc elled via OM: MD Ordered Performed By: #### L 500.2500, L100.0100 #### [facility] [address] [place], [address] Basic Metabolic Profile (BMP) Normal 133-145 [facility] Comment on above: Result Comment: Canc elled via OM: MD Ordered Performed By: #### L 500.2500, L100.0100 #### [facility] [address] [place], [address] CBC W/Diff, Automatedon 08- Absolute Neut Normal 2.0-7.7 [facility] Comment on above: Result Comment: Canc elled via OM: MD Ordered Performed By: #### L 500.2500, L100.0100 #### [facility] [address] [place], [address] HCT Normal 37-47 [facility] Comment on above: Result Comment: Canc elled via OM: MD Ordered Performed By: #### L 500.2500, L100.0100 #### [facility] [address] [place], [address] HGB Normal 12.0-15.0 [facility] Comment on above: Result Comment: Canc elled via OM: MD Ordered Performed By: #### L 500.2500, L100.0100 #### [facility] [address] [place], [address] MCH Normal 27.0-32.0 [facility] Comment on above: Result Comment: Canc elled via OM: MD Ordered Performed By: #### L 500.2500, L100.0100 #### [facility] [address] [place], [address] MCHC Normal 32-36 [facility] Comment on above: Result Comment: Canc elled via OM: MD Ordered Performed By: #### L 500.2500, L100.0100 #### [facility] [address] [place], [address] MCV Normal 81-99 [facility] Comment on above: Result Comment: Canc elled via OM: MD Ordered Performed By: #### L 500.2500, L100.0100 #### [facility] [address] [place], [address] NEUT% Normal 47-70 [facility] Comment on above: Result Comment: Canc elled via OM: MD Ordered Performed By: #### L 500.2500, L100.0100 #### [facility] [address] [place], [address] PLT Normal 150-450 [facility] Comment on above: Result Comment: Canc elled via OM: MD Ordered Performed By: #### L 500.2500, L100.0100 #### [facility] [address] [place], [address] RBC Normal 4.2-5.4 [facility] Comment on above: Result Comment: Canc elled via OM: MD Ordered Performed By: #### L 500.2500, L100.0100 #### [facility] [address] [place], [address] RDW CV Normal 11.6-14.6 [facility] Comment on above: Result Comment: Canc elled via OM: MD Ordered Performed By: #### L 500.2500, L100.0100 #### [facility] [address] [place], [address] RDW SD Normal 35.1-43.9 [facility] Comment on above: Result Comment: Canc elled via OM: MD Ordered Performed By: #### L 500.2500, L100.0100 #### [facility] [address] [place], [address] WBC Normal 4.4-11.0 [facility] Comment on above: Result Comment: Canc elled via OM: MD Ordered Performed By: #### L 500.2500, L100.0100 #### [facility] [address] [place], [address] Basic Metabolic Profile (BMP )on 12-17-2024 BUN Normal 4-19 [facility] Comment on above: Result Comment: Canc elled via OM: Order cancelled - Patient discharged Performed By: #### L 100.0100, L500.4050, L501.9100, L503.6005, L505.5000 #### [facility] [address] [place], [address] Result Comment: Canc elled via OM: MD Ordered BUN/CRE Normal 10-20 [facility] Comment on above: Result Comment: Canc elled via OM: Order cancelled - Patient discharged Performed By: #### L 100.0100, L500.4050, L501.9100, L503.6005, L505.5000 #### [facility] [address] [place], [place], [address] Result Comment: Canc elled via OM: MD Ordered Calcium Normal 7.6-11.0 [facility] Comment on above: Result Comment: Canc elled via OM: Order cancelled - Patient discharged Performed By: #### L 100.0100, L500.4050, L501.9100, L503.6005, L505.5000 #### [facility] [address] [place], [place], [address] Result Comment: Canc elled via OM: MD Ordered CL Normal 98-108 [facility] Comment on above: Result Comment: Canc elled via OM: Order cancelled - Patient discharged Performed By: #### L 100.0100, L500.4050, L501.9100, L503.6005, L505.5000 #### [facility] [address] [place], [place], [address] Result Comment: Canc elled via OM: MD Ordered CO2 Normal 21.0-32.0 [facility] Comment on above: Result Comment: Canc elled via OM: Order cancelled - Patient discharged Performed By: #### L 100.0100, L500.4050, L501.9100, L503.6005, L505.5000 #### [facility] [address] [place], [place], [address] Result Comment: Canc elled via OM: Ordered CREAT,SERUM Normal 0.70-1.20 [facility] Comment on above: Result Comment: Canc elled via OM: Order cancelled - Patient discharged Performed By: #### L 100.0100, L500.4050, L501.9100, L503.6005, L505.5000 #### [facility] [address] [place], [address] Result Comment: Canc elled via OM: MD Ordered eGFR Normal >60 [facility] Comment on above: Result Comment: Canc elled via OM: Order cancelled - Patient discharged Performed By: #### L 100.0100, L500.4050, L501.9100, L503.6005, L505.5000 #### [facility] [address] [place], [address] Result Comment: Canc elled via OM: MD Ordered GAP Normal 5-15 [facility] Comment on above: Result Comment: Canc elled via OM: Order cancelled - Patient discharged Performed By: #### L 100.0100, L500.4050, L501.9100, L503.6005, L505.5000 #### [facility] [address] [place], [address] Result Comment: Canc elled via OM: MD Ordered GLU Normal 70-99 [facility] Comment on above: Result Comment: Canc elled via OM: Order cancelled - Patient discharged Performed By: #### L 100.0100, L500.4050, L501.9100, L503.6005, L505.5000 #### [facility] [address] [place], [address] Result Comment: Canc elled via OM: MD Ordered Potassium Normal 3.3-5.1 [facility] Comment on above: Result Comment: Canc elled via OM: Order cancelled - Patient discharged Performed By: #### L 100.0100, L500.4050, L501.9100, L503.6005, L505.5000 #### [facility] [address] [place], [address] Result Comment: Canc elled via OM: MD Ordered Basic Metabolic Profile (BMP) Normal 133-145 [facility] Comment on above: Result Comment: Canc elled via OM: Order cancelled - Patient discharged Performed By: #### L 100.0100, L500.4050, L501.9100, L503.6005, L505.5000 #### [facility] [address] [place], [address] Result Comment: Canc elled via OM: MD Ordered CBC W/Diff, Automatedon 08 Absolute Neut Normal 2.0-7.7 [facility] Comment on above: Result Comment: Canc elled via OM: MD Ordered Performed By: #### L 100.0100, L500.4050, L501.9100, L503.6005, L505.5000 #### [facility] [address] [place], [address] NEUT% Normal 47-70 [facility] Comment on above: Result Comment: Canc elled via OM: MD Ordered Performed By: #### L 100.0100, L500.4050, L501.9100, L503.6005, L505.5000 #### [facility] [address] [place], [address] CBC-Complete Blood Cnt No Di ffon 12-17-2024 HCT Normal 37-47 [facility] Comment on above: Result Comment: Canc elled via OM: Order cancelled - Patient discharged Performed By: #### L 100.0100, L500.4050, L501.9100, L503.6005, L505.5000 #### [facility] [address] [place], [address] Result Comment: Canc elled via OM: MD Ordered HGB Normal 12.0-15.0 [facility] Comment on above: Result Comment: Canc elled via OM: Order cancelled - Patient discharged Performed By: #### L 100.0100, L500.4050, L501.9100, L503.6005, L505.5000 #### [facility] [address] [place], [place], [address] Result Comment: Canc elled via OM: MD Ordered MCH Normal 27.0-32.0 [facility] Comment on above: Result Comment: Canc elled via OM: Order cancelled - Patient discharged Performed By: #### L 100.0100, L500.4050, L501.9100, L503.6005, L505.5000 #### [facility] [address] [place], [place], [id number] Result Comment: Canc elled via OM: MD Ordered MCHC Normal 32-36 [facility] Comment on above: Result Comment: Canc elled via OM: Order cancelled - Patient discharged Performed By: #### L 100.0100, L500.4050, L501.9100, L503.6005, L505.5000 #### [facility] [address] [place], [place], [address] Result Comment: Canc elled via OM: MD Ordered MCV Normal 81-99 [facility] Comment on above: Result Comment: Canc elled via OM: Order cancelled - Patient discharged Performed By: #### L 100.0100, L500.4050, L501.9100, L503.6005, L505.5000 #### [facility] [address] [place], [place], [address] Result Comment: Canc elled via OM: MD Ordered PLT Normal 150-450 [facility] Comment on above: Result Comment: Canc elled via OM: Order cancelled - Patient discharged Performed By: #### L 100.0100, L500.4050, L501.9100, L503.6005, L505.5000 #### [facility] [address] [place], [place], [address] Result Comment: Canc elled via OM: MD Ordered RBC Normal 4.2-5.4 [facility] Comment on above: Result Comment: Canc elled via OM: Order cancelled - Patient discharged Performed By: #### L 100.0100, L500.4050, L501.9100, L503.6005, L505.5000 #### [facility] [address] [place], [place], [address] Result Comment: Canc elled via OM: MD Ordered RDW CV Normal 11.6-14.6 [facility] Comment on above: Result Comment: Canc elled via OM: Order cancelled - Patient discharged Performed By: #### L 100.0100, L500.4050, L501.9100, L503.6005, L505.5000 #### [facility] [address] [place], [place], [address] Result Comment: Canc elled via OM: MD Ordered RDW SD Normal 35.1-43.9 [facility] Comment on above: Result Comment: Canc elled via OM: Order cancelled - Patient discharged Performed By: #### L 100.0100, L500.4050, L501.9100, L503.6005, L505.5000 #### [facility] [address] [place], [place], [address] Result Comment: Canc elled via OM: MD Ordered WBC Normal 4.4-11.0 [facility] Comment on above: Result Comment: Canc elled via OM: Order cancelled - Patient discharged Performed By: #### L 100.0100, L500.4050, L501.9100, L503.6005, L505.5000 #### [facility] [address] [place], [place], [address] Result Comment: Canc elled via OM: MD Ordered Basic Metabolic Profile (BMP )on 12-16-2024 BUN Normal 4-19 [facility] Comment on above: Result Comment: Canc elled via OM: MD Ordered Performed By: #### L 100.0100, L500.4050, L501.9100, L503.6005, L505.5000 #### [facility] [address] [place], [address] BUN/CRE Normal 10-20 [facility] Comment on above: Result Comment: Canc elled via OM: MD Ordered Performed By: #### L 100.0100, L500.4050, L501.9100, L503.6005, L505.5000 #### [facility] [address] [place], [address] Calcium Normal 7.6-11.0 [facility] Comment on above: Result Comment: Canc elled via OM: MD Ordered Performed By: #### L 100.0100, L500.4050, L501.9100, L503.6005, L505.5000 #### [facility] [address] [place], [address] CL Normal 98-108 [facility] Comment on above: Result Comment: Canc elled via OM: MD Ordered Performed By: #### L 100.0100, L500.4050, L501.9100, L503.6005, L505.5000 #### [facility] [address] [place], [address] CO2 Normal 21.0-32.0 [facility] Comment on above: Result Comment: Canc elled via OM: MD Ordered Performed By: #### L 100.0100, L500.4050, L501.9100, L503.6005, L505.5000 #### [facility] [address] [place], [address] CREAT,SERUM Normal 0.70-1.20 [facility] Comment on above: Result Comment: Canc elled via OM: MD Ordered Performed By: #### L 100.0100, L500.4050, L501.9100, L503.6005, L505.5000 #### [facility] [address] [place], [address] eGFR Normal >60 [facility] Comment on above: Result Comment: Canc elled via OM: MD Ordered Performed By: #### L 100.0100, L500.4050, L501.9100, L503.6005, L505.5000 #### [facility] [address] [place], [address] GAP Normal 5-15 [facility] Comment on above: Result Comment: Canc elled via OM: MD Ordered Performed By: #### L 100.0100, L500.4050, L501.9100, L503.6005, L505.5000 #### [facility] [address] [place], [address] GLU Normal 70-99 [facility] Comment on above: Result Comment: Canc elled via OM: MD Ordered Performed By: #### L 100.0100, L500.4050, L501.9100, L503.6005, L505.5000 #### [facility] [address] [place], [place] [address] Potassium Normal 3.3-5.1 [facility] Comment on above: Result Comment: Canc elled via OM: MD Ordered Performed By: #### L 100.0100, L500.4050, L501.9100, L503.6005, L505.5000 #### [facility] [address] [place], [address] Basic Metabolic Profile (BMP) Normal 133-145 [facility] Comment on above: Result Comment: Canc elled via OM: MD Ordered Performed By: #### L 100.0100, L500.4050, L501.9100, L503.6005, L505.5000 #### [facility] [address] [place], [address] CBC W/Diff, Automatedon 08-1 -2024 Absolute Neut Normal 2.0-7.7 [facility] Comment on above: Result Comment: Canc elled via OM: MD Ordered Performed By: #### L 100.0100, L500.4050, L501.9100, L503.6005, L505.5000 #### [facility] [address] [place], [address] HCT Normal 37-47 [facility] Comment on above: Result Comment: Canc elled via OM: MD Ordered Performed By: #### L 100.0100, L500.4050, L501.9100, L503.6005, L505.5000 #### [facility] [address] [place], [address] HGB Normal 12.0-15.0 [facility] Comment on above: Result Comment: Canc elled via OM: MD Ordered Performed By: #### L 100.0100, L500.4050, L501.9100, L503.6005, L505.5000 #### [facility] [address] [place], [address] MCH Normal 27.0-32.0 [facility] Comment on above: Result Comment: Canc elled via OM: MD Ordered Performed By: #### L 100.0100, L500.4050, L501.9100, L503.6005, L505.5000 #### [facility] [address] [place], [address] MCHC Normal 32-36 [facility] Comment on above: Result Comment: Canc elled via OM: MD Ordered Performed By: #### L 100.0100, L500.4050, L501.9100, L503.6005, L505.5000 #### [facility] [address] [place], [address] MCV Normal 81-99 [facility] Comment on above: Result Comment: Canc elled via OM: MD Ordered Performed By: #### L 100.0100, L500.4050, L501.9100, L503.6005, L505.5000 #### [facility] [address] [place], [address] NEUT% Normal 47-70 [facility] Comment on above: Result Comment: Canc elled via OM: MD Ordered Performed By: #### L 100.0100, L500.4050, L501.9100, L503.6005, L505.5000 #### [facility] [address] [place], [address] PLT Normal 150-450 [facility] Comment on above: Result Comment: Canc elled via OM: MD Ordered Performed By: #### L 100.0100, L500.4050, L501.9100, L503.6005, L505.5000 #### [facility] [address] [place], [address] RBC Normal 4.2-5.4 [facility] Comment on above: Result Comment: Canc elled via OM: MD Ordered Performed By: #### L 100.0100, L500.4050, L501.9100, L503.6005, L505.5000 #### [facility] [address] [place], [address] RDW CV Normal 11.6-14.6 [facility] Comment on above: Result Comment: Canc elled via OM: MD Ordered Performed By: #### L 100.0100, L500.4050, L501.9100, L503.6005, L505.5000 #### [facility] [address] [place], [address] RDW SD Normal 35.1-43.9 [facility] Comment on above: Result Comment: Canc elled via OM: MD Ordered Performed By: #### L 100.0100, L500.4050, L501.9100, L503.6005, L505.5000 #### [facility] [address] [place], [address] WBC Normal 4.4-11.0 [facility] Comment on above: Result Comment: Canphillip elled via OM: Ordered Performed By: #### L 100.0100, L500.4050, L501.9100, L503.6005, L505.5000 #### [facility] [address] [place], [address] Absolute lymphocyte countOrd ered By: Carmencita Sofia on 12-15-2024 Lymphocytes Auto (Unsp spec) [#/Vol] 1.91 10*3/uL 0.83-4.51 [facility] Absolute neutrophil countOrd ered By: Carmencita Sofia on 12-15-2024 Neutrophils (Bld) [#/Vol] 4.2 10*3/uL 2.0-7.7 [facility] Anion gap in Serum or Plasma Ordered By: Carmencita Sofia on 12-15-2024 Anion gap [Moles/Vol] 13 mmol/L 5- [facility] Automated lymphocyte count a s percentage of total leukocytesOrdered By: Carmencita Sofia on 12-15-2024 Lymphocytes/100 WBC Auto (Unsp spec) 27.0 % -41 [facility] BUN/creatinine ratioOrdered By: Carmencita Sofia on 12-15-2024 Urea nitrogen/Creatinine [Mass ratio] 14.0 mg/mg 10- [facility] Basic Metabolic Profile (BMP )on 12-15-2024 BUN/CRE 14.0 RATIO Normal - [facility] Comment on above: Performed By: #### L 100.0100, L500.4050, L501.9100, L503.6005, L505.5000 #### [facility] [address] [place], [address] Calcium [Mass/Vol] 9.0 mg/dL Normal 7.6-11.0 [facility] Comment on above: Performed By: #### L 100.0100, L500.4050, L501.9100, L503.6005, L505.5000 #### [facility] [address] [place], [address] Chloride [Moles/Vol] 106 mmol/L Normal 98-108 [facility] Comment on above: Performed By: #### L 100.0100, L500.4050, L501.9100, L503.6005, L505.5000 #### [facility] [address] [place], [address] CO2 [Moles/Vol] 20.9 mmol/L Low 21.0-32.0 [facility] Comment on above: Performed By: #### L 100.0100, L500.4050, L501.9100, L503.6005, L505.5000 #### [facility] [address] [place], [address] Creatinine [Mass/Vol] 0.72 mg/dL Normal 0.70-1.20 [facility] Comment on above: Performed By: #### L 100.0100, L500.4050, L501.9100, L503.6005, L505.5000 #### [facility] [address] [place], [address] ECRCL 58.06 ml/min Normal 50-250 [facility] Comment on above: Performed By: #### L 100.0100, L500.4050, L501.9100, L503.6005, L505.5000 #### [facility] [address] [place], [address] GAP 13 Normal 5-15 [facility] Comment on above: Performed By: #### L 100.0100, L500.4050, L501.9100, L503.6005, L505.5000 #### [facility] [address] [place], [address] GFR/1.73 sq M.predicted among non-blacks MDRD (S/P/Bld) [Vol rate/Area] 86 mL/min/{1.73_m2} Normal >60 [facility] Comment on above: Result Comment: mL/m in/1.73m2 CKD-EPI Creatinine Equation (2020) Performed By: #### L 100.0100, L500.4050, L501.9100, L503.6005, L505.5000 #### [facility] [address] [place], [address] Glucose [Mass/Vol] 103 mg/dL High 70-99 [facility] Comment on above: Performed By: #### L 100.0100, L500.4050, L501.9100, L503.6005, L505.5000 #### [facility] [address] [place], [address] Potassium [Moles/Vol] 3.8 mmol/L Normal 3.3-5.1 [facility] Comment on above: Performed By: #### L 100.0100, L500.4050, L501.9100, L503.6005, L505.5000 #### [facility] [address] [place], [address] Sodium [Moles/Vol] 139 mmol/L Normal 133-145 [facility] Comment on above: Performed By: #### L 100.0100, L500.4050, L501.9100, L503.6005, L505.5000 #### [facility] [address] [place], [address] Urea nitrogen [Mass/Vol] 10 mg/dL Normal 4-19 [facility] Comment on above: Performed By: #### L 100.0100, L500.4050, L501.9100, L503.6005, L505.5000 #### [facility] [address] [place], [address] Basophil percentageOrdered B y: Carmencita Sofia on 12-15-2024 Basophils/100 WBC (Bld) 1.0 % 0-1 [facility] CBC W/Diff, Automatedon 08- Absolute Lymph 1.91 X10 3/uL Normal 0.83-4.51 [facility] Comment on above: Performed By: #### L 100.0100, L500.4050, L501.9100, L503.6005, L505.5000 #### [facility] [address] [place], [address] Absolute Neut 4.2 X10 3/uL Normal 2.0-7.7 [facility] Comment on above: Performed By: #### L 100.0100, L500.4050, L501.9100, L503.6005, L505.5000 #### [facility] [address] [place], [address] Basophils/100 WBC (Bld) 1.0 % Normal 0-1 [facility] Comment on above: Performed By: #### L 100.0100, L500.4050, L501.9100, L503.6005, L505.5000 #### [facility] [address] [place], [address] Eosinophils/100 WBC (Bld) 4.0 % Normal 0-5 [facility] Comment on above: Performed By: #### L 100.0100, L500.4050, L501.9100, L503.6005, L505.5000 #### [facility] [address] [place], [address] Erythrocyte distribution width (RBC) [Ratio] 14.6 % Normal 11.6-14.6 [facility] Comment on above: Performed By: #### L 100.0100, L500.4050, L501.9100, L503.6005, L505.5000 #### [facility] [address] [place], [address] Hematocrit (Bld) [Volume fraction] 43.2 % Normal 37-47 [facility] Comment on above: Performed By: #### L 100.0100, L500.4050, L501.9100, L503.6005, L505.5000 #### [facility] [address] [place], [address] Hemoglobin (Bld) [Mass/Vol] 14.0 g/dL Normal 12.0-15.0 [facility] Comment on above: Performed By: #### L 100.0100, L500.4050, L501.9100, L503.6005, L505.5000 #### [facility] [address] [place], [address] IG% 0.400 Normal 0.0-0.9 [facility] Comment on above: Result Comment: IG% - Immature Granulocytes (promyelocytes, myelocytes and metamyelocytes) > 1% indicates that a LEFT SHIFT is Present. Performed By: #### L 100.0100, L500.4050, L501.9100, L503.6005, L505.5000 #### [facility] [address] [facility] [place], [address] Lymphocytes/100 WBC (Bld) 27.0 % Normal 19-41 [facility] Comment on above: Performed By: #### L 100.0100, L500.4050, L501.9100, L503.6005, L505.5000 #### [facility] [address] [facility] [place], [address] MCH (RBC) [Entitic mass] 28.5 pg Normal 27.0-32.0 [facility] Comment on above: Performed By: #### L 100.0100, L500.4050, L501.9100, L503.6005, L505.5000 #### [facility] [address] [place], [address] MCHC (RBC) [Mass/Vol] 32.4 g/dL Normal 32-36 [facility] Comment on above: Performed By: #### L 100.0100, L500.4050, L501.9100, L503.6005, L505.5000 #### [facility] [address] [place], [address] MCV (RBC) [Entitic vol] 88.0 fL Normal 81-99 [facility] Comment on above: Performed By: #### L 100.0100, L500.4050, L501.9100, L503.6005, L505.5000 #### [facility] [address] [place], [address] Monocytes/100 WBC (Bld) 7.9 % Normal 0-10 [facility] Comment on above: Performed By: #### L 100.0100, L500.4050, L501.9100, L503.6005, L505.5000 #### [facility] [address] [place], [address] Neutrophils/100 WBC (Bld) 59.7 % Normal 47-70 [facility] Comment on above: Performed By: #### L 100.0100, L500.4050, L501.9100, L503.6005, L505.5000 #### [facility] [address] [place], [address] Nucleated RBC (Bld) [#/Vol] 0 10*3/uL Normal 0-5 [facility] Comment on above: Performed By: #### L 100.0100, L500.4050, L501.9100, L503.6005, L505.5000 #### [facility] [address] [place], [address] Platelet mean volume (Bld) [Entitic vol] 10.4 fL Normal 6.2-12.0 [facility] Comment on above: Performed By: #### L 100.0100, L500.4050, L501.9100, L503.6005, L505.5000 #### [facility] [address] [place], [address] Platelets (Bld) [#/Vol] 317 10*3/uL Normal 150-450 [facility] Comment on above: Performed By: #### L 100.0100, L500.4050, L501.9100, L503.6005, L505.5000 #### [facility] [address] [place], [address] RBC (Bld) [#/Vol] 4.91 10*6/uL Normal 4.2-5.4 [facility] Comment on above: Performed By: #### L 100.0100, L500.4050, L501.9100, L503.6005, L505.5000 #### [facility] [address] [place], [address] RDW SD 47.5 fl High 35.1-43.9 [facility] Comment on above: Performed By: #### L 100.0100, L500.4050, L501.9100, L503.6005, L505.5000 #### [facility] [address] [place], [address] WBC (Bld) [#/Vol] 7.1 10*3/uL Normal 4.4-11.0 [facility] Comment on above: Performed By: #### L 100.0100, L500.4050, L501.9100, L503.6005, L505.5000 #### [facility] [address] [place], [address] Carbon dioxide, total [Moles /volume] in Central venous bloodOrdered By: Carmencita Sofia on 12-15-2024 CO2 [Moles/Vol] 20.9 mmol/L Low 21.0-32.0 [facility] Chloride assayOrdered By: Tyra Sofia on 12-15-2024 Chloride [Moles/Vol] 106 mmol/L 98-[address] [facility] Discharge Instructionon 12-02 Discharge Instruction [facility] Medical Records Department [address] [place] [address] Instructions for Home/Discharge Instructions 12/15/24 1251 MR#: [id number] Acct: [id number] Name: KEM CHOUDHURY Rep #: [id number] : 1945 79 From: Roly Lilly DO PCP: MAGGY Ortega Status:ADM IN Discharge Instructions DC O2, CPAP, BIPAP needs Home O2 Discharge instructions: No Dressing / Incision Discharge Activity: No Restrictions Follow Up Care Test Results: Test results from this visit will be discussed in further detail at your follow-up appointment, if applicable. Discharge Plan Admission Admit Date/Time: 12/12/24 17:12 Primary Reason for Your Visit: confusion and urinary frequency Attending Provider: Roly Lilly Primary Care Provider: Amilcar Gaytan NP Consulting Providers: Nava Donovan; Carmencita Sofia Discharge Orders/Prescriptions Prescriptions: New nitrofurantoin monohyd/m-cryst [Macrobid] 100 mg capsule 100 mg PO BID 2 Days Qty: 4 0RF Rx Instructions: must administer with a meal/food Referrals / Follow Up: NOT,DEFINED [Non-Staff] - Amilcar Gaytan NP, [employer] [Primary Care Provider] - Disposition Disposition (needs filled in before D/C Order can be placed): Home, Self Care 12/15/24 1256 Roly Lilly DO CC: [employer] Amilcar Gaytan; Dr. Carmencita Sofia MD; Dr. Nava Donovan MD Signed Normal [facility] Eosinophil percentageOrdered By: Carmencita Sofia on 12-15-2024 Eosinophils/100 WBC (Bld) 4.0 % 0-5 [facility] Erythrocyte distribution wid th ratioOrdered By: Carmencita Sofia on 12-15-2024 Erythrocyte distribution width (RBC) [Ratio] 14.6 % 11.6-14.6 [facility] Erythrocyte distribution wid th standard deviationOrdered By: Carmencita Sofia on 12-15-2024 Erythrocyte distribution width (RBC) [Ratio] 47.5 fl High 35.1-43.9 [facility] Glomerular filtration rate ( GFR) estimation/1.73 sq m using serum, plasma, or whole bOrdered By: Carmencita Sofia on 12-15-2024 GFR/1.73 sq M.predicted among non-blacks MDRD (S/P/Bld) [Vol rate/Area] 86 mL/min/{1.73_m2} >60 [facility] Comment on above: mL/min/1.73m2 CKD-EP I Creatinine Equation (2020) Hematocrit Auto (Bld) [Volum e fraction]Ordered By: Carmencita Sofia on 12-15-2024 Hematocrit (Bld) [Volume fraction] 43.2 % 37-47 [facility] Hemoglobin measurementOrdere d By: Carmencita Sofia on 12-15-2024 Hemoglobin (Bld) [Mass/Vol] 14.0 g/dL 12.0-15.0 [facility] Immature granulocytes/100 WB C Auto (Bld)Ordered By: Carmencita Sofia 12-15-2024 Immature granulocytes/100 WBC (Bld) 0.400 % 0.0-0.9 [facility] Comment on above: IG% - Immature Granu locytes (promyelocytes, myelocytes and metamyelocytes) > 1% indicates that a LEFT SHIFT is Present. MCV (mean corpuscular volume ) determinationOrdered By: Carmencita Sofia 12-15-2024 MCV (RBC) [Entitic vol] 88.0 fL 81-99 [facility] Mean corpuscular hemoglobin (MCH) determinationOrdered By: Carmencita Sofia 12-15-2024 MCH (RBC) [Entitic mass] 28.5 pg 27.0-32.0 [facility] Mean corpuscular hemoglobin concentration (MCHC) determinationOrdered By: Carmencita Sofia 12-15-2024 MCHC (RBC) [Mass/Vol] 32.4 g/dL 32-36 [facility] Mean platelet volume determi nationOrdered By: Carmencita Sofia 12-15-2024 Platelet mean volume (Bld) [Entitic vol] 10.4 fL 6.2-12.0 [facility] Monocyte percentageOrdered B y: Carmencita Sofia 12-15-2024 Monocytes/100 WBC (Bld) 7.9 % 0-10 [facility] Neutrophil percentageOrdered By: Carmencita Sofia on 12-15-2024 Neutrophils/100 WBC (Bld) 59.7 % 47-70 [facility] Nucleated red blood cell per centageOrdered By: Carmencita Sofia on 12-15-2024 Nucleated RBC/100 WBC (Bld) [Ratio] 0 % 0-5 [facility] Platelet countOrdered By: Na tyra Sofia on 12-15-2024 Platelets (Bld) [#/Vol] 317 10*3/uL 150-450 [facility] Potassium measurement (mass/ volume)Ordered By: Carmencita Sofia on 12-15-2024 Potassium (Unsp spec) [Mass/Vol] 3.8 mmol/L 3.3-5.1 [facility] RBC Auto (Bld) [#/Vol]Ordere d By: Carmencita Sofia on 12-15-2024 RBC (Bld) [#/Vol] 4.91 10*6/uL 4.2-5.4 [facility] Serum creatinine measurement (mass/volume)Ordered By: Carmencita Sofia on 12-15-2024 Creatinine [Mass/Vol] 0.72 mg/dL 0.70-1.20 [facility] Serum glucose measurement (m ass/volume)Ordered By: Carmencita Sofia on 12-15-2024 Glucose [Mass/Vol] 103 mg/dL High 70-99 [facility] Serum or plasma calcium carlos urement (mass/volume)Ordered By: Carmencita Sofia on 12-15-2024 Calcium [Mass/Vol] 9.0 mg/dL 7.6-11.0 [facility] Serum or plasma urea nitroge n measurement (mass/volume)Ordered By: Carmencita Sofia on 12-15-2024 Urea nitrogen [Mass/Vol] 10 mg/dL 4-19 [facility] Sodium levelOrdered By: Carmencita Sofia on 12-15-2024 Sodium [Moles/Vol] 139 mmol/L 133-145 [facility] Urine Cultureon 12-15-2024 U[facility] Mixed Gram Pos Gram Neg Org [place] Count 11,000-25,000 MIXC Mixed contaminants. Submit a new specimen if indicated. Normal [facility] Comment on above: Performed By: #### L 100.0100, L500.4050, L501.9100, L503.6005, L505.5000 #### [facility] [address] [place], [address] White blood cell (WBC) count Ordered By: Carmencita Sofia on 12-15-2024 WBC (Bld) [#/Vol] 7.1 10*3/uL 4.4-11.0 [facility] Basic Metabolic Profile (BMP )on 12-14-2024 BUN/CRE 12.8 RATIO Normal 10-20 [facility] Comment on above: Performed By: #### L 100.0100, L500.4050, L501.9100, L503.6005, L505.5000 #### [facility] [address] [place], [address] Calcium [Mass/Vol] 9.0 mg/dL Normal 7.6-11.0 [facility] Comment on above: Performed By: #### L 100.0100, L500.4050, L501.9100, L503.6005, L505.5000 #### [facility] [address] [place], [address] Chloride [Moles/Vol] 106 mmol/L Normal 98-108 [facility] Comment on above: Performed By: #### L 100.0100, L500.4050, L501.9100, L503.6005, L505.5000 #### [facility] [address] [place], [address] CO2 [Moles/Vol] 22.9 mmol/L Normal 21.0-32.0 [facility] Comment on above: Performed By: #### L 100.0100, L500.4050, L501.9100, L503.6005, L505.5000 #### [facility] [address] [place], [address] Creatinine [Mass/Vol] 0.72 mg/dL Normal 0.70-1.20 [facility] Comment on above: Performed By: #### L 100.0100, L500.4050, L501.9100, L503.6005, L505.5000 #### [facility] [address] [place], [address] ECRCL 58.06 ml/min Normal 50-250 [facility] Comment on above: Performed By: #### L 100.0100, L500.4050, L501.9100, L503.6005, L505.5000 #### [facility] [address] [place], [address] GAP 11 Normal 5-15 [facility] Comment on above: Performed By: #### L 100.0100, L500.4050, L501.9100, L503.6005, L505.5000 #### [facility] [address] [place], [address] GFR/1.73 sq M.predicted among non-blacks MDRD (S/P/Bld) [Vol rate/Area] 86 mL/min/{1.73_m2} Normal >60 [facility] Comment on above: Result Comment: mL/m in/1.73m2 CKD-EPI Creatinine Equation (2020) Performed By: #### L 100.0100, L500.4050, L501.9100, L503.6005, L505.5000 #### [facility] [address] [place], [address] Glucose [Mass/Vol] 123 mg/dL High 70-99 [facility] Comment on above: Performed By: #### L 100.0100, L500.4050, L501.9100, L503.6005, L505.5000 #### [facility] [address] [place], [address] Potassium [Moles/Vol] 3.7 mmol/L Normal 3.3-5.1 [facility] Comment on above: Performed By: #### L 100.0100, L500.4050, L501.9100, L503.6005, L505.5000 #### [facility] [address] [place], [address] Sodium [Moles/Vol] 140 mmol/L Normal 133-145 [facility] Comment on above: Performed By: #### L 100.0100, L500.4050, L501.9100, L503.6005, L505.5000 #### [facility] [address] [place], [address] Urea nitrogen [Mass/Vol] 9 mg/dL Normal 4-19 [facility] Comment on above: Performed By: #### L 100.0100, L500.4050, L501.9100, L503.6005, L505.5000 #### [facility] [address] [place], [address] CBC W/Diff, Automatedon 08-1 -2024 Absolute Lymph 2.28 X10 3/uL Normal 0.83-4.51 [facility] Comment on above: Performed By: #### L 100.0100, L500.4050, L501.9100, L503.6005, L505.5000 #### [facility] [address] [place], [address] Absolute Neut 4.1 X10 3/uL Normal 2.0-7.7 [facility] Comment on above: Performed By: #### L 100.0100, L500.4050, L501.9100, L503.6005, L505.5000 #### [facility] [address] [place], [address] Basophils/100 WBC (Bld) 0.9 % Normal 0-1 [facility] Comment on above: Performed By: #### L 100.0100, L500.4050, L501.9100, L503.6005, L505.5000 #### [facility] [address] [place], [address] Eosinophils/100 WBC (Bld) 3.7 % Normal 0-5 [facility] Comment on above: Performed By: #### L 100.0100, L500.4050, L501.9100, L503.6005, L505.5000 #### [facility] [address] [place], [address] Erythrocyte distribution width (RBC) [Ratio] 14.8 % High 11.6-14.6 [facility] Comment on above: Performed By: #### L 100.0100, L500.4050, L501.9100, L503.6005, L505.5000 #### [facility] [address] [facility] [place], [address] Hematocrit (Bld) [Volume fraction] 43.4 % Normal 37-47 [facility] Comment on above: Performed By: #### L 100.0100, L500.4050, L501.9100, L503.6005, L505.5000 #### [facility] [address] [place], [address] Hemoglobin (Bld) [Mass/Vol] 14.2 g/dL Normal 12.0-15.0 [facility] Comment on above: Performed By: #### L 100.0100, L500.4050, L501.9100, L503.6005, L505.5000 #### [facility] [address] [place], [address] IG% 0.500 Normal 0.0-0.9 [facility] Comment on above: Result Comment: IG% - Immature Granulocytes (promyelocytes, myelocytes and metamyelocytes) > 1% indicates that a LEFT SHIFT is Present. Performed By: #### L 100.0100, L500.4050, L501.9100, L503.6005, L505.5000 #### [facility] [address] [place], [address] Lymphocytes/100 WBC (Bld) 30.9 % Normal 19-41 [facility] Comment on above: Performed By: #### L 100.0100, L500.4050, L501.9100, L503.6005, L505.5000 #### [facility] [address] [place], [address] MCH (RBC) [Entitic mass] 28.7 pg Normal 27.0-32.0 [facility] Comment on above: Performed By: #### L 100.0100, L500.4050, L501.9100, L503.6005, L505.5000 #### [facility] [address] [place], [address] MCHC (RBC) [Mass/Vol] 32.7 g/dL Normal 32-36 [facility] Comment on above: Performed By: #### L 100.0100, L500.4050, L501.9100, L503.6005, L505.5000 #### [facility] [address] [place], [address] MCV (RBC) [Entitic vol] 87.9 fL Normal 81-99 [facility] Comment on above: Performed By: #### L 100.0100, L500.4050, L501.9100, L503.6005, L505.5000 #### [facility] [address] [place], [address] Monocytes/100 WBC (Bld) 7.7 % Normal 0-10 [facility] Comment on above: Performed By: #### L 100.0100, L500.4050, L501.9100, L503.6005, L505.5000 #### [facility] [address] [place], [address] Neutrophils/100 WBC (Bld) 56.3 % Normal 47-70 [facility] Comment on above: Performed By: #### L 100.0100, L500.4050, L501.9100, L503.6005, L505.5000 #### [facility] [address] [place], [address] Nucleated RBC (Bld) [#/Vol] 0 10*3/uL Normal 0-5 [facility] Comment on above: Performed By: #### L 100.0100, L500.4050, L501.9100, L503.6005, L505.5000 #### [facility] [address] [place], [address] Platelet mean volume (Bld) [Entitic vol] 10.1 fL Normal 6.2-12.0 [facility] Comment on above: Performed By: #### L 100.0100, L500.4050, L501.9100, L503.6005, L505.5000 #### [facility] [address] [place], [address] Platelets (Bld) [#/Vol] 308 10*3/uL Normal 150-450 [facility] Comment on above: Performed By: #### L 100.0100, L500.4050, L501.9100, L503.6005, L505.5000 #### [facility] [address] [place], [address] RBC (Bld) [#/Vol] 4.94 10*6/uL Normal 4.2-5.4 [facility] Comment on above: Performed By: #### L 100.0100, L500.4050, L501.9100, L503.6005, L505.5000 #### [facility] [address] [place], [address] RDW SD 47.9 fl High 35.1-43.9 [facility] Comment on above: Performed By: #### L 100.0100, L500.4050, L501.9100, L503.6005, L505.5000 #### [facility] [address] [place], [address] WBC (Bld) [#/Vol] 7.4 10*3/uL Normal 4.4-11.0 [facility] Comment on above: Performed By: #### L 100.0100, L500.4050, L501.9100, L503.6005, L505.5000 #### [facility] [address] [place], [address] Basic Metabolic Profile (BMP )on 12-13-2024 BUN/CRE 19.6 RATIO Normal 10-20 [facility] Comment on above: Performed By: #### L 100.0100, L500.4050, L501.9100, L503.6005, L505.5000 #### [facility] [address] [place], [address] Calcium [Mass/Vol] 8.8 mg/dL Normal 7.6-11.0 [facility] Comment on above: Performed By: #### L 100.0100, L500.4050, L501.9100, L503.6005, L505.5000 #### [facility] [address] [place], [address] Chloride [Moles/Vol] 105 mmol/L Normal 98-108 [facility] Comment on above: Performed By: #### L 100.0100, L500.4050, L501.9100, L503.6005, L505.5000 #### [facility] [address] [place], [address] CO2 [Moles/Vol] 21.3 mmol/L Normal 21.0-32.0 [facility] Comment on above: Performed By: #### L 100.0100, L500.4050, L501.9100, L503.6005, L505.5000 #### [facility] [address] [place], [address] Creatinine [Mass/Vol] 0.70 mg/dL Normal 0.70-1.20 [facility] Comment on above: Performed By: #### L 100.0100, L500.4050, L501.9100, L503.6005, L505.5000 #### [facility] [address] [place], [address] ECRCL 58.06 ml/min Normal 50-250 [facility] Comment on above: Performed By: #### L 100.0100, L500.4050, L501.9100, L503.6005, L505.5000 #### [facility] [address] [place], [address] GAP 11 Normal 5-15 [facility] Comment on above: Performed By: #### L 100.0100, L500.4050, L501.9100, L503.6005, L505.5000 #### [facility] [address] [place], [address] GFR/1.73 sq M.predicted among non-blacks MDRD (S/P/Bld) [Vol rate/Area] 89 mL/min/{1.73_m2} Normal >60 [facility] Comment on above: Result Comment: mL/m in/1.73m2 CKD-EPI Creatinine Equation (2020) Performed By: #### L 100.0100, L500.4050, L501.9100, L503.6005, L505.5000 #### [facility] [address] [place], [address] Glucose [Mass/Vol] 108 mg/dL High 70-99 [facility] Comment on above: Performed By: #### L 100.0100, L500.4050, L501.9100, L503.6005, L505.5000 #### [facility] [address] [place], [address] Potassium [Moles/Vol] 3.7 mmol/L Normal 3.3-5.1 [facility] Comment on above: Performed By: #### L 100.0100, L500.4050, L501.9100, L503.6005, L505.5000 #### [facility] [address] [place], [address] Sodium [Moles/Vol] 138 mmol/L Normal 133-145 [facility] Comment on above: Performed By: #### L 100.0100, L500.4050, L501.9100, L503.6005, L505.5000 #### [facility] [address] [place], [address] Urea nitrogen [Mass/Vol] 14 mg/dL Normal 4-19 [facility] Comment on above: Performed By: #### L 100.0100, L500.4050, L501.9100, L503.6005, L505.5000 #### [facility] [address] [place], [address] CBC W/Diff, Automatedon 12-02 Absolute Lymph 2.12 X10 3/uL Normal 0.83-4.51 [facility] Comment on above: Performed By: #### L 100.0100, L500.4050, L501.9100, L503.6005, L505.5000 #### [facility] [address] [place], [address] Absolute Neut 4.0 X10 3/uL Normal 2.0-7.7 [facility] Comment on above: Performed By: #### L 100.0100, L500.4050, L501.9100, L503.6005, L505.5000 #### [facility] [address] [place], [address] Basophils/100 WBC (Bld) 0.7 % Normal 0-1 [facility] Comment on above: Performed By: #### L 100.0100, L500.4050, L501.9100, L503.6005, L505.5000 #### [facility] [address] [place], [address] Eosinophils/100 WBC (Bld) 4.4 % Normal 0-5 [facility] Comment on above: Performed By: #### L 100.0100, L500.4050, L501.9100, L503.6005, L505.5000 #### [facility] [address] [place], [address] Erythrocyte distribution width (RBC) [Ratio] 14.6 % Normal 11.6-14.6 [facility] Comment on above: Performed By: #### L 100.0100, L500.4050, L501.9100, L503.6005, L505.5000 #### [facility] [address] [place], [address] Hematocrit (Bld) [Volume fraction] 41.7 % Normal 37-47 [facility] Comment on above: Performed By: #### L 100.0100, L500.4050, L501.9100, L503.6005, L505.5000 #### [facility] [address] [place], [address] Hemoglobin (Bld) [Mass/Vol] 13.6 g/dL Normal 12.0-15.0 [facility] Comment on above: Performed By: #### L 100.0100, L500.4050, L501.9100, L503.6005, L505.5000 #### [facility] [address] [place], [address] IG% 0.400 Normal 0.0-0.9 [facility] Comment on above: Result Comment: IG% - Immature Granulocytes (promyelocytes, myelocytes and metamyelocytes) > 1% indicates that a LEFT SHIFT is Present. Performed By: #### L 100.0100, L500.4050, L501.9100, L503.6005, L505.5000 #### [facility] [address] [place], [address] Lymphocytes/100 WBC (Bld) 29.9 % Normal 19-41 [facility] Comment on above: Performed By: #### L 100.0100, L500.4050, L501.9100, L503.6005, L505.5000 #### [facility] [address] [place], [address] MCH (RBC) [Entitic mass] 28.6 pg Normal 27.0-32.0 [facility] Comment on above: Performed By: #### L 100.0100, L500.4050, L501.9100, L503.6005, L505.5000 #### [facility] [address] [place], [address] MCHC (RBC) [Mass/Vol] 32.6 g/dL Normal 32-36 [facility] Comment on above: Performed By: #### L 100.0100, L500.4050, L501.9100, L503.6005, L505.5000 #### [facility] [address] [place], [address] MCV (RBC) [Entitic vol] 87.8 fL Normal 81-99 [facility] Comment on above: Performed By: #### L 100.0100, L500.4050, L501.9100, L503.6005, L505.5000 #### [facility] [address] [place], [address] Monocytes/100 WBC (Bld) 8.2 % Normal 0-10 [facility] Comment on above: Performed By: #### L 100.0100, L500.4050, L501.9100, L503.6005, L505.5000 #### [facility] [address] [place], [address] Neutrophils/100 WBC (Bld) 56.4 % Normal 47-70 [facility] Comment on above: Performed By: #### L 100.0100, L500.4050, L501.9100, L503.6005, L505.5000 #### [facility] [address] [place], [address] Nucleated RBC (Bld) [#/Vol] 0 10*3/uL Normal 0-5 [facility] Comment on above: Performed By: #### L 100.0100, L500.4050, L501.9100, L503.6005, L505.5000 #### [facility] [address] [place], [address] Platelet mean volume (Bld) [Entitic vol] 10.2 fL Normal 6.2-12.0 [facility] Comment on above: Performed By: #### L 100.0100, L500.4050, L501.9100, L503.6005, L505.5000 #### [facility] [address] [place], [address] Platelets (Bld) [#/Vol] 301 10*3/uL Normal 150-450 [facility] Comment on above: Performed By: #### L 100.0100, L500.4050, L501.9100, L503.6005, L505.5000 #### [facility] [address] [place], [address] RBC (Bld) [#/Vol] 4.75 10*6/uL Normal 4.2-5.4 [facility] Comment on above: Performed By: #### L 100.0100, L500.4050, L501.9100, L503.6005, L505.5000 #### [facility] [address] [place], [address] RDW SD 47.1 fl High 35.1-43.9 [facility] Comment on above: Performed By: #### L 100.0100, L500.4050, L501.9100, L503.6005, L505.5000 #### [facility] [address] [place], [address] WBC (Bld) [#/Vol] 7.1 10*3/uL Normal 4.4-11.0 [facility] Comment on above: Performed By: #### L 100.0100, L500.4050, L501.9100, L503.6005, L505.5000 #### [facility] [address] [place], [address] Electrocardiogram reportOrde red By: Owen Reza on 12-13-2024 EKG study [facility] Services [address] [place] [address] 12 Lead EKG 12/12/24 1438 MR#: [id number] Acct: [id number] Name: KEM CHOUDHURY Rep #:[id number] : 1945 79 From: Owen sun MD Attending Dr: Dr. Carmencita Sofia MD Status: ADM IN Ordering Dr: Musa Awan DO D ate: 12/12/24 Location: [facility] Sex: F C Admitted: 12/12/24 Test Reason : CONFUSED Blood Pressure : */* mmHG Vent. Rate : 73 BPM Atrial Rate : 73 BPM P-R Int : 120 ms QRS Dur : 72 ms QT Int : 400 ms P-R-T Axes : 61 40 28 degrees QTcB Int : 440 ms Normal sinus rhythm Nonspecific ST abnormality Abnormal ECG Confirmed by Owen Reza ([id number]), index editor NICKO MAHARAJ ([id number]) on 12/13/2024 11:41:35 AM Referred By: Confirmed By: Owen Reza 12/13/24 1141 Date _ Owen Reza MD CC: FLAT GRINDER OPERATOR-Phillip Gaytan; Dr. Musa Awan DO; Dr. Carmencita Sofia MD ~ Signed [facility] Other TSH DL <= 0.005 mIU/L QnOrde red By: Nava Donovan on 12-13-2024 TSH Qn 3.180 uIU/mL 0.300-4.200 [facility] Thyroid Stim Hormone (TSH)on 12-13-2024 TSH 3.180 uIU/mL Normal 0.300-4.200 [facility] Comment on above: Performed By: #### L 100.0100, L500.4050, L501.9100, L503.6005, L505.5000 #### [facility] [address] [facility] [place], [address] 12 Lead EKGon 12-12-2024 12 Lead EKG [facility] Cardi[facility] Services [address] [place] [address] 12 Lead EKG 12/12/24 1438 MR#: [id number] Acct: [id number] Name: KEM CHOUDHURY Rep #: [id number] : 1945 79 From: Owen Reza MD Attending Dr: Dr. Carmencita Sofia MD Status: AD M IN Ordering Dr: Musa Awan DO Date: 5 Location: [facility] Sex: F C Admitted: 12/12/24 Test Reason : CONFUSED Blood Pressure : */* mmHG Vent. Rate : 73 BPM Atrial Rate : 73 BPM P-R Int : 120 ms QRS Dur : 72 ms QT Int : 400 ms P-R-T Axes : 61 40 28 degrees QTcB Int : 440 ms Normal sinus rhythm Nonspecific ST abnormality Abnormal ECG Confirmed by Owen Reza ([id number]), index editor NICKO MAHARAJ ([id number]) on 12/13/2024 11:41:35 AM Referred By: Confirmed By: Owen Reza 12/13/24 1141 Date Owen Reza MD CC: FLAT GRINDER OPERATOR-Phillip Gaytan; Dr. Musa Awan DO; Dr. Carmencita Sofia MD Signed Normal [facility] Absolute lymphocyte countOrd ered By: Musa Awan on 12-12-2024 Lymphocytes Auto (Unsp spec) [#/Vol] 2.34 10*3/uL 0.83-4.51 [facility] Absolute neutrophil countOrd ered By: Musa Awan on 12-12-2024 Neutrophils (Bld) [#/Vol] 5.6 10*3/uL 2.0-7.7 [facility] Alcohol, Blood (Medical)-Ser umon 12-12-2024 SERUM ETOH < 10.1 Normal <=10.0 [facility] Comment on above: Result Comment: This test is for medical purposes only. The legal definition of intoxication varies according to local law. Performed By: #### L 100.0100, L500.4050, L501.9100, L503.6005, L505.5000 #### [facility] [address] [facility] [place], [address] Amphetamine detection with 1 000 ng/mL as cutoffOrdered By: Musa Awan on 12-12-2024 Amphetamines Screen method >1000 ng/mL Ql (U) Negative < 200 ng/mL [facility] Anion gap in Serum or Plasma Ordered By: Musa Awan on 12-12-2024 Anion gap [Moles/Vol] 11 mmol/L 5-15 [facility] Automated lymphocyte count a s percentage of total leukocytesOrdered By: Musa Awan on 12-12-2024 Lymphocytes/100 WBC Auto (Unsp spec) 25.6 % 19-41 [facility] BUN/creatinine ratioOrdered By: Musa Awan on 12-12-2024 Urea nitrogen/Creatinine [Mass ratio] 20.6 mg/mg High 10-20 [facility] Basophil percentageOrdered B y: Musa Awan on 12-12-2024 Basophils/100 WBC (Bld) 0.9 % 0-1 [facility] Bilirubin Test strip Ql (U)O rdered By: Musa Awan on 12-12-2024 Bilirubin Ql (U) Negative Negative [facility] Bilirubin, totalOrdered By: Musa Awan on 12-12-2024 Bilirubin [Mass/Vol] 0.60 mg/dL 0.00-1.30 [facility] Brain/Head without Contrasto n 12-12-2024 Brain/Head without Contrast [facility] Imaging Services [address] [place], [place] [address] Brain/Head without Contrast MR#: [id number] Acct: [id number] Name: KEM CHOUDHURY Rep #: [id number] : 1945 F 79 From: Feliberto moreira MD PCP: NOT,DEFINED Status: PRE ER Study: Brain/Head without Contrast Date of Exam: 12/02 05/28 Exam# [id number] Ordering Dr: Musa Awan DO PROCEDURE: BRAIN/HEAD WITHOUT CONTRAST 12/12/2024 REASON [...] CHRONIC CHANGES. NO ACUTE FINDINGS. Reading Location: [place] [address] CC: DEFINED NOT; Dr. Musa Awan DO Post Graduate Intern: Signed Normal [facility] CBC W/Diff, Automatedon 08-05 04-2024 Absolute Lymph 2.34 X10 3/uL Normal 0.83-4.51 [facility] Comment on above: Performed By: #### L 100.0100, L500.4050, L501.9100, L503.6005, L505.5000 #### [facility] [address] [place], [address] Absolute Neut 5.6 X10 3/uL Normal 2.0-7.7 [facility] Comment on above: Performed By: #### L 100.0100, L500.4050, L501.9100, L503.6005, L505.5000 #### [facility] [address] [place], [address] Basophils/100 WBC (Bld) 0.9 % Normal 0-1 [facility] Comment on above: Performed By: #### L 100.0100, L500.4050, L501.9100, L503.6005, L505.5000 #### [facility] [address] [place], [address] Eosinophils/100 WBC (Bld) 3.0 % Normal 0-5 [facility] Comment on above: Performed By: #### L 100.0100, L500.4050, L501.9100, L503.6005, L505.5000 #### [facility] [address] [place], [address] Erythrocyte distribution width (RBC) [Ratio] 14.6 % Normal 11.6-14.6 [facility] Comment on above: Performed By: #### L 100.0100, L500.4050, L501.9100, L503.6005, L505.5000 #### [facility] [address] [place], [address] Hematocrit (Bld) [Volume fraction] 44.4 % Normal 37-47 [facility] Comment on above: Performed By: #### L 100.0100, L500.4050, L501.9100, L503.6005, L505.5000 #### [facility] [address] [place], [address] Hemoglobin (Bld) [Mass/Vol] 14.6 g/dL Normal 12.0-15.0 [facility] Comment on above: Performed By: #### L 100.0100, L500.4050, L501.9100, L503.6005, L505.5000 #### [facility] [address] [place], [address] IG% 0.300 Normal 0.0-0.9 [facility] Comment on above: Result Comment: IG% - Immature Granulocytes (promyelocytes, myelocytes and metamyelocytes) > 1% indicates that a LEFT SHIFT is Present. Performed By: #### L 100.0100, L500.4050, L501.9100, L503.6005, L505.5000 #### [facility] [address] [place], [address] Lymphocytes/100 WBC (Bld) 25.6 % Normal 19-41 [facility] Comment on above: Performed By: #### L 100.0100, L500.4050, L501.9100, L503.6005, L505.5000 #### [facility] [address] [place], [address] MCH (RBC) [Entitic mass] 28.8 pg Normal 27.0-32.0 [facility] Comment on above: Performed By: #### L 100.0100, L500.4050, L501.9100, L503.6005, L505.5000 #### [facility] [address] [place], [address] MCHC (RBC) [Mass/Vol] 32.9 g/dL Normal 32-36 [facility] Comment on above: Performed By: #### L 100.0100, L500.4050, L501.9100, L503.6005, L505.5000 #### [facility] [address] [place], [address] MCV (RBC) [Entitic vol] 87.6 fL Normal 81-99 [facility] Comment on above: Performed By: #### L 100.0100, L500.4050, L501.9100, L503.6005, L505.5000 #### [facility] [address] [place], [address] Monocytes/100 WBC (Bld) 9.0 % Normal 0-10 [facility] Comment on above: Performed By: #### L 100.0100, L500.4050, L501.9100, L503.6005, L505.5000 #### [facility] [address] [place], [address] Neutrophils/100 WBC (Bld) 61.2 % Normal 47-70 [facility] Comment on above: Performed By: #### L 100.0100, L500.4050, L501.9100, L503.6005, L505.5000 #### [facility] [address] [place], [address] Nucleated RBC (Bld) [#/Vol] 0 10*3/uL Normal 0-5 [facility] Comment on above: Performed By: #### L 100.0100, L500.4050, L501.9100, L503.6005, L505.5000 #### [facility] [address] [place], [address] Platelet mean volume (Bld) [Entitic vol] 10.3 fL Normal 6.2-12.0 [facility] Comment on above: Performed By: #### L 100.0100, L500.4050, L501.9100, L503.6005, L505.5000 #### [facility] [address] [place], [address] Platelets (Bld) [#/Vol] 326 10*3/uL Normal 150-450 [facility] Comment on above: Performed By: #### L 100.0100, L500.4050, L501.9100, L503.6005, L505.5000 #### [facility] [address] [place], [address] RBC (Bld) [#/Vol] 5.07 10*6/uL Normal 4.2-5.4 [facility] Comment on above: Performed By: #### L 100.0100, L500.4050, L501.9100, L503.6005, L505.5000 #### [facility] [address] [place], [address] RDW SD 46.8 fl High 35.1-43.9 [facility] Comment on above: Performed By: #### L 100.0100, L500.4050, L501.9100, L503.6005, L505.5000 #### [facility] [address] [place], [address] WBC (Bld) [#/Vol] 9.1 10*3/uL Normal 4.4-11.0 [facility] Comment on above: Performed By: #### L 100.0100, L500.4050, L501.9100, L503.6005, L505.5000 #### [facility] [address] [place], [address] Carbon dioxide, total [Moles /volume] in Central venous bloodOrdered By: Musa Awan on 12-12-2024 CO2 [Moles/Vol] 25.7 mmol/L 21.0-32.0 [facility] Chest PA and Lateralon 12-12 Chest PA and Lateral [facility] Imaging Services [address] [place], [place] [address] Chest PA and Lateral MR#: [id number] Acct: [id number] Name: KEM CHOUDHURY Rep #: [id number] : 1945 F 79 From: Feliberto moreira MD PCP: NOT,DEFINED Status: PRE ER Study: Chest PA and Lateral Date of Exam: 12/12/24 Exam# [id number] Ordering Dr: Musa Awan DO PROCEDURE: CHEST PA AND LATERAL 12/12/2024 REASON FOR EXAM: ALTERED MENTAL STATUS TECHNIQUE: CHEST PA AND LATERAL COMPARISON: None FINDINGS: Hardware: None Heart: The heart size is normal. Mediastinum: The mediastinal contour is unremarkable. Lungs: The lungs are clear. Bones: Degenerative changes are identified within the thoracic spine. RAD/Chest PA and Lateral IMPRESSION: NO ACUTE FINDINGS. Reading Location: [place] [address] CC: DEFINED NOT; Dr. Musa Awan DO Post Graduate Intern: Signed Normal [facility] Chloride assayOrdered By: Jhoan Awan on 12-12-2024 Chloride [Moles/Vol] 104 mmol/L 98-108 [facility] Comprehensive Metabolic Prof ilon 12-12-2024 Albumin [Mass/Vol] 4.1 g/dL Normal 3.4-4.8 [facility] Comment on above: Performed By: #### L 100.0100, L500.4050, L501.9100, L503.6005, L505.5000 #### [facility] [address] [place], [place], [id number] Albumin/Globulin [Mass ratio] 1.5 {ratio} Normal 0.9-2.4 [facility] Comment on above: Performed By: #### L 100.0100, L500.4050, L501.9100, L503.6005, L505.5000 #### [facility] [address] [place], [address] ALK PHOS 121 U/L High 35-104 [facility] Comment on above: Performed By: #### L 100.0100, L500.4050, L501.9100, L503.6005, L505.5000 #### [facility] [address] [place], [address] ALT [Catalytic activity/Vol] 26 U/L Normal <=34 [facility] Comment on above: Performed By: #### L 100.0100, L500.4050, L501.9100, L503.6005, L505.5000 #### [facility] [address] [place], [address] AST [Catalytic activity/Vol] 23 U/L Normal <=31 [facility] Comment on above: Performed By: #### L 100.0100, L500.4050, L501.9100, L503.6005, L505.5000 #### [facility] [address] [place], [address] Bilirubin [Mass/Vol] 0.60 mg/dL Normal 0.00-1.30 [facility] Comment on above: Performed By: #### L 100.0100, L500.4050, L501.9100, L503.6005, L505.5000 #### [facility] [address] [place], [address] BUN/CRE 20.6 RATIO High 10-20 [facility] Comment on above: Performed By: #### L 100.0100, L500.4050, L501.9100, L503.6005, L505.5000 #### [facility] [address] [place], [address] Calcium [Mass/Vol] 9.2 mg/dL Normal 7.6-11.0 [facility] Comment on above: Performed By: #### L 100.0100, L500.4050, L501.9100, L503.6005, L505.5000 #### [facility] [address] [place], [address] Chloride [Moles/Vol] 104 mmol/L Normal 98-108 [facility] Comment on above: Performed By: #### L 100.0100, L500.4050, L501.9100, L503.6005, L505.5000 #### [facility] [address] [place], [address] CO2 [Moles/Vol] 25.7 mmol/L Normal 21.0-32.0 [facility] Comment on above: Performed By: #### L 100.0100, L500.4050, L501.9100, L503.6005, L505.5000 #### [facility] [address] [place], [address] Creatinine [Mass/Vol] 0.72 mg/dL Normal 0.70-1.20 [facility] Comment on above: Performed By: #### L 100.0100, L500.4050, L501.9100, L503.6005, L505.5000 #### [facility] [address] [place], [address] ECRCL 58.81 ml/min Normal 50-250 [facility] Comment on above: Performed By: #### L 100.0100, L500.4050, L501.9100, L503.6005, L505.5000 #### [facility] [address] [place], [address] GAP 11 Normal 5-15 [facility] Comment on above: Performed By: #### L 100.0100, L500.4050, L501.9100, L503.6005, L505.5000 #### [facility] [address] [place], [address] GFR/1.73 sq M.predicted among non-blacks MDRD (S/P/Bld) [Vol rate/Area] 85 mL/min/{1.73_m2} Normal >60 [facility] Comment on above: Result Comment: mL/m in/1.73m2 CKD-EPI Creatinine Equation (2020) Performed By: #### L 100.0100, L500.4050, L501.9100, L503.6005, L505.5000 #### [facility] [address] [place], [address] Globulin (S) [Mass/Vol] 2.8 g/dL Normal 2.2-4.2 [facility] Comment on above: Performed By: #### L 100.0100, L500.4050, L501.9100, L503.6005, L505.5000 #### [facility] [address] [place], [address] Glucose [Mass/Vol] 114 mg/dL High 70-99 [facility] Comment on above: Performed By: #### L 100.0100, L500.4050, L501.9100, L503.6005, L505.5000 #### [facility] [address] [place], [address] Potassium [Moles/Vol] 4.0 mmol/L Normal 3.3-5.1 [facility] Comment on above: Performed By: #### L 100.0100, L500.4050, L501.9100, L503.6005, L505.5000 #### [facility] [address] [place], [address] Sodium [Moles/Vol] 141 mmol/L Normal 133-145 [facility] Comment on above: Performed By: #### L 100.0100, L500.4050, L501.9100, L503.6005, L505.5000 #### [facility] [address] [place], [address] T PROT 6.9 g/dL Normal 5.9-8.4 [facility] Comment on above: Performed By: #### L 100.0100, L500.4050, L501.9100, L503.6005, L505.5000 #### [facility] [address] [place], [address] Urea nitrogen [Mass/Vol] 15 mg/dL Normal 4-19 [facility] Comment on above: Performed By: #### L 100.0100, L500.4050, L501.9100, L503.6005, L505.5000 #### [facility] [address] [place], [address] Emergency Department Summary on 12-12-2024 Emergency Department Summary [facility] Medical Records Department [address] [facility] [place] [address] Emergency Department Summary 12/12/24 MR#: [id number] Acct: [id number] Name: KEM CHOUDHURY Rep #: [id number] : 1945 79 From: Musa Awan DO PCP: Amilcar Gaytan NP-C Status:REG ER Location: ED HPI History of Present Illness Chief Complaint: Confusion Narrative Narrative: Chief complaint and HPI: Altered mental status. 79-year-old female with past medical history of HTN and possibly undiagnosed dementia presents for evaluation of altered mental status. History taken mostly by . states that he suspects his has [...] on the chart. Reviewed. Physical exam: Gen: A O x3-oriented to place, month, self, president but [...] intact Psych: Cooperative, appropriate mood and [facility] (Updated 12/12/24 @ 16:53 by Fransisca Carroll) Kidney stones Non-smoker Dementia Home Medications ???Medication ???Instructions ???Recorded ???Last Taken ???Type NK 12/12/24 Unknown History Allergy/AdvReac Type Severity [...] evaluation of altered mental status. History taken mostly by . states that he suspects his has [...] is for UTI. Patient denied any urinary problems although she has urinated multiple times here in the emergency department indicating urinary frequency. She even urinated in the bed which is completely abnormal for her. She states she is urinating a lot secondary to eating watermelon. I a (more content not included)... Normal [facility] Eosinophil percentageOrdered By: Musa Awan on 12-12-2024 Eosinophils/100 WBC (Bld) 3.0 % 0-5 [facility] Erythrocyte distribution wid th ratioOrdered By: Musa Awan on 12-12-2024 Erythrocyte distribution width (RBC) [Ratio] 14.6 % 11.6-14.6 [facility] Erythrocyte distribution wid th standard deviationOrdered By: Musa Lin on 12-12-2024 Erythrocyte distribution width (RBC) [Ratio] 46.8 fl High 35.1-43.9 [facility] Glomerular filtration rate ( GFR) estimation/1.73 sq m using serum, plasma, or whole bOrdered By: Musa Awan on 12-12-2024 GFR/1.73 sq M.predicted among non-blacks MDRD (S/P/Bld) [Vol rate/Area] 85 mL/min/{1.73_m2} >60 [facility] Comment on above: mL/min/1.73m2 CKD-EP I Creatinine Equation (2020) H AND P Exam - [facility] 12-12-2024 H&P Exam - Hospitalist [facility] Medical Records Department [address] [place] [address] H P Exam - Hospitalist 12/12/24 1712 MR#: [id number] Acct: [id number] Name: KEM CHOUDHURY Rep #: [id number] : 1945 79 From: Nava Donovan MD PCP: 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 Reports yesterday was a normal day and today she woke up at her baseline however later in the day began questioning who her was and does not believe that her is her actual . This persisted for several hours and then she became combative so she was brought to the ED. In the ED patient afebrile, heart rate 77 blood pressure 139/83, respiratory rate 16 and pulse ox 97% on room air. CBC benign. BMP with a BUN 15 and creatinine 0.72. Brain CT [...] UTI so urine culture sent patient given IV Rocephin and hospitalist contacted for admission. Patient evaluated at bedside. not present at bedside so history obtained per report and from patient, she notes she is brought here because that man is claiming to be her . When asked about urinary symptoms she does endorse significant frequency since this morning and she said it is because she ate some watermelon. Aside from the frequency she denies any complaints PFSH Medical History Dementia Kidney stones Non-smoker Home Medications ???Medication ???Instructions ???Recorded ???Last Taken ???Type NK 12/12/24 Unknown History Allergy/AdvReac Type Severity [...] was standing up in room and walked away to go to the bathroom upon me entering, when asked what year it was she said urine but did know she was at [facility] and her date of HEENT: Atraumatic, [...] 0.300, Neut % (Auto) 61.2, Lymph % (more content not included)... Normal [facility] Hematocrit Auto (Bld) [Volum e fraction]Ordered By: [facility] on 12-12-2024 Hematocrit (Bld) [Volume fraction] 44.4 % 37-47 [facility] Hemoglobin measurementOrdere d By: [facility] on 12-12-2024 Hemoglobin (Bld) [Mass/Vol] 14.6 g/dL 12.0-15.0 [facility] Immature granulocytes/100 WB C Auto (Bld)Ordered By: [facility] 12-12-2024 Immature granulocytes/100 WBC (Bld) 0.300 % 0.0-0.9 [facility] Comment on above: IG% - Immature Granu locytes (promyelocytes, myelocytes and metamyelocytes) > 1% indicates that a LEFT SHIFT is Present. Ketones Test strip Ql (U)Ord ered By: Musa [facility] MarieDelia on 12-12-2024 Ketones Ql (U) Negative Negative [facility] L501.4021on 12-12-2024 Trop T High Sen 8 ng/L Normal <=14 [facility] Comment on above: Performed By: #### L 100.0100, L500.4050, L501.9100, L503.6005, L505.5000 #### [facility] [address] [place], [place], [address] Laboratory - Chemistry and C hemistry - challengeOrdered By: Musa Awan on 12-12-2024 AST [Catalytic activity/Vol] 23 U/L <32 [facility] Lactic Acidon 12-12-2024 Lactate [Moles/Vol] mmol/L Normal 0.0-2.0 [facility] Comment on above: Order Comment: Y Performed By: #### L 100.0100, L500.4050, L501.9100, L503.6005, L505.5000 #### [facility] [address] [place], [address] Lactic acid measurementOrder ed By: Musa Awan on 12-12-2024 Lactate [Moles/Vol] mmol/L 0.0-2.0 [facility] MCV (mean corpuscular volume ) determinationOrdered By: Musa Awan on 12-12-2024 MCV (RBC) [Entitic vol] 87.6 fL 81-99 [facility] Mean corpuscular hemoglobin (MCH) determinationOrdered By: Musa Awan on 12-12-2024 MCH (RBC) [Entitic mass] 28.8 pg 27.0-32.0 [facility] Mean corpuscular hemoglobin concentration (MCHC) determinationOrdered By: Musa Awan on 12-12-2024 MCHC (RBC) [Mass/Vol] 32.9 g/dL 32-36 [facility] Mean platelet volume determi nationOrdered By: Musa Awan on 12-12-2024 Platelet mean volume (Bld) [Entitic vol] 10.3 fL 6.2-12.0 [facility] Microscopic analysis of urin e for red blood cells (RBC)Ordered By: Musa Awan on 12-12-2024 Microscopic analysis of urine for red blood cells (RBC) 5-10 SEEN /hpf 0-5 [facility] Monocyte percentageOrdered B y: Musa Awan on 12-12-2024 Monocytes/100 WBC (Bld) 9.0 % 0-10 [facility] Mucus LM Ql (Urine sed)Order ed By: Musa Awan on 12-12-2024 Mucus Ql (Urine sed) 0 SEEN /hpf [facility] Neutrophil percentageOrdered By: Musa Awan on 12-12-2024 Neutrophils/100 WBC (Bld) 61.2 % 47-70 [facility] Nitrite Test strip Ql (U)Ord ered By: Musa Awan on 12-12-2024 Nitrite Ql (U) Negative Negative [facility] No Panel InformationOrdered By: Musa Awan on 12-12-2024 Urine Buprenorphine Qualitative Negative < 200 ng/mL [facility] Urine Oxycodone Screen Negative < 100 ng/mL [facility] Nucleated red blood cell per centageOrdered By: Musa Awan on 12-12-2024 Nucleated RBC/100 WBC (Bld) [Ratio] 0 % 0-5 [facility] Platelet countOrdered By: Jhoan Awan on 12-12-2024 Platelets (Bld) [#/Vol] 326 10*3/uL 150-450 [facility] Potassium measurement (mass/ volume)Ordered By: Musa Awan on 12-12-2024 Potassium (Unsp spec) [Mass/Vol] 4.0 mmol/L 3.3-5.1 [facility] Protein Test strip Ql (U)Ord ered By: Musa Awan on 12-12-2024 Protein Ql (U) 30 mg/dl High Negative [facility] Quantitative urine opiates m easurementOrdered By: Musa Awan on 12-12-2024 Opiates Ql (U) Negative < 300 ng/mL [facility] RBC Auto (Bld) [#/Vol]Ordere d By: Musa Awan on 12-12-2024 RBC (Bld) [#/Vol] 5.07 10*6/uL 4.2-5.4 [facility] Screening urine fentanyl scott surementOrdered By: Musa Awan on 12-12-2024 fentaNYL Screen Ql (U) Negative [facility] Serum creatinine measurement (mass/volume)Ordered By: Musa Awan on 12-12-2024 Creatinine [Mass/Vol] 0.72 mg/dL 0.70-1.20 [facility] Serum globulin measurementOr dered By: Musa Awan on 12-12-2024 Globulin (S) [Mass/Vol] 2.8 g/dL 2.2-4.2 [facility] Serum glucose measurement (m ass/volume)Ordered By: Musa Awan on 12-12-2024 Glucose [Mass/Vol] 114 mg/dL High 70-99 [facility] Serum or plasma alanine carter otransferase (ALT) measurementOrdered By: Musa Awan on 12-12-2024 ALT [Catalytic activity/Vol] 26 U/L <35 [facility] Serum or plasma albumin carlos urement (mass/volume)Ordered By: Musa Lin on 12-12-2024 Albumin [Mass/Vol] 4.1 g/dL 3.4-4.8 [facility] Serum or plasma albumin/glob ulin mass ratioOrdered By: Musa Awan on 12-12-2024 Albumin/Globulin [Mass ratio] 1.5 {ratio} 0.9-2.4 [facility] Serum or plasma alkaline majo sphatase measurementOrdered By: Musa Awan on 12-12-2024 ALP [Catalytic activity/Vol] 121 U/L High 35-104 [facility] Serum or plasma calcium carlos urement (mass/volume)Ordered By: Musa Lin on 12-12-2024 Calcium [Mass/Vol] 9.2 mg/dL 7.6-11.0 [facility] Serum or plasma ethanol carlos urement (mass/volume)Ordered By: Musa Lin on 12-12-2024 Ethanol [Mass/Vol] mg/dL <10.1 [facility] Comment on above: This test is for med ical purposes only. The legal definition of intoxication varies according to local law. Serum or plasma urea nitroge n measurement (mass/volume)Ordered By: Musa Awan on 12-12-2024 Urea nitrogen [Mass/Vol] 15 mg/dL 4-19 [facility] Sodium levelOrdered By: Todd Awan on 12-12-2024 Sodium [Moles/Vol] 141 mmol/L 133-145 [facility] Squamous epithelial cells de tection in urine sediment by light microscopyOrdered By: Musa Awan on 12-12-2024 Epithelial cells.squamous LM Ql (Urine sed) 0-5 SEEN /hpf 5-10 [facility] Total proteinOrdered By: Ryne Awan on 12-12-2024 Protein [Mass/Vol] 6.9 g/dL 5.9-8.4 [facility] Troponin T HS 2 HRon 025 Trop T High Sen 11 ng/L Normal <=14 [facility] Comment on above: Performed By: #### L 499.0042 #### [facility] [address] [place], [place], [id number] Troponin T HS 4 HRon 025 Trop T High Sen 12 ng/L Normal <=14 [facility] Comment on above: Performed By: #### L 100.0100, L500.4050, L501.9100, L503.6005, L505.5000 #### [facility] [address] [place], [place], [address] Troponin T.cardiac [Mass/vol ume] in Serum or Plasma by High sensitivity methodOrdered By: Nava Donovan on 12-12-2024 Troponin T.cardiac High sensitivity method [Mass/Vol] 12 ng/L <14 [facility] Troponin T.cardiac [Mass/vol ume] in Serum or Plasma by High sensitivity methodOrdered By: Musa Awan on 12-12-2024 Troponin T.cardiac High sensitivity method [Mass/Vol] 11 ng/L <14 [facility] Troponin T.cardiac High sensitivity method [Mass/Vol] 8 ng/L <14 [facility] Urinalysis, Completeon 12-12 EPI,SQUAMOUS 0-5 SEEN Normal 5-10 [facility] Comment on above: Order Comment: CLEAN CATCH Performed By: #### L 100.0100, L500.4050, L501.9100, L503.6005, L505.5000 #### [facility] [address] [place], [address] WBC >100 SEEN Normal 0-5 [facility] Comment on above: Order Comment: CLEAN CATCH Performed By: #### L 100.0100, L500.4050, L501.9100, L503.6005, L505.5000 #### [facility] [address] [place], [address] RBC 5-10 SEEN Normal 0-5 [facility] Comment on above: Order Comment: CLEAN CATCH Performed By: #### L 100.0100, L500.4050, L501.9100, L503.6005, L505.5000 #### [facility] [address] [place], [address] BACTERIA 0 SEEN Normal None Seen [facility] Comment on above: Order Comment: CLEAN CATCH Performed By: #### L 100.0100, L500.4050, L501.9100, L503.6005, L505.5000 #### [facility] [address] [place], [address] Mucus Ql (Urine sed) 0 SEEN Normal [facility] Comment on above: Order Comment: CLEAN CATCH Performed By: #### L 100.0100, L500.4050, L501.9100, L503.6005, L505.5000 #### [facility] [address] [place], [address] Urine Drug Screen (VISTA)on 08-11-2025 AMPHETAMINES Negative Normal <1000 ng/mL [facility] Comment on above: Performed By: #### L 100.0100, L500.4050, L501.9100, L503.6005, L505.5000 #### [facility] [address] [place], [address] BARBITIURATES Negative Normal < 200 ng/mL [facility] Comment on above: Performed By: #### L 100.0100, L500.4050, L501.9100, L503.6005, L505.5000 #### [facility] [address] [place], [address] BENZODIAZIPINE Negative Normal < 200 ng/mL [facility] Comment on above: Performed By: #### L 100.0100, L500.4050, L501.9100, L503.6005, L505.5000 #### [facility] [address] [place], [place], [facility] BUP Ur Drug Scr Negative Normal < 200 ng/mL [facility] Comment on above: Performed By: #### L 100.0100, L500.4050, L501.9100, L503.6005, L505.5000 #### [facility] [address] [place], [address] COCAINE Negative Normal < 300 ng/mL [facility] Comment on above: Performed By: #### L 100.0100, L500.4050, L501.9100, L503.6005, L505.5000 #### [facility] [address] [place], [address] Fentanyl Negative Normal [facility] Comment on above: Performed By: #### L 100.0100, L500.4050, L501.9100, L503.6005, L505.5000 #### [facility] [address] [place], [address] METHADONE Negative Normal < 300 ng/mL [facility] Comment on above: Performed By: #### L 100.0100, L500.4050, L501.9100, L503.6005, L505.5000 #### [facility] [address] [facility] [address] OPIATES Negative Normal < 300 ng/mL [facility] Comment on above: Performed By: #### L 100.0100, L500.4050, L501.9100, L503.6005, L505.5000 #### [facility] [address] [facility] [address] OXYCODONE Negative Normal < 100 ng/mL [facility] Comment on above: Performed By: #### L 100.0100, L500.4050, L501.9100, L503.6005, L505.5000 #### [facility] [place] [address] PCP Negative Normal < 25 ng/mL [facility] Comment on above: Performed By: #### L 100.0100, L500.4050, L501.9100, L503.6005, L505.5000 #### [facility] [address] [place], [facility] THC Negative Normal < 50 ng/mL [facility] Comment on above: Performed By: #### L 100.0100, L500.4050, L501.9100, L503.6005, L505.5000 #### [facility] [address] [place], [address] Urine benzodiazepine levelOr dered By: Musa Awan on 12-12-2024 Benzodiazepines Ql (U) Negative < 200 ng/mL [facility] Urine clarityOrdered By: Ryne Awan on 12-12-2024 Clarity (U) Sl. Cloudy Clear [facility] Urine cocaine levelOrdered B y: Musa Awan on 12-12-2024 Cocaine Ql (U) Negative < 300 ng/mL [facility] Urine color determinationOrd ered By: Musa Awan on 12-12-2024 Color (U) Straw Yellow [facility] Urine cultureOrdered By: Ryne Awan on 12-12-2024 Bacteria identified Cx Nom (U) Mixed Gram Pos & Gram Neg Org Abnormal [facility] [facility] Urine nfilk-6-[id number] abinol (THC) measurementOrdered By: Musa Lin on 12-12-2024 Cannabinoids Screen Ql (U) Negative < 50 ng/mL [facility] Urine glucose detectionOrder ed By: Musa Awan on 12-12-2024 Glucose Ql (U) Normal mg/dl Normal [facility] Urine leukocyte esterase det ection by dipstickOrdered By: Musa Awan on 12-12-2024 Leukocyte esterase Test strip Ql (U) 500 /ul High Negative [facility] Urine pHOrdered By: Musa Guerrero on 12-12-2024 pH (U) 7.0 [pH] 5.0 - 8.0 [facility] Urine phencyclidine (PCP) de tectionOrdered By: Musa Awan on 12-12-2024 Phencyclidine Ql (U) Negative < 25 ng/mL [facility] Urine sediment bacteria coun t by microscopy (number/high power field)Ordered By: Musa Awan on 12-12-2024 Bacteria LM.HPF (Urine sed) [#/Area] 0 /[HPF] None Seen [facility] Urine specific gravity measu rementOrdered By: Musa Awan on 12-12-2024 Specific gravity (U) [Rel density] 1.005 1.002-1.030 [facility] Urine urobilinogen measureme ntOrdered By: Musa Awan on 12-12-2024 Urobilinogen Ql (U) Normal mg/dl Normal [facility] White blood cell (WBC) count Ordered By: Musa Awan on 12-12-2024 WBC (Bld) [#/Vol] 9.1 10*3/uL 4.4-11.0 [facility] White blood cell countOrdere d By: Msua Awan on 12-12-2024 White blood cell count >100 SEEN /hpf 0-5 [facility] .Auto Diffon 11-18-2023 Basophil, Absolute 0.1 10 3/mcL Normal 0.0-0.2 [facility] ([place]) Comment on above: Performed By: #### G FR, A1C, LIPID, CMP, ANEU, ADIFF, CBC, VIDH #### [address] [address] #### PTH #### [address] [address] Basophils/100 WBC (Bld) 1.2 % Normal 0.0-2.5 [facility] ([place]) Comment on above: Performed By: #### G FR, A1C, LIPID, CMP, ANEU, ADIFF, CBC, VIDH #### [address] [address] #### PTH #### [address] [address] Eosinophil, Absolute 0.2 10 3/mcL Normal 0.0-0.4 [facility] ([place]) Comment on above: Performed By: #### G FR, A1C, LIPID, CMP, ANEU, ADIFF, CBC, VIDH #### [address] [address] #### PTH #### [address] [address] Eosinophils/100 WBC (Bld) 2.5 % Normal 0.0-7.0 [facility] ([place]) Comment on above: Performed By: #### G FR, A1C, LIPID, CMP, ANEU, ADIFF, CBC, VIDH #### [address] [address] #### PTH #### [address] [address] Lymphocyte, Absolute 1.9 10 3/mcL Normal 0.8-3.9 [facility] ([place]) Comment on above: Performed By: #### G FR, A1C, LIPID, CMP, ANEU, ADIFF, CBC, VIDH #### [address] [address] #### PTH #### [address] [address] Lymphocytes/100 WBC (Bld) 26.1 % Normal 10.0-50.0 [facility] ([place]) Comment on above: Performed By: #### G FR, A1C, LIPID, CMP, ANEU, ADIFF, CBC, VIDH #### [address] [address] #### PTH #### [address] [address] Monocyte, Absolute 0.5 10 3/mcL Normal 0.2-1.0 [facility] ([place]) Comment on above: Performed By: #### G FR, A1C, LIPID, CMP, ANEU, ADIFF, CBC, VIDH #### [address] [address] #### PTH #### [address] [address] Monocytes/100 WBC (Bld) 6.5 % Normal 1.7-13.0 [facility] ([place]) Comment on above: Performed By: #### G FR, A1C, LIPID, CMP, ANEU, ADIFF, CBC, VIDH #### [address] [address] #### PTH #### [address] [address] Neutrophils/100 WBC (Bld) 63.7 % Normal 37.0-80.0 [facility] ([place]) Comment on above: Performed By: #### G FR, A1C, LIPID, CMP, ANEU, ADIFF, CBC, VIDH #### [address] [address] #### PTH #### [address] [address] .GFRon 11-18-2023 GFR 87 ml/min/1.73sqm Normal [facility] ([place]) Comment on above: Result Comment: GFR Population [...] LIPID, CMP, ANEU, ADIFF, CBC, VIDH #### [address] [address] #### PTH #### [place] [address] GFR Non- 72 ml/min/1.73sqm Normal [facility] ([place]) Comment on above: Result Comment: GFR Population [...] LIPID, CMP, ANEU, ADIFF, CBC, VIDH #### [address] [address] #### PTH #### [place] [id number] .NEUABSon 11-18-2023 Neutrophil, Absolute 4.7 10 3/mcL Normal 2.9-6.2 [facility] ([place]) Comment on above: Performed By: #### G FR, A1C, LIPID, CMP, ANEU, ADIFF, CBC, VIDH #### [address] [address] #### PTH #### [address] [address] A1Con 11-18-2023 HbA1c (Bld) [Mass fraction] 5.6 % Normal 4.3-6.4 [facility] ([place]) Comment on above: Performed By: #### G FR, A1C, LIPID, CMP, ANEU, ADIFF, CBC, VIDH ####[address] [address]#### PTH ####[address] [address] CBCon 11-18-2023 Erythrocyte distribution width (RBC) [Ratio] 15.1 % High 11.5-14.5 [facility] ([place]) Comment on above: Performed By: #### G FR, A1C, LIPID, CMP, ANEU, ADIFF, CBC, VIDH #### [address] [address] #### PTH #### [address] [address] Hematocrit (Bld) [Volume fraction] 44.0 % Normal 37.0-47.0 [facility] ([place]) Comment on above: Performed By: #### G FR, A1C, LIPID, CMP, ANEU, ADIFF, CBC, VIDH #### [address] [address] #### PTH #### [address] [address] Hgb 14.7 G/dL Normal 12.0-16.0 [facility] ([place]) Comment on above: Performed By: #### G FR, A1C, LIPID, CMP, ANEU, ADIFF, CBC, VIDH #### [address] [address] #### PTH #### [address] [address] MCH (RBC) [Entitic mass] 29.5 pg Normal 27.0-31.2 [facility] ([place]) Comment on above: Performed By: #### G FR, A1C, LIPID, CMP, ANEU, ADIFF, CBC, VIDH #### [place] [address] #### PTH #### [place] [address] MCHC 33.4 G/dL Normal 33.0-37.0 [facility] ([place]) Comment on above: Performed By: #### G FR, A1C, LIPID, CMP, ANEU, ADIFF, CBC, VIDH #### [place] [address] #### PTH #### [place] [address] MCV (RBC) [Entitic vol] 88.4 fL Normal 80.0-94.0 [facility] ([place]) Comment on above: Performed By: #### G FR, A1C, LIPID, CMP, ANEU, ADIFF, CBC, VIDH #### [place] [address] #### PTH #### [place] [address] Platelet 295 10 3/mcL Normal 130-400 [facility] ([place]) Comment on above: Performed By: #### G FR, A1C, LIPID, CMP, ANEU, ADIFF, CBC, VIDH #### [place] [address] #### PTH #### [place] [address] Platelet mean volume (Bld) [Entitic vol] 8.7 fL Normal 7.4-10.4 [facility] ([place]) Comment on above: Performed By: #### G FR, A1C, LIPID, CMP, ANEU, ADIFF, CBC, VIDH #### [address] [address] #### PTH #### [address] [address] RBC 4.98 10 6/mcL Normal 4.20-5.40 [facility] ([place]) Comment on above: Performed By: #### G FR, A1C, LIPID, CMP, ANEU, ADIFF, CBC, VIDH #### [place] [address] #### PTH #### [place] [address] WBC 7.3 10 3/mcL Normal 4.6-10.8 [facility] ([place]) Comment on above: Performed By: #### G FR, A1C, LIPID, CMP, ANEU, ADIFF, CBC, VIDH #### [place] [address] #### PTH #### [place] [address] CMPon 11-18-2023 Albumin Level 3.7 G/dL Normal 3.4-4.8 [facility] ([place]) Comment on above: Performed By: #### G FR, A1C, LIPID, CMP, ANEU, ADIFF, CBC, VIDH #### [place] [address] #### PTH #### [place] [address] Albumin/Globulin [Mass ratio] 1.1 {ratio} Normal 1.1-2.5 [facility] ([place]) Comment on above: Performed By: #### G FR, A1C, LIPID, CMP, ANEU, ADIFF, CBC, VIDH #### [place] [address] #### PTH #### [place] [address] ALP [Catalytic activity/Vol] 122 U/L Normal 40-135 [facility] ([place]) Comment on above: Performed By: #### G FR, A1C, LIPID, CMP, ANEU, ADIFF, CBC, VIDH #### [place] [address] #### PTH #### [address] [address] ALT [Catalytic activity/Vol] 41 U/L Normal 14-59 [facility] ([place]) Comment on above: Performed By: #### G FR, A1C, LIPID, CMP, ANEU, ADIFF, CBC, VIDH #### [place] [address] #### PTH #### [address] [address] AST [Catalytic activity/Vol] 25 U/L Normal 10-40 [facility] ([place]) Comment on above: Performed By: #### G FR, A1C, LIPID, CMP, ANEU, ADIFF, CBC, VIDH #### [place] [address] #### PTH #### [address] [address] Bili Total 0.9 mg/dL Normal 0.2-1.0 [facility] ([place]) Comment on above: Result Comment: Use of this assay is not recommended for patients undergoing treatment with eltrombopag due to the potential for falsely elevated results. Performed By: #### G FR, A1C, LIPID, CMP, ANEU, ADIFF, CBC, VIDH #### [address] [address] #### PTH #### [address] [address] BUN/Creatinine Ratio 19 ratio Normal 7-27 [facility] ([place]) Comment on above: Performed By: #### G FR, A1C, LIPID, CMP, ANEU, ADIFF, CBC, VIDH #### [address] [address] #### PTH #### [address] [address] Calcium [Mass/Vol] 10.2 mg/dL Normal 8.4-10.2 [facility] ([place]) Comment on above: Performed By: #### G FR, A1C, LIPID, CMP, ANEU, ADIFF, CBC, VIDH #### [address] [address] #### PTH #### [address] [address] Chloride [Moles/Vol] 101 mmol/L Normal 98-107 [facility] ([place]) Comment on above: Performed By: #### G FR, A1C, LIPID, CMP, ANEU, ADIFF, CBC, VIDH #### [address] [address] #### PTH #### [address] [address] CO2 [Moles/Vol] 28 mmol/L Normal 23-31 [facility] ([place]) Comment on above: Performed By: #### G FR, A1C, LIPID, CMP, ANEU, ADIFF, CBC, VIDH #### [address] [address] #### PTH #### [address] [address] Creatinine [Mass/Vol] 0.78 mg/dL Normal 0.55-1.02 [facility] ([place]) Comment on above: Performed By: #### G FR, A1C, LIPID, CMP, ANEU, ADIFF, CBC, VIDH #### [address] [address] #### PTH #### [address] [address] Electrolyte Balance 7.0 mEq/L Normal 4.0-15.0 [facility] ([place]) Comment on above: Performed By: #### G FR, A1C, LIPID, CMP, ANEU, ADIFF, CBC, VIDH #### [address] [address] #### PTH #### [address] [address] Globulin 3.5 G/dL Normal [facility] ([place]) Comment on above: Performed By: #### G FR, A1C, LIPID, CMP, ANEU, ADIFF, CBC, VIDH #### [address] [address] #### PTH #### [address] [address] Glucose [Mass/Vol] 87 mg/dL Normal 83-110 [facility] ([place]) Comment on above: Performed By: #### G FR, A1C, LIPID, CMP, ANEU, ADIFF, CBC, VIDH #### [address] [address] #### PTH #### [address] [address] Potassium [Moles/Vol] 4.3 mmol/L Normal 3.5-5.1 [facility] ([place]) Comment on above: Performed By: #### G FR, A1C, LIPID, CMP, ANEU, ADIFF, CBC, VIDH #### [address] [address] #### PTH #### [address] [address] Sodium [Moles/Vol] 136 mmol/L Normal 136-145 [facility] ([place]) Comment on above: Performed By: #### G FR, A1C, LIPID, CMP, ANEU, ADIFF, CBC, VIDH #### [address] [address] #### PTH #### [address] [address] Total Protein 7.2 G/dL Normal 6.4-8.2 [facility] ([place]) Comment on above: Performed By: #### G FR, A1C, LIPID, CMP, ANEU, ADIFF, CBC, VIDH #### [address] [address] #### PTH #### [address] [address] Urea nitrogen [Mass/Vol] 15 mg/dL Normal 7-18 [facility] ([place]) Comment on above: Performed By: #### G FR, A1C, LIPID, CMP, ANEU, ADIFF, CBC, VIDH #### [address] [address] #### PTH #### [address] [address] LIPIDon 11-18-2023 Cholesterol [Mass/Vol] 200 mg/dL Normal 0-200 [facility] ([place]) Comment on above: Result Comment: Chol esterol Reference Interval: Less than 200 Desirable 200-239 Borderline high risk 240 and above High risk Performed By: #### G FR, A1C, LIPID, CMP, ANEU, ADIFF, CBC, VIDH #### [address] [address] #### PTH #### [address] [address] Cholesterol in HDL [Mass/Vol] 54 mg/dL Normal 40-60 [facility] ([place]) Comment on above: Performed By: #### G FR, A1C, LIPID, CMP, ANEU, ADIFF, CBC, VIDH #### [place] [address] #### PTH #### [address] [address] Cholesterol in LDL [Mass/Vol] 126 mg/dL Normal 0-130 [facility] ([place]) Comment on above: Performed By: #### G FR, A1C, LIPID, CMP, ANEU, ADIFF, CBC, VIDH #### [address] [address] #### PTH #### [address] [address] Triglyceride [Mass/Vol] 98 mg/dL Normal 0-150 [facility] ([place]) Comment on above: Result Comment: Trig lyceride Reference Interval: Less than 150 Normal 150-199 Borderline high risk 200-499 High risk 500 or higher Very high risk Performed By: #### G FR, A1C, LIPID, CMP, ANEU, ADIFF, CBC, VIDH #### [address] [address] #### PTH #### [address] [address] PTHon 11-18-2023 PTH, Intact 24.4 pg/mL Normal 18.5-88.0 [facility] ([place]) Comment on above: Performed By: #### G FR, A1C, LIPID, CMP, ANEU, ADIFF, CBC, VIDH ####[address] [address]#### PTH ####[address] [address] VIDHon 11-18-2023 Vit. D 25-Hydroxy 56.3 ng/mL Normal [facility] ([place]) Comment on above: Result Comment: Inte rpretive Values Based on Total 25(OH) Vitamin D: Deficient <20 ng/mL Insufficient 20 - <30 ng/mL Sufficient 30-100 ng/mL Performed By: #### G FR, A1C, LIPID, CMP, ANEU, ADIFF, CBC, VIDH #### [place] [id number] #### PTH #### [place] [address] RENINon 06-25-2023 Renin Activity 1.092 ng/mL/hr Normal 0.167-5.380 [facility] ([place]) Comment on above: Result Comment: This test was developed and its performance characteristics determined by [facility]. It has not been cleared or approved by the Food and Drug Administration. Performed At: [address] [id number] Karri Pagan MD Ph:[phone] Performed By: #### 0 [id number] #### [address] [address] .Auto Diffon 06-17-2023 Basophil, Absolute 0.1 10 3/mcL Normal 0.0-0.2 [facility] ([place]) Comment on above: Performed By: #### P TH ####[place] [address]#### CBC, LIPID, TSH, ADIFF, ANEU ####[address] [address] Basophils/100 WBC (Bld) 0.9 % Normal 0.0-2.5 [facility] ([place]) Comment on above: Performed By: #### P TH ####[place] [address]#### CBC, LIPID, TSH, ADIFF, ANEU ####[place] [address] [place], [place] [address] Eosinophil, Absolute 0.2 10 3/mcL Normal 0.0-0.4 [facility] ([place]) Comment on above: Performed By: #### P TH ####[place] [address]#### CBC, LIPID, TSH, ADIFF, ANEU ####[facility] [place], [place] [address] Eosinophils/100 WBC (Bld) 2.8 % Normal 0.0-7.0 [facility] ([place]) Comment on above: Performed By: #### P TH ####[place] [address]#### CBC, LIPID, TSH, ADIFF, ANEU ####[place] [address] [place], [place] [address] Lymphocyte, Absolute 1.9 10 3/mcL Normal 0.8-3.9 [facility] ([place]) Comment on above: Performed By: #### P TH ####[place] [address]#### CBC, LIPID, TSH, ADIFF, ANEU ####[facility] [place], [place] [address] Lymphocytes/100 WBC (Bld) 24.6 % Normal 10.0-50.0 [facility] ([place]) Comment on above: Performed By: #### P TH ####[place] [address]#### CBC, LIPID, TSH, ADIFF, ANEU ####[place] [address] [place], [place] [address] Monocyte, Absolute 0.5 10 3/mcL Normal 0.2-1.0 [facility] ([place]) Comment on above: Performed By: #### P TH ####[place] [address]#### CBC, LIPID, TSH, ADIFF, ANEU ####[place] [address] [place], [place] [address] Monocytes/100 WBC (Bld) 6.6 % Normal 1.7-13.0 [facility] ([place]) Comment on above: Performed By: #### P TH ####[facility] [place] [address]#### CBC, LIPID, TSH, ADIFF, ANEU ####[place] [address] [place], [place] [address] Neutrophils/100 WBC (Bld) 65.1 % Normal 37.0-80.0 [facility] ([place]) Comment on above: Performed By: #### P TH ####[address] [address]#### CBC, LIPID, TSH, ADIFF, ANEU ####[place] [place], [place] [address] .GFRon 06-17-2023 GFR 86 ml/min/1.73sqm Normal [facility] ([place]) Comment on above: Result Comment: GFR Population [...] #### V IDH, A1C, GFR, CMP ####[place] [address] [place], [place] [address] GFR Non- 71 ml/min/1.73sqm Normal [facility] ([place]) Comment on above: Result Comment: GFR Population [...] V IDH, A1C, GFR, CMP ####[place] [address] [place], [place] [address] .NEUABSon 06-17-2023 Neutrophil, Absolute 5.1 10 3/mcL Normal 2.9-6.2 [facility] ([place]) Comment on above: Performed By: #### P TH ####[place] [address]#### CBC, LIPID, TSH, ADIFF, ANEU ####[place] [address] [place], [place] [address] A1Con 06-17-2023 HbA1c (Bld) [Mass fraction] 5.1 % Normal 4.3-6.4 [facility] ([place]) Comment on above: Performed By: #### V IDH, A1C, GFR, CMP ####[place] [place] [phone] CBCon 06-17-2023 Erythrocyte distribution width (RBC) [Ratio] 14.2 % Normal 11.5-14.5 [facility] ([place]) Comment on above: Performed By: #### P TH ####[place] [address]#### CBC, LIPID, TSH, ADIFF, ANEU ####[address] [place] [address] Hematocrit (Bld) [Volume fraction] 43.3 % Normal 37.0-47.0 [facility] ([place]) Comment on above: Performed By: #### P TH ####[address] [address]#### CBC, LIPID, TSH, ADIFF, ANEU ####[facility] [place], [place] [address] Hgb 14.6 G/dL Normal 12.0-16.0 [facility] ([place]) Comment on above: Performed By: #### P TH ####[place] [address]#### CBC, LIPID, TSH, ADIFF, ANEU ####[facility] [place] [id number] MCH (RBC) [Entitic mass] 29.5 pg Normal 27.0-31.2 [facility] ([place]) Comment on above: Performed By: #### P TH ####[place] [address]#### CBC, LIPID, TSH, ADIFF, ANEU ####[place] [address] [place] [address] MCHC 33.7 G/dL Normal 33.0-37.0 [facility] ([place]) Comment on above: Performed By: #### P TH ####[place] [address]#### CBC, LIPID, TSH, ADIFF, ANEU ####[facility] [place] [id number] MCV (RBC) [Entitic vol] 87.5 fL Normal 80.0-94.0 [facility] ([place]) Comment on above: Performed By: #### P TH ####[place] [address]#### CBC, LIPID, TSH, ADIFF, ANEU ####[facility] [place], [place] [address] Platelet 315 10 3/mcL Normal 130-400 [facility] ([place]) Comment on above: Performed By: #### P TH ####[place] [address]#### CBC, LIPID, TSH, ADIFF, ANEU ####[place] [address] [place], [place] [address] Platelet mean volume (Bld) [Entitic vol] 8.4 fL Normal 7.4-10.4 [facility] ([place]) Comment on above: Performed By: #### P TH ####[address] [address]#### CBC, LIPID, TSH, ADIFF, ANEU ####[place] [place], [place] [address] RBC 4.95 10 6/mcL Normal 4.20-5.40 [facility] ([place]) Comment on above: Performed By: #### P TH ####[address] [address]#### CBC, LIPID, TSH, ADIFF, ANEU ####[place] [address] [place], [place] [address] WBC 7.8 10 3/mcL Normal 4.6-10.8 [facility] ([place]) Comment on above: Performed By: #### P TH ####[place] [address]#### CBC, LIPID, TSH, ADIFF, ANEU ####[place] [place], [place] [address] CMPon 06-17-2023 Albumin Level 3.5 G/dL Normal 3.4-4.8 [facility] ([place]) Comment on above: Performed By: #### V IDH, A1C, GFR, CMP ####[place] [place], [place] [address] Albumin/Globulin [Mass ratio] 1.0 {ratio} Low 1.1-2.5 [facility] ([place]) Comment on above: Performed By: #### V IDH, A1C, GFR, CMP ####[place] [place], [place] [address] ALP [Catalytic activity/Vol] 120 U/L Normal 40-135 [facility] ([place]) Comment on above: Performed By: #### V IDH, A1C, GFR, CMP ####[place] [place], [place] [address] ALT [Catalytic activity/Vol] 38 U/L Normal 14-59 [facility] ([place]) Comment on above: Performed By: #### V IDH, A1C, GFR, CMP ####[place] [address] [place], [place] [address] AST [Catalytic activity/Vol] 20 U/L Normal 10-40 [facility] ([place]) Comment on above: Performed By: #### V IDH, A1C, GFR, CMP ####[place] [address] [place], [place] [address] Bili Total 0.6 mg/dL Normal 0.2-1.0 [facility] ([place]) Comment on above: Result Comment: Use of this assay is not recommended for patients undergoing treatment with eltrombopag due to the potential for falsely elevated results. Performed By: #### V IDH, A1C, GFR, CMP ####[place] [address] [place], [place] [address] BUN/Creatinine Ratio 23 ratio Normal 7-27 [facility] ([place]) Comment on above: Performed By: #### V IDH, A1C, GFR, CMP ####[place] [address] [place], [place] [address] Calcium [Mass/Vol] 9.1 mg/dL Normal 8.4-10.2 [facility] ([place]) Comment on above: Performed By: #### V IDH, A1C, GFR, CMP ####[place] [place], [place] [address] Chloride [Moles/Vol] 106 mmol/L Normal 98-107 [facility] ([place]) Comment on above: Performed By: #### V IDH, A1C, GFR, CMP ####[place] [place], [place] [address] CO2 [Moles/Vol] 29 mmol/L Normal 23-31 [facility] ([place]) Comment on above: Performed By: #### V IDH, A1C, GFR, CMP ####[place] [place], [place] [address] Creatinine [Mass/Vol] 0.79 mg/dL Normal 0.55-1.02 [facility] ([place]) Comment on above: Performed By: #### V IDH, A1C, GFR, CMP ####[place] [place], [place] [address] Electrolyte Balance 7.0 mEq/L Normal 4.0-15.0 [facility] ([place]) Comment on above: Performed By: #### V IDH, A1C, GFR, CMP ####[place] [place], [place] [address] Globulin 3.5 G/dL Normal [facility] ([place]) Comment on above: Performed By: #### V IDH, A1C, GFR, CMP ####[place] [address] [place], [place] [address] Glucose [Mass/Vol] 94 mg/dL Normal 83-110 [facility] ([place]) Comment on above: Performed By: #### V IDH, A1C, GFR, CMP ####[place] [address] [place], [place] [address] Potassium [Moles/Vol] 4.2 mmol/L Normal 3.5-5.1 [facility] ([place]) Comment on above: Performed By: #### V IDH, A1C, GFR, CMP ####[place] [place], [place] [address] Sodium [Moles/Vol] 142 mmol/L Normal 136-145 [facility] ([place]) Comment on above: Performed By: #### V IDH, A1C, GFR, CMP ####[place] [place], [place] [address] Total Protein 7.0 G/dL Normal 6.4-8.2 [facility] ([place]) Comment on above: Performed By: #### V IDH, A1C, GFR, CMP ####[place] [place], [place] [address] Urea nitrogen [Mass/Vol] 18 mg/dL Normal 7-18 [facility] ([place]) Comment on above: Performed By: #### V IDH, A1C, GFR, CMP ####[place] [place], [place] [address] LIPIDon 06-17-2023 Cholesterol [Mass/Vol] 185 mg/dL Normal 0-200 [facility] ([place]) Comment on above: Result Comment: Chol esterol Reference Interval: Less than 200 Desirable 200-239 Borderline high risk 240 and above High risk Performed By: #### 0 [id number] #### [place] [address] [place], [place] [address] Cholesterol in HDL [Mass/Vol] 57 mg/dL Normal 40-60 [facility] ([place]) Comment on above: Performed By: #### 0 [id number] #### [place] [address] [place], [place] [address] Cholesterol in LDL [Mass/Vol] 105 mg/dL Normal 0-130 [facility] ([place]) Comment on above: Performed By: #### 0 [address] #### [place] [address] [place], [place] [address] Triglyceride [Mass/Vol] 117 mg/dL Normal 0-150 [facility] ([place]) Comment on above: Result Comment: Trig lyceride Reference Interval: Less than 150 Normal 150-199 Borderline high risk 200-499 High risk 500 or higher Very high risk Performed By: #### 0 [address] #### [place] [address] [address] MALBRon 06-17-2023 U Creatinine 144.4 mg/dL High 28.0-117.0 [facility] ([place]) Comment on above: Performed By: #### M ALBR ####[place] [place], [place] [address] U Microalb 1624 mcg/dL Normal [facility] ([place]) Comment on above: Performed By: #### M ALBR ####[place] [address] [place], [place] [address] U Ratio Alb/Cre 11 mcg/mg Normal 0-30 [facility] ([place]) Comment on above: Performed By: #### M ALBR ####[place] [place], [place] [address] PTHon 06-17-2023 PTH, Intact 42.4 pg/mL Normal 18.5-88.0 [facility] ([place]) Comment on above: Performed By: #### [id number] #### [id number] [place], [place] [address] TSHon 06-17-2023 TSH Qn 1.48 m[IU]/L Normal 0.36-3.74 [facility] ([place]) Comment on above: Performed By: #### [id number] #### [address] [place], [place] [address] VIDHon 06-17-2023 Vit. D 25-Hydroxy 56.2 ng/mL Normal [facility] ([place]) Comment on above: Result Comment: Inte rpretive Values Based on Total 25(OH) Vitamin D: Deficient <20 ng/mL Insufficient 20 - <30 ng/mL Sufficient 30-100 ng/mL Performed By: #### V IDH, A1C, GFR, CMP ####[facility] [address] [place], [place] [address] XR RIBS 2 VIEWS LEFT/PA CHES T(AO)on [...] Sign Date: 05/28/2023 11:11:38 AM Ordering Provider: AMILCAR GAYTAN [facility] ([place]) XR SHOULDER MINIMUM 2 VIEWS RIGHTon 04-15-2023 [...] Sign Date: 04/15/2023 11:26:06 PM Ordering Provider: AMILCAR [facility] ([place]) MA MAMMOGRAM SCREENING BILAT ERAL W/TOMOon 01-08-2023 [...] Sign Date: 01/08/2023 10:44:34 AM Ordering Provider: AMILCAR GAYTAN Amended BI-RADS: 2 Benign letter sent: Normal BI-RADS 1 and 2 ORIGINAL FROM: [address] [address] PROCEDURE FOR: KEM CHOUDHURY [address] [place] [address] Home: PID#: [id number] Exam#: [id number] : 1945 Age: 77 TO: 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 Vital Signs Date Time Vital Sign Value Performing Clinician Hi nguyen 12-15-2024 13:45-0400 Body temperature 98.7 [degF] Dr. Musa Awan DO Work Phone: [facility] 12-15-2024 13:45-0400 Diastolic blood pressure 61 mm[Hg] Dr. Musa Awan DO Work Phone: [facility] 12-15-2024 13:45-0400 Heart rate 68 /min Dr. Musa Awan DO Work Phone: [facility] 12-15-2024 13:45-0400 Respiratory rate 16 /min Dr. Musa Awan DO Work Phone: [facility] 12-15-2024 13:45-0400 SaO2% (BldA) [Mass fraction] 95 % Dr. Musa Awan DO Work Phone: [facility] 12-15-2024 13:45-0400 Systolic blood pressure 141 mm[Hg] Dr. Musa Awan DO Work Phone: 3(533)[phone] [place] [address] 12-12-2024 18:04-0400 Body height 157.[address] Musa Awan DO Work Phone: 2(572)[phone] [place] [address] 12-12-2024 18:04-0400 Body mass index (BMI) [Ratio] 32.6 kg/m2 Dr. Musa Awan DO Work Phone: 4(060)851-930182 [place] [address] 12-12-2024 18:04-0400 Body weight 80.[address] Musa Awan DO Work Phone: 4(366)[phone] [place] [address] 12-12-2024 17:23-0400 Body temperature 98.2 [degF] Dr. Musa Awan DO Work Phone: 8(149)[phone] [place] [address] 12-12-2024 17:23-0400 Diastolic blood pressure 81 mm[Hg] Dr. Musa Awan DO Work Phone: 5(743)208-108982 [place] [address] 12-12-2024 17:23-0400 Heart rate 73 /min Dr. Musa Awan DO Work Phone: 2(727)[phone] [place] [address] 12-12-2024 17:23-0400 Respiratory rate 14 /min Dr. Musa Awan DO Work Phone: 7(779)[phone] [place] [address] 12-12-2024 17:23-0400 SaO2% (BldA) [Mass fraction] 99 % Dr. Musa Awan DO Work Phone: 5(726)926-193282 [place] [address] 12-12-2024 17:23-0400 Systolic blood pressure 148 mm[Hg] Dr. Musa Awan DO Work Phone: 3(679)956-248882 [place] [address] 12-12-2024 14:08-0400 Body height 157.[address] Musa Awan DO Work Phone: 3([phone])084-704782 [place] [address] 12-12-2024 14:08-0400 Body mass index (BMI) [Ratio] 33.5 kg/m2 Dr. Musa Awan DO Work Phone: [facility] 12-12-2024 14:08-04[address] Body weight [address] Musa Awan DO Work Phone: [facility] Encounters Encounter Date Encounter Type Care Provider Facility Start: 12-14-2024 Non-patient / Non-visit Dr. Carmencita Sofia MD -[facility] Work Phone: Start: 12-13-2024 Non-patient / Non-visit Dr. Carmencita Sofia MD -[facility] Work Phone: Start: 12-12-2024 ambulatory Carmencita Sofia Facility :[facility] Start: 12-12-2024 End: 12-15-2024 Evaluation and management of inpatient Dr. Nava Donovan MD -[facility] Work Phone: Start: 12-12-2024 Non-patient / Non-visit Dr. 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 Facility:B Start: 11-18-2023 End: 11-18-2023 ambulatory AMILCAR D LUKAS LANDCARE FACILITATOR - FRUIT HARVESTER MACHINE OPERATOR Facility:[facility] Start: 06-17-2023 End: 06-17-2023 ambulatory AMILCAR D LUKAS LANDCARE FACILITATOR - FRUIT HARVESTER MACHINE OPERATOR Facility:[facility] Start: 05-26-2023 End: 05-26-2023 ambulatory AMILCAR D LUKAS LANDCARE FACILITATOR - FRUIT HARVESTER MACHINE OPERATOR Facility:[facility] Start: 04-23-2023 End: 05-22-2023 ambulatory AMILCAR D LUKAS LANDCARE FACILITATOR - FRUIT HARVESTER MACHINE OPERATOR Facility:[facility] Start: 04-23-2023 End: 05-22-2023 Physical therapy management AMILCAR D LUKAS LANDCARE FACILITATOR - FRUIT HARVESTER MACHINE OPERATOR [facility] Start: 04-14-2023 End: 04-14-2023 ambulatory AMILCAR D LUKAS LANDCARE FACILITATOR - FRUIT HARVESTER MACHINE OPERATOR Facility:[facility] Start: 04-14-2023 End: 04-14-2023 Patient encounter procedure AMILCAR GAYTAN LANDCARE FACILITATOR - FRUIT HARVESTER MACHINE OPERATOR [facility] Start: 01-07-2023 End: 01-07-2023 ambulatory AMILCAR GAYTAN LANDCARE FACILITATOR - FRUIT HARVESTER MACHINE OPERATOR Facility:[facility] Start: 01-07-2023 End: 01-07-2023 Patient encounter procedure AMILCAR GAYTAN LANDCARE FACILITATOR - FRUIT HARVESTER MACHINE OPERATOR [facility] Start: 05-13-2022 End: 05-13-2022 Patient encounter procedure AMILCAR GAYTAN LANDCARE FACILITATOR - FRUIT HARVESTER MACHINE OPERATOR [facility] Start: 10-28-2021 End: 10-28-2021 Patient encounter procedure AMILCAR GAYTAN LANDCARE FACILITATOR - FRUIT HARVESTER MACHINE OPERATOR [facility] Procedures Date Procedure Procedure Detail Performing Clinician Start: 12-15-[address] Musa Awan DO Work Phone: Start: 12-12-2024 X-ray of chest, PA a [...] Musa Awan DO Work Phone: Start: 12-12-[address] Musa Awan DO Work Phone: Start: 05-04-2017 Colonoscopy AMILCAR PEREZ LANDCARE FACILITATOR - FRUIT HARVESTER MACHINE OPERATOR Comment on above: Due in 2021 Breast structure (buck dy structure) AMILCAR GAYTAN LANDCARE FACILITATOR - FRUIT HARVESTER MACHINE OPERATOR Comment on above: Right breast biopsy- clip inserted Cholecystectomy AMILCAR TURNER LANDCARE FACILITATOR - FRUIT HARVESTER MACHINE OPERATOR Hysterectomy AMILCAR Cruz LANDCARE FACILITATOR - FRUIT HARVESTER MACHINE OPERATOR Comment on above: Partial Surgery (qualifier value) RI ZAN GAYTAN LANDCARE FACILITATOR - FRUIT HARVESTER MACHINE OPERATOR Comment on above: heart surgery as chi ld Plan of Treatment Date Care Activity Detail Author Start: 12-15-2024 Patient discharge [facility] Start: 12-12-2024 Following clinical p athway protocol [facility] Start: 12-12-2024 Assessment of risk o f venous thromboembolism [facility] Start: 12-12-2024 Inhalation therapy procedure [facility] Start: 12-12-2024 Measuring intake and output [facility] Start: 12-12-2024 Provision of activit y privileges [facility] Start: 12-12-2024 Referral to service [facility] Start: 12-12-2024 [facility] Start: 12-12-2024 Urinary bladder resi dual urine study [facility] Start: 12-12-2024 Verification routine [facility] Start: 12-12-2024 Admission procedure [facility] Start: 12-12-2024 Hospital admission, emergency, from emergency room, medical nature [facility] Start: 12-12-2024 End: 12-12-2024 [facility] Start: 12-12-2024 Consultation [facility] Start: 12-12-2024 Bacteria identified in Urine by Culture Urine Culture [facility] Start: 12-12-2024 [facility] Urine culture [facility] Immunizations Immunization Date Immunization Notes Care Provider Fa cullen 04-10-2022 influenza, high dose seasonal, preservative-free AMILCAR GAYTAN LANDCARE FACILITATOR - FRUIT HARVESTER MACHINE OPERATOR [facility] [place] 08-17-2021 SARS-CoV-2 mRNA (ndhcncoerlz-mswx-petled e) vaccine AMILCAR GAYTAN LANDCARE FACILITATOR - FRUIT HARVESTER MACHINE OPERATOR [facility] [place] 03-30-2021 SARS-CoV-2 mRNA (tozinameran) vaccine AMILCAR GAYTAN LANDCARE FACILITATOR - FRUIT HARVESTER MACHINE OPERATOR [facility] 07-12-2020 SARS-CoV-2 (COVID-19 ) Ad26 vaccine, recombinant AMILCAR GAYTAN LANDCARE FACILITATOR - FRUIT HARVESTER MACHINE OPERATOR [facility] Comment on above: Result Comment: 2020: [id number] 04-13-2020 influenza, injectabl e, quadrivalent, contains preservative; Translations: [Fluarix PF Quadrivalent ] AMILCAR GAYTAN LANDCARE FACILITATOR - FRUIT HARVESTER MACHINE OPERATOR [facility] 03-04-2018 influenza virus vacc ine, unspecified formulation AMILCAR GAYTAN LANDCARE FACILITATOR - FRUIT HARVESTER MACHINE OPERATOR [facility] 01-29-2017 influenza virus vacc ine, unspecified formulation AMILCAR GAYTAN LANDCARE FACILITATOR - FRUIT HARVESTER MACHINE OPERATOR [facility] 01-02-2017 influenza virus vacc ine, unspecified formulation AMILCAR GAYTAN LANDCARE FACILITATOR - FRUIT HARVESTER MACHINE OPERATOR [facility] 02-23-2016 zoster vaccine, live AMILCAR GAYTAN LANDCARE FACILITATOR - FRUIT HARVESTER MACHINE OPERATOR [facility] 01-21-2016 influenza virus vacc ine, unspecified formulation AMILCAR GAYTAN LANDCARE FACILITATOR - FRUIT HARVESTER MACHINE OPERATOR [facility] 01-21-2016 pneumococcal conjuga te vaccine, 13 valent AMILCAR GAYTAN LANDCARE FACILITATOR - FRUIT HARVESTER MACHINE OPERATOR [facility] 02-15-2015 influenza virus vacc ine, unspecified formulation AMILCAR GAYTAN LANDCARE FACILITATOR - FRUIT HARVESTER MACHINE OPERATOR [facility] 05-23-2014 pneumococcal polysaccharide vaccine, 23 valent AMILCAR GAYTAN LANDCARE FACILITATOR - FRUIT HARVESTER MACHINE OPERATOR [facility] 03-04-2014 influenza virus vacc ine, unspecified formulation AMILCAR GAYTAN LANDCARE FACILITATOR - FRUIT HARVESTER MACHINE OPERATOR [facility] 10-22-2012 tetanus toxoid, redu mary beth diphtheria toxoid, and acellular pertussis vaccine, adsorbed AMILCAR GAYTAN LANDCARE FACILITATOR - FRUIT HARVESTER MACHINE OPERATOR [facility] Payers Date Payer Category Payer Self-pay 2015 Private Health Insurance [id number] 2012 Medicare [id number] 2012 Medicare [id number] 1945 Unknown [id number] 2.16.8 [id number] 1945 Unknown [id number] 2.16.8 [id number] 1945 Unknown [id number] 2.16.8 [id number] 1945 Unknown [id number] 2.16.8 [id number] 1945 Unknown [id number] 2.16.8 [id number] 1945 Unknown [id number] 2.16.8 [id number] 1945 Unknown [id number] 2.16.8 [id number] Unknown [id number] 2.16.8 [id number] Unknown [id number] 2.16.8 [id number] Unknown [id number] 2.16.8 [id number] Unknown [id number] 2.16.8 [id number] Unknown [id number] 2.16.8 [id number] Social History Date Type Detail Facility Start: 02-03-2019 End: 12-12-2024 Tobacco smoking status Never smoked tobacco (finding) [facility] Start: 1945 Sex Assigned At Female A [facility] Start: 01-31-2013 Alcohol Alcohol [facility] Start: 07-21-2016 Tobacco Use Tobacco Use [facility] Medical Equipment Procedure Code Equipment Code Equipment Origin al Text Equipment Identifier Dates CANNULA FDA Start: 07-14-2017 CANNULA FDA Start: 07-14-2017 EXPRESSEW III NEEDLE FDA Star t: 07-14-2017 CANNULA FDA Start: 07-14-2017 CANNULA FDA Start: 07-14-2017 EXPRESSEW III NEEDLE FDA Star t: 07-14-2017 Goals Date Patient Goal Desired Activity /State Functional Status Date Assessment Result Facility 12-15-2024 Functional status Chair [facility] Work Phone: 12-14-2024 Functional status Tolerates Activity Well [facility] Work Phone: 04-23-2023 Functional Status Home Living Ad ditional [...] bilat UE's: Reflexes1+ bilat biceps and triceps. [facility] Mental Status Date Assessment Result Facility 12-15-2024 Cognitive function Patient Orisandro harris Person;Place [facility] Work Phone: 12-14-2024 Cognitive function Voice/Name [facility] Work Phone: 12-12-2024 Cognitive function Level Of Cons ciousness Awake;Alert;Inappropriate;Diso riented [facility] Work Phone: Clinical Notes 01-07-2023 to 12-15-2024 Note Date & Type Note Facility 12-15-2024 Discharge summary [facility] 12-15-2024 Note [facility] Medical Records Department [address] [place] [address] Discharge Summary 12/15/24 1251 MR#: [id number] Acct: [id number] Name: KEM CHOUDHURY Rep #: [id number] : 1945 79 From: Roly Lilly DO PCP: MAGGY Ortega Status:DIS IN Location: PR3 RH624-4 Providers Date of Admission: 12/12/24 Date of Discharge: 12/15/24 Primary Care Physician: MAGGY Ortega Reason For Visit: SUSPECTED URINARY TRACT INFECTION CAUSING Diagnosis Discharge Diagnosis (1) Altered mental status: Status: Acute Code(s): R41.82 - Altered mental status, unspecified (2) Abnormal urinalysis: Status: Acute Code(s): R82.90 - Unspecified abnormal findings in urine Medications at Discharge Home Medications nitrofurantoin monohydrate/macrocrystals 100 mg capsule (Macrobid) 100 mg PO BID 2 days #4 caps 12/15/24 Hospital Course Operations None Procedures EKG and - (Chest x-ray, CT brain) Summary of Care Provided Minutes Spent on Discharge: 35 Hospital Course: Patient is a 79-year-old female who presented [facility] ED on 12/12/2024 with confusion. Hospital course as noted below. Patient discharged home in stable condition on 12/15. 1. Acute encephalopathy with agitation possibly secondary to UTI with underlying mild cognitive impairment versus dementia ??? Lives at home with , presented with confusion and agitation. UA with 500 leukocyte esterase, negative nitrites, greater than 100 WBCs, few bacteria. Urine culture grew only 11-25,000 mixed gram-positive and gram-negative organisms. Treated with IV ceftriaxone with fairly quick improvement in mental status. However, she remained only alert and oriented to person and place but not time during the hospitalization. Of note, she was pleasant for the last few days of hospitalization and would answer most questions with short appropriate responses. noted that she can still complete ADLs but has seemed more forgetful over the past several months. Discharged on Macrobid to complete 5-day course of antibiotics total. Recommended close follow-up with PCP and consideration of establishing with geriatrics for more complete dementia evaluation. Total clinical time spent by myself addressing the patient's medical issues, reviewing all the data, and collaborating with patient's care team: 35 minutes. Physical Exam Const alert and no apparent distress Constitutional Narrative: Pleasant elderly female, class I obesity, alert and oriented to person and place but not time, otherwise sitting back comfortably in bed, conversing normally, in no acute distress. General Appearance: cooperative and comfortable HEENT normocephalic, head/scalp atraumatic, hearing grossly normal bilaterally, nasal mucous membranes and turbinates normal and moist oral mucous membranes Eyes PERRL, EOMs intact bilaterally and conjunctivae normal Neck full ROM Chest inspection of chest normal Resp normal respiratory effort, normal air movement, no use of accessory muscles and clear to auscultation bilaterally Cardio regular rate, regular rhythm, no murmurs and peripheral pulses 2+ throughout GI normal to inspection, nondistended, normoactive bowel sounds, soft to palpation, non-tender and non- distended Back/Spine normal ROM Extremity normal to inspection, full ROM and no pedal edema Skin no rashes or lesions noted Psych mental status grossly normal Weight / BMI Weight Weight: 80.966 kg Body Mass Index (BMI) 32.6 ABG / Lab / Microbiology Data 12/15/24 06:32 12/15/24 06:32 Laboratory: Laboratory Results - last 24 hr 12/15/24 06:32: WBC 7.1, RBC 4.91, Hgb 14.0, Hct 43.2, MCV 88.0, MCH 28.5, MCHC 32.4, RDW Std Deviation 47.5 H, RDW Coeff of Danna 14.6, Plt Count 317, MPV 10.4, Immature Gran % (Auto) 0.400, Neut % (Auto) 59.7, Lymph % (Auto) 27.0, Day % (Auto) 7.9, Eos % (Auto) 4.0, Baso % (Auto) 1.0, Absolute Neuts (auto) 4.2, Absolute Lymphs (auto) 1.91, Nucleated RBC % 0, Sodium 139, Potassium 3.8, Chloride 106, Carbon Dioxide 20.9 L, Anion Gap 13, BUN 10, Creatinine 0.72, Estim Creat Clear Calc 58.06, Est GFR (MDRD) Non-Af 86, BUN/Creatinine Ratio 14.0, Glucose 103 H, Calcium 9.0 Microbiology: Microbiology 12/12/24 14:57 Urine, Clean Catch Urine Culture - Final Mixed Gram Pos Gram Neg Org D/C Instructions DC O2, CPAP, BIPAP Needs Home O2 Discharge instructions: No Meaningful Use Info Meaningful Use Meaningful Use Diagnoses (Choose all that apply): None applicable Discharge Plan Admission Admit Date/Time: 12/12/24 17:12 Primary Reason for Your Visit: confusion and urinary frequency Attending Provider: Roly Lilly Primary Care Provider: Amilcar Gaytan FLAT GRINDER OPERATOR Consulting Providers: Bryan Donovan (more content not included)... [facility] 12-14-2024 Progress note Note Date/Time December 14, 2024 5:53pm [facility] Medical Records Department [address] [place] [address] Progress Note 12/14/24 1326 MR#: [id number] Acct: [id number] Name: KEM CHOUDHURY Rep #:[id number] : 1945 79 From: Carmencita Sofia MD PCP: Amilcar Gaytan, MAGGY French tus:ADM IN Location: MS3 TT947-9 Subjective Subjective Patient seen and examined. She feels well and has no complaints. She is feeling much better today. I saw her with her nurse by her bedside. Review of systems otherwise negative. She has remained hemodynamically stable. Objective Data Objective Data Vital Signs: Vital Signs Temp Pulse Resp BP Pulse Ox O2 Del Method 96.5 F L 73 17 149/62 H 95 Room Air 12/14/24 09:06 12/14/24 09:06 12/14/24 09:06 12/14/24 09:06 12/14/24 09:06 12/14/24 09:06 Oxygen Delivery Method Room Air Weight: 178 lb 8 oz Body Mass Index (BMI) 32.6 Intake & Output: Intake and Output for Last 24 Hours 12/12/24 12/13/24 12/14/24 23:59 23:59 23:59 Intake Total 50 / 50 50 / 50 250 / 250 Output Total 400 / 400 Balance 50 / 50 -350 / -350 250 / 250 Lab / Micro Data 12/14/24 06:07 12/14/24 06:07 Labs: Laboratory Results - last 24 hr 12/14/24 06:07: WBC 7.4, RBC 4.94, Hgb 14.2, Hct 43.4, MCV 87.9, MCH 28.7, MCHC 32.7, RDW Std Deviation 47.9 H, RDW Coeff of Danna 14.8 H, Plt Count 308, MPV 10.1, Immature Gran % (Auto) 0.500, Neut % (Auto) 56.3, Lymph % (Auto) 30.9, Day % (Auto) 7.7, Eos % (Auto) 3.7, Baso % (Auto) 0.9, Absolute Neuts (auto) 4.1, Absolute Lymphs (auto) 2.28, Nucleated RBC % 0, Sodium 140, Potassium 3.7, Chloride 106, Carbon Dioxide 22.9, Anion Gap 11, BUN 9, Creatinine 0.72, Estim Creat Clear Calc 58.06, Est GFR (MDRD) Non-Af 86, BUN/Creatinine Ratio 12.8, Glucose 123 H, Calcium 9.0 Physical Exam Const alert, oriented x3 and no apparent distress General Appearance: cooperative HEENT normocephalic, head/scalp atraumatic, moist oral mucous membranes and oropharynxnormal Eyes PERRL and EOMs intact bilaterally Neck no lymphadenopathy and supple Lymph Lymphatic: no lymphedema noted Resp normal respiratory effort, normal air movement and clear to auscultation bilaterally Cardio regular rate, regular rhythm, S1 normal heart sound, S2 normal heart sound and no murmurs GI normal to inspection, nondistended, normoactive bowel sounds, soft to palpation,non-tender and non-distended Extremity normal capillary refill, no clubbing, cyanosis or edema and no calf tenderness General Extremity: no tenderness to palpation of joints or extremities Skin General Skin Exam: no breakdown Neuro CN's II-XII intact bilaterally and no focal motor deficits Motor Exam: strength 5/5 throughout Psych thought process normal, cooperative and affect normal Appearance: appropriate Assessment & Plan Assessment/Plan (1) Altered mental status: (2) Abnormal urinalysis: PLAN: Plan #Acute encephalopathy due to UTI * Her mentation has improved. She is much more alert and communicative. * On IV ceftriaxone. Urine cultures pending. * CT brain showed no acute intracranial pathology. PT OT on board. For precautions. #DVT prophylaxis: Lovenox Charges/Coding Visit Charges Inpatient E&M: 25161 Subs Hosp L2 12/14/24 6606 <Electronically signed by Carmencita Sofia MD> Carmencita Sofia MD Cosigner Signature (if applicable): CC: ~ Signed [facility] Work Phone: 1(419) 334-868908-13-2025 Progress note [facility] Medical Records Department [address] [place] [address] Progress Note 12/14/24 1326 MR#: [id number] Acct: [id number] Name: KEM CHOUDHURY Rep #:[id number] : 1945 79 From: Carmencita Sofia MD PCP: Amilcar Gaytan, MAGGY Sta tus:ADM IN Location: PR3 PC539-4 Subjective Subjective Patient seen and examined. She feels well and has no complaints. She is feeling much better today. I saw her with her nurse by her bedside. Review of systems otherwise negative. She has remained hemodynamically stable. Objective Data Objective Data Vital Signs: Vital Signs Temp Pulse Resp BP Pulse Ox O2 Del Method 96.5 F L 73 17 149/62 H 95 Room Air 12/14/24 09:06 12/14/24 09:06 12/14/24 09:06 12/14/24 09:06 12/14/24 09:06 12/14/24 09:06 Oxygen Delivery Method Room Air Weight: 178 lb 8 oz Body Mass Index (BMI) 32.6 Intake & Output: Intake and Output for Last 24 Hours 12/12/24 12/13/24 12/14/24 23:59 23:59 23:59 Intake Total 50 / 50 50 / 50 250 / 250 Output Total 400 / 400 Balance 50 / 50 -350 / -350 250 / 250 Lab / Micro Data 12/14/24 06:07 12/14/24 06:07 Labs: Laboratory Results - last 24 hr 12/14/24 06:07: WBC 7.4, RBC 4.94, Hgb 14.2, Hct 43.4, MCV 87.9, MCH 28.7, MCHC 32.7, RDW Std Deviation 47.9 H, RDW Coeff of Danna 14.8 H, Plt Count 308, MPV 10.1, Immature Gran % (Auto) 0.500, Neut % (Auto) 56.3, Lymph % (Auto) 30.9, Day % (Auto) 7.7, Eos % (Auto) 3.7, Baso % (Auto) 0.9, Absolute Neuts (auto) 4.1, Absolute Lymphs (auto) 2.28, Nucleated RBC % 0, Sodium 140, Potassium 3.7, [id number], Carbon Dioxide 22.9, Anion Gap 11, BUN 9, Creatinine 0.72, Estim Creat Clear Calc 58.06, Est GFR (MDRD) Non-Af 86, BUN/Creatinine Ratio 12.8, Glucose 123 H, Calcium 9.0 Physical Exam Const alert, oriented x3 and no apparent distress General Appearance: cooperative HEENT normocephalic, head/scalp atraumatic, moist oral mucous membranes and oropharynxnormal Eyes PERRL and EOMs intact bilaterally Neck no lymphadenopathy and supple Lymph Lymphatic: no lymphedema noted Resp normal respiratory effort, normal air movement and clear to auscultation bilaterally Cardio regular rate, regular rhythm, S1 normal heart sound, S2 normal heart sound and no murmurs GI normal to inspection, nondistended, normoactive bowel sounds, soft to palpation,non-tender and non-distended Extremity normal capillary refill, no clubbing, cyanosis or edema and no calf tenderness General Extremity: no tenderness to palpation of joints or extremities Skin General Skin Exam: no breakdown Neuro CN's II-XII intact bilaterally and no focal motor deficits Motor Exam: strength 5/5 throughout Psych thought process normal, cooperative and affect normal Appearance: appropriate Assessment & Plan Assessment/Plan (1) Altered mental status: (2) Abnormal urinalysis: PLAN: Plan #Acute encephalopathy due to UTI * Her mentation has improved. She is much more alert and communicative. * On IV ceftriaxone. Urine cultures pending. * CT brain showed no acute intracranial pathology. PT OT on board. For precautions. #DVT prophylaxis: Lovenox Charges/Coding Visit Charges Inpatient E&M: 01470 Subs Hosp L2 12/14/24 1753 Carmencita Sofia MD Cosigner Signature (if applicable): CC: ~ Signed [facility]08-12-2025 Progress note Author [facility] Note Date/Time December 13, 2024 4: 58pm [facility] Medical Records Department [address] [place] [address] Progress Note 12/13/24 1651 MR#: [id number] Acct: [id number] Name: KEM COHUDHURY Rep #:[id number] : 1945 79 From: Carmencita Sofia MD PCP: MAGGY Ortega tus:ADM IN Location: [place] [address]-1 Subjective Subjective Patient seen and examined. She was admitted with a complaint of altered mental status and found to have UTI. She is therefore being treated for UTI. I saw her with her nurse by her bedside. She had no active complaints. She denied any fever, chills, nausea or vomiting or palpitations. Review of systems otherwise negative. Objective Data Objective Data Vital Signs: Vital Signs Temp Pulse Resp BP Pulse Ox O2 Del Method 97.8 F 69 18 133/58 H 97 Room Air 12/13/24 14:25 12/13/24 14:25 12/13/24 14:25 12/13/24 14:25 12/13/24 14:25 12/13/24 14:25 Oxygen Delivery Method Room Air Weight: 178 lb 8 oz Body Mass Index (BMI) 32.6 Intake & Output: Intake and Output for Last 24 Hours 12/11/24 12/12/24 12/13/24 23:59 23:59 23:59 Intake Total 50 / 50 50 / 50 Output Total 300 / 300 Balance 50 / 50 -250 / -250 Lab / Micro Data 12/13/24 05:21 12/13/24 05:21 Labs: Laboratory Results - last 24 hr 12/12/24 14:42: Troponin T High Sens 8 12/12/24 16:33: Troponin T Hi Sens 2 Hr 11 12/12/24 20:37: Troponin T Hi Sens 4Hr 12 12/13/24 05:21: WBC 7.1, RBC 4.75, Hgb 13.6, Hct 41.7, MCV 87.8, MCH 28.6, MCHC 32.6, RDW Std Deviation 47.1 H, RDW Coeff of Danna 14.6, Plt Count 301, MPV 10.2, Immature Gran % (Auto) 0.400, Neut % (Auto) 56.4, Lymph % (Auto) 29.9, Day % (Auto) 8.2, Eos % (Auto) 4.4, Baso % (Auto) 0.7, Absolute Neuts (auto) 4.0, Absolute Lymphs (auto) 2.12, Nucleated RBC % 0, Sodium 138, Potassium 3.7, Chloride 105, Carbon Dioxide 21.3, Anion Gap 11, BUN 14, Creatinine 0.70, Estim Creat Clear Calc 58.06, Est GFR (MDRD) Non-Af 89, BUN/Creatinine Ratio 19.6, Glucose 108 H, Calcium 8.8, TSH 3.180 Physical Exam Const alert, oriented x3 and no apparent distress General Appearance: cooperative HEENT normocephalic, head/scalp atraumatic, moist oral mucous membranes and oropharynxnormal Eyes PERRL and EOMs intact bilaterally Neck no lymphadenopathy and supple Lymph Lymphatic: no lymphedema noted Resp normal respiratory effort, normal air movement and clear to auscultation bilaterally Cardio regular rate, regular rhythm, S1 normal heart sound, S2 normal heart sound and no murmurs GI normal to inspection, nondistended, normoactive bowel sounds, soft to palpation,non-tender and non-distended Extremity normal capillary refill, no clubbing, cyanosis or edema and no calf tenderness General Extremity: no tenderness to palpation of joints or extremities Skin General Skin Exam: no breakdown Neuro CN's II-XII intact bilaterally and no focal motor deficits Motor Exam: strength 5/5 throughout Psych thought process normal, cooperative and affect normal Appearance: appropriate Assessment & Plan Assessment/Plan (1) Altered mental status: (2) Abnormal urinalysis: PLAN: Plan #Acute encephalopathy due to UTI * Her mentation has improved. She is much more alert and communicative. * On IV ceftriaxone. Urine cultures pending. * CT brain showed no acute intracranial pathology. PT OT on board. For precautions. #DVT prophylaxis: Lovenox Charges/Coding Visit Charges Inpatient E&M: 96078 Subs Hosp L2 12/13/241657 <Electronically signed by Carmencita Sofia MD> Carmencita Sofia MD Cosigner Signature (if applicable): CC: ~ Signed [facility] Work Phone: 1(263) 158-521608-12-2025 Progress note [facility] Medical Records Department [address] [place] [address] Progress Note 12/13/24 1651 MR#: [id number] Acct: [id number] Name: KEM CHOUDHURY Rep #:[id number] : 1945 79 From: Carmencita Sofia MD PCP: MAGGY Ortega tus:ADM IN Location: [place] [address]-1 Subjective Subjective Patient seen and examined. She was admitted with a complaint of altered mental status and found to have UTI. She is therefore being treated for UTI. I saw her with her nurse by her bedside. She had no active complaints. She denied any fever, chills, nausea or vomiting or palpitations. Review of systems otherwise negative. Objective Data Objective Data Vital Signs: Vital Signs Temp Pulse Resp BP Pulse Ox O2 Del Method 97.8 F 69 18 133/58 H 97 Room Air 12/13/24 14:25 12/13/24 14:25 12/13/24 14:25 12/13/24 14:25 12/13/24 14:25 12/13/24 14:25 Oxygen Delivery Method Room Air Weight: 178 lb 8 oz Body Mass Index (BMI) 32.6 Intake & Output: Intake and Output for Last 24 Hours 12/11/24 12/12/24 12/13/24 23:59 23:59 23:59 Intake Total 50 / 50 50 / 50 Output Total 300 / 300 Balance 50 / 50 -250 / -250 Lab / Micro Data 12/13/24 05:21 12/13/24 05:21 Labs: Laboratory Results - last 24 hr 12/12/24 14:42: Troponin T High Sens 8 12/12/24 16:33: Troponin T Hi Sens 2 Hr 11 12/12/24 20:37: Troponin T Hi Sens 4Hr 12 12/13/24 05:21: WBC 7.1, RBC 4.75, Hgb 13.6, Hct 41.7, MCV 87.8, MCH 28.6, MCHC 32.6, RDW Std Deviation 47.1 H, RDW Coeff of Danna 14.6, Plt Count 301, MPV 10.2, Immature Gran % (Auto) 0.400, Neut % (Auto) 56.4, Lymph % (Auto) 29.9, Day % (Auto) 8.2, Eos % (Auto) 4.4, Baso % (Auto) 0.7, Absolute Neuts (auto) 4.0, Absolute Lymphs (auto) 2.12, Nucleated RBC % 0, Sodium 138, Potassium 3.7, Chloride 105, Carbon Dioxide 21.3, Anion Gap 11, BUN 14, Creatinine 0.70, Estim Creat Clear Calc 58.06, Est GFR (MDRD) Non-Af 89, BUN/Creatinine Ratio 19.6, Glucose 108 H, Calcium 8.8, TSH 3.180 Physical Exam Const alert, oriented x3 and no apparent distress General Appearance: cooperative HEENT normocephalic, head/scalp atraumatic, moist oral mucous membranes and oropharynxnormal Eyes PERRL and EOMs intact bilaterally Neck no lymphadenopathy and supple Lymph Lymphatic: no lymphedema noted Resp normal respiratory effort, normal air movement and clear to auscultation bilaterally Cardio regular rate, regular rhythm, S1 normal heart sound, S2 normal heart sound and no murmurs GI normal to inspection, nondistended, normoactive bowel sounds, soft to palpation,non-tender and non-distended Extremity normal capillary refill, no clubbing, cyanosis or edema and no calf tenderness General Extremity: no tenderness to palpation of joints or extremities Skin General Skin Exam: no breakdown Neuro CN's II-XII intact bilaterally and no focal motor deficits Motor Exam: strength 5/5 throughout Psych thought process normal, cooperative and affect normal Appearance: appropriate Assessment & Plan Assessment/Plan (1) Altered mental status: (2) Abnormal urinalysis: PLAN: Plan #Acute encephalopathy due to UTI * Her mentation has improved. She is much more alert and communicative. * On IV ceftriaxone. Urine cultures pending. * CT brain showed no acute intracranial pathology. PT OT on board. For precautions. #DVT prophylaxis: Lovenox Charges/Coding Visit Charges Inpatient E&M: 13604 Subs Hosp L2 12/13/24 1327 Carmencita Sofia MD Cosigner Signature (if applicable): CC: ~ Signed [facility]08-11-2025 History and physical note Author Nava Donovan [facility] Note Date/Time December 12, 2024 5: 20pm [facility] Medical Records Department [address] [place] [address] H&P Exam - Hospitalist 12/12/24 1712 MR#: [id number] Acct: [id number] Name: KEM CHOUDHURY Rep #:[id number] : 1945 79 From: Nava Donovan MD PCP: MAGGY Ortega tus:REG ER Location: ED HPI - General General Date of Admission: 12/12/24 Date of Service: 12/12/24 Chief Complaint: Urinary frequency HPI Narrative KEM CHOUDHURY, is a Patient is a 79-year-old female with hypertension possibleundiagnosed dementia who presented [facility] ED 12/12/2024 by her for altered mental [...] Aside from thefrequency she denies any complaints [facility] Dementia Kidney stones Non-smoker Home [...] urine but did know she was at [facility] and her date of HEENT: Atraumatic, [...] % (Auto) 61.2, Lymph % (Auto) 25.6, Day % (Auto) 9.0, Eos % (Auto) 3.0, [...] Sl. Cloudy, Urine pH 7.0, Ur Specific Ector 1.005, Urine Protein 30 H, Urine Glucose [...] CHRONIC CHANGES. NO ACUTE FINDINGS. Reading Location: [place] [address] Chest X-Ray 12/12/24 15:10 IMPRESSION: NO ACUTE FINDINGS. Reading Location: [place] [address] Assessment & Plan Assessment/Plan (1) Abnormal urinalysis: [...] -Outpatient follow-up and evaluation recommended #DVT ppx: Gracy Donovan MD Charges/Coding Visit Charges Inpatient E&M: 83544 Init Hosp L1 12/12/24 1720 <Electronically signed by Nava Donovan MD> Cosigner Signature (if applicable): CC: FLAT GRINDER OPERATORAnthony Gaytan; Dr. Nava Donovan MD~ Signed [facility] Work Phone: [phone]) 745-152908-11-2025 Evaluation note* Diagnosis Onset Date Resolution Status Admit Date Abnormal urinalysis acute Augus t 2024 5:12pm Altered mental status acute Aug ust 2024 5:12pm [facility] Work Phone: 1(149) 782-623008-11-2025 Discharge summary Author Musa Awan [facility] Note Date/Time December 12, 2024 5: 11pm [facility] Medical Records Department [address] [place] [address] Emergency Department Summary 12/12/24 MR#: [id number] Acct: [id number] Name: KEM CHOUDHURY Rep #:[id number] : 1945 79 From: Musa Zarco ggett DO PCP: MAGGY Ortega Sta tus:REG ER Location: ED HPI History [...] intact Psych: Cooperative, appropriate mood and affect PFS PFS Medical History (Updated 12/12/24 @ 16:53 by [...] % (Auto) 61.2 Lymph % (Auto) 25.6 Day % (Auto) 9.0 Eos % (Auto) 3.0 [...] Sl. Cloudy Urine pH 7.0 Ur Specific Ector 1.005 Urine Protein 30 H Urine Glucose [...] CHRONIC CHANGES. NO ACUTE FINDINGS. Reading Location: [facility]--1 Chest X-Ray 12/12/24 15:10 IMPRESSION: NO ACUTE FINDINGS. Reading Location: [facility]-IR-1 Discharge Plan Triage Chief Complaint: Confusion ED Provider: Musa Awan Dx/Rx/DC Orders Prescriptions: No Action NK Primary Care Provider: Amilcar Gaytan FLAT GRINDER OPERATOR Referrals: NOT,DEFINED [Non-Staff] - Print Language: Liberian What to do if you have Problems For any increased pain, shortness of breath, bleeding, nausea or vomiting, chestpain, or any unexpected problems, contact your Primary Care Provider. Call [facility] ([phone]) or report to the closest Emergency Room. Call 911 if necessary. 12/12/24 1711 <Electronically signed by Musa Awan DO> Cosigner Signature (if applicable): CC: MAGGY Gaytan ~ Signed [facility] Work Phone: 1([phone]) 422-891308-11-2025 History and physical note [facility] Medical Records Department [address] [place] [address] H&P Exam - Hospitalist 12/12/24 171 MR#: [id number] Acct: [id number] Name: KEM CHOUDHURY Rep #:[id number] : 1945 79 From: Nava Donovan MD PCP: MAGGY Ortega tus:REG ER Location: ED HPI - General General Date of Admission: 12/12/24 Date of Service: 12/12/24 Chief Complaint: Urinary frequency HPI Narrative KEM CHOUDHURY, is a Patient is a 79-year-old female with hypertension possibleundiagnosed dementia who presented [facility] ED 12/12/2024 by her for altered mental [...] UDS negative. UA with occult blood, leuk esterase,white blood cells and appears to be clean-catch, [...] Aside from thefrequency she denies any complaints [facility] Dementia Kidney stones Non-smoker Home [...] urine but did know she was at [facility] and her date of HEENT: Atraumatic, [...] % (Auto) 61.2, Lymph % (Auto) 25.6, Day % (Auto) 9.0, Eos % (Auto) 3.0, [...] Sl. Cloudy, Urine pH 7.0, Ur Specific Ector 1.005, Urine Protein 30 H, Urine Glucose [...] Screen NEGATIVE, Urine Fentanyl Screen NEGATIVE, Ur BarbituratesScreen NEGATIVE, Ur Phencyclidine Scrn NEGATIVE, Ur Amphetamines Screen NEGATIVE, U BenzodiazepinesScrn NEGATIVE, Urine Cocaine Screen NEGATIVE, U Cannabinoids Screen NEGATIVE Imaging Radiology Impression Brain CT 12/12/24 14:29 IMPRESSION: CHRONIC CHANGES. NO ACUTE FINDINGS. Reading Location: [facility]-1 Chest X-Ray 12/12/24 15:10 IMPRESSION: NO ACUTE FINDINGS. Reading Location: [facility]-1 Assessment & Plan Assessment/Plan (1) Abnormal urinalysis: (2) Altered mental status: PLAN: Plan #Altered mental status suspected secondary to urinary tract infection - Lab workup fairly benign -CT head negative -Alcohol and UDS negative -Will check thyroid function -UA with occult blood, leuk esterase, white blood cells and appears to be clean- catch, there is no bacteria that was noted [...] -Outpatient follow-up and evaluation recommended #DVT ppx: Lovenox Nava Donovan MD Charges/Coding Visit Charges Inpatient E&M: 80249 Init Hosp L1 12/12/24 1720 Cosigner Signature (if applicable): CC: MAGGY Gaytan; Dr. Nava Donovan MD~ Signed [facility]08-11-2025 Discharge summary [facility] Medical Records Department [address] [place] [address] Emergency Department Summary 12/12/24 MR#: [id number] Acct: [id number] Name: KEM CHOUDHURY Rep #:[id number] : 1945 79 From: Musa Zarco ggett DO PCP: Amilcar Gaytan, FLAT GRINDER OPERATOR-C Gillian tus:REG ER Location: ED HPI History of Present Illness Chief Complaint: Confusion Narrative Narrative: Chief complaint and HPI: Altered mental status. 79-year-old female with past medical history of HTNand possibly undiagnosed dementia presents for evaluationof altered mental status. History taken mostly by . states thathe suspects his has dementia as she occasionally will ask qu estions such asconfirming that she is the mother [...] intact Psych: Cooperative, appropriate mood and affect [facility] Medical History (Updated 12/12/24 @ 16:53 [...] History taken mostlyby . states that he suspectshis has dementia as she occasionally will ask [...] her believing the year is 1994 and thather is not her . Differential diagnosis includes [...] sent. Rocephin ordered. Patient was updated that shewill be admitted for a UTI. I spoke [...] % (Auto) 61.2 Lymph % (Auto) 25.6 Day % (Auto) 9.0 Eos % (Auto) 3.0 [...] Sl. Cloudy Urine pH 7.0 Ur Specific Ector 1.005 Urine Protein 30 H Urine Glucose [...] CHRONIC CHANGES. NO ACUTE FINDINGS. Reading Location: [place] [address] Chest X-Ray 12/12/24 15:10 IMPRESSION: NO ACUTE FINDINGS. Reading Location: [place] [address] Discharge Plan Triage Chief Complaint: Confusion ED Provider: Musa Awan Dx/Rx/DC Orders Prescriptions: No Action NK Primary Care Provider: Amilcar Gaytan NP Referrals: NOT,DEFINED [Non-Staff] - Print Language: Liberian What to do if you have Problems For any increased pain, shortness of breath, bleeding, nausea or vomiting, chestpain, or any unexpected problems, contact your Primary Care Provider. Call [facility] ([phone]) or report tothe closest Emergency Room. Call 911 if necessary. 12/12/24 1711 Cosigner Signature (if applicable): CC: FLAT GRINDER OPERATOR-C Amilcar Gaytan ~ Signed [facility]08-11-2025 Radiology Diagnostic study note [facility] Imaging Services [address] [place], [place] [address] Brain/Head without Contrast MR#: [id number] Acct: [id number] Name: KEM CHOUDHURY Rep #: [id number] 4 : 1945 F 79 From: Shorty Mccray MD PCP: NOT,DEFINED Status: PRE ER Study:Brain/Head without Contrast Date of Exa m: 12/12/24 Exam# [id number] Ordering Dr: Musa Phillips DO PROCEDURE: BRAIN/HEAD [...] CHRONIC CHANGES. NO ACUTE FINDINGS. Reading Location: [place] [address] CC: DEFINED NOT; Dr. Musa Awan DO ~ Post Graduate Intern: Signed [facility]08-11-2025 Radiology Diagnostic study note [facility] Imaging Services [address] [place] [phone] Chest PA and Lateral MR#: [id number] Acct: [id number] Name: KEM CHOUDHURY Rep #: [id number] : 1945 F 79 From: Shorty Mccray MD PCP: NOT,DEFINED Status: PRE ER Study:Chest PA and Lateral Date of Exam: 12/12/24 Exam# [id number] Ordering Dr: Musa Phillisp DO PROCEDURE: CHEST PA AND LATERAL 12/12/2024 REASON FOR EXAM: ALTERED MENTAL STATUS TECHNIQUE: CHEST PA AND LATERAL COMPARISON: None FINDINGS: Hardware: None Heart: The heart size is normal. Mediastinum: The mediastinal contour is unremarkable. Lungs: The lungs are clear. Bones: Degenerative changes are identified within the thoracic spine. RAD/Chest PA and Lateral IMPRESSION: NO ACUTE FINDINGS. Reading Location: [place] [address] CC: DEFINED NOT; Dr. Musa Awan DO ~ Post Graduate Intern: Signed [facility]09-06-2023 Note ORIGINAL EXAMINATION: BONE DENSITOMETRY 01/07/2023 10:58 [...] Sign Date: 01/07/2023 12:38:36 PM Ordering Provider: AMILCAR GAYTANRed Lodgefrandy [facility] summary Author Roly Lilly [facility] Note Date/Time December 15, 2024 12 :56pm [facility] Medical Records Department [address] [place] [address] Instructions for Home/Discharge Instructions 12/15/24 1251 MR#: [id number] Acct: [id number] Name: KEIKEM Gladis Rep #:[id number] : 1945 79 From: Roly aguirre DO PCP: MAGGY Ortega Sta tus:ADM IN Discharge Instructions DC O2, CPAP, BIPAP needs Home O2 Discharge instructions: No Dressing / Incision Discharge Activity: No Restrictions Follow Up Care Test Results: Test results from this visit will be discussed in further detail at your follow- up appointment, if applicable. Discharge Plan Admission Admit Date/Time: 12/12/24 17:12 Primary Reason for Your Visit: confusion and urinary frequency Attending Provider: Roly Lilly Primary Care Provider: Amilcar Gaytan NP Consulting Providers: Nava Donovan; Carmencita Sofia Discharge Orders/Prescriptions Prescriptions: New nitrofurantoin monohyd/m-cryst [Macrobid] 100 mg capsule 100 mg PO BID 2 Days Qty: 4 0RF Rx Instructions: must administer with a meal/food Referrals / Follow Up: NOT,DEFINED [Non-Staff] - Amilcar Gaytan FLAT GRINDER OPERATOR, FLAT GRINDER OPERATOR-C [Primary Care Provider] - Disposition Disposition (needs filled in before D/C Order can be placed): Home, Self Care 12/15/24 1256<Electronically signed by Roly Lilly DO>Roly Lilly DO CC: FLAT GRINDER OPERATOR-C Amilcar Gaytan; Dr. Carmencita Sofia MD; Dr. Nava Donovan MD~ Signed [facility] Work Phone: Evaluation + Plan note Future Appointments Appointment Date:11/07/2021 02:20:00 PM Scheduled Provider:AMILCAR GAYTAN APRN, CNP Location:[place] Appointment Type: OV Future Scheduled Tests Laboratory* Complete Metabolic Panel 04/13/21 [facility] Evaluation + Plan note Future Appointments Appointment Date:05/29/2022 09:00:00 AM Scheduled Provider:AMILCAR GAYTAN APRN, CNP Location:[place] Appointment Type: OV Follow Up Diagnostic Tests Pending * Renin, Plasma 05/13/22 [facility] Evaluation + Plan note Future Appointments Appointment Date:06/15/2023 08:00:00 AM Scheduled Provider:AMILCAR GAYTAN APRN, CNP Location:[facility] Appointment Type: OV Future Scheduled Tests Laboratory* Renin, Plasma 06/14/23 * Thyroid Stimulating Hormone 06/14/23 * A1C Hemoglobin 06/14/23 * Complete Blood Count 06/14/23 * Lipid Profile 06/14/23 * Albumin/Creatinine Ratio, Random Urine 06/14/23 * PTH, Intact 06/14/23 * Vitamin D Level 06/14/23 * Complete Metabolic Panel 06/14/23 [facility] Evaluation + Plan note Future Appointments Appointment Date:05/19/2023 01:40:00 PM Scheduled Provider:AMILCAR GAYTAN APRN, CNP Location:[place] Appointment Type:PC OV Follow Up Appointment Date:06/15/2023 08:00:00 AM Scheduled Provider:AMILCAR GAYTAN APRN, CNP Location:[place] Appointment Type:PC OV Future Scheduled Tests Laboratory* Renin, Plasma 06/14/23 * Thyroid Stimulating Hormone 06/14/23 * A1C Hemoglobin 06/14/23 * Complete Blood Count 06/14/23 * Lipid Profile 06/14/23 * Albumin/Creatinine Ratio, Random Urine 06/14/23 * PTH, Intact 06/14/23 * Vitamin D Level 06/14/23 * Complete Metabolic Panel 06/14/23 Radiology* XR Shoulder Minimum 2 Views Right 04/14/23 [facility] Evaluation + Plan note Future Appointments Appointment Date:06/15/2023 08:00:00 AM Scheduled Provider:AMILCAR GAYTAN APRN, CNP Location:[place] Appointment Type:PC OV Future Scheduled Tests Laboratory* Renin, Plasma 06/14/23 * Thyroid Stimulating Hormone 06/14/23 * A1C Hemoglobin 06/14/23 * Complete Blood Count 06/14/23 * Lipid Profile 06/14/23 * Albumin/Creatinine Ratio, Random Urine 06/14/23 * PTH, Intact 06/14/23 * Vitamin D Level 06/14/23 * Complete Metabolic Panel 06/14/23 Radiology* XR Shoulder Minimum 2 Views Right 04/14/23 [facility] Evaluation note* Diagnosis Onset Date Resolution Status Admit Date Abnormal urinalysis acute Augus t 2024 5:47pm Altered mental status acute Aug ust 2024 5:47pm [facility] Work Phone: History and physical note Author Nava Donovan [facility] Note Date/Time December 12, 2024 5: 20pm [facility] Medical Records Department [address] [place] [address] H&P Exam - Hospitalist 12/12/24 1712 MR#: [id number] Acct: [id number] Name: KEM CHOUDHURY Rep #:[id number] : 1945 79 From: Nava Donovan MD PCP: MAGGY Ortega tus:REG ER Location: ED HPI - General General Date of Admission: 12/12/24 Date of Service: 12/12/24 Chief Complaint: Urinary frequency HPI Narrative KEM CHOUDHURY, is a Patient is a 79-year-old female with hypertension possibleundiagnosed dementia who presented [facility] ED 12/12/2024 by her for altered mental [...] urine but did know she was at [facility] and her date of HEENT: Atraumatic, [...] % (Auto) 61.2, Lymph % (Auto) 25.6, Day % (Auto) 9.0, Eos % (Auto) 3.0, [...] Sl. Cloudy, Urine pH 7.0, Ur Specific Ector 1.005, Urine Protein 30 H, Urine Glucose [...] CHRONIC CHANGES. NO ACUTE FINDINGS. Reading Location: [facility]-1 Chest X-Ray 12/12/24 15:10 IMPRESSION: NO ACUTE FINDINGS. Reading Location: [place] [address] Assessment & Plan Assessment/Plan (1) Abnormal urinalysis: [...] -Outpatient follow-up and evaluation recommended #DVT ppx: Lovenox Nava Donovan MD Charges/Coding Visit Charges Inpatient E&M: 16429 Init Hosp L1 12/12/24 1720 <Electronically signed by Nava Donovan MD> Cosigner Signature (if applicable): CC: MAGGY Gaytan; Dr. Nava Donovan MD~ Signed [facility] Work Phone: Hospital course Narrative No data available for this section [facility] Hospital Discharge instructions No data available for this section [facility] Progress note No data available for this section [facility] Reason for referral (narrative)No reason for referral information availableWWood [facility] Work Phone: Summary Purpose Family History Relationship Condition Age at Onset Recorded Date/T lexii mother Hypertension Unknown Cardiac disease Unknown father Hypertension Unknown No Family History Records Found Advance Directives No Advanced Directives Records Found Advance Directive Response Recorded Date/ Time Do you have a Healthcare Power of [employer] School Combination Teacher? No [place] 11th, 2025 2:59pm Advance Directives No April 6:40pm Advance Directive Response Recorded Date/ Time Do you have a Healthcare Power of [employer] School Combination Teacher? No December 12, 2024 6:04pm Advance Directives No April 6:40pm Chief Complaint and Reason for Visit Chief Complaint Admit Date confusion December 12, 2024 5: 12pm confusion December 12, 2024 5: 47pm Reason for Visit Admit Date Abnormal urinalysis December 12, 2024 5: 47pm Altered mental status December 12, 2024 5:47pm Chief Complaint Admit Date SUSPECTED URINARY TRACT INFECTION CAUSIN G December 12, 2024 5:12pm SUSPECTED URINARY TRACT INFECTION CAUSIN G December 13, 2024 4:51pm SUSPECTED URINARY TRACT INFECTION CAUSIN G December 14, 2024 1:26pm Reason for Visit Admit Date Abnormal urinalysis December 12, 2024 5: 12pm Altered mental status December 12, 2024 5:12pm Additional Source Comments Care Team (unrecognized sect ion and content) Personnel Name: AMILCAR GAYTAN APRN - FRUIT HARVESTER MACHINE OPERATOR Address: Address: [address] [place] [address]- Care Team Personnel Name: AMILCAR GAYTAN APRN - FRUIT HARVESTER MACHINE OPERATOR Position: P4 Advanced Practice Nurse Member Role: Primary Care Physician Address: Address: [address] [place] [address]- Care Team Related Persons Name: PAT CHOUDHURY Address: [address] [phone] Patient Care team informatio n (unrecognized section and content) Team Status: Active Member Role/Relationship Status Dates Amilcar Gaytan FLAT GRINDER OPERATOR, FLAT GRINDER OPERATOR-C Primary Care Provider Active Team Status: Active Member Role/Relationship Status Dates Dr. Musa Awan DO Emergency Provider Activ e Start: December 12, 2024 Amilcar Gaytan FLAT GRINDER OPERATOR, FLAT GRINDER OPERATOR-C Primary Care Provider Active Start: December Dr. Nava Donovan MD Attending Provider Active Start: December 12, 2024 Team Status: Active Member Role/Relationship Status Dates Dr. Musa Awan DO Emergency Provider Activ e Start: December 12, 2024 Amilcar Gaytan FLAT GRINDER OPERATOR, FLAT GRINDER OPERATOR-C Primary Care Provider Active Start: December Dr. Nava Donovan MD Admit Provider Active Star t: December 12, 2024 Dr. Nava Donovan MD Attending Provider Active Start: December 12, 2024 Team Status: Inactive Member Role/Relationship Status Dates Dr. Musa Awan DO Emergency Provider Activ e Start: December 12, 2024 End: December 15, 2024 Amilcar Gaytan FLAT GRINDER OPERATOR, FLAT GRINDER OPERATOR-C Primary Care Provider Active Start: December End: December 15, 2024 Dr. Nava Donovan MD Admit Provider Active Star t: December 12, 2024 End: December 15, 2024 Dr. Nava Donovan MD Other Provider Active Star t: December 12, 2024 End: December 15, 2024 Dr. Rloy Lilly DO Attending Provider Active Start: December 12, 2024 End: December 15, 2024 Dr. Carmencita Sofia MD Other Provider Active St art: December 12, 2024 End: December 15, 2024 Team Status: Active Member Role/Relationship Status Dates Dr. Musa Awan DO Emergency Provider Activ e Start: December 13, 2024 Amilcar Gaytan FLAT GRINDER OPERATOR, FLAT GRINDER OPERATOR-C Primary Care Provider Active Start: December Dr. Nava Donovan MD Admit Provider Active Star t: December 13, 2024 Dr. Nava Donovan MD Other Provider Active Star t: December 13, 2024 Dr. Carmencita Sofia MD Attending Provider Active Start: December 13, 2024 Dr. Carmencita Sofia MD Other Provider Active St art: December 13, 2024 Team Status: Active Member Role/Relationship Status Dates Dr. Musa Awan DO Emergency Provider Activ e Start: December 14, 2024 Amilcar Gaytan FLAT GRINDER OPERATOR, FLAT GRINDER OPERATOR-C Primary Care Provider Active Start: December Dr. Nava Donovan MD Admit Provider Active Star t: December 14, 2024 Dr. Nava Donovan MD Other Provider Active Star t: December 14, 2024 Dr. Carmencita Sofia MD Attending Provider Active Start: December 14, 2024 Dr. Carmencita Sofia MD Other Provider Active St art: December 14, 2024 INFORMATION SOURCE (unrecogn ized section and content) DATE CREATED AUTHOR 01/01/2024 [facility] ([place]) DATE CREATED AUTHOR AUTHOR'S DWAINE ATION 12/21/2024 [facility] Goals (unrecognized section and content) Goals may [...] BE BASED ON THE PRIMARY CLINICAL RECORDS. [employer] provides no warranty or guarantee of the accuracy or completeness of information in this document.
[2024-12-25 14:47] VITALS: BP 151/88; PULSE 72; RESP 17; O2SAT 100
[2024-12-25 15:44] VITALS: BP 151/88; PULSE 72; RESP 17; TEMP 36.4; O2SAT 100
== END 2024-12-25 15:45 | disposition home or self-care (01) ==
PROVIDERS: Emergency Provider Emergency Medicine; PCP Nurse Practitioner Family; Visit Provider Emergency Medicine
DX: R44.1 Visual hallucinations (principal); F03.90 Unspecified dementia, unspecified severity, without behavioral disturbance, psychotic disturbance, mood disturbance, and anxiety
CPT/HCPCS: 70450; 71046; 80053; 81001; 85025; 93005; 99283; A4216